=== PATIENT | female | born 1980 | race Caucasian/White ===

== ENCOUNTER 2017-12-15 18:59 | Emergency (ER) | payer MEDICAID, SELFPAY ==
[2017-12-15 19:02] VITALS: BP 122/81; PULSE 120; RESP 18; TEMP 36.9; O2SAT 95; BMI 18.6
[2017-12-15 20:56] LABS: Amphetamine Urine VISTA NEGATIVE (<1000 ng/mL); Barbiturate Urine VISTA NEGATIVE (< 200 ng/mL); Benzodiazepine Urine VISTA NEGATIVE (< 200 ng/mL); Cocaine Urine VISTA NEGATIVE (< 300 ng/mL); Ecstacy Urine VISTA NEGATIVE (< 500 ng/mL); Methadone Urine VISTA NEGATIVE (< 300 ng/mL); PCP Urine VISTA NEGATIVE (< 25 ng/mL); THC Urine VISTA NEGATIVE (< 50 ng/mL); Vista UDS pH Range 6
[2017-12-15 21:00] VITALS: RESP 20
[2017-12-15 22:00] VITALS: RESP 18
--- NOTE | 2017-12-15 22:21 | EKG12_ITS ---
Test Reason : Blood Pressure : / mmHG Vent. Rate : 110 BPM Atrial Rate : 110 BPM P-R Int : 132 ms QRS Dur : 088 ms QT Int : 350 ms P-R-T Axes : 075 089 044 degrees QTc Int : 473 ms Sinus tachycardia Otherwise normal ECG Confirmed by BECKY HAWKINS, CHET ([id number]), publication editor AMIRA GARCIA ([id number] on 12/19/2017 1:00:13 PM Referred By: VLADIMIR Confirmed By:CHET PENA MD
--- NOTE | 2017-12-15 22:34 | ED.VISSUMM ---
- ER Visit Summary Date of Service: 12/15/17 Chief Complaint: [Anxiety, homicidal ideations] History of Present Illness: The patient is a 37 F [presents the emergency department with 1 week of worsening mental status. Over the past 3 days she is not sleeping she is having increasing Hommel thought suicidal thoughts which include torturing people. She says these are certain. People but she does not want to name names. She has decreased eating decreased concentration she is depressed she feels hopeless she has guilt. She denies any suicidal thoughts. She recently was started on venlafaxine 5 days ago. She has a primary care doctor but has not seen him yet. She has a history of PTSD and interstitial cystitis. She is complaining of dental pain that started while she was in the waiting room air. No fevers chills no chest pain or shortness of breath no abdominal pain or skin problems. She does not work she does smoke she denies drugs and alcohol] Physical Examination: [] Heart rate 120 blood pressure 122/81 respiratory rate 2095% on room air WN WD NAD PERRL EOMI MMM Widespread dental decay and gingival hyperemia no focal abscess NECK supple and nontender, no masses Regular tachycardic rhythm no murmur rub or gallop, no peripheral edema, symmetric radial pulses CTAB no respiratory distress ABDOMEN is soft and nontender, normal bowel sounds, no distension, no rebound or guarding SKIN is warm and dry no rashes Alert and Oriented x3, CN II-XII in tact, no motor or sensory deficits, gait normal She has, poor eye contact, endorsing homicidal ideations fidgety and restless No lymphadenopathy Test Results: [] Emergency Department Course and Treatment: [Patient was given oxycodone for dental pain. Clearance labs were obtained and mental health evaluation was ordered. Patient continued to complain of dental pain she was given Tylenol. Mental health went in to evaluate her as screening blood work and tox were normal and she stated she was having blood in her urine and severe right flank pain. She did not ever mention these complaints to me. At that time urinalysis was sent and was consistent with hemorrhagic cystitis. I did do a CT to rule out kidney stone and CT was normal. Patient has a history of interstitial cystitis. Urine culture was sent and she was given IM ceftriaxone. She is medically clear for psychiatric treatment. She will however require antibiotics.] Treatment Plan: [] Disposition: [] Impression: [1. Homicidal ideations 2. Hemorrhagic cystitis] This note was generated with [employer] dictation software. It may contain incorrect words, spelling, and punctuation that were not noted in review of the chart prior to signing ED Disposition - Plan for ED Patient: Chief Complaint: Mental Health Referrals: Phillip Andino MD [Primary Care Provider] -
[2017-12-15 22:48] LABS: Absolute Neutrophil Count 6.4 X10^3/uL (2.0-7.7); Basophil# 0.05 X10^3/uL; Basophil% 0.5 % (0-1); Eosinophil# 0.31 X10^3/uL; Hemoglobin 13.5 g/dl (12.0-15.0); Lymphocyte % 27.9 % (19-41); Mean Corp Hgb Conc 33.8 g/gl (32-36); Mean Corpuscular Volume 91.7 fL (81-99); Mean Platelet Vol. 9.4 fl (6.2-12.0); Monocyte# 0.71 X10^3/uL; Monocyte% 6.8 % (0-10); Neutrophil # 6.41 X10^3/uL (2.7-7.7); Neutrophil % 61.6 % (47-70); Platelet Count 256 K/mm3 (150-450); RBC Distribution Width CV 13.8 % (11.6-14.6); RBC Distribution Width SD 46.6 fl (35.1-43.9); Red Blood Count 4.36 M/mm3 (4.2-5.4); White Blood Count 10.4 K/mm3 (4.4-11.0)
[2017-12-15 22:49] LABS: POSITIVE COUNT NO; POSITIVE DIFFERENTIAL NO; POSITIVE MORPHOLOGY NO
[2017-12-15] MEDS: oxyCODONE 5 MG Tablet PO (22:51)
[2017-12-15 23:00] VITALS: RESP 18
[2017-12-15 23:15] LABS: Alcohol, Blood (Medical)-Serum < 3.0 mg/dL
--- NOTE | 2017-12-15 23:22 | ED.RN ---
Whitney from crisis called and updated on patients condition. She remains at [facility] and will be over as soon possible to see patients
[2017-12-15 23:24] LABS: Anion Gap 10 (5-15); BUN 9 mg/dL (7-18); BUN/Creat Ratio 14.8 RATIO (10-20); Calcium,Total 8.6 mg/dL (8.5-10.1); Chloride 105 mmol/L (98-107); Creatinine, Serum 0.61 mg/dL (0.55-1.02); EST Glomerular Filtration Rate 118 mL/min (>60); Est Glom Filt Rate - Afr Amer 142 mL/min (>60); Estimated Creatinine Clearance 92.79 ml/min; Glucose 90 mg/dL (74-106); Potassium 3.5 mmol/L (3.5-5.1); Pregnancy, Serum, hCG Quali. NEGATIVE Negative (0-9 Nonpreg); Sodium Level 140 mmol/L (136-145); Thyroid Stim Hormone (TSH) 1.86 uIU/mL (0.358-3.74)
[2017-12-16] VITALS (14 sets, daily range): BP systolic 115–126; BP diastolic 70–90; PULSE 61–107; RESP 14–18; O2SAT 95–99
--- NOTE | 2017-12-16 01:23 | ED.RN ---
DR GILBERT MADE AWARE PT ASKING FOR PAIN MED FOR TEETH PAIN.
[2017-12-16] MEDS: Acetaminophen 500 MG Tablet 1000 MG PO (01:33)
--- NOTE | 2017-12-16 04:14 | CT_ITS ---
STUDY: CT ABDOMEN AND PELVIS WITHOUT CONTRAST REASON FOR EXAM: Female, 37 years old. Decreased appetite. Hematuria RADIATION DOSAGE (If Supplied By Facility): CTDIvol = ( 6.04 ) mGy, DLP = ( 270.28 ) mGycm TECHNIQUE: Transaxial images were obtained from the dome of the diaphragm to the symphysis pubis without oral contrast, and without intravenous contrast. Sagittal and coronal images were reconstructed. Individualized dose optimization techniques were used for this CT. COMPARISON: None. FINDINGS: The visualized lung bases are unremarkable. The visualized portions of the heart are within normal limits. Normal liver. Normal gallbladder and extrahepatic biliary system. Normal spleen. Normal pancreas. Normal bilateral adrenal glands. Normal right kidney. Normal left kidney. Normal visualized stomach. Normal small intestine. Normal colon. The appendix is visualized and appears normal. Normal abdominal aorta. Normal inferior vena cava. Normal retroperitoneum. Normal urinary bladder. Normal abdominal wall. Normal osseous structures. CT/Abdomen/Pelvis without Cont IMPRESSION: Normal unenhanced CT of the abdomen and pelvis. No acute findings Electronically Signed: Tj Mendoza, at 4:54 EST Tel , Service support ,
[2017-12-16 04:23] LABS: Bacteria 0 SEEN /hpf (None Seen)
[2017-12-16 04:25] LABS: Color, Urine Brown (Yellow); Glucose, Dipstick Normal (Normal); Ketone-Dipstick 15 mg/dl (Negative); Leukocyte Esterase-Dipstick 500 /ul (Negative); Nitrite-Dipstick Negative (Negative); Occult Blood-Urine 250 /ul (Negative); Protein-Dipstick 100 mg/dl (Negative); Specific Gravity, Urine 1.025 (1.002-1.030); Urine Clarity Turbid (Clear); Urine Urobilinogen 1 mg/dl (Normal); Urine pH 6.5 (5.0 - 8.0)
[2017-12-16 04:38] LABS: Urine Bilirubin Dipstick 1 mg/dL (Negative)
[2017-12-16 04:39] LABS: Mucous, Urine 1+ /hpf (<or=2+); Red Blood Cells-Urine > 100 SEEN /hpf (0-5); Squamous Epithelial Cells - UA 5-10 SEEN /hpf (5-10); White Blood Cells 50-100 SEEN /hpf (0-5)
[2017-12-16] MEDS: Ceftriaxone 1 GM Vial IM (05:21)
[2017-12-16] MEDS: oxyCODONE 5 MG Tablet PO (07:00)
[2017-12-16] MEDS: Acetaminophen 325 MG Tablet 650 MG PO (10:57)
== END 2017-12-16 13:45 ==
LOC: ED 23:15
PROVIDERS: Emergency Provider Emergency Medicine; Family Provider Family Medicine; PCP Family Medicine
DX: N30.91 Cystitis, unspecified with hematuria (principal); R45.850 Homicidal ideations; K02.9 Dental caries, unspecified; K08.89 Other specified disorders of teeth and supporting structures; F43.10 Post-traumatic stress disorder, unspecified; X58.XXXA Exposure to other specified factors, initial encounter; Y93.9 Activity, unspecified; Y92.9 Unspecified place or not applicable; Y99.9 Unspecified external cause status; F17.200 Nicotine dependence, unspecified, uncomplicated; Z79.899 Other long term (current) drug therapy
CPT/HCPCS: 36415; 74176; 80048; 80307; 80320; 81001; 84443; 84703; 85025; 87086; 87088; 87186; 93005; 96372; 99284; G0480

== ENCOUNTER 2017-12-31 12:14 | Emergency (ER) | payer MEDICAID, SELFPAY ==
[2017-12-31 12:15] VITALS: BP 138/86; PULSE 101; RESP 16; TEMP 36.4; O2SAT 97; BMI 19.0
--- NOTE | 2017-12-31 12:49 | ED.DCSUM_ITS ---
- ER Visit Summary Date of Service: 12/31/17 Chief Complaint: [Request for medication refill] History of Present Illness: The patient is a 37 F [presents to the emergency department stating that she took her last Ativan tablet this morning and was told by the counseling center to come to the ER potentially be written for more as her appointment with her psychiatrist is not till the 16th of the month. Patient apparently was admitted to [facility] several weeks ago for homicidal thoughts in which time when she was discharged was written a prescription for 60 Ativan tablets on the which was supposed to be a 30 day supply. Patient states that her anxiety has been very high and she is been taking 3-4 tablets a day instead of the 2 tablets a day. Patient also states she was started on Cymbalta prior to discharge. Patient denies being suicidal or homicidal at this time. Patient also has a history of depression and PTSD.] Physical Examination: [HEENT-PERRLA, EOMI. Cranial nerves II through XII grossly intact. TMs clear. Mucous membranes moist. No adenopathy. Cardiovascular-regular rate and rhythm without murmur or ectopy Lungs-clear to auscultation, chest wall stable without crepitus or subcu emphysema Abdomen-normoactive bowel sounds, soft, nontender, no rebound or rigidity, no peritoneal signs. Extremities-intact ?4, normal range of motion, normal pulses, atraumatic] Test Results: [None indicated] Emergency Department Course and Treatment: [I did perform an OARS report showed that patient had a prescription for lorazepam 1 mg tablets written for on December 21. In October she was written a prescription for Valium 10 mg tablets total of 14. Patient otherwise has not been on chronic benzodiazepine medication. I had a long discussion with the patient regarding appropriate use of the medication and she understands that we do not want to abruptly discontinue benzodiazepines due to the risk of seizure. Patient also understands that there is a possibility for addiction with these type of medications. At this point I will write her for a small supply and recommended that she only use them sparingly at no more than 1-2 a day and I asked that she follow-up with her psychiatrist sooner than the 16th if at all possible.] Treatment Plan: [She will be given prescription for Ativan 20 tablets.] Disposition: [Discharged to home in stable condition] Impression: [Anxiety Medication refill for Ativan] This note was generated with [employer]aculous dictation software. It may contain incorrect words, spelling, and punctuation that were not noted in review of the chart prior to signing ED Disposition - Plan for ED Patient: Chief Complaint: Med Refill Referrals: Phillip Andino MD [Primary Care Provider] -
--- NOTE | 2017-12-31 12:50 | ED.DEP ---
ED Disposition - Plan for ED Patient: Chief Complaint: Med Refill Instructions: Med Refill, ED Stress React Prescriptions: Lorazepam [Ativan] 1 mg PO BID PRN #20 tab PRN Reason: Anxiety Referrals: Phillip Andino MD [Primary Care Provider] - 3-5 Days Additional Instructions: see your psychiatrist
== END 2017-12-31 12:57 | disposition home or self-care (01) ==
LOC: ED 12:51
PROVIDERS: Emergency Provider Emergency Medicine; Family Provider Family Medicine; PCP Family Medicine
DX: F41.9 Anxiety disorder, unspecified (principal); Z76.0 Encounter for issue of repeat prescription; F32.9 Major depressive disorder, single episode, unspecified; F43.10 Post-traumatic stress disorder, unspecified; X58.XXXA Exposure to other specified factors, initial encounter; Y93.9 Activity, unspecified; Y92.9 Unspecified place or not applicable; Y99.9 Unspecified external cause status; J45.909 Unspecified asthma, uncomplicated; Z72.0 Tobacco use; Z79.899 Other long term (current) drug therapy
CPT/HCPCS: 99282

== ENCOUNTER 2018-01-08 05:49 | Emergency (ER) | payer MEDICAID, SELFPAY ==
[2018-01-08 05:50] VITALS: BP 121/98; PULSE 110; RESP 18; TEMP 36.6; O2SAT 99; BMI 17.6
--- NOTE | 2018-01-08 05:57 | CT_ITS ---
STUDY: CT ABDOMEN AND PELVIS WITHOUT CONTRAST REASON FOR EXAM: Female, 37 years old. Right flank pain for 2 days. RADIATION DOSAGE (If Supplied By Facility): CTDIvol = ( 6.04 ) mGy, DLP = ( 271.80 ) mGycm TECHNIQUE: Transaxial images were obtained from the dome of the diaphragm to the symphysis pubis without oral contrast, and without intravenous contrast. Sagittal and coronal images were reconstructed. Individualized dose optimization techniques were used for this CT. COMPARISON: December 16, 2017. FINDINGS: The visualized lung bases are unremarkable. The visualized portions of the heart are within normal limits. Normal liver. Normal gallbladder and extrahepatic biliary system. Normal spleen. Normal pancreas. Normal bilateral adrenal glands. Normal right kidney. Normal left kidney. Normal visualized stomach. Normal small intestine. Normal colon. The appendix is well visualized coronal images 45 through 47 and appears normal. Normal abdominal aorta. Normal inferior vena cava. Normal retroperitoneum. No intra-abdominal free air. Normal urinary bladder. Uterus absent compatible with hysterectomy. No adnexal masses seen. Normal abdominal wall. Normal osseous structures. CT/Abdomen/Pelvis without Cont IMPRESSION: No acute findings in the abdomen or pelvis. No hydronephrosis or urinary tract stones. Appendix is normal. Electronically Signed: Marco Kimbrough MD at 7:23 EDT , Service support ,
--- NOTE | 2018-01-08 05:58 | ED.VISSUMM ---
- ER Visit Summary Date of Service: 01/08/18 Chief Complaint: Right lower quadrant and right flank abdominal pain History of Present Illness: The patient is a 37 F with a 2 day history of right lower quadrant and right flank abdominal pain. Denies any trauma. Denies any fever. Denies any dysuria. Reportedly has a history of interstitial cystitis. And anxiety. She has had a prior hysterectomy with her right ovary removed. She denies any vaginal bleeding or discharge. Patient states she has been moving her bowels and peeing okay. No prior history of kidney stones. Physical Examination: Young female no distress. Vital signs are stable and afebrile. HEENT exam unremarkable. Neck nontender no lymphadenopathy. Lungs clear to auscultation bilaterally. Heart regular rhythm no murmur. Abdomen is soft. Nondistended. Normal bowel sounds. No hernias or masses appreciated. No distention no signs of obstruction. She is only tender in the right lower quadrant. There is no ecchymosis or bruising no signs of trauma. Both the right upper, left upper and left lower quadrants are all nontender. She is moving all 4 extremities. They are neurovascularly intact. Her neurologic exam is normal. Her back exam is nontender. Test Results: CBC shows a white count of 10. H&H of 13 and 40. BMP is unremarkable. UA is normal. She has no signs of infection nor any blood. CT flank is read by the radiologist shows no acute abnormality. The appendix is normal. There are no kidney stones or other acute abnormalities that would explain her pain. Emergency Department Course and Treatment: Treated with IV fluids, Zofran and morphine. Treatment Plan: Multiple repeat exams. The patient's abdomen was benign. Clinically I do not think this is very unlikely to be appendicitis. Depending on the pending labs disposition will be made. Disposition: Discharge Impression: Acute right flank and right lower quadrant abdominal pain of uncertain etiology This note was generated with [employer] dictation software. It may contain incorrect words, spelling, and punctuation that were not noted in review of the chart prior to signing ED Disposition - Plan for ED Patient: Chief Complaint: Flank Pain Referrals: Phillip Andino MD [Primary Care Provider] -
[2018-01-08 06:14] LABS: Absolute Neutrophil Count 6.8 X10^3/uL (2.0-7.7); Basophil# 0.06 X10^3/uL; Basophil% 0.6 % (0-1); Eosinophil# 0.55 X10^3/uL; Eosinophils% 5.1 % (0-5); Hematocrit 40.6 % (37-47); Hemoglobin 13.8 g/dl (12.0-15.0); Lymphocyte % 22.3 % (19-41); Mean Corpuscular Hgb 31.4 pg (27.0-32.0); Mean Corpuscular Volume 92.3 fL (81-99); Mean Platelet Vol. 9.8 fl (6.2-12.0); Monocyte# 0.89 X10^3/uL; Monocyte% 8.3 % (0-10); Neutrophil # 6.84 X10^3/uL (2.7-7.7); Neutrophil % 63.5 % (47-70); POSITIVE COUNT NO; POSITIVE DIFFERENTIAL NO; POSITIVE MORPHOLOGY NO; Platelet Count 296 K/mm3 (150-450); RBC Distribution Width CV 13.1 % (11.6-14.6); RBC Distribution Width SD 43.6 fl (35.1-43.9); White Blood Count 10.8 K/mm3 (4.4-11.0)
[2018-01-08 06:26] LABS: Anion Gap 8 (5-15); BUN 9 mg/dL (7-18); BUN/Creat Ratio 12.4 RATIO (10-20); Calcium,Total 8.9 mg/dL (8.5-10.1); Chloride 105 mmol/L (98-107); Creatinine, Serum 0.72 mg/dL (0.55-1.02); EST Glomerular Filtration Rate 96 mL/min (>60); Est Glom Filt Rate - Afr Amer 117 mL/min (>60); Estimated Creatinine Clearance 74.35 ml/min; Glucose 106 mg/dL (74-106); Potassium 3.6 mmol/L (3.5-5.1); Sodium Level 141 mmol/L (136-145)
[2018-01-08] MEDS: 0.9% Normal Saline 1,000 ML 1000 ML IV (06:26)
[2018-01-08] MEDS: Ondansetron 4 MG/2 ML Vial IV (06:27)
[2018-01-08 07:07] LABS: Bacteria 0 SEEN /hpf (None Seen); Mucous, Urine 0 SEEN /hpf (<or=2+); Red Blood Cells-Urine 0 SEEN /hpf (0-5); White Blood Cells 0 SEEN /hpf (0-5)
[2018-01-08 07:12] LABS: Color, Urine Yellow (Yellow); Glucose, Dipstick Normal (Normal); Ketone-Dipstick Negative (Negative); Leukocyte Esterase-Dipstick Negative /ul (Negative); Nitrite-Dipstick Negative (Negative); Occult Blood-Urine Negative /ul (Negative); Protein-Dipstick Negative (Negative); Urine Bilirubin Dipstick Negative (Negative); Urine Clarity Clear (Clear); Urine Urobilinogen Normal (Normal)
[2018-01-08 07:21] LABS: Squamous Epithelial Cells - UA 0-5 SEEN /hpf (5-10)
--- NOTE | 2018-01-08 07:31 | ED.DEP ---
ED Disposition - Plan for ED Patient: Disposition: Home or Assisted Living Chief Complaint: Flank Pain Instructions: ED Flank Pain Uncertain Cause Referrals: Phillip Andino MD [Primary Care Provider] - As soon as possible Additional Instructions: Your labs, urinalysis and CAT scan were all unremarkable. Need follow-up your primary care physician.
== END 2018-01-08 07:49 | disposition home or self-care (01) ==
PROVIDERS: Emergency Provider Emergency Medicine; Family Provider Family Medicine; PCP Family Medicine
DX: R10.31 Right lower quadrant pain (principal); R19.7 Diarrhea, unspecified; R11.0 Nausea; F32.9 Major depressive disorder, single episode, unspecified; F41.9 Anxiety disorder, unspecified; Z72.0 Tobacco use; Z79.899 Other long term (current) drug therapy; Z87.440 Personal history of urinary (tract) infections; Z90.710 Acquired absence of both cervix and uterus
CPT/HCPCS: 74176; 80048; 81001; 85025; 96361; 96374; 96375; 99285; J7030; A4216; J2405

== ENCOUNTER → 2018-01-12 14:14 | Outpatient (CLI) | payer MEDICAID, SELFPAY ==
[2018-01-12 16:32] LABS: Amphetamine Urine VISTA NEGATIVE (<1000 ng/mL); Barbiturate Urine VISTA NEGATIVE (< 200 ng/mL); Benzodiazepine Urine VISTA NEGATIVE (< 200 ng/mL); Cocaine Urine VISTA NEGATIVE (< 300 ng/mL); Ecstacy Urine VISTA NEGATIVE (< 500 ng/mL); Methadone Urine VISTA NEGATIVE (< 300 ng/mL); PCP Urine VISTA NEGATIVE (< 25 ng/mL); THC Urine VISTA NEGATIVE (< 50 ng/mL); Vista UDS pH Range 5
== END ==
PROVIDERS: Family Provider Family Medicine; PCP Family Medicine; Visit Provider Obstetrics & Gynecology
DX: F19.10 Other psychoactive substance abuse, uncomplicated (principal)
CPT/HCPCS: 80307

== ENCOUNTER 2018-01-30 13:03 | Emergency (ER) | payer MEDICAID, SELFPAY ==
[2018-01-30] VITALS (7 sets, daily range): BP systolic 108–117; BP diastolic 74–93; PULSE 14–116; RESP 14–18; TEMP 36.7; O2SAT 97–98; BMI 17.6
[2018-01-30 13:56] LABS: Mucous, Urine 0 SEEN /hpf (<or=2+); Red Blood Cells-Urine 0 SEEN /hpf (0-5)
[2018-01-30 14:02] LABS: Absolute Neutrophil Count 4.9 X10^3/uL (2.0-7.7); Basophil# 0.03 X10^3/uL; Basophil% 0.4 % (0-1); Eosinophil# 0.36 X10^3/uL; Eosinophils% 5.3 % (0-5); Hematocrit 43.4 % (37-47); Hemoglobin 14.6 g/dl (12.0-15.0); Lymphocyte % 17.5 % (19-41); Mean Corp Hgb Conc 33.6 g/gl (32-36); Mean Corpuscular Hgb 31.1 pg (27.0-32.0); Mean Corpuscular Volume 92.5 fL (81-99); Mean Platelet Vol. 10.7 fl (6.2-12.0); Monocyte# 0.39 X10^3/uL; Monocyte% 5.7 % (0-10); Neutrophil # 4.86 X10^3/uL (2.7-7.7); POSITIVE COUNT NO; POSITIVE DIFFERENTIAL NO; POSITIVE MORPHOLOGY NO; Platelet Count 177 K/mm3 (150-450); RBC Distribution Width CV 12.9 % (11.6-14.6); Red Blood Count 4.69 M/mm3 (4.2-5.4); White Blood Count 6.9 K/mm3 (4.4-11.0)
[2018-01-30 14:04] LABS: Color, Urine Yellow (Yellow); Glucose, Dipstick Normal (Normal); Ketone-Dipstick Negative (Negative); Leukocyte Esterase-Dipstick 25 /ul (Negative); Nitrite-Dipstick Negative (Negative); Occult Blood-Urine 10 /ul (Negative); Protein-Dipstick 30 mg/dl (Negative); Urine Bilirubin Dipstick Negative (Negative); Urine Clarity Sl. Cloudy (Clear); Urine Urobilinogen Normal (Normal)
[2018-01-30 14:08] LABS: Amphetamine Urine VISTA NEGATIVE (<1000 ng/mL); Barbiturate Urine VISTA NEGATIVE (< 200 ng/mL); Benzodiazepine Urine VISTA NEGATIVE (< 200 ng/mL); Cocaine Urine VISTA NEGATIVE (< 300 ng/mL); Ecstacy Urine VISTA NEGATIVE (< 500 ng/mL); Methadone Urine VISTA NEGATIVE (< 300 ng/mL); PCP Urine VISTA NEGATIVE (< 25 ng/mL); THC Urine VISTA NEGATIVE (< 50 ng/mL); Vista UDS pH Range 5
[2018-01-30 14:10] LABS: Alcohol, Blood (Medical)-Serum < 3.0 mg/dL
[2018-01-30 14:14] LABS: Bacteria RARE /hpf (None Seen); Squamous Epithelial Cells - UA 5-10 SEEN /hpf (5-10); White Blood Cells 5-10 SEEN /hpf (0-5)
[2018-01-30 14:16] LABS: BUN 11 mg/dL (7-18); Creatinine, Serum 0.67 mg/dL (0.55-1.02); Glucose 89 mg/dL (74-106)
[2018-01-30 14:17] LABS: Anion Gap 5 (5-15); BUN/Creat Ratio 16.5 RATIO (10-20); Calcium,Total 8.6 mg/dL (8.5-10.1); Chloride 110 mmol/L (98-107); EST Glomerular Filtration Rate 106 mL/min (>60); Est Glom Filt Rate - Afr Amer 128 mL/min (>60); Estimated Creatinine Clearance 80.45 ml/min; Potassium 4.1 mmol/L (3.5-5.1); Sodium Level 137 mmol/L (136-145)
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
[2018-01-30] MEDS: LORazepam 1 MG Tablet PO (17:00)
--- NOTE | 2018-01-30 17:09 | ED.RN ---
PER DONNY WITH CRISIS; ALL INFORMATION WAS FAXED TO [facility], WE ARE WAITING ON ACCEPTANCE FROM THEM
--- NOTE | 2018-01-30 18:06 | ED.RN ---
SPOKE WITH LORRI AT THE [facility] CALLED US AND SAID THAT ALL THE INFORMATION THAT WAS FAXED IT ALL LOOKED GOOD AND THAT THE FABRIC AND ACCESSORIES ESTIMATOR NEEDED TO CALL AND SPEAK WITH THE PSYCHIATRIST @ [phone]. AFTER THAT CRISIS IS TO CALL [phone] AND SPEAK WITH FLETCHER TO RELAY THE INFORMATION TO HER
--- NOTE | 2018-01-30 21:49 | ED.RN ---
[facility] HERE FOR TRANSPORT TO [facility]. REPORT GIVEN AND PATIENT UNDER OWN POWER TO TRANSPORT STRETCHER WITHOUT INCIDENT.
== END 2018-01-30 21:49 ==
PROVIDERS: Emergency Provider Emergency Medicine; Family Provider Family Medicine; PCP Family Medicine
DX: F32.9 Major depressive disorder, single episode, unspecified (principal); R45.851 Suicidal ideations; T22.231A Burn of second degree of right upper arm, initial encounter; X76.XXXA Intentional self-harm by smoke, fire and flames, initial encounter; Y93.9 Activity, unspecified; Y92.9 Unspecified place or not applicable; Y99.9 Unspecified external cause status; S51.812A Laceration without foreign body of left forearm, initial encounter; X78.1XXA Intentional self-harm by knife, initial encounter; J45.909 Unspecified asthma, uncomplicated; F41.9 Anxiety disorder, unspecified; Z72.0 Tobacco use; Z90.710 Acquired absence of both cervix and uterus; Z79.899 Other long term (current) drug therapy
CPT/HCPCS: 36415; 80048; 80307; 80320; 81001; 85025; 99284; G0480

== ENCOUNTER 2018-03-23 11:13 | Day surgery (SDC) | payer MEDICAID, SELFPAY ==
[2018-03-22 16:14] LABS: Absolute Lymphocyte Count 2.49 X10^3/ul (0.83-4.51); Absolute Neutrophil Count 5.5 X10^3/uL (2.0-7.7); Basophil# 0.05 X10^3/uL; Basophil% 0.6 % (0-1); Eosinophil# 0.28 X10^3/uL; Eosinophils% 3.1 % (0-5); Hematocrit 40.1 % (37-47); Hemoglobin 13.7 g/dl (12.0-15.0); Lymphocyte # 2.49 X10^3/ul (4.0); Lymphocyte % 27.9 % (19-41); Mean Corp Hgb Conc 34.2 g/gl (32-36); Mean Corpuscular Hgb 31.2 pg (27.0-32.0); Mean Corpuscular Volume 91.3 fL (81-99); Mean Platelet Vol. 9.6 fl (6.2-12.0); Monocyte# 0.55 X10^3/uL; Monocyte% 6.2 % (0-10); Neutrophil # 5.54 X10^3/uL (2.7-7.7); Neutrophil % 61.9 % (47-70); Platelet Count 362 K/mm3 (150-450); RBC Distribution Width CV 13.4 % (11.6-14.6); RBC Distribution Width SD 44.7 fl (35.1-43.9); Red Blood Count 4.39 M/mm3 (4.2-5.4); White Blood Count 8.9 K/mm3 (4.4-11.0)
[2018-03-22 16:17] LABS: POSITIVE COUNT NO; POSITIVE DIFFERENTIAL NO; POSITIVE MORPHOLOGY NO
[2018-03-22 17:09] LABS: Amphetamine Urine VISTA NEGATIVE (<1000 ng/mL); Barbiturate Urine VISTA NEGATIVE (< 200 ng/mL); Benzodiazepine Urine VISTA NEGATIVE (< 200 ng/mL); Cocaine Urine VISTA NEGATIVE (< 300 ng/mL); Ecstacy Urine VISTA NEGATIVE (< 500 ng/mL); Methadone Urine VISTA NEGATIVE (< 300 ng/mL); PCP Urine VISTA NEGATIVE (< 25 ng/mL); THC Urine VISTA NEGATIVE (< 50 ng/mL); Vista UDS pH Range 5
[2018-03-23] VITALS (10 sets, daily range): BP systolic 93–129; BP diastolic 52–87; PULSE 64–108; RESP 14–20; TEMP 36.8–37.2; O2SAT 95–100; BMI 18.8
--- NOTE | 2018-03-23 | OV_PTH ---
PATIENT: MIA VILLAFUERTE LOC: [facility] [place] U#:[id number] AGE/SX: 37/F ROOM: RE03/23/[address]: Dr. Almaz Jimenez MD : 1980 BED: DIS: 03/23/2018 SPEC #: [id number] RECD: 03/24/18 13:18 STATUS: GANESH CARO #: [id number] FAMILIA: 03/23/18 00:[address]: Almaz Jimenez DEPT: SURGICAL PATHOLOGY RECD BY: Ankit Tovar ENTERED: 03/24/18 13:18 SP TYPE: OVARY OTHR DR: Dr. Phillip Andino MD Tissues: Right ovary Procedures: Surgery Specimen Level IV HEADER OPERATION: Laparoscopic oophorectomy PRE-OP DIAGNOSIS: Chronic pelvic pain TISSUE SUBMITTED: Right ovary MICROSCOPIC DIAGNOSIS Right ovary, oophorectomy: Physiologic follicular and corpus luteum cysts. SJ:jorge 03/28/18 MICROSCOPIC DESCRIPTION Slides are reviewed. GROSS DESCRIPTION Received in fixative is one container labeled with the patient's name and designated right ovary. The specimen consists of a soft to cystic ovary measuring 3.8 x 3 x 2 cm and weighing 9.5 gm. The outer surface is smooth. Sections reveal multiple cysts filled with clear to hemorrhagic fluid. A corpus luteum is also noted measuring 1.5 cm in greatest dimension. A hemorrhagic cyst is also noted measuring 1 cm in greatest dimension. Contracts Law Professor sections are submitted in three cassettes. / SJ:jorge 03/24/18 TC:4 CPT: 74305
--- NOTE | 2018-03-23 09:55 | PCM.HPOB.BLA ---
- Problem List (1) Chronic female pelvic pain Status: Chronic (2) Ovarian cyst Status: Acute Qualifiers: Comment: right side- ER Santhosh Nichole 01/09/18 (3) Abdominal pain Status: Acute History and Physical Date of Admission: 03/23/18 Vital Signs 01/10/18 Height 5 ft 2 in 01/10/18 Weight: 102 lb 01/10/18 Body Mass Index (BMI) 18.6 01/10/18 Blood Pressure 110/73 Intake Visit Reasons: ER F/U CYST ON OVARY Program Coordinator Required: No Accompanied by: Is patient in pain?: Yes (abdominal area) Pain scale (1-10): 5 Allergies adhesive Allergy (Verified 01/08/18 05:52) Itching latex Allergy (Verified 01/08/18 05:52) Itching vancomycin Allergy (Verified 01/08/18 05:52) Itching aspirin Adverse Reaction (Verified 01/08/18 05:52) Other codeine Adverse Reaction (Verified 01/08/18 05:52) Other naproxen Adverse Reaction (Verified 01/08/18 05:52) Unknown NSAIDS (Non-Steroidal Anti-Inflamma Adverse Reaction (Verified 01/08/18 05:52) Unknown tramadol HCl [From Ultra] Adverse Reaction (Verified 01/08/18 05:52) Other Medications Venlafaxine XR [Effexor Xr] 37.5 mg PO DAILY 12/15/17 [History Confirmed 01/08/18] Lorazepam [Ativan] 1 mg PO BID PRN #20 tab 12/31/17 [Rx Confirmed 01/08/18] oxycodone-acetaminophen 5 mg-325 mg tablet 1 tab PO Q4H PRN 7 Days #14 tab 01/12/18 [Rx] Is last menstrual period known: Yes Last Menstral Period: 03/28/12 PFSH Medical History Asthma (Acute) Interstitial cystitis (Acute) Tubal (Acute) Surgical History H/O exploratory laparotomy (Acute) History of hysterectomy (Acute) History of left oophorectomy (Acute) history of ankle surgery (Acute) lump removal right breast (Acute) Family History Mother Cancer Grandmother Cancer Social History Smoking Status: Current every day smoker second hand exposure: Yes alcohol intake: never what type of physical activity do you participate in: none HPI ER F/U CYST ON OVARY : Details: MIA JARAMILLO is a 37 year old who presents for follow up of ovarian cyst. she has had chronic ovulatory pain and recurrent hemorrhagic cysts that interfere with quality of life. She is having intermittent lower pelvic pain with the current cyst and wants to discuss oophorectomy. she has requested this in the past but I recommended she wait due to her young age. She has a history of chronic pelvic pain and has had a hysterectomy and oophorectomy in the past. she denies any vaginal bleeding. Female Reproductive History Last Menstral Period: 03/28/12 Questions: Sexually active: Yes, Dyspareunia: Yes, PCB: No Pregancy History 1 Elective abortions Hx Para 0 Spontaneous abortions Hx # Term Pregnancies Ectopic pregnancies Hx # Pregnancies Multiple births # of living children ROS Const Constitutional: Denies poor appetite, headache(s), fever(s), increased appetite, weight gain, weight loss or fatigue Cardio Card: Denies chest pain Resp Resp: Denies dyspnea or cough GI GI: Reports as per HPI; denies vomiting, nausea, abdominal pain or constipation : Reports as per HPI; denies urinary urgency, vaginal discharge, urinary frequency, vaginal itching, vaginal odor, vaginal dryness, urinary incontinence, urinary hesitancy, difficulty urinating, painful urination or nipple discharge Skin Skin/Breast: Denies breast lump, breast pain, breast skin changes, nipple discharge or change in hair Exam Const General: cooperative, healthy appearing, comfortable, no acute distress, well developed Nutritional Appearance: average body habitus Orientation: alert HENME Head: normal to inspection, normocephalic Neck Neck: normal visual inspection, trachea midline Thyroid: thyroid normal Resp Effort & Inspection: normal respiratory effort GI Inspection: normal to inspection, non-distended Palpation: soft, no hepatosplenomegaly Skin General: no rashes or lesions noted Assessment & Plan Problems 1. Cyst of right ovary N83.201 right side- ER Santhosh Nichole 01/09/18 2. Chronic female pelvic pain R10.2; G89.29 Plan discussed at length with patient options of ovarian suppression and intermittent pain medication versus oophorectomy. patient wishes to proceed with oophorectomy. It was discussed the risks of early menopause including shortened life span, increased risk for heart disease and bone loss. I will recommend immediate placement on HRT postoperatively to reduce the risks of these complications and the patient agrees. I discussed the risks of laparoscopy including bleeding infection anesthesia damage to surrounding structures and risk of needing to open. proceed with laparoscopic oophorectomy. small amount of narcotic prescribed after a tox screen was positive for just narcotics which she received from the ER Coding Level of Care Code Off vis,est,level 4 Diagnoses Cyst of right ovary N83.201 Laterality: right Chronic female pelvic pain R10.2; G89.29 i have seen the patient and made any clinically relevant updates to the h and p
--- NOTE | 2018-03-23 13:01 | PCM.OPRPT ---
Problem List (1) Chronic female pelvic pain Status: Chronic (2) Ovarian cyst Status: Acute Qualifiers: Comment: right side- ER Santhosh Nichole 01/09/18 (3) Abdominal pain Status: Acute Report of Operation Date of Procedure: 03/23/18 Pre-Operative Diagnosis: pelvic pain ovarian cysts Post-Operative Diagnosis: same Surgery/Procedure Performed:: laparoscopic right oophorectomy adhesiolysis Description of Surgical Findings:: left sigmoid to pelvic side wall adhesions and ovarian to side wall adhesions captain assistant: Flora Burr Type of Anesthesia:: General Specimen's removed: right ovary Drains: pate Estimated Blood Loss (mL): minimal Fluids Replaced: crystalloid Description of Procedure: Patient was taken in the operating room and was placed under general anesthesia was prepped and draped in normal sterile fashion in the dorsal lithotomy position. Bladder was drained of clear urine and SCDs were on preoperatively. Uterus was sounded and a uterine manipulator was placed after dilating. Attention was then paid to the abdominal portion of the procedure and the umbilicus was elevated with towel clamps and injected with Marcaine and after a 5 mm incision was made and the Veress needle was entered into the abdomen confirmed to be intra-abdominal with a low opening pressure of less than 5 mmHg. Abdomen was insufflated with CO2 gas and a 5 mm optical trocar was placed under direct visualization. A right and left lower quadrant 5 mm port were placed under direct visualization. right ovary was adherent to the pelvic side wall and the adhesions were taken down sharply and the ovary dissected away and then the IP ligament was transected with the ligasure device. extensive sigmoid to left pelvic side wall adhesions were noted and taken down progressively with sharp, blunt, and hydrodissection. Excellent hemostasis was noted. ovary was removed through the umbilical incision and the fascia closed at this site with 0 vicryl. Liver and upper abdomen were visualized notably within normal limits and no other gross abnormalities were seen in the abdomen. All instruments removed from the abdomen after gas was desufflated. Port sites were closed with 3-0 Monocryl Steri's and op sites were applied. All instruments removed from the vagina and patient was awoken and taken recovery in stable condition. Grafts/Implants Used: interceed - Complications none - Admit VTE Documentation VTE Present on Admission: No VTE Mechan Device Prophylaxis: SCD's
--- NOTE | 2018-03-23 13:08 | PCM.DC.TUB ---
Discharge Diet: No Restrictions - Increase fluid intake for the next 48 hours. Discharge Activity: Return to Normal Activity, May Drive - when you are no longer taking narcotic pain medications., May Shower, May Take a Tub Bath - in 7 days Additional Activity Instructions:: Ambulate often the next week after surgery. Nothing in the vagina for 5 days. Call your doctor if your incision/area has: Continuous Slow Oozing, Sudden Increased Bleeding, Increased Pain/ Swelling, Increased Redness, Foul Smelling Discharge Call your doctor if you observe: Fever of 101 or Higher Allergies/Adverse Reactions: Allergies adhesive Allergy (Verified 03/22/18 11:14) Itching latex Allergy (Verified 03/22/18 11:14) Itching vancomycin Allergy (Verified 03/22/18 11:14) Itching aspirin Adverse Reaction (Verified 03/22/18 11:14) Other codeine Adverse Reaction (Verified 03/22/18 11:14) Other naproxen Adverse Reaction (Verified 03/22/18 11:14) Unknown NSAIDS (Non-Steroidal Anti-Inflamma Adverse Reaction (Verified 03/22/18 11:14) Unknown Medications to take at Discharge Mirtazapine [Remeron] 7.5 mg PO QHS 01/30/18 Quetiapine Fumarate [Seroquel] 100 mg PO DAILY 03/22/18 Venlafaxine XR [Effexor Xr] 150 mg PO DAILY 03/22/18 Oxycodone HCl/Acetaminophen [Percocet 5-325] 2 tablet PO Q4H PRN PRN 7 Days #28 tablet 03/23/18 The following prescriptions were given: Oxycodone HCl/Acetaminophen [Percocet 5-325] 2 tablet PO Q4H PRN PRN 7 Days #28 tablet PRN Reason: Moderate-Severe pain Primary Care Physician: Phillip Andino MD [Primary Care Provider] - Please Follow Up With: Almaz Jimenez MD - [phone] When: 2-3 weeks
[2018-03-23] MEDS: Bupivacaine 0.25% 30 ML Vial (13:28)
[2018-03-23] MEDS: HYDROcodone Bitartrate/Apap 5/325 Tablet PO (17:22)
== END 2018-03-23 17:42 | disposition home or self-care (01) ==
LOC: SDC 11:15 → AC 11:16
PROVIDERS: Family Provider Family Medicine; PCP Family Medicine; Visit Provider Obstetrics & Gynecology
PROC: (CPT 58720; principal; 2018-03-23 12:45)
DX: N83.201 Unspecified ovarian cyst, right side (principal); N73.6 Female pelvic peritoneal adhesions (postinfective); R10.2 Pelvic and perineal pain; G89.29 Other chronic pain; J45.909 Unspecified asthma, uncomplicated; F32.9 Major depressive disorder, single episode, unspecified; F41.9 Anxiety disorder, unspecified; F17.200 Nicotine dependence, unspecified, uncomplicated; Z79.899 Other long term (current) drug therapy; Z90.710 Acquired absence of both cervix and uterus
CPT/HCPCS: 00840; 58661; 36415; 80307; 85025; 86850; 86900; 88305; J7120; J2405

== ENCOUNTER 2018-09-28 14:30 | Emergency (ER) | payer MEDICAID, SELFPAY ==
[2018-09-28 14:32] VITALS: BP 127/77; PULSE 118; RESP 18; TEMP 37.2; O2SAT 96; BMI 21.9
--- NOTE | 2018-09-28 14:55 | RAD_ITS ---
STUDY: X-RAY - LEFT HIP REASON FOR EXAM: Female, 38 years old. Pain following a fall. TECHNIQUE: 2 views of the hip. COMPARISON: Comparison is made with prior study dated October 26, 2013. FINDINGS: Normal femoral head, neck, intertrochanteric region and visualized proximal femur. Normal acetabulum. Normal hip joint. Normal visualized superior and inferior pubic rami and ischial tuberosities. Calcified phleboliths. RAD/HIP, UNI W/ Pelvis 2-3 Views IMPRESSION: Normal x-ray examination of the hip. Electronically Signed: Lj Wolfe MD at 15:11 EST Tel [phone], Service support ,
--- NOTE | 2018-09-28 14:59 | ED.VISSUMM ---
- ER Visit Summary Date of Service: 09/28/18 Chief Complaint: Left hip pain History of Present Illness: The patient is a 38 F who states that earlier today she slipped on some ice and landed on her left hip. She denies any other injuries. She has been able to ambulate though painfully. She has pain with range of motion. No breaks in the skin. She denies any arm symptoms. She denies striking her head or have any neck or back pain. Physical Examination: Afebrile vital signs stable Gen: Well-nourished well-developed Head: Normocephalic atraumatic Eyes: Perrl EOMI ENT: TMs clear no rhinorrhea moist mucous membranes Neck: Supple no lymphadenopathy no JVD nontender CVS: Regular rate rhythm no murmurs normal S1-S2 Respiratory: No distress clear to auscultation bilaterally chest nontender Abdomen: Soft nontender nondistended normal bowel sounds no masses Back: Nontender Extremity: Palpation over the left hip and iliac crest. No pain with logroll. I do not see ecchymosis/contusion. No breaks in the skin. Skin: Normal color no rash Neuro: alert orientated ?3 CN II-XII intact normal strength sensation reflexes gait cerebellar Psych: Normal affect normal mood Test Results: Hip and pelvis films were obtained. These were negative for fracture Emergency Department Course and Treatment: Patient had ice applied. She was offered Tylenol. Patient will be discharged home with supportive care instructions for ice and rest. She is to expect to be sore Impression: 1. Left hip contusion This note was generated with [employer] dictation software. It may contain incorrect words, spelling, and punctuation that were not noted in review of the chart prior to signing ED Disposition - Plan for ED Patient: Disposition: Home or Assisted Living Chief Complaint: Fall Instructions: ED Contusion Hip Referrals: Phillip Andino MD [Primary Care Provider] - 10-14 Days if not better
[2018-09-28 15:33] VITALS: PULSE 100; RESP 17; O2SAT 97
--- OUTSIDE RECORDS SUMMARY | 2018-11-23 21:57 | XMS RPT_ITS ---
:1980 Author Organization OHIP Support Name Relationship Address Phone FER DEL RIOE Unavailable [address] + [address] [place] [address] UE Unavailable Unavailable Unavailable QUANG YOLETTE Unavailable [address] + [address] [place] [address] UE Unavailable Unavailable Unavailable DEL RIO YOLETTE Unavailable [address] + [address] [place] [address] UE Unavailable Unavailable Unavailable DEL RIO YOLETTE Unavailable [address] + [address] [place] [address] UE Unavailable Unavailable Unavailable QUANG YOLETTE Unavailable Unavailable + QUANG YOLETTE Unavailable Unavailable + JANE JARAMILLO Unavailable Unavailable + JANE JARAMILLO Unavailable [address] + [place] [address] UE Unavailable Unavailable Unavailable DEL RIO YOLETTE Unavailable Unavailable + QUANG YOLETTE Unavailable Unavailable + JANE JARAMILLO Unavailable [address] + [place] [address] UE Unavailable Unavailable Unavailable JANE JARAMILLO Unavailable [address] + [place] [address] UE Unavailable Unavailable Unavailable QUANG YOLETTE Unavailable Unavailable + YOLETTE DEL RIO Unavailable Unavailable + JANE JARAMILLO Unavailable Unavailable + UE Unavailable Unavailable Unavailable [place] Unavailable Unavailable + UE Unavailable Unavailable Unavailable JANE JARAMILLO Unavailable Unavailable + JANE JARAMILLO Unavailable Unavailable + UE Unavailable Unavailable Unavailable YOLETTE DEL RIO Unavailable Unavailable + YOLETTE DEL RIO Unavailable Unavailable + Care Team Providers Name Role Phone NATACHA SALAZAR Attending Unavailable BREANNE DE LA VEGA, EDELMIRA GRAHAM Primary Care Unavailable NATIVIDAD ADAMS MD Attending Unavailable BREANNE DE LA VEGA, EDELMIRA GRAHAM Primary Care Unavailable ROSA ISELA DE LA VEGA, DR. DAVIS Attending Unavailable BREANNE DE LA VEGA, EDELMIRA GRAHAM Primary Care Unavailable NATACHA SALAZAR Attending Unavailable BREANNE DE LA VEGA, EDELMIRA GRAHAM Primary Care Unavailable CISCO FELIPE (PA) Referring Unavailable PODLOGAROMAYRA ([facility]) Attending Unavailable PODLOGAROMAYRA ([facility]) Referring Unavailable PODLOGAROMAYRA ([facility]) Attending Unavailable CORINNA ANDINO Attending Unavailable PORSHASURESH ([facility]) Attending Unavailable AL GONGORANETH E Attending Unavailable PORSHA, SURESH ([facility]) Referring Unavailable FRANSISCA, PERRY E Referring Unavailable FRANSISCA, PERRY E Referring Unavailable FRANSISCA PERRY E Attending Unavailable FARNSISCA, PERRY E Referring Unavailable SHIRA COTTER ([facility]) Attending Unavailable PORSHA, SURESH ([facility]) Referring Unavailable Dr. Mounika Greenfield Admitting Unavailable Dr. Mounika Greenfield Attending Unavailable Dr. Mounika Greenfield Admitting Unavailable Jean Pierre, Dr. Mounika Parker Attending Unavailable Allyn Squires Attending Unavailable Elderbrock, Corinna Primary Care Unavailable Elderbrock, Corinna Primary Care Unavailable Ungur, Dagmarus Attending Unavailable Elderbrock, Corinna Primary Care Unavailable Solomon Rashid Attending Unavailable HayleeonyAlmaz Attending Unavailable Elderbrock, Corinna Referring Unavailable Elderbrock, Corinna Primary Care Unavailable MarcanthAlmaz potts Attending Unavailable Marcanthony, Almaz Referring Unavailable Elderbrock, Corinna Primary Care Unavailable Elderbrock, Corinna Primary Care Unavailable Ungur, Remus Attending Unavailable Almaz Watkins Attending Unavailable Marcanthony, Almaz Referring Unavailable Elderbrock, Corinna Primary Care Unavailable Almaz Watkins Attending Unavailable Almaz Watkins Referring Unavailable Corinna Andino Primary Care Unavailable Almaz Watkins Consulting Unavailable Almaz Watkins Attending Unavailable Corinna Andino Referring Unavailable Thu, Corinna Primary Care Unavailable Thu, Corinna Primary Care Unavailable Hong Mendoza Attending Unavailable PROBLEMS PROBLEMS DATE TYPE CONDITION / CODE ATTENDING STATUS SOURCE 05/18/2018 Active Tachycardia, NA Active [facility] unspecified / Clinic Main R00.0(ICD-10) [place] Repository 03/28/2018 Unknown G89.18 - Other acute Marcanthony, Active [place] postprocedural pain [facility] / G89.18(ICD-10) Hospital Repository 01/20/2018 Unknown F19.10 - Other Marcanthony, Active [place] psychoactive [facility] substance abuse, Hospital uncomplicated / Repository F19.10(ICD-10) 12/09/2017 Active Generalized anxiety NA Active [facility] disorder / Clinic Main F41.1(ICD-10) [place] Repository 11/28/2017 Active Low back pain / NA Active [facility] M54.5(ICD-10) [facility] Main [place] Repository 11/28/2017 Active Other chronic pain / NA Active [place] G89.29(ICD-10) [facility] Main [place] Repository PROCEDURES PROCEDURES No Procedure Records FoundRESULTS RESULTS Observed: 10/10/2018 Status: F Source: [place] URINE CULTURE 4:00 PM [facility] [place] REPOSITORY Sp. Request/Comment: - Specimen received in preservative Culture Result - >=100,000 CFU/ml Escherichia coli --> ABNORMAL ALERT ORGANISM: Escherichia coli METHOD: Minimum inhibitory concentration(Vitek) Antibiotic Interp HELGA Status Ampicillin RESISTANT >=32 F Gentamicin SUSCEPTIBLE <=1 F Trimeth sulfameth RESISTANT >=320 F Cefazolin SUSCEPTIBLE <=4 F CLSI breakpoints for therapy of uncomplicated UTI's due to E.coli, K.pneumoniae, and P.mirabilis were applied and may be used to predict the activity of oral agents(cefaclor, cefdinir, cefpodoxime, cefp rozil, cefuroxime, cephalexin, loracarbef). Ciprofloxacin RESISTANT >=4 F Nitrofurantoin SUSCEPTIBLE <=16 F Cefepime SUSCEPTIBLE <=1 F Piperacillin/Tazobac SUSCEPTIBLE <=4 F Ampicillin Sulbact RESISTANT >=32 F Ceftriaxone SUSCEPTIBLE <=1 F Meropenem SUSCEPTIBLE <=0.25 F Ertapenem SUSCEPTIBLE <=0.5 F Performed By: #### URCUL #### [facility] [address] [place], [place] [address] PROGRESS Observed: 10/10/2018 Status: COMPLETED Source: [place] 3:51 PM [facility] REPOSITORY HNO ID: [id number] Author: Shira Miguel (Datapower Consultant) Robert Service: (none) Author Type: Nurse Practitioner Type: Progress Notes Filed: 10/10/2018 4:09 PM Note Text: This note was created using PeopleAdmin. Subjective Sola Petit is a 38 year old female. The history is provided by the patient. UTI This is a new problem. Episode onset: 2 weeks. There has been no fever. Associated symptoms include hesitancy and urgency. Pertinent negatives include no chills, no sweats, no nausea, no vomiting, no hematuria and no possible . Associated symptoms comments: Right sided lower back pain . 2 glasses of water a day Review of Systems Constitutional: Negative for chills. Gastrointestinal: Negative for nausea and vomiting. Genitourinary: Positive for dysuria, hesitancy and urgency. Negative for hematuria. Objective BP 118/68 Pulse 120 Resp 16 Wt 55.8 kg (123 lb) LMP 03/03/2012 BMI 22.50 kg/m? Physical Exam Constitutional: She is oriented to person, place, and time. She appears well-developed and well-nourished. No distress. Cardiovascular: Normal rate, regular rhythm and normal heart sounds. No murmur heard. Pulmonary/Chest: Effort normal and breath sounds normal. No respiratory distress. She has no wheezes. She has no rales. Abdominal: Soft. Bowel sounds are normal. She exhibits no distension. There is no tenderness. Neurological: She is alert and oriented to person, place, and time. Component Latest Ref Rng AND Units 10/10/2018 GLUCOSE UA (POCT) Negative mg/dL Negative BILIRUBIN UA (POCT) Negative Negative KETONE UA (POCT) Negative mg/dL Negative SPECIFIC GRAVITY UA (POCT) 1.005 - 1.030 1.020 HEMOGLOBIN/BLOOD UA (POCT) Negative Negative PH UA (POCT) 4.5 - 8.0 7.5 PROTEIN UA (POCT) Negative mg/dL Negative UROBILINOGEN UA (POCT) Normal E.U./dL 0.2 NITRITE UA (POCT) Negative Negative LEUKOCYTES UA (POCT) Negative Small (A) COLOR UA (POCT) Yellow CLARITY UA (POCT) Slightly Cloudy ASSESSMENT/PLAN: 1. UTI symptoms - ICD9: 788.99, ICD10: R39.9 - UA DIP, URINE (POC) - URINE CULTURE- sent. No treatment- awaiting culture. - F/U with PCP for anxiety questions Shira Cotter APRN.CNP CNOV Observed: 10/10/2018 Status: COMPLETED Source: [place] 3:40 PM [facility] REPOSITORY Office Visit (FAMPWS) SOLA PETIT ([id number]) 1980 F Date Time Provider Department 10/10/18 3:40 PM SHIRA COTTER ([facility]) [facility] During your visit today, we recorded the following information about you: Pulse Respiration Blood pressure Weight 120/minute 16/minute 118/68 55.8 kg Shira Cotter APRN.CNP 10/10/2018 4:09 PM Signed This note was created using Innovative Siliconriter. Subjective Sola Petit is a 38 year old female. The history is provided by the patient. UTI This is a new problem. Episode onset: 2 weeks. There has been no fever. Associated symptoms include hesitancy and urgency. Pertinent negatives include no chills, no sweats, no nausea, no vomiting, no hematuria and no possible . Associated symptoms comments: Right sided lower back pain . 2 glasses of water a day Review of Systems Constitutional: Negative for chills. Gastrointestinal: Negative for nausea and vomiting. Genitourinary: Positive for dysuria, hesitancy and urgency. Negative for hematuria. Objective BP 118/68 Pulse 120 Resp 16 Wt 55.8 kg (123 lb) LMP 03/03/2012 BMI 22.50 kg/m? Physical Exam Constitutional: She is oriented to person, place, and time. She appears well-developed and well-nourished. No distress. Cardiovascular: Normal rate, regular rhythm and normal heart sounds. No murmur heard. Pulmonary/Chest: Effort normal and breath sounds normal. No respiratory distress. She has no wheezes. She has no rales. Abdominal: Soft. Bowel sounds are normal. She exhibits no distension. There is no tenderness. Neurological: She is alert and oriented to person, place, and time. Component Latest Ref Rng AND Units 10/10/2018 GLUCOSE UA (POCT) Negative mg/dL Negative BILIRUBIN UA (POCT) Negative Negative KETONE UA (POCT) Negative mg/dL Negative SPECIFIC GRAVITY UA (POCT) 1.005 - 1.030 1.020 HEMOGLOBIN/BLOOD UA (POCT) Negative Negative PH UA (POCT) 4.5 - 8.0 7.5 PROTEIN UA (POCT) Negative mg/dL Negative UROBILINOGEN UA (POCT) Normal E.U./dL 0.2 NITRITE UA (POCT) Negative Negative LEUKOCYTES UA (POCT) Negative Small (A) COLOR UA (POCT) Yellow CLARITY UA (POCT) Slightly Cloudy ASSESSMENT/PLAN: 1. UTI symptoms - ICD9: 788.99, ICD10: R39.9 - UA DIP, URINE (POC) - URINE CULTURE- sent. No treatment- awaiting culture. - F/U with PCP for anxiety questions Shira Cotter APRN.CUSTOM SKI MAKER Referring Provider: SELF [200] Allergies As of Date: 10/10/2018 Noted Allergy Reaction ADHESIVE TAPE (ROSINS) 04/28/2012 14 - Other: See Comments Comments: skin breakdown AMITRIPTYLINE 11/20/2012 14 - Other: See Comments Comments: Has vivid dreams and sleepwalking where she was outside in the truck leaving in the middle of the night CODEINE 03/02/2011 14 - Other: See Comments Comments: Nausea and doesn't feel right LATEX 09/14/2010 9 - Itching NAPROXEN 02/02/2011 5 - Intolerance PROMETHAZINE-DM 10/15/2014 14 - Other: See Comments Comments: dizziness TUBERCULIN PPD 02/08/2014 14 - Other: See Comments Comments: false positive skin test readings VANCOMYCIN 09/14/2010 9 - Itching Comments: Takes with benadryl VISTARIL (HYDROXYZINE HCL) 01/20/2018 14 - Other: See Comments Comments: Rapid heart rate Date Reviewed: 10/10/2018 Reviewed by: Shaquille Saunders LPN - Fully Assessed Reason for Visit: Acute Visit [896] Cmt: possible urinary tract infection Primary Visit Diagnosis:UTI symptoms [R39.9] Order(s):UA DIP, URINE (POC) [[id number]] Order #: [id number] #:[id number] URINE CULTURE [SQURCUL] Order #: [id number] Prescriptions as of 10/10/2018 Sig: ALBUTEROL SULFATE HFA 90 MCG/* Inhale 2 Puffs as instructed * REMERON ORAL Take by mouth. NEBULIZER ACCESSORIES KIT Use albuterol 1 vial in nebul* QUETIAPINE 100 MG TABLET Take 100 mg by mouth once janee* VENLAFAXINE ER 37.5 MG CAPSUL* Take 1 capsule by mouth once * Medication notes this encounter ATIVAN ORAL >> Shirasummer Cotter APRN.CNP 10/10/2018 4:06 PM not listed in [facility] Problem List As Of Date 10/10/2018 Noted Resolved Pelvic abscess INVALID FOR*12/28/2011 Pelvic pain in female [R10.2] INVALID FOR*07/18/2012 Piriformis syndrome [G57.00] INVALID FOR*01/20/2018 Bladder pain [R39.89] INVALID FOR*05/09/2012 Interstitial cystitis [N30.10] INVALID FOR* Cellulitis [L03.90] INVALID FOR*05/09/2012 Irregular menses [N92.6] 05/09/2012 CRPS (complex regional pain syndrome) type I of*INVALID FOR* Reflex sympathetic dystrophy, unspecified [G90.*INVALID FOR* Pain in joint, ankle and foot [M25.579] INVALID FOR*02/18/2017 Menorrhagia [N92.0] INVALID FOR*05/09/2012 Complex ovarian cyst [N83.299] INVALID FOR*11/20/2012 Chronic pelvic pain in female [R10.2, G89.29] INVALID FOR* Depression [F32.9] INVALID FOR* 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 Anxiety [F41.9] INVALID FOR* Medications Discontinued During This Encounter albuterol (PROVENTIL) 2.5 mg /3 mL (* 1 Pa* 1 12/14/2017 10/10/2018 Route: NEBULIZATION -UNSPEC Sig: Use 3 mL via nebulizer every 4 hours as needed for Wheezing/Shortness of Breath. Use over 5-15minutes. Disc: Reason for discontinue is not on file. estradiol (ESTRACE) 1 mg tablet 10/10/2018 Class: Historical Med Route: ORAL Sig: Take 1 mg by mouth once daily. Disc: Reason for discontinue is not on file. LORAZEPAM (ATIVAN ORAL) 10/10/2018 Class: Historical Med Route: ORAL Sig: Take by mouth. Disc: Other Encounter Status:Closed by SHIRA COTTER CNP on 10/10/18 EMERGENCY DEPARTMENT Observed: 09/28/2018 Status: F Source: [place] SUMMARY 5:45 PM [facility] [place] REPOSITORY [facility] Medical Records Department [address] [place] [address] Emergency Department Summary 09/28/18 1459 MR#: [id number] Acct: [id number] Name: SOLA PETIT Lamont Rep #: [id number] : 1980 38 From: Hong Mendoza DO PCP: Corinna Andino MD Status: DEP ER - ER Visit Summary Date of Service: 09/28/18 Chief Complaint: Left hip pain History of Present Illness: The patient is a 38 F who states that earlier today she slipped on some ice and landed on her left hip. She denies any other injuries. She has been able to ambulate though painfully. She has pain with range of motion. No breaks in the skin. She denies any arm symptoms. She denies striking her head or have any neck or back pain. Physical Examination: Afebrile vital signs stable Gen: Well-nourished well-developed Head: Normocephalic atraumatic Eyes: Perrl EOMI ENT: TMs clear no rhinorrhea moist mucous membranes Neck: Supple no lymphadenopathy no JVD nontender CVS: Regular rate rhythm no murmurs normal S1-S2 Respiratory: No distress clear to auscultation bilaterally chest nontender Abdomen: Soft nontender nondistended normal bowel sounds no masses Back: Nontender Extremity: Palpation over the left hip and iliac crest. No pain with logroll. I do not see ecchymosis/contusion. No breaks in the skin. Skin: Normal color no rash Neuro: alert orientated 3 CN II-XII intact normal strength sensation reflexes gait cerebellar Psych: Normal affect normal mood Test Results: Hip and pelvis films were obtained. These were negative for fracture Emergency Department Course and Treatment: Patient had ice applied. She was offered Tylenol. Patient will be discharged home with supportive care instructions for ice and rest. She is to expect to be sore Impression: 1. Left hip contusion This note was generated with Pipedrive dictation software. It may contain incorrect words, spelling, and punctuation that were not noted in review of the chart prior to signing ED Disposition - Plan for ED Patient: Disposition: Home or Assisted Living Chief Complaint: Fall Instructions: ED Contusion Hip Referrals: Corinna Andino MD [Primary Care Provider] - 10-14 Days if not better What to do if you have Problems For any increased pain, shortness of breath, bleeding, nausea or vomiting, chest pain, or any unexpected problems, contact your Primary Care Provider. Call [facility] ([phone]) or report to the closest Emergency Room. Call 911 if necessary. 09/28/18 6518 <Electronically signed by Hong Mendoza DO> Date Hong Mendoza DO Cosigner Signature (If Indicated): Date CC: Corinna Andino MD HIP, UNI W/ PELVIS Observed: 09/28/2018 Status: F Source: [place] 2-3 VIEWS 2:46 PM [facility] REPOSITORY [facility] Imaging Services [address] [place] [address] HIP, UNI W/ Pelvis 2-3 Views MR#: [id number] Acct: [id number] Name: SOLA PETIT Rep #: [id number] : 1980 F 38 From: Lj Wolfe MD PCP: Corinna Andino MD Status: PRE ER Study: HIP, UNI W/ Pelvis 2-3 Views Date of Exam: 09/28/18 Exam# [id number] Ordering Dr: Hong Mendoza DO STUDY: X-RAY - LEFT HIP REASON FOR EXAM: Female, 38 years old. Pain following a fall. TECHNIQUE: 2 views of the hip. COMPARISON: Comparison is made with prior study dated October 26, 2013. FINDINGS: Normal femoral head, neck, intertrochanteric region and visualized proximal femur. Normal acetabulum. Normal hip joint. Normal visualized superior and inferior pubic rami and ischial tuberosities. Calcified phleboliths. RAD/HIP, UNI W/ Pelvis 2-3 Views IMPRESSION: Normal x-ray examination of the hip. Electronically Signed: Lj Wolfe MD at 15:11 EST Tel [phone], Service support , CC: Hong Mendoza DO; Corinna Andino MD Record Producer: Signed PROGRESS Observed: 08/21/2018 Status: COMPLETED Source: [place] 5:09 PM [facility] REPOSITORY HNO ID: [id number] Author: Perry Gongora Service: (none) Author Type: Physician Type: Progress Notes Filed: 08/21/2018 5:26 PM Note Text: PERTINENT CARDIAC HISTORY Tachycardia Chest pain ADHERENCE TO GUIDELINES LB-I or ARB for HF with prior LVEF<40 (NQF 0081) - N/A ASA or Plavix for ASHD (NQF 0067) - N/A Beta kae for ASHD with prior CA or prior LVEF<40 (NQF 0070) - N/A Beta kae for HF with prior LVEF<40 (NQF 0083) - N/A LB-I or ARB for ASHD with DM or prior LVEF<40 (NQF 0066) - N/A Statin therapy for ASHD or FHL or DM - N/A BMI documented and plan if >25 (NQF 0421) - lifestyle recommendation form Tobacco use screening and referral (NQF 0028) - lifestyle recommendation form Recommendation for whole food, plant based diet - lifestyle recommendation form CLINICAL IMPRESSION/PLAN: Sola Petit has no evidence of structural heart disease. Her sinus tachycardia is inappropriate, but likely related in large part to her antidepressant medication. I advised her to continue working with her counselors to try to achieve a dose which controls her depression without aggravating her tachycardia. I agreed that it would be worthwhile to decrease her Effexor back to the prior dose and I've asked her to contact her counselor if she has any feelings of suicidal ideation. She's been reminded to avoid stimulants. She has decreased her intake of caffeine. I will see her in 6 months or as needed. Written and verbal health teaching given to patient, patient verbalizes understanding and agrees with treatment plan. DIAGNOSIS FOR VISIT: Tachycardia HISTORY OF PRESENT ILLNESS Sola Petit returns for follow-up of her sinus tachycardia. She reports that recent changes in her antidepressant medication have caused her to be more tremulous and agitated. She plans to return to her previous dose. She has been sleepwalking and more nervous. Overall, her heart rate has improved slightly. She still has episodes where the heart rate goes up inappropriately. She is adverse to starting any new medications. She denies chest discomfort with exertion. She has some atypical sharp pain which is nonradiating. Her exercise tolerance has been stable. She walks to and from work on a regular basis. She denies TIAs, amaurosis and claudication. ALLERGIES: ALLERGIES Allergen Reactions - Adhesive Tape (Oly* Other: See Comments skin breakdown - Amitriptyline Other: See Comments Has vivid dreams and sleepwalking where she was outside in the truck leaving in the middle of the night - Codeine Other: See Comments Nausea and doesn't feel right - Latex Itching - Naproxen Intolerance - Promethazine-Dm Other: See Comments dizziness - Tuberculin Ppd Other: See Comments false positive skin test readings - Vancomycin Itching Takes with benadryl - Vistaril [Hydroxyzi* Other: See Comments Rapid heart rate CURRENT OUTPATIENT MEDICATIONS: cephALEXin (KEFLEX) 500 mg capsule Take 1 capsule by mouth four times daily for 10 days. FOR 10 DAYS estradiol (ESTRACE) 1 mg tablet Take 1 mg by mouth once daily. QUEtiapine (SEROQUEL) 100 mg tablet Take 100 mg by mouth once daily. MIRTAZAPINE (REMERON ORAL) Take by mouth. LORAZEPAM (ATIVAN ORAL) Take by mouth. Nebulizer Accessories (REUSABLE NEBULIZER KIT) kit Use albuterol 1 vial in nebulizer ever 4 hours as needed for shortness of breath and wheezingICD J45.20 albuterol (PROVENTIL) 2.5 mg /3 mL (0.083 %) nebulizer solution Use 3 mL via nebulizer every 4 hours as needed for Wheezing/Shortness of Breath. Use over 5-15minutes. venlafaxine ER (EFFEXOR XR) 37.5 mg 24 hr capsule Take 1 capsule by mouth once daily. May increase to 75 mg in 7 day if tolerating albuterol HFA (PROAIR HFA) 90 mcg/actuation inhaler Inhale 2 Puffs as instructed every 4 hours as needed. PHYSICAL EXAMINATION: VITAL SIGNS: BP 136/88 Pulse 92 Wt 117 lb 9.6 oz (53.3kg) LMP 03/03/2012 Chest: Clear to auscultation. Trachea is midline. Air entry is equal. Cardiac: Regular rhythm. S1 and S2 are normal. PMI is nondisplaced. There are no murmurs, rubs or gallops. Carotids are brisk without bruits. JVP is less than 10 cm. Abdomen: Soft and nontender. There are no pulsatile masses or bruits. No liver enlargement. Bowel sounds are active. Extremities: No edema. Pulses are intact and symmetrical. EKG shows sinus rhythm. There is no significant change. Echocardiogram showed normal LV function. There was no valvular disease. TSH and magnesium were normal. Electronically Signed: Perry Gongora MD August 21, 2018 5:09 PM CC: Corinna Andino MD EKG1 Observed: 08/21/2018 Status: F Source: [place] 3:27 PM [facility] REPOSITORY NAME : SOLA PETIT PID : [id number] : 1980 Gender : Female Race : ORD : Procedure Date : Aug 21 2018 15:27:15 Edit Date : Aug 22 2018 08:54:34 Diagnosis:NORMAL SINUS RHYTHM NON-SPECIFIC ST AND T WAVE CHANGES BORDERLINE ECG NO PREVIOUS ECGS AVAILABLE Confirmed by PERRY GONGORA MD ([id number]) on 08/22/2018 8:54:32 AM Ventricular Rate : 91 BPM Atrial Rate : 91 BPM P-R Interval : 144 ms QRS Duration : 92 ms Q-T Interval : 374 ms QTC Calculation(Bezet) : 460 ms P Quin[place] : 60 degrees R Quincy : 87 degrees T Quincy : 37 degrees Test Reason : Location : 136 : [facility] Overread By : PERRY GONGORA MD Edited By : PERRY GONGORA MD Referred By : PERRY GONGORA Acquired by : YOLANDA ALVARADO Observed: 08/21/2018 Status: COMPLETED Source: [place] 3:15 PM [facility] REPOSITORY Office Visit (CAWSTR) NOYSOLA Lamont ([id number]) 1980 F Date Time Provider Department 08/21/18 3:15 PM PERRY GONGORA CAWSTR During your visit today, we recorded the following information about you: Pulse Blood pressure Weight 92/minute 136/88 53.3 kg Perry Gongora MD 08/21/2018 3:55 PM Signed LIFESTYLE CHANGE A healthy lifestyle is the most important component of your overall treatment plan. Please give serious thought to the following areas and commit to making superintendent terminal changes. EAT A WHOLE FOOD, PLANT BASED DIET The nutrition your body gets is more important than the medicine you take. What matters most is the overall way you eat. We encourage you to minimize the use of animal products (which include dairy and all meats except fatty fish) and use whole, unprocessed plant foods to provide your protein, vitamins and other nutrients. We have a lot of information to share with you on this topic. This is not a diet. It is a way of life that you will keep with you. EXERCISE REGULARLY It is not important to spend hours in the gym, lifting weights and perspiring heavily. A total of 2-3 hours per week of aerobic (causing you to be moderately short of breath) exercise is sufficient to improve your health. Talk to us before you begin a new exercise program, if you have heart disease or experience shortness of breath or chest pain. REDUCE STRESS Chronic emotional and physical stress leads to disease. Ways of reducing stress include meditation, visualization, prayer, yoga and other forms of relaxation therapy. Consistency is the daniel. Find a technique that works for you and do it every day. CULTIVATE RELATIONSHIPS Loneliness and isolation have a major negative impact on health. Seek out others who can love, care for and nurture you. Avoid hurtful relationships. MAINTAIN IDEAL BODY WEIGHT The best way to do this is to do all the things above. Our bodies naturally find the right weight if we keep moving and feed ourselves the right food. If your BMI is greater than 25, we strongly recommend a referral to a weight management program. Please speak to us or your family physician about available programs. AVOID NICOTINE IN ALL FORMS This includes all tobacco products, whether chewed, smoked, vaped, or rubbed on the skin. Smoking cessation programs, which can make use of tobacco substitutes, medications to suppress cravings and behavior management, are available. Please contact your family physician about programs in your area. Perry Gongora MD 08/21/2018 5:26 PM Signed PERTINENT CARDIAC HISTORY Tachycardia Chest pain ADHERENCE TO GUIDELINES LB-I or ARB for HF with prior LVEF<40 (NQF 0081) - N/A ASA or Plavix for ASHD (NQF 0067) - N/A Beta kae for ASHD with prior CA or prior LVEF<40 (NQF 0070) - N/A Beta kae for HF with prior LVEF<40 (NQ 0083) - N/A LB-I or ARB for ASHD with DM or prior LVEF<40 (NQ 0066) - N/A Statin therapy for ASHD or FHL or DM - N/A BMI documented and plan if >25 (NQ 0421) - lifestyle recommendation form Tobacco use screening and referral (NQ 0028) - lifestyle recommendation form Recommendation for whole food, plant based diet - lifestyle recommendation form CLINICAL IMPRESSION/PLAN: Sola Petit has no evidence of structural heart disease. Her sinus tachycardia is inappropriate, but likely related in large part to her antidepressant medication. I advised her to continue working with her counselors to try to achieve a dose which controls her depression without aggravating her tachycardia. I agreed that it would be worthwhile to decrease her Effexor back to the prior dose and I've asked her to contact her counselor if she has any feelings of suicidal ideation. She's been reminded to avoid stimulants. She has decreased her intake of caffeine. I will see her in 6 months or as needed. Written and verbal health teaching given to patient, patient verbalizes understanding and agrees with treatment plan. DIAGNOSIS FOR VISIT: Tachycardia HISTORY OF PRESENT ILLNESS Sola Petit returns for follow-up of her sinus tachycardia. She reports that recent changes in her antidepressant medication have caused her to be more tremulous and agitated. She plans to return to her previous dose. She has been sleepwalking and more nervous. Overall, her heart rate has improved slightly. She still has episodes where the heart rate goes up inappropriately. She is adverse to starting any new medications. She denies chest discomfort with exertion. She has some atypical sharp pain which is nonradiating. Her exercise tolerance has been stable. She walks to and from work on a regular basis. She denies TIAs, amaurosis and claudication. ALLERGIES: ALLERGIES Allergen Reactions - Adhesive Tape (Oly* Other: See Comments skin breakdown - Amitriptyline Other: See Comments Has vivid dreams and sleepwalking where she was outside in the truck leaving in the middle of the night - Codeine Other: See Comments Nausea and doesn't feel right - Latex Itching - Naproxen Intolerance - Promethazine-Dm Other: See Comments dizziness - Tuberculin Ppd Other: See Comments false positive skin test readings - Vancomycin Itching Takes with benadryl - Vistaril [Hydroxyzi* Other: See Comments Rapid heart rate CURRENT OUTPATIENT MEDICATIONS: cephALEXin (KEFLEX) 500 mg capsule Take 1 capsule by mouth four times daily for 10 days. FOR 10 DAYS estradiol (ESTRACE) 1 mg tablet Take 1 mg by mouth once daily. QUEtiapine (SEROQUEL) 100 mg tablet Take 100 mg by mouth once daily. MIRTAZAPINE (REMERON ORAL) Take by mouth. LORAZEPAM (ATIVAN ORAL) Take by mouth. Nebulizer Accessories (REUSABLE NEBULIZER KIT) kit Use albuterol 1 vial in nebulizer ever 4 hours as needed for shortness of breath and wheezingICD J45.20 albuterol (PROVENTIL) 2.5 mg /3 mL (0.083 %) nebulizer solution Use 3 mL via nebulizer every 4 hours as needed for Wheezing/Shortness of Breath. Use over 5-15minutes. venlafaxine ER (EFFEXOR XR) 37.5 mg 24 hr capsule Take 1 capsule by mouth once daily. May increase to 75 mg in 7 day if tolerating albuterol HFA (PROAIR HFA) 90 mcg/actuation inhaler Inhale 2 Puffs as instructed every 4 hours as needed. PHYSICAL EXAMINATION: VITAL SIGNS: BP 136/88 Pulse 92 Wt 117 lb 9.6 oz (53.3kg) LMP 03/03/2012 Chest: Clear to auscultation. Trachea is midline. Air entry is equal. Cardiac: Regular rhythm. S1 and S2 are normal. PMI is nondisplaced. There are no murmurs, rubs or gallops. Carotids are brisk without bruits. JVP is less than 10 cm. Abdomen: Soft and nontender. There are no pulsatile masses or bruits. No liver enlargement. Bowel sounds are active. Extremities: No edema. Pulses are intact and symmetrical. EKG shows sinus rhythm. There is no significant change. Echocardiogram showed normal LV function. There was no valvular disease. TSH and magnesium were normal. Electronically Signed: Perry Gongora MD August 21, 2018 5:09 PM CC: Corinna Andino MD Referring Provider: PERRY GONGORA [[id number]] Allergies As of Date: 08/21/2018 Noted Allergy Reaction ADHESIVE TAPE (ROSINS) 04/28/2012 14 - Other: See Comments Comments: skin breakdown AMITRIPTYLINE 11/20/2012 14 - Other: See Comments Comments: Has vivid dreams and sleepwalking where she was outside in the truck leaving in the middle of the night CODEINE 03/02/2011 14 - Other: See Comments Comments: Nausea and doesn't feel right LATEX 09/14/2010 9 - Itching NAPROXEN 02/02/2011 5 - Intolerance PROMETHAZINE-DM 10/15/2014 14 - Other: See Comments Comments: dizziness TUBERCULIN PPD 02/08/2014 14 - Other: See Comments Comments: false positive skin test readings VANCOMYCIN 09/14/2010 9 - Itching Comments: Takes with benadryl VISTARIL (HYDROXYZINE HCL) 01/20/2018 14 - Other: See Comments Comments: Rapid heart rate Date Reviewed: 08/21/2018 Reviewed by: Megan Yu) Shala - Fully Assessed Reason for Visit: Recheck [92] Primary Visit Diagnosis:Inappropriate sinus tachycardia [R00.0] Order(s):ECG COMPLETE W INTERPRETATION [ECG01] Order #: [id number] FUTURE Prescriptions as of 08/21/2018 Sig: CEPHALEXIN 500 MG CAPSULE Take 1 capsule by mouth four * ESTRADIOL 1 MG TABLET Take 1 mg by mouth once daily. QUETIAPINE 100 MG TABLET Take 100 mg by mouth once janee* REMERON ORAL Take by mouth. ATIVAN ORAL Take by mouth. NEBULIZER ACCESSORIES KIT Use albuterol 1 vial in nebul* ALBUTEROL SULFATE 2.5 MG/3 ML* Use 3 mL via nebulizer every * VENLAFAXINE ER 37.5 MG CAPSUL* Take 1 capsule by mouth once * ALBUTEROL SULFATE HFA 90 MCG/* Inhale 2 Puffs as instructed * Problem List As Of Date 08/21/2018 Noted Resolved Pelvic abscess INVALID FOR*12/28/2011 Pelvic pain in female [R10.2] INVALID FOR*07/18/2012 Piriformis syndrome [G57.00] INVALID FOR*01/20/2018 Bladder pain [R39.89] INVALID FOR*05/09/2012 Interstitial cystitis [N30.10] INVALID FOR* Cellulitis [L03.90] INVALID FOR*05/09/2012 Irregular menses [N92.6] 05/09/2012 CRPS (complex regional pain syndrome) type I of*INVALID FOR* Reflex sympathetic dystrophy, unspecified [G90.*INVALID FOR* Pain in joint, ankle and foot [M25.579] INVALID FOR*02/18/2017 Menorrhagia [N92.0] INVALID FOR*05/09/2012 Complex ovarian cyst [N83.299] INVALID FOR*11/20/2012 Chronic pelvic pain in female [R10.2, G89.29] INVALID FOR* Depression [F32.9] INVALID FOR* 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 Anxiety [F41.9] INVALID FOR* Other instructions from your clinician: LIFESTYLE CHANGE A healthy lifestyle is the most important component of your overall treatment plan. Please give serious thought to the following areas and commit to making [facility] changes. EAT A WHOLE FOOD, PLANT BASED DIET The nutrition your body gets is more important than the medicine you take. What matters most is the overall way you eat. We encourage you to minimize the use of animal products (which include dairy and all meats except fatty fish) and use whole, unprocessed plant foods to provide your protein, vitamins and other nutrients. We have a lot of information to share with you on this topic. This is not a diet. It is a way of life that you will keep with you. EXERCISE REGULARLY It is not important to spend hours in the gym, lifting weights and perspiring heavily. A total of 2-3 hours per week of aerobic (causing you to be moderately short of breath) exercise is sufficient to improve your health. Talk to us before you begin a new exercise program, if you have heart disease or experience shortness of breath or chest pain. REDUCE STRESS Chronic emotional and physical stress leads to disease. Ways of reducing stress include meditation, visualization, prayer, yoga and other forms of relaxation therapy. Consistency is the daniel. Find a technique that works for you and do it every day. CULTIVATE RELATIONSHIPS Loneliness and isolation have a major negative impact on health. Seek out others who can love, care for and nurture you. Avoid hurtful relationships. MAINTAIN IDEAL BODY WEIGHT The best way to do this is to do all the things above. Our bodies naturally find the right weight if we keep moving and feed ourselves the right food. If your BMI is greater than 25, we strongly recommend a referral to a weight management program. Please speak to us or your family physician about available programs. AVOID NICOTINE IN ALL FORMS This includes all tobacco products, whether chewed, smoked, vaped, or rubbed on the skin. Smoking cessation programs, which can make use of tobacco substitutes, medications to suppress cravings and behavior management, are available. Please contact your family physician about programs in your area. Encounter Status:Closed by PERRY GONGORA MD on 08/21/18 CNNURSE Observed: 08/21/2018 Status: COMPLETED Source: [place] 2:15 PM [facility] [place] RE[facility] Nurse Visit ([facility]) SOLA PETIT ([id number]) 1980 F Date Time Provider Department 08/21/18 2:15 PM NURSE CARD ADMIN [facility] During your visit today, we recorded the following information about you: Referring Provider: PERRY GONGORA [[id number]] Allergies As of Date: 08/21/2018 Noted Allergy Reaction ADHESIVE TAPE (ROSINS) 04/28/2012 14 - Other: See Comments Comments: skin breakdown AMITRIPTYLINE 11/20/2012 14 - Other: See Comments Comments: Has vivid dreams and sleepwalking where she was outside in the truck leaving in the middle of the night CODEINE 03/02/2011 14 - Other: See Comments Comments: Nausea and doesn't feel right LATEX 09/14/2010 9 - Itching NAPROXEN 02/02/2011 5 - Intolerance PROMETHAZINE-DM 10/15/2014 14 - Other: See Comments Comments: dizziness TUBERCULIN PPD 02/08/2014 14 - Other: See Comments Comments: false positive skin test readings VANCOMYCIN 09/14/2010 9 - Itching Comments: Takes with benadryl VISTARIL (HYDROXYZINE HCL) 01/20/2018 14 - Other: See Comments Comments: Rapid heart rate Date Reviewed: 08/21/2018 Reviewed by: Megan Yu) Shala - Fully Assessed Reason for Visit: EKG [793] Visit Diagnosis:Inappropriate sinus tachycardia [R00.0] Prescriptions as of 08/21/2018 Sig: CEPHALEXIN 500 MG CAPSULE Take 1 capsule by mouth four * ESTRADIOL 1 MG TABLET Take 1 mg by mouth once daily. QUETIAPINE 100 MG TABLET Take 100 mg by mouth once janee* REMERON ORAL Take by mouth. ATIVAN ORAL Take by mouth. NEBULIZER ACCESSORIES KIT Use albuterol 1 vial in nebul* ALBUTEROL SULFATE 2.5 MG/3 ML* Use 3 mL via nebulizer every * VENLAFAXINE ER 37.5 MG CAPSUL* Take 1 capsule by mouth once * ALBUTEROL SULFATE HFA 90 MCG/* Inhale 2 Puffs as instructed * Problem List As Of Date 08/21/2018 Noted Resolved Pelvic abscess INVALID FOR*12/28/2011 Pelvic pain in female [R10.2] INVALID FOR*07/18/2012 Piriformis syndrome [G57.00] INVALID FOR*01/20/2018 Bladder pain [R39.89] INVALID FOR*05/09/2012 Interstitial cystitis [N30.10] INVALID FOR* Cellulitis [L03.90] INVALID FOR*05/09/2012 Irregular menses [N92.6] 05/09/2012 CRPS (complex regional pain syndrome) type I of*INVALID FOR* Reflex sympathetic dystrophy, unspecified [G90.*INVALID FOR* Pain in joint, ankle and foot [M25.579] INVALID FOR*02/18/2017 Menorrhagia [N92.0] INVALID FOR*05/09/2012 Complex ovarian cyst [N83.299] INVALID FOR*11/20/2012 Chronic pelvic pain in female [R10.2, G89.29] INVALID FOR* Depression [F32.9] INVALID FOR* 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 Anxiety [F41.9] INVALID FOR* Encounter Status:Closed by MEGAN AYALA LPN on 08/22/18 PROGRESS Observed: 08/15/2018 Status: COMPLETED Source: [place] 8:23 PM [facility] [place] REPOSITORY O ID: [id number] Author: Aylin Travis (Charles) Fran Service: (none) Author Type: Nurse Practitioner Type: Progress Notes Filed: 08/15/2018 8:26 PM Note Text: Subjective HPI Patient presents with: Nail Check: green under nails after applying acrylic nails x 1 week Pt states removed acrylic nails. Denies drainage, fever, chills, myalgia ROS All other reviewed and negative other than HPI. 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 Survey of the pelvis showed filmy omental adhesions to the anterior abdominal wall, also extensive bowel adhesions mainly from the sigmoid colon to the pelvic sidewall as well as to the left side of the uterus. Also, uterus appeared to be adhered to the anterior abdominal wall and the bladder. - REMOVAL OF OVARY/TUBE(S) 11/15/1999 laparoscopy Salpingectomy right side - REMOVAL OF OVARY/TUBE(S) 09/04/2010 laparotomy Salpingo-oophorectomy left tube, Dr. Kingston [place] - related to complications to surgical procedure in summer, post operative hematoma, wound infection, drainage of intraabdominal abscess CT [place] - SALPINGECTOMY 04/2010 Dr. Kingston - [place] - open tubal procedure, retturn to OR next day for bleeding,. - TREAT ECTOPIC PREG,NON REMVAL 1999 Ectopic at 19yrs old ALLERGIES Adhesive Tape (Rosins); Amitriptyline; Codeine; Latex; Naproxen; Promethazine-Dm; Tuberculin Ppd; Vancomycin; Vistaril [Hydroxyzine Hcl] MEDICATIONS estradiol (ESTRACE) 1 mg tablet Take 1 mg by mouth once daily. QUEtiapine (SEROQUEL) 100 mg tablet Take 100 mg by mouth once daily. MIRTAZAPINE (REMERON ORAL) Take by mouth. Nebulizer Accessories (REUSABLE NEBULIZER KIT) kit Use albuterol 1 vial in nebulizer ever 4 hours as needed for shortness of breath and wheezingICD J45.20 albuterol (PROVENTIL) 2.5 mg /3 mL (0.083 %) nebulizer solution Use 3 mL via nebulizer every 4 hours as needed for Wheezing/Shortness of Breath. Use over 5-15minutes. venlafaxine ER (EFFEXOR XR) 37.5 mg 24 hr capsule Take 1 capsule by mouth once daily. May increase to 75 mg in 7 day if tolerating albuterol HFA (PROAIR HFA) 90 mcg/actuation inhaler Inhale 2 Puffs as instructed every 4 hours as needed. cephALEXin (KEFLEX) 500 mg capsule Take 1 capsule by mouth four times daily for 10 days. FOR 10 DAYS LORAZEPAM (ATIVAN ORAL) Take by mouth. FAMILY HISTORY Problem Relation Age of Onset - other (Lung Cancer) Mother 46 - Lipids Father - Breast Cancer Maternal Grandmother Alive - other (Throat Cancer) Maternal Grandmother - Skin Cancer Other Alive; 1st maternal cousin Social History Substance Use Topics - Smoking status: Current Some Day Smoker Packs/day: 1.00 Years: 20.00 Types: Cigarettes Last attempt to quit: 04/13/2010 - Smokeless tobacco: Never Used Comment: started smoking again. about 1/2 ppd - Alcohol use No Comment: Rarely. Objective Physical Exam Skin: Nursing note and vitals reviewed. ASSESSMENT/PLAN: 1. Infection of nail bed of finger, unspecified laterality - ICD9: 681.02, ICD10: L03.019 - Begin treatment with Cephalaxin (Keflex) - No lymphangetic streaking, this was defined for patient to watch for and to seek medical care immediately if appears - Follow up for recheck in three days if symptoms are not improving or worsening Prescription instructions reviewed with patient as applicable. Patient advised if symptoms do not improve or if symptoms worsen sooner, to contact their primary care physician. Potential red flag symptoms discussed with the patient. Reviewed appropriate action plan to take if red flag symptoms occur. Patient agreeable to treatment plan. Aylin Peters APRN.CNP CNOV Observed: 08/15/2018 Status: COMPLETED Source: [place] 8:00 PM [facility] REPOSITORY Office Visit ([facility]) SOLA PETIT ([id number]) 1980 F Date Time Provider Department [facility]18 [facility] During your visit today, we recorded the following information about you: Temperature Pulse Respiration Blood pressure 97.7 degrees 80/minute 16/minute 116/68 Weight 52.2 kg Aylin Peters APRN.ORQUIDEA 08/15/2018 8:26 PM Signed Subjective HPI Patient presents with: Nail Check: green under nails after applying acrylic nails x 1 week Pt states removed acrylic nails. Denies drainage, fever, chills, myalgia ROS All other reviewed and negative other than HPI. 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 Survey of the pelvis showed filmy omental adhesions to the anterior abdominal wall, also extensive bowel adhesions mainly from the sigmoid colon to the pelvic sidewall as well as to the left side of the uterus. Also, uterus appeared to be adhered to the anterior abdominal wall and the bladder. - REMOVAL OF OVARY/TUBE(S) 11/15/1999 laparoscopy Salpingectomy right side - REMOVAL OF OVARY/TUBE(S) 09/04/2010 laparotomy Salpingo-oophorectomy left tube, Dr. Kingston [place] - related to complications to surgical procedure in summer, post operative hematoma, wound infection, drainage of intraabdominal abscess CT [place] - SALPINGECTOMY 04/2010 Dr. Kingston - [place] - open tubal procedure, retturn to OR next day for bleeding,. - TREAT ECTOPIC PREG,NON REMVAL 1999 Ectopic at 19yrs old ALLERGIES Adhesive Tape (Rosins); Amitriptyline; Codeine; Latex; Naproxen; Promethazine-Dm; Tuberculin Ppd; Vancomycin; Vistaril [Hydroxyzine Hcl] MEDICATIONS estradiol (ESTRACE) 1 mg tablet Take 1 mg by mouth once daily. QUEtiapine (SEROQUEL) 100 mg tablet Take 100 mg by mouth once daily. MIRTAZAPINE (REMERON ORAL) Take by mouth. Nebulizer Accessories (REUSABLE NEBULIZER KIT) kit Use albuterol 1 vial in nebulizer ever 4 hours as needed for shortness of breath and wheezingICD J45.20 albuterol (PROVENTIL) 2.5 mg /3 mL (0.083 %) nebulizer solution Use 3 mL via nebulizer every 4 hours as needed for Wheezing/Shortness of Breath. Use over 5-15minutes. venlafaxine ER (EFFEXOR XR) 37.5 mg 24 hr capsule Take 1 capsule by mouth once daily. May increase to 75 mg in 7 day if tolerating albuterol HFA (PROAIR HFA) 90 mcg/actuation inhaler Inhale 2 Puffs as instructed every 4 hours as needed. cephALEXin (KEFLEX) 500 mg capsule Take 1 capsule by mouth four times daily for 10 days. FOR 10 DAYS LORAZEPAM (ATIVAN ORAL) Take by mouth. FAMILY HISTORY Problem Relation Age of Onset - other (Lung Cancer) Mother 46 - Lipids Father - Breast Cancer Maternal Grandmother Alive - other (Throat Cancer) Maternal Grandmother - Skin Cancer Other Alive; 1st maternal cousin Social History Substance Use Topics - Smoking status: Current Some Day Smoker Packs/day: 1.00 Years: 20.00 Types: Cigarettes Last attempt to quit: 04/13/2010 - Smokeless tobacco: Never Used Comment: started smoking again. about 1/2 ppd - Alcohol use No Comment: Rarely. Objective Physical Exam Skin: Nursing note and vitals reviewed. ASSESSMENT/PLAN: 1. Infection of nail bed of finger, unspecified laterality - ICD9: 681.02, ICD10: L03.019 - Begin treatment with Cephalaxin (Keflex) - No lymphangetic streaking, this was defined for patient to watch for and to seek medical care immediately if appears - Follow up for recheck in three days if symptoms are not improving or worsening Prescription instructions reviewed with patient as applicable. Patient advised if symptoms do not improve or if symptoms worsen sooner, to contact their primary care physician. Potential red flag symptoms discussed with the patient. Reviewed appropriate action plan to take if red flag symptoms occur. Patient agreeable to treatment plan. Aylin Peters APRN.[employer] Referring Provider: SELF [[id number]] Allergies As of Date: 08/15/2018 Noted Allergy Reaction ADHESIVE TAPE (ROSINS) 04/28/2012 14 - Other: See Comments Comments: skin breakdown AMITRIPTYLINE 11/20/2012 14 - Other: See Comments Comments: Has vivid dreams and sleepwalking where she was outside in the truck leaving in the middle of the night CODEINE 03/02/2011 14 - Other: See Comments Comments: Nausea and doesn't feel right LATEX 09/14/2010 9 - Itching NAPROXEN 02/02/2011 5 - Intolerance PROMETHAZINE-DM 10/15/2014 14 - Other: See Comments Comments: dizziness TUBERCULIN PPD 02/08/2014 14 - Other: See Comments Comments: false positive skin test readings VANCOMYCIN 09/14/2010 9 - Itching Comments: Takes with benadryl VISTARIL (HYDROXYZINE HCL) 01/20/2018 14 - Other: See Comments Comments: Rapid heart rate Date Reviewed: 08/15/2018 Reviewed by: Aylin Travis (Charles) Fran - Fully Assessed Reason for Visit: Nail Check [763] Cmt: green under nails after applying acrylic nails x 1 week Primary Visit Diagnosis:Infection of nail bed of finger, unspecified laterality [L03.019] Order(s):cephALEXin (KEFLEX) 500 mg capsuleTake 1 capsule by mouth four times daily for 10 days. FOR 10 DAYSDisp: 40 capsuleRfl: 0 Prescriptions as of 08/15/2018 Sig: ESTRADIOL 1 MG TABLET Take 1 mg by mouth once daily. QUETIAPINE 100 MG TABLET Take 100 mg by mouth once janee* REMERON ORAL Take by mouth. NEBULIZER ACCESSORIES KIT Use albuterol 1 vial in nebul* ALBUTEROL SULFATE 2.5 MG/3 ML* Use 3 mL via nebulizer every * VENLAFAXINE ER 37.5 MG CAPSUL* Take 1 capsule by mouth once * ALBUTEROL SULFATE HFA 90 MCG/* Inhale 2 Puffs as instructed * CEPHALEXIN 500 MG CAPSULE Take 1 capsule by mouth four * ATIVAN ORAL Take by mouth. Medication notes this encounter VENLAFAXINE ER 37.5 MG CAPSULE,EXTENDED RELEASE 24 HR >> Lisette Palma Ma 08/15/2018 8:00 PM >> LISETTE PALMA MA Aug 15, 2018 8:00 PM Problem List As Of Date 08/15/2018 Noted Resolved Pelvic abscess INVALID FOR*12/28/2011 Pelvic pain in female [R10.2] INVALID FOR*07/18/2012 Piriformis syndrome [G57.00] INVALID FOR*01/20/2018 Bladder pain [R39.89] INVALID FOR*05/09/2012 Interstitial cystitis [N30.10] INVALID FOR* Cellulitis [L03.90] INVALID FOR*05/09/2012 Irregular menses [N92.6] 05/09/2012 CRPS (complex regional pain syndrome) type I of*INVALID FOR* Reflex sympathetic dystrophy, unspecified [G90.*INVALID FOR* Pain in joint, ankle and foot [M25.579] INVALID FOR*02/18/2017 Menorrhagia [N92.0] INVALID FOR*05/09/2012 Complex ovarian cyst [N83.299] INVALID FOR*11/20/2012 Chronic pelvic pain in female [R10.2, G89.29] INVALID FOR* Depression [F32.9] INVALID FOR* 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 Anxiety [F41.9] INVALID FOR* Prescriptions ordered this encounter Disp Refills Start End CEPHALEXIN 500 MG CAPSULE 40 c* 0 08/15/2018 08/25/2018 Route: ORAL Sig: Take 1 capsule by mouth four times daily for 10 days. FOR 10 DAYS Disposition: Return if symptoms worsen or fail to improve. Follow-up and Disposition History Recorded Encounter Status:Closed by AYLIN PETERS on 08/15/18 PROGRESS Observed: 08/07/2018 Status: COMPLETED Source: [place] 4:05 PM [facility] REPOSITORY HNO ID: [id number] Author: Zbigniew Paul Service: (none) Author Type: Physician Type: Progress Notes Filed: 08/07/2018 4:21 PM Note Text: Patient presents with: Nausea: x yesterday HPI: Feeling sick since yesterday. Positive symptoms: nausea, vomiting, eat at family reunion 2 days ago. Negative symptoms: Fever, Diarrhea, abdominal, blood in stool or emesis, recent travel or antibiotic use. 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 Survey of the pelvis showed filmy omental adhesions to the anterior abdominal wall, also extensive bowel adhesions mainly from the sigmoid colon to the pelvic sidewall as well as to the left side of the uterus. Also, uterus appeared to be adhered to the anterior abdominal wall and the bladder. - REMOVAL OF OVARY/TUBE(S) 11/15/1999 laparoscopy Salpingectomy right side - REMOVAL OF OVARY/TUBE(S) 09/04/2010 laparotomy Salpingo-oophorectomy left tube, Dr. Kingston [place] - related to complications to surgical procedure in summer, post operative hematoma, wound infection, drainage of intraabdominal abscess CT [place] - SALPINGECTOMY 04/2010 Dr. Kingston - [place] - open tubal procedure, retturn to OR next day for bleeding,. - TREAT ECTOPIC PREG,NON REMVAL 1999 Ectopic at 19yrs old MEDICATIONS: Current Outpatient Prescriptions: estradiol (ESTRACE) 1 mg tablet Take 1 mg by mouth once daily. QUEtiapine (SEROQUEL) 100 mg tablet Take 100 mg by mouth once daily. MIRTAZAPINE (REMERON ORAL) Take by mouth. Nebulizer Accessories (REUSABLE NEBULIZER KIT) kit Use albuterol 1 vial in nebulizer ever 4 hours as needed for shortness of breath and wheezingICD J45.20 albuterol (PROVENTIL) 2.5 mg /3 mL (0.083 %) nebulizer solution Use 3 mL via nebulizer every 4 hours as needed for Wheezing/Shortness of Breath. Use over 5-15minutes. venlafaxine ER (EFFEXOR XR) 37.5 mg 24 hr capsule Take 1 capsule by mouth once daily. May increase to 75 mg in 7 day if tolerating albuterol HFA (PROAIR HFA) 90 mcg/actuation inhaler Inhale 2 Puffs as instructed every 4 hours as needed. LORAZEPAM (ATIVAN ORAL) Take by mouth. No current facility-administered medications for this visit. ALLERGIES: ALLERGIES Allergen Reactions - Adhesive Tape (Oly* Other: See Comments skin breakdown - Amitriptyline Other: See Comments Has vivid dreams and sleepwalking where she was outside in the truck leaving in the middle of the night - Codeine Other: See Comments Nausea and doesn't feel right - Latex Itching - Naproxen Intolerance - Promethazine-Dm Other: See Comments dizziness - Tuberculin Ppd Other: See Comments false positive skin test readings - Vancomycin Itching Takes with benadryl - Vistaril [Hydroxyzi* Other: See Comments Rapid heart rate VITALS: BP 120/70 Pulse 88 Temp 37.2 ?C (99 ?F) (Tympanic) Resp 16 Wt 51.3 kg (113 lb) LMP 03/03/2012 BMI 20.67 kg/m? PHYSICAL EXAM: GEN: mildly ill appearing HEENT: PERRL, EOMI, conjunctiva clear Throat: moist mucous membranes, no erythema, no exudate Neck: supple, no thyromegaly, no lymphadenopathy HEART: regular rate and rhythm, no murmurs LUNGS: clear to auscultation, no wheezes or crackles, no increased WOB ABD: Soft, non-distended, non-tender, no masses ASSESSMENT/PLAN: 1. Gastroenteritis - ICD9: 558.9, ICD10: K52.9 Supportive care. - ONDANSETRON 4 MG DISINTEGRATING TABLET Zbigniew Paul MD CNOV Observed: 08/07/2018 Status: COMPLETED Source: [place] 3:45 PM [facility] REPOSITORY Office Visit (WSTR) SOLA PETIT ([id number]) 1980 F Date Time Provider Department 08/07/18 3:45 PM ZBIGNIEW PAUL [facility] During your visit today, we recorded the following information about you: Temperature Pulse Respiration Blood pressure 99 degrees 88/minute 16/minute 120/70 Weight 51.3 kg Zbigniew Paul MD 08/07/2018 4:21 PM Signed Patient presents with: Nausea: x yesterday HPI: Feeling sick since yesterday. Positive symptoms: nausea, vomiting, eat at family reunion 2 days ago. Negative symptoms: Fever, Diarrhea, abdominal, blood in stool or emesis, recent travel or antibiotic use. 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 Survey of the pelvis showed filmy omental adhesions to the anterior abdominal wall, also extensive bowel adhesions mainly from the sigmoid colon to the pelvic sidewall as well as to the left side of the uterus. Also, uterus appeared to be adhered to the anterior abdominal wall and the bladder. - REMOVAL OF OVARY/TUBE(S) 11/15/1999 laparoscopy Salpingectomy right side - REMOVAL OF OVARY/TUBE(S) 09/04/2010 laparotomy Salpingo-oophorectomy left tube, Dr. Kingston [place] - related to complications to surgical procedure in summer, post operative hematoma, wound infection, drainage of intraabdominal abscess CT [place] - SALPINGECTOMY 04/2010 Dr. Kingston - [place] - open tubal procedure, retturn to OR next day for bleeding,. - TREAT ECTOPIC PREG,NON REMVAL 1999 Ectopic at 19yrs old MEDICATIONS: Current Outpatient Prescriptions: estradiol (ESTRACE) 1 mg tablet Take 1 mg by mouth once daily. QUEtiapine (SEROQUEL) 100 mg tablet Take 100 mg by mouth once daily. MIRTAZAPINE (REMERON ORAL) Take by mouth. Nebulizer Accessories (REUSABLE NEBULIZER KIT) kit Use albuterol 1 vial in nebulizer ever 4 hours as needed for shortness of breath and wheezingICD J45.20 albuterol (PROVENTIL) 2.5 mg /3 mL (0.083 %) nebulizer solution Use 3 mL via nebulizer every 4 hours as needed for Wheezing/Shortness of Breath. Use over 5-15minutes. venlafaxine ER (EFFEXOR XR) 37.5 mg 24 hr capsule Take 1 capsule by mouth once daily. May increase to 75 mg in 7 day if tolerating albuterol HFA (PROAIR HFA) 90 mcg/actuation inhaler Inhale 2 Puffs as instructed every 4 hours as needed. LORAZEPAM (ATIVAN ORAL) Take by mouth. No current facility-administered medications for this visit. ALLERGIES: ALLERGIES Allergen Reactions - Adhesive Tape (Oly* Other: See Comments skin breakdown - Amitriptyline Other: See Comments Has vivid dreams and sleepwalking where she was outside in the truck leaving in the middle of the night - Codeine Other: See Comments Nausea and doesn't feel right - Latex Itching - Naproxen Intolerance - Promethazine-Dm Other: See Comments dizziness - Tuberculin Ppd Other: See Comments false positive skin test readings - Vancomycin Itching Takes with benadryl - Vistaril [Hydroxyzi* Other: See Comments Rapid heart rate VITALS: BP 120/70 Pulse 88 Temp 37.2 ?C (99 ?F) (Tympanic) Resp 16 Wt 51.3 kg (113 lb) LMP 03/03/2012 BMI 20.67 kg/m? PHYSICAL EXAM: GEN: mildly ill appearing HEENT: PERRL, EOMI, conjunctiva clear Throat: moist mucous membranes, no erythema, no exudate Neck: supple, no thyromegaly, no lymphadenopathy HEART: regular rate and rhythm, no murmurs LUNGS: clear to auscultation, no wheezes or crackles, no increased WOB ABD: Soft, non-distended, non-tender, no masses ASSESSMENT/PLAN: 1. Gastroenteritis - ICD9: 558.9, ICD10: K52.9 Supportive care. - ONDANSETRON 4 MG DISINTEGRATING TABLET Zbigniew Paul MD Referring Provider: SELF [200] Allergies As of Date: 08/07/2018 Noted Allergy Reaction ADHESIVE TAPE (ROSINS) 04/28/2012 14 - Other: See Comments Comments: skin breakdown AMITRIPTYLINE 11/20/2012 14 - Other: See Comments Comments: Has vivid dreams and sleepwalking where she was outside in the truck leaving in the middle of the night CODEINE 03/02/2011 14 - Other: See Comments Comments: Nausea and doesn't feel right LATEX 09/14/2010 9 - Itching NAPROXEN 02/02/2011 5 - Intolerance PROMETHAZINE-DM 10/15/2014 14 - Other: See Comments Comments: dizziness TUBERCULIN PPD 02/08/2014 14 - Other: See Comments Comments: false positive skin test readings VANCOMYCIN 09/14/2010 9 - Itching Comments: Takes with benadryl VISTARIL (HYDROXYZINE HCL) 01/20/2018 14 - Other: See Comments Comments: Rapid heart rate Date Reviewed: 08/07/2018 Reviewed by: Lisette Palma Ma - Fully Assessed Reason for Visit: Nausea [70] Cmt: x yesterday Primary Visit Diagnosis:Gastroenteritis [K52.9] Order(s):ondansetron orally disintegrating (ZOFRAN ODT) 4 mg disintegrating tabletTake 1 tablet by mouth every 6 hours as needed for Nausea/Vomiting for up to 3 days.Disp: 6 tabletRfl: 0 Prescriptions as of 08/07/2018 Sig: ESTRADIOL 1 MG TABLET Take 1 mg by mouth once daily. QUETIAPINE 100 MG TABLET Take 100 mg by mouth once janee* REMERON ORAL Take by mouth. NEBULIZER ACCESSORIES KIT Use albuterol 1 vial in nebul* ALBUTEROL SULFATE 2.5 MG/3 ML* Use 3 mL via nebulizer every * VENLAFAXINE ER 37.5 MG CAPSUL* Take 1 capsule by mouth once * ALBUTEROL SULFATE HFA 90 MCG/* Inhale 2 Puffs as instructed * ONDANSETRON 4 MG DISINTEGRATI* Take 1 tablet by mouth every * ATIVAN ORAL Take by mouth. Problem List As Of Date 08/07/2018 Noted Resolved Pelvic abscess INVALID FOR*12/28/2011 Pelvic pain in female [R10.2] INVALID FOR*07/18/2012 Piriformis syndrome [G57.00] INVALID FOR*01/20/2018 Bladder pain [R39.89] INVALID FOR*05/09/2012 Interstitial cystitis [N30.10] INVALID FOR* Cellulitis [L03.90] INVALID FOR*05/09/2012 Irregular menses [N92.6] 05/09/2012 CRPS (complex regional pain syndrome) type I of*INVALID FOR* Reflex sympathetic dystrophy, unspecified [G90.*INVALID FOR* Pain in joint, ankle and foot [M25.579] INVALID FOR*02/18/2017 Menorrhagia [N92.0] INVALID FOR*05/09/2012 Complex ovarian cyst [N83.299] INVALID FOR*11/20/2012 Chronic pelvic pain in female [R10.2, G89.29] INVALID FOR* Depression [F32.9] INVALID FOR* 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 Anxiety [F41.9] INVALID FOR* Prescriptions ordered this encounter Disp Refills Start End ONDANSETRON 4 MG DISINTEGRATING TABL* 6 ta* 0 08/07/2018 08/10/2018 Route: ORAL Sig: Take 1 tablet by mouth every 6 hours as needed for Nausea/Vomiting for up to 3 days. Letter Text [facility] [address], [place] [address] 08/07/2018 Sola Petit [facility]# [id number] [address] [place] [address] TO WHOM IT MAY CONCERN: This is to confirm that Sola Petit had an appointment and was seen at the [facility] in the Department of Urgent Care by Zbigniew Paul MD on 08/07/2018 for illness. Sincerely , Zbigniew Paul MD Encounter Status:Closed by ZBIGNIEW PAUL MD on 08/07/18 CNPN Observed: 05/19/2018 Status: COMPLETED Source: [place] 12:00 AM [facility] REPOSITORY Telephone (CAWSTR) SOLA JARAMILLO ([id number]) 1980 F Date Time Provider Department 05/19/18 PERRY GONGORA During your visit today, we recorded the following information about you: Chandler Austin RN 05/19/2018 10:48 AM Signed ----- Message from Perry Gongora sent at 05/19/2018 10:38 AM EDT ----- Thyroid and magnesium are acceptable. MD Chandler Gomez RN 05/19/2018 10:49 AM Signed Left message to call office. 05/19/2018 10:49 AM Chandler Austin RN 05/19/2018 2:23 PM Signed Left message to call office. 05/19/2018 2:23 PM Chandler Guillermo MA 05/23/2018 9:51 AM Signed Left message to call office. 05/23/2018 9:50 AM Lisette Austin RN 05/29/2018 11:40 AM Signed Called pt, unable to leave message. maibox full. Letter sent to pt Chandler Austin RN 06/05/2018 10:13 AM Signed Psychiatric called, pt is incarcerated asking if pt needs any follow from her testing. Informed them tests were acceptable and no follow at this time for labs. Cahndler Austin RN Allergies As of Date: 05/19/2018 Noted Allergy Reaction ADHESIVE TAPE (ROSINS) 04/28/2012 14 - Other: See Comments Comments: skin breakdown AMITRIPTYLINE 11/20/2012 14 - Other: See Comments Comments: Has vivid dreams and sleepwalking where she was outside in the truck leaving in the middle of the night CODEINE 03/02/2011 14 - Other: See Comments Comments: Nausea and doesn't feel right LATEX 09/14/2010 9 - Itching NAPROXEN 02/02/2011 5 - Intolerance PROMETHAZINE-DM 10/15/2014 14 - Other: See Comments Comments: dizziness TUBERCULIN PPD 02/08/2014 14 - Other: See Comments Comments: false positive skin test readings VANCOMYCIN 09/14/2010 9 - Itching Comments: Takes with benadryl VISTARIL (HYDROXYZINE HCL) 01/20/2018 14 - Other: See Comments Comments: Rapid heart rate Date Reviewed: 05/18/2018 Reviewed by: Lisette Guillermo MA - Fully Assessed Reason for Visit: Results [95] Prescriptions as of 05/19/2018 Sig: ESTRADIOL 1 MG TABLET Take 1 mg by mouth once daily. QUETIAPINE 100 MG TABLET Take 100 mg by mouth once janee* REMERON ORAL Take by mouth. ATIVAN ORAL Take by mouth. NEBULIZER ACCESSORIES KIT Use albuterol 1 vial in nebul* ALBUTEROL SULFATE 2.5 MG/3 ML* Use 3 mL via nebulizer every * VENLAFAXINE ER 37.5 MG CAPSUL* Take 1 capsule by mouth once * ALBUTEROL SULFATE HFA 90 MCG/* Inhale 2 Puffs as instructed * Problem List As Of Date 05/19/2018 Noted Resolved Pelvic abscess INVALID FOR*12/28/2011 Pelvic pain in female [R10.2] INVALID FOR*07/18/2012 Piriformis syndrome [G57.00] INVALID FOR*01/20/2018 Bladder pain [R39.89] INVALID FOR*05/09/2012 Interstitial cystitis [N30.10] INVALID FOR* Cellulitis [L03.90] INVALID FOR*05/09/2012 Irregular menses [N92.6] 05/09/2012 CRPS (complex regional pain syndrome) type I of*INVALID FOR* Reflex sympathetic dystrophy, unspecified [G90.*INVALID FOR* Pain in joint, ankle and foot [M25.579] INVALID FOR*02/18/2017 Menorrhagia [N92.0] INVALID FOR*05/09/2012 Complex ovarian cyst [N83.299] INVALID FOR*11/20/2012 Chronic pelvic pain in female [R10.2, G89.29] INVALID FOR* Depression [F32.9] INVALID FOR* 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 Anxiety [F41.9] INVALID FOR* Letter Text Sola Jaramillo May 29, [address] [place], [place] [address] 05/29/2018 [facility]# [id number] Sola Jaramillo [address] [facility] [address] Dear Ms. Jaramillo: We have been unsuccessful in reaching you by phone. Please call our office at for further instructions. Thank you. Sincerely, Dr. Gongora Encounter Status:Closed by CHANDLER AUSTIN RN on 05/29/18 PROGRESS Observed: 05/18/2018 Status: COMPLETED Source: [place] 5:07 PM [facility] REPOSITORY O ID: [id number] Author: Perry Gongora Service: (none) Author Type: Physician Type: Progress Notes Filed: 05/18/2018 5:16 PM Note Text: PERTINENT CARDIAC HISTORY Tachycardia Chest pain ADHERENCE TO GUIDELINES LB-I or ARB for HF with prior LVEF<40 (NQF 0081) - N/A ASA or Plavix for ASHD (NQF 0067) - N/A Beta kae for ASHD with prior CA or prior LVEF<40 (NQF 0070) - N/A Beta kae for HF with prior LVEF<40 (NQF 0083) - N/A LB-I or ARB for ASHD with DM or prior LVEF<40 (NQF 0066) - N/A Statin therapy for ASHD or FHL or DM - N/A BMI documented and plan if >25 (NQF 0421) - lifestyle recommendation form Tobacco use screening and referral (NQF 0028) - lifestyle recommendation form Recommendation for whole food, plant based diet - lifestyle recommendation form CLINICAL IMPRESSION/PLAN: Sola Jaramillo has persistent sinus tachycardia. Etiology is unclear, but may be related partly to the combination of her medication. I encouraged her to remain well hydrated and avoid sudden postural change. She has previous history of IV drug use. Cardiomyopathy is a possibility and will be evaluated with echocardiogram. We will check TSH and magnesium level Stress test will be considered, given her family history. Her chest pain is atypical for ischemia. We will consider treating her tachycardia with rate slowing calcium blockers. I would like to avoid beta blockers given her history of depression. We will work with her psychiatrist to attempt to modify her medication to avoid those most prone to reflex tachycardia. She has been advised to decrease caffeine as much as possible. I will see her in 4 months or as needed. We will be in touch with her as we receive results of her testing. Thank you for asking me to see and make recommendations on Sola Jaramillo. This report is available to you in the shared medical record. Written and verbal health teaching given to patient, patient verbalizes understanding and agrees with treatment plan. DIAGNOSIS FOR VISIT: Tachycardia Lightheadedness HISTORY OF PRESENT ILLNESS Sola Jaramillo is a 38-year-old woman without previous cardiac history who is seen in consultation at the request of Suresh Story CNP, for recommendations regarding recent onset of sustained tachycardia. She reports about a three-month history of intermittent rapid heart rate which is unrelated to activity. Her pulse rate seems to be too high for any type of activity. There is no irregularity. She describes some mild postural lightheadedness but no syncope. She's had intermittent sharp chest pain which is nonradiating. This is not related to activity. Her exercise tolerance has been slightly decreased. 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 She is on multiple agents for depression. She's had no clear-cut TIAs, amaurosis or claudication. There is a family history of premature vascular disease. Father had an infarct in his forties. She was recently seen in the emergency department with tachycardia and was felt to have anxiety. Her evaluation including troponin and EKG was unremarkable. She has a history of sleep apnea but has not required any device therapy. She smokes less than one pack a day. She drinks several cups of coffee per day. ALLERGIES: ALLERGIES Allergen Reactions - Adhesive Tape (Oly* Other: See Comments skin breakdown - Amitriptyline Other: See Comments Has vivid dreams and sleepwalking where she was outside in the truck leaving in the middle of the night - Codeine Other: See Comments Nausea and doesn't feel right - Latex Itching - Naproxen Intolerance - Promethazine-Dm Other: See Comments dizziness - Tuberculin Ppd Other: See Comments false positive skin test readings - Vancomycin Itching Takes with benadryl - Vistaril [Hydroxyzi* Other: See Comments Rapid heart rate CURRENT OUTPATIENT MEDICATIONS: estradiol (ESTRACE) 1 mg tablet Take 1 mg by mouth once daily. QUEtiapine (SEROQUEL) 100 mg tablet Take 100 mg by mouth once daily. MIRTAZAPINE (REMERON ORAL) Take by mouth. Nebulizer Accessories (REUSABLE NEBULIZER KIT) kit Use albuterol 1 vial in nebulizer ever 4 hours as needed for shortness of breath and wheezingICD J45.20 albuterol (PROVENTIL) 2.5 mg /3 mL (0.083 %) nebulizer solution Use 3 mL via nebulizer every 4 hours as needed for Wheezing/Shortness of Breath. Use over 5-15minutes. venlafaxine ER (EFFEXOR XR) 37.5 mg 24 hr capsule Take 1 capsule by mouth once daily. May increase to 75 mg in 7 day if tolerating albuterol HFA (PROAIR HFA) 90 mcg/actuation inhaler Inhale 2 Puffs as instructed every 4 hours as needed. LORAZEPAM (ATIVAN ORAL) Take by mouth. 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 Survey of the pelvis showed filmy omental adhesions to the anterior abdominal wall, also extensive bowel adhesions mainly from the sigmoid colon to the pelvic sidewall as well as to the left side of the uterus. Also, uterus appeared to be adhered to the anterior abdominal wall and the bladder. - REMOVAL OF OVARY/TUBE(S) 11/15/1999 laparoscopy Salpingectomy right side - REMOVAL OF OVARY/TUBE(S) 09/04/2010 laparotomy Salpingo-oophorectomy left tube, Dr. Kingston [place] - related to complications to surgical procedure in summer, post operative hematoma, wound infection, drainage of intraabdominal abscess CT [place] - SALPINGECTOMY 04/2010 Dr. Kingston - [place] - open tubal procedure, retturn to OR next day for bleeding,. - TREAT ECTOPIC PREG,NON REMVAL 1999 Ectopic at 19yrs old FAMILY HISTORY Problem Relation Age of Onset - Lung Cancer [OTHER] Mother 46 - Lipids Father - Breast Cancer Maternal Grandmother Alive - Throat Cancer [OTHER] Maternal Grandmother - Skin Cancer Other Alive; 1st maternal cousin Social History Marital status: Spouse name: Jane Years of education: 12 Number of children: 0 Occupational History Occupation Employer Comment unemployed Social History Main Topics Smoking status: Current Some Day Smoker Packs/day: 1.00 Years: 20.00 Types: Cigarettes Last attempt to quit: 04/13/2010 Smokeless tobacco: Never Used Comment: started smoking again. about 1/2 ppd Alcohol use: No Comment: Rarely. Sexual activity: Yes Partners with: Male control/protection: Tubal Ligation Comment: both tubes removed; 1 d/t ectopic; other d/t recurring infection Social History Narrative Blood type: A Positive REVIEW OF SYSTEMS: General: No chills, fever, weight loss, night sweats. SHEENT: No change in vision or auditory acuity. Respiratory: No productive cough. Cardiac: As noted above. GI: No melena. : No dysuria. Musculoskeletal: No myalgias. Neurologic: No strokes. Psychiatric: History of depression. Endocrine: No diabetes. Hematologic: No anemia. PHYSICAL EXAMINATION: S/he is alert and in no distress VITAL SIGNS: BP 118/84 Pulse 103 Ht 5' 2 (1.58m) Wt 106 lb 8 oz (48.3kg) LMP 03/03/2012 BMI 19.47 kg/(m2). SHEENT: Skin is warm and dry. Pupils are round and reactive. Retinal vessels are grossly unremarkable. No xanthelasmas appreciated. Pharynx is benign. There is no oral cyanosis. Neck: supple. No adenopathy or thyroid enlargement. Chest: Clear to percussion and auscultation. Trachea is midline. Air entry is equal. There is no chest wall tenderness. Cardiac: Regular rhythm. S1 and S2 are normal. PMI is nondisplaced. There are no murmurs, rubs or gallops. No click is heard. Carotids are brisk without bruits. JVP is less than 10 cm. Abdomen: Soft and nontender. There are no pulsatile masses or bruits. No liver enlargement. Bowel sounds are active. : Deferred. Extremities: No edema. Pulses are intact and symmetrical. No clubbing or cyanosis. No femoral bruits. Neurologic: Grossly normal motor and sensory. S/he is alert and oriented x4. Musculoskeletal: No joint deformities. Records from all were reviewed. EKG shows sinus tachycardia. There is no acute ST change and no other abnormality is seen. Laboratory studies including renal function and potassium were normal. TSH and magnesium were not done. Holter monitor was performed. This showed generally increased heart rate with resting tachycardia. Average heart rate was over 100. There is no significant arrhythmia. Electronically Signed: Perry Gongora MD May 18, 2018 5:07 PM CC: Edelmira Stephenson MD MAGNESIUM Collected: 05/18/2018 Status: F Source: [place] 4:06 PM [facility] REPOSITORY TYPE CODE TESTS RESULT OUT OF REFERENCE UNITS RANGE LAB MG 1.7-2.3 mg/dL High Magnesium 2.4 Performed By: #### MG1, TSH #### [facility] [address], [place] [address] TSH Collected: 05/18/2018 Status: F Source: [place] 4:06 PM [facility] REPOSITORY TYPE CODE TESTS RESULT OUT OF RANGE REFERENCE UNITS LAB TSH 0.400-5.500 uU/mL TSH 2.500 Result Comment: If the patient is , TSH reference range varies by gestational period: First Trimester 0.100-2.500 uU/mL Second Trimester 0.200-3.000 uU/mL Third Trimester 0.300-3.000 uU/mL References: 1. Vargas, Flores M, Goyo REGALADO, et al. Management of Thyroid Dysfunction during and : An Endocrine Society Clinical Practice Guideline. J Clin Endocrinol Metab, 2012:97:8688-3625. 2. Natividad VALADEZ. Overview of thyroid disease in . UpToDate. 2016. Accessed on April 16, 2016. Performed By: #### MG1, TSH #### [facility] [address] [place], [place] [address] CNOV Observed: 05/18/2018 Status: COMPLETED Source: [place] 3:15 PM [facility] REPOSITORY Office Visit ([facility]) SOLA JARAMILLO ([id number]) 1980 F Date Time Provider Department 05/18/18 3:15 PM PERRY GONGORA [facility] During your visit today, we recorded the following information about you: Pulse Blood pressure Weight Height 103/minute 118/84 48.3 kg 1.575 m Perry Gongora MD 05/18/2018 3:47 PM Signed LIFESTYLE CHANGE A healthy lifestyle is the most important component of your overall treatment plan. Please give serious thought to the following areas and commit to making mcfp changes. EAT A WHOLE FOOD, PLANT BASED DIET The nutrition your body gets is more important than the medicine you take. What matters most is the overall way you eat. We encourage you to minimize the use of animal products (which include dairy and all meats except fatty fish) and use whole, unprocessed plant foods to provide your protein, vitamins and other nutrients. We have a lot of information to share with you on this topic. This is not a diet. It is a way of life that you will keep with you. EXERCISE REGULARLY It is not important to spend hours in the gym, lifting weights and perspiring heavily. A total of 2-3 hours per week of aerobic (causing you to be moderately short of breath) exercise is sufficient to improve your health. Talk to us before you begin a new exercise program, if you have heart disease or experience shortness of breath or chest pain. REDUCE STRESS Chronic emotional and physical stress leads to disease. Ways of reducing stress include meditation, visualization, prayer, yoga and other forms of relaxation therapy. Consistency is the daniel. Find a technique that works for you and do it every day. CULTIVATE RELATIONSHIPS Loneliness and isolation have a major negative impact on health. Seek out others who can love, care for and nurture you. Avoid hurtful relationships. MAINTAIN IDEAL BODY WEIGHT The best way to do this is to do all the things above. Our bodies naturally find the right weight if we keep moving and feed ourselves the right food. If your BMI is greater than 25, we strongly recommend a referral to a weight management program. Please speak to us or your family physician about available programs. AVOID NICOTINE IN ALL FORMS This includes all tobacco products, whether chewed, smoked, vaped, or rubbed on the skin. Smoking cessation programs, which can make use of tobacco substitutes, medications to suppress cravings and behavior management, are available. Please contact your family physician about programs in your area. Perry Gongora MD 05/18/2018 5:16 PM Signed PERTINENT CARDIAC HISTORY Tachycardia Chest pain ADHERENCE TO GUIDELINES LB-I or ARB for HF with prior LVEF<40 (NQF 0081) - N/A ASA or Plavix for ASHD (NQF 0067) - N/A Beta kae for ASHD with prior CA or prior LVEF<40 (NQF 0070) - N/A Beta kae for HF with prior LVEF<40 (NQF 0083) - N/A LB-I or ARB for ASHD with DM or prior LVEF<40 (NQF 0066) - N/A Statin therapy for ASHD or FHL or DM - N/A BMI documented and plan if >25 (NQF 0421) - lifestyle recommendation form Tobacco use screening and referral (NQF 0028) - lifestyle recommendation form Recommendation for whole food, plant based diet - lifestyle recommendation form CLINICAL IMPRESSION/PLAN: Sola Jaramillo has persistent sinus tachycardia. Etiology is unclear, but may be related partly to the combination of her medication. I encouraged her to remain well hydrated and avoid sudden postural change. She has previous history of IV drug use. Cardiomyopathy is a possibility and will be evaluated with echocardiogram. We will check TSH and magnesium level Stress test will be considered, given her family history. Her chest pain is atypical for ischemia. We will consider treating her tachycardia with rate slowing calcium blockers. I would like to avoid beta blockers given her history of depression. We will work with her psychiatrist to attempt to modify her medication to avoid those most prone to reflex tachycardia. She has been advised to decrease caffeine as much as possible. I will see her in 4 months or as needed. We will be in touch with her as we receive results of her testing. Thank you for asking me to see and make recommendations on Sola Jaramillo. This report is available to you in the shared medical record. Written and verbal health teaching given to patient, patient verbalizes understanding and agrees with treatment plan. DIAGNOSIS FOR VISIT: Tachycardia Lightheadedness HISTORY OF PRESENT ILLNESS Sola Jaramillo is a 38-year-old woman without previous cardiac history who is seen in consultation at the request of Suresh Story CNP, for recommendations regarding recent onset of sustained tachycardia. She reports about a three-month history of intermittent rapid heart rate which is unrelated to activity. Her pulse rate seems to be too high for any type of activity. There is no irregularity. She describes some mild postural lightheadedness but no syncope. She's had intermittent sharp chest pain which is nonradiating. This is not related to activity. Her exercise tolerance has been slightly decreased. 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 She is on multiple agents for depression. She's had no clear-cut TIAs, amaurosis or claudication. There is a family history of premature vascular disease. Father had an infarct in his forties. She was recently seen in the emergency department with tachycardia and was felt to have anxiety. Her evaluation including troponin and EKG was unremarkable. She has a history of sleep apnea but has not required any device therapy. She smokes less than one pack a day. She drinks several cups of coffee per day. ALLERGIES: ALLERGIES Allergen Reactions - Adhesive Tape (Oly* Other: See Comments skin breakdown - Amitriptyline Other: See Comments Has vivid dreams and sleepwalking where she was outside in the truck leaving in the middle of the night - Codeine Other: See Comments Nausea and doesn't feel right - Latex Itching - Naproxen Intolerance - Promethazine-Dm Other: See Comments dizziness - Tuberculin Ppd Other: See Comments false positive skin test readings - Vancomycin Itching Takes with benadryl - Vistaril [Hydroxyzi* Other: See Comments Rapid heart rate CURRENT OUTPATIENT MEDICATIONS: estradiol (ESTRACE) 1 mg tablet Take 1 mg by mouth once daily. QUEtiapine (SEROQUEL) 100 mg tablet Take 100 mg by mouth once daily. MIRTAZAPINE (REMERON ORAL) Take by mouth. Nebulizer Accessories (REUSABLE NEBULIZER KIT) kit Use albuterol 1 vial in nebulizer ever 4 hours as needed for shortness of breath and wheezingICD J45.20 albuterol (PROVENTIL) 2.5 mg /3 mL (0.083 %) nebulizer solution Use 3 mL via nebulizer every 4 hours as needed for Wheezing/Shortness of Breath. Use over 5-15minutes. venlafaxine ER (EFFEXOR XR) 37.5 mg 24 hr capsule Take 1 capsule by mouth once daily. May increase to 75 mg in 7 day if tolerating albuterol HFA (PROAIR HFA) 90 mcg/actuation inhaler Inhale 2 Puffs as instructed every 4 hours as needed. LORAZEPAM (ATIVAN ORAL) Take by mouth. 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 Survey of the pelvis showed filmy omental adhesions to the anterior abdominal wall, also extensive bowel adhesions mainly from the sigmoid colon to the pelvic sidewall as well as to the left side of the uterus. Also, uterus appeared to be adhered to the anterior abdominal wall and the bladder. - REMOVAL OF OVARY/TUBE(S) 11/15/1999 laparoscopy Salpingectomy right side - REMOVAL OF OVARY/TUBE(S) 09/04/2010 laparotomy Salpingo-oophorectomy left tube, Dr. Kingston [place] - related to complications to surgical procedure in summer, post operative hematoma, wound infection, drainage of intraabdominal abscess CT [place] - SALPINGECTOMY 04/2010 Dr. Thee Cadet [place] - open tubal procedure, retturn to OR next day for bleeding,. - TREAT ECTOPIC PREG,NON REMVAL 1999 Ectopic at 19yrs old FAMILY HISTORY Problem Relation Age of Onset - Lung Cancer [OTHER] Mother 46 - Lipids Father - Breast Cancer Maternal Grandmother Alive - Throat Cancer [OTHER] Maternal Grandmother - Skin Cancer Other Alive; 1st maternal cousin Social History Marital status: Spouse name: Jane Years of education: 12 Number of children: 0 Occupational History Occupation Employer Comment unemployed Social History Main Topics Smoking status: Current Some Day Smoker Packs/day: 1.00 Years: 20.00 Types: Cigarettes Last attempt to quit: 04/13/2010 Smokeless tobacco: Never Used Comment: started smoking again. about 1/2 ppd Alcohol use: No Comment: Rarely. Sexual activity: Yes Partners with: Male control/protection: Tubal Ligation Comment: both tubes removed; 1 d/t ectopic; other d/t recurring infection Social History Narrative Blood type: A Positive REVIEW OF SYSTEMS: General: No chills, fever, weight loss, night sweats. SHEENT: No change in vision or auditory acuity. Respiratory: No productive cough. Cardiac: As noted above. GI: No melena. : No dysuria. Musculoskeletal: No myalgias. Neurologic: No strokes. Psychiatric: History of depression. Endocrine: No diabetes. Hematologic: No anemia. PHYSICAL EXAMINATION: S/he is alert and in no distress VITAL SIGNS: BP 118/84 Pulse 103 Ht 5' 2 (1.58m) Wt 106 lb 8 oz (48.3kg) LMP 03/03/2012 BMI 19.47 kg/(m2). SHEENT: Skin is warm and dry. Pupils are round and reactive. Retinal vessels are grossly unremarkable. No xanthelasmas appreciated. Pharynx is benign. There is no oral cyanosis. Neck: supple. No adenopathy or thyroid enlargement. Chest: Clear to percussion and auscultation. Trachea is midline. Air entry is equal. There is no chest wall tenderness. Cardiac: Regular rhythm. S1 and S2 are normal. PMI is nondisplaced. There are no murmurs, rubs or gallops. No click is heard. Carotids are brisk without bruits. JVP is less than 10 cm. Abdomen: Soft and nontender. There are no pulsatile masses or bruits. No liver enlargement. Bowel sounds are active. : Deferred. Extremities: No edema. Pulses are intact and symmetrical. No clubbing or cyanosis. No femoral bruits. Neurologic: Grossly normal motor and sensory. S/he is alert and oriented x4. Musculoskeletal: No joint deformities. Records from all were reviewed. EKG shows sinus tachycardia. There is no acute ST change and no other abnormality is seen. Laboratory studies including renal function and potassium were normal. TSH and magnesium were not done. Holter monitor was performed. This showed generally increased heart rate with resting tachycardia. Average heart rate was over 100. There is no significant arrhythmia. Electronically Signed: Perry Gongora MD May 18, 2018 5:07 PM CC: Edelmira Stephenson MD Referring Provider: SURESH STORY ([facility]) [[id number]] Allergies As of Date: 05/18/2018 Noted Allergy Reaction ADHESIVE TAPE (ROSINS) 04/28/2012 14 - Other: See Comments Comments: skin breakdown AMITRIPTYLINE 11/20/2012 14 - Other: See Comments Comments: Has vivid dreams and sleepwalking where she was outside in the truck leaving in the middle of the night CODEINE 03/02/2011 14 - Other: See Comments Comments: Nausea and doesn't feel right LATEX 09/14/2010 9 - Itching NAPROXEN 02/02/2011 5 - Intolerance PROMETHAZINE-DM 10/15/2014 14 - Other: See Comments Comments: dizziness TUBERCULIN PPD 02/08/2014 14 - Other: See Comments Comments: false positive skin test readings VANCOMYCIN 09/14/2010 9 - Itching Comments: Takes with benadryl VISTARIL (HYDROXYZINE HCL) 01/20/2018 14 - Other: See Comments Comments: Rapid heart rate Date Reviewed: 05/18/2018 Reviewed by: Lisette Guillermo MA - Fully Assessed Primary Visit Diagnosis:Tachycardia [R00.0] Order(s):TSH BLD [SQTSH] Order #: [id number] FUTURE MAGNESIUM BLD [SQMG1] Order #: [id number] FUTURE ECHO [347448] Order #: [id number]: 1 FUTURE Prescriptions as of 05/18/2018 Sig: ESTRADIOL 1 MG TABLET Take 1 mg by mouth once daily. QUETIAPINE 100 MG TABLET Take 100 mg by mouth once janee* REMERON ORAL Take by mouth. NEBULIZER ACCESSORIES KIT Use albuterol 1 vial in nebul* ALBUTEROL SULFATE 2.5 MG/3 ML* Use 3 mL via nebulizer every * VENLAFAXINE ER 37.5 MG CAPSUL* Take 1 capsule by mouth once * ALBUTEROL SULFATE HFA 90 MCG/* Inhale 2 Puffs as instructed * ATIVAN ORAL Take by mouth. Problem List As Of Date 05/18/2018 Noted Resolved Pelvic abscess INVALID FOR*12/28/2011 Pelvic pain in female [R10.2] INVALID FOR*07/18/2012 Piriformis syndrome [G57.00] INVALID FOR*01/20/2018 Bladder pain [R39.89] INVALID FOR*05/09/2012 Interstitial cystitis [N30.10] INVALID FOR* Cellulitis [L03.90] INVALID FOR*05/09/2012 Irregular menses [N92.6] 05/09/2012 CRPS (complex regional pain syndrome) type I of*INVALID FOR* Reflex sympathetic dystrophy, unspecified [G90.*INVALID FOR* Pain in joint, ankle and foot [M25.579] INVALID FOR*02/18/2017 Menorrhagia [N92.0] INVALID FOR*05/09/2012 Complex ovarian cyst [N83.299] INVALID FOR*11/20/2012 Chronic pelvic pain in female [R10.2, G89.29] INVALID FOR* Depression [F32.9] INVALID FOR* 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 Anxiety [F41.9] INVALID FOR* Other instructions from your clinician: LIFESTYLE CHANGE A healthy lifestyle is the most important component of your overall treatment plan. Please give serious thought to the following areas and commit to making superintendent terminal changes. EAT A WHOLE FOOD, PLANT BASED DIET The nutrition your body gets is more important than the medicine you take. What matters most is the overall way you eat. We encourage you to minimize the use of animal products (which include dairy and all meats except fatty fish) and use whole, unprocessed plant foods to provide your protein, vitamins and other nutrients. We have a lot of information to share with you on this topic. This is not a diet. It is a way of life that you will keep with you. EXERCISE REGULARLY It is not important to spend hours in the gym, lifting weights and perspiring heavily. A total of 2-3 hours per week of aerobic (causing you to be moderately short of breath) exercise is sufficient to improve your health. Talk to us before you begin a new exercise program, if you have heart disease or experience shortness of breath or chest pain. REDUCE STRESS Chronic emotional and physical stress leads to disease. Ways of reducing stress include meditation, visualization, prayer, yoga and other forms of relaxation therapy. Consistency is the daniel. Find a technique that works for you and do it every day. CULTIVATE RELATIONSHIPS Loneliness and isolation have a major negative impact on health. Seek out others who can love, care for and nurture you. Avoid hurtful relationships. MAINTAIN IDEAL BODY WEIGHT The best way to do this is to do all the things above. Our bodies naturally find the right weight if we keep moving and feed ourselves the right food. If your BMI is greater than 25, we strongly recommend a referral to a weight management program. Please speak to us or your family physician about available programs. AVOID NICOTINE IN ALL FORMS This includes all tobacco products, whether chewed, smoked, vaped, or rubbed on the skin. Smoking cessation programs, which can make use of tobacco substitutes, medications to suppress cravings and behavior management, are available. Please contact your family physician about programs in your area. Follow-up and Disposition History Recorded Encounter Status:Closed by PERRY GONGORA MD on 05/18/18 48 HR HOLTER MONITOR Observed: 04/05/2018 Status: F Source: [place] 10:51 AM [facility]IN[facility] OTHER CAMPUS REPOSITORY IMPRESSIONS AND FINDINGS: Scanned 11-Apr-2018 The basic underlying rhythm is sinus with an average rate of 100 BPM, a minimum rate of 65 BPM and a maximum rate of 173 BPM. Tachycardia was seen in 46% of the scan. There were five isolated premature atrial complexes. There were 11 isolated premature ventricular complexes and four bigeminal cycles. Diary entries of 'rapid heart', 'chest pain', and 'lightheaded and dizzy' all correlated with with sinus rhythm with rate ranging from 110 BPM to 142 BPM. Hookup Date: [id number] Hookup Time: [id number] Recording Duration: [id number] S Minimum Heart Rate: 65 BPM Minimum Heart Rate Date/Time: [id number] Maximum Heart Rate: 173 BPM Maximum Heart Rate Date/Time: [id number] Average Heart Rate: 100 BPM Longest RR: 0.992 S Longest RR DATE/TIME: [id number] QRS complexes: [id number] Ventricular Ectopics: 11 Ventricular Isolated Beats: 11 Ventricular Bigeminal Cycles: 4 Ventricular Couplets: 0 Ventricular Runs: 0 Ventricular Beats in Runs: 0 Supraventricular Ectopics: 5 Supraventricular Isolated Beats: 5 Supraventricular Couplets: 0 Supraventricular Runs: 0 Supraventricular Beats in Runs: 0 Maximum S-T Levels Channel 1: -12.800 mm Maximum S-T Levels Channel 1 Date/Time: 20180405 938388 Minimum S-T Levels Channel 1: -12.800 mm Minimum S-T Levels Channel 1 Date/Time: 20180405 351688 Maximum S-T Levels Channel 2: -12.800 mm Minimum S-T Levels Channel 2: -12.800 mm Minimum S-T Levels Channel 2 Date/Time: 20180405 922506 Overreading Physician: Geraldine Pitts MD See Holter MUSE for ECG strips. OPERATIVE REPORT Observed: 03/28/2018 Status: F Source: [place] 5:09 AM [facility] REPOSITORY [facility] Medical Records Department [address] [place] [id number] Operative Report 03/23/18 1301 MR#: [id number] Acct: [id number] Name: SOLA JARAMILLO Rep #: [id number] : 1980 37 From: Almaz Watkins MD PCP: Thu HAWKINS,Corinna Status: [facility] [place] [facility] [place] List (1) Chronic female pelvic pain Status: Chronic (2) Ovarian cyst Status: Acute Qualifiers: Comment: right side- ER Phu Nichole 01/09/18 (3) Abdominal pain Status: Acute Report of Operation Date of Procedure: 03/23/18 Pre-Operative Diagnosis: pelvic pain ovarian cysts Post-Operative Diagnosis: same Surgery/Procedure Performed:: laparoscopic right oophorectomy adhesiolysis Description of Surgical Findings:: left sigmoid to pelvic side wall adhesions and ovarian to side wall adhesions telephone station installer: Flora Burr Type of Anesthesia:: General Specimen's removed: right ovary Drains: pate Estimated Blood Loss (mL): minimal Fluids Replaced: crystalloid Description of Procedure: Patient was taken in the operating room and was placed under general anesthesia was prepped and draped in normal sterile fashion in the dorsal lithotomy position. Bladder was drained of clear urine and SCDs were on preoperatively. Uterus was sounded and a uterine manipulator was placed after dilating. Attention was then paid to the abdominal portion of the procedure and the umbilicus was elevated with towel clamps and injected with Marcaine and after a 5 mm incision was made and the Veress needle was entered into the abdomen confirmed to be intra-abdominal with a low opening pressure of less than 5 mmHg. Abdomen was insufflated with CO2 gas and a 5 mm optical trocar was placed under direct visualization. A right and left lower quadrant 5 mm port were placed under direct visualization. right ovary was adherent to the pelvic side wall and the adhesions were taken down sharply and the ovary dissected away and then the IP ligament was transected with the ligasure device. extensive sigmoid to left pelvic side wall adhesions were noted and taken down progressively with sharp, blunt, and hydrodissection. Excellent hemostasis was noted. ovary was removed through the umbilical incision and the fascia closed at this site with 0 vicryl. Liver and upper abdomen were visualized notably within normal limits and no other gross abnormalities were seen in the abdomen. All instruments removed from the abdomen after gas was desufflated. Port sites were closed with 3-0 Monocryl Steri's and op sites were applied. All instruments removed from the vagina and patient was awoken and taken recovery in stable condition. Grafts/Implants Used: interceed - Complications none - Admit VTE Documentation VTE Present on Admission: No VTE Mechan Device Prophylaxis: SCD's 03/28/18 5141 <Electronically signed by Almaz Watkins MD> Date Almaz Watkins MD CC: Corinna Andino MD; Almaz Watkins MD Signed DISCHARGE INSTRUCTION Observed: 03/23/2018 Status: F Source: DANAE 1:08 PM [facility] REPOSITORY [facility] Medical Records Department [address] [place] [address] Instructions for Home/Discharge Instructions 03/23/18 1308 MR#: [id number] Acct: [id number] Name: SOLA JARAMILLO Rep #: [id number] : 1980 37 From: Almaz Watkins MD PCP: Thu HAWKINS,Corinna Status: REG SDC Discharge Diet: No Restrictions - Increase fluid intake for the next 48 hours. Discharge Activity: Return to Normal Activity, May Drive - when you are no longer taking narcotic pain medications., May Shower, May Take a Tub Bath - in 7 days Additional Activity Instructions:: Ambulate often the next week after surgery. Nothing in the vagina for 5 days. Call your doctor if your incision/area has: Continuous Slow Oozing, Sudden Increased Bleeding, Increased Pain/ Swelling, Increased Redness, Foul Smelling Discharge Call your doctor if you observe: Fever of 101 or Higher Allergies/Adverse Reactions: Allergies adhesive Allergy (Verified 03/22/18 11:14) Itching latex Allergy (Verified 03/22/18 11:14) Itching vancomycin Allergy (Verified 03/22/18 11:14) Itching aspirin Adverse Reaction (Verified 03/22/18 11:14) Other codeine Adverse Reaction (Verified 03/22/18 11:14) Other naproxen Adverse Reaction (Verified 03/22/18 11:14) Unknown NSAIDS (Non-Steroidal Anti-Inflamma Adverse Reaction (Verified 03/22/18 11:14) Unknown Medications to take at Discharge Mirtazapine [Remeron] 7.5 mg PO QHS 01/30/18 Quetiapine Fumarate [Seroquel] 100 mg PO DAILY 03/22/18 Venlafaxine XR [Effexor Xr] 150 mg PO DAILY 03/22/18 Oxycodone HCl/Acetaminophen [Percocet 5-325] 2 tablet PO Q4H PRN PRN 7 Days #28 tablet 03/23/18 The following prescriptions were given: Oxycodone HCl/Acetaminophen [Percocet 5-325] 2 tablet PO Q4H PRN PRN 7 Days #28 tablet PRN Reason: Moderate-Severe pain Primary Care Physician: Corinna Andino MD [Primary Care Provider] - Please Follow Up With: Almaz Watkins MD - [phone] When: 2-3 weeks 03/23/18 1308 <Electronically signed by Almaz Watkins MD> Date Almaz Watkins MD CC: Corinna Andino MD HISTORY AND PHYSICAL Observed: 03/23/2018 Status: F Source: [place] EXAM 1:02 PM [facility] REPOSITORY [facility] Medical Records Department [address] [place] [address] History and Physical 03/23/18 0955 MR#: [id number] Acct: [id number] Name: SOLA JARAMILLO Rep #: [id number] : 1980 37 From: Almaz Watkins MD PCP: Corinna Andino MD Status[place] [facility] [place] [address] - Problem List (1) Chronic female pelvic pain Status: Chronic (2) Ovarian cyst Status: Acute Qualifiers: Comment[facility] (3) Abdominal pain Status: Acute History and Physical Date of Admission: 03/23/18 Vital Signs 01/10/18 Height 5 ft 2 in 01/10/18 Weight: 102 lb 01/10/18 Body Mass Index (BMI) 18.6 01/10/18 Blood Pressure 110/73 Intake Visit Reasons: ER F/U CYST ON OVARY Warehouse Hand Required: No Accompanied by: Is patient in pain?: Yes (abdominal area) Pain scale (1-10): 5 Allergies adhesive Allergy (Verified 01/08/18 05:52) Itching latex Allergy (Verified 01/08/18 05:52) Itching vancomycin Allergy (Verified 01/08/18 05:52) Itching aspirin Adverse Reaction (Verified 01/08/18 05:52) Other codeine Adverse Reaction (Verified 01/08/18 05:52) Other naproxen Adverse Reaction (Verified 01/08/18 05:52) Unknown NSAIDS (Non-Steroidal Anti-Inflamma Adverse Reaction (Verified 01/08/18 05:52) Unknown tramadol HCl [From Ultra] Adverse Reaction (Verified 01/08/18 05:52) Other Medications Venlafaxine XR [Effexor Xr] 37.5 mg PO DAILY 12/15/17 [History Confirmed 01/08/18] Lorazepam [Ativan] 1 mg PO BID PRN #20 tab 12/31/17 [Rx Confirmed 01/08/18] oxycodone-acetaminophen 5 mg-325 mg tablet 1 tab PO Q4H PRN 7 Days #14 tab 01/12/18 [Rx] Is last menstrual period known: Yes Last Menstral Period: 03/28/12 PFSH Medical History Asthma (Acute) Interstitial cystitis (Acute) Tubal (Acute) Surgical History H/O exploratory laparotomy (Acute) History of hysterectomy (Acute) History of left oophorectomy (Acute) history of ankle surgery (Acute) lump removal right breast (Acute) Family History Mother Cancer Grandmother Cancer Social History Smoking Status: Current every day smoker second hand exposure: Yes alcohol intake: never what type of physical activity do you participate in: none HPI ER F/U CYST ON OVARY : Details: SOLA JARAMILLO is a 37 year old who presents for follow up of ovarian cyst. she has had chronic ovulatory pain and recurrent hemorrhagic cysts that interfere with quality of life. She is having intermittent lower pelvic pain with the current cyst and wants to discuss oophorectomy. she has requested this in the past but I recommended she wait due to her young age. She has a history of chronic pelvic pain and has had a hysterectomy and oophorectomy in the past. she denies any vaginal bleeding. Female Reproductive History Last Menstral Period: 03/28/12 Questions: Sexually active: Yes, Dyspareunia: Yes, PCB: No Pregancy History 1 Elective abortions Hx Para 0 Spontaneous abortions Hx # Term Pregnancies Ectopic pregnancies Hx # Pregnancies Multiple births # of living children ROS Const Constitutional: Denies poor appetite, headache(s), fever(s), increased appetite, weight gain, weight loss or fatigue Cardio Card: Denies chest pain Resp Resp: Denies dyspnea or cough GI GI: Reports as per HPI; denies vomiting, nausea, abdominal pain or constipation : Reports as per HPI; denies urinary urgency, vaginal discharge, urinary frequency, vaginal itching, vaginal odor, vaginal dryness, urinary incontinence, urinary hesitancy, difficulty urinating, painful urination or nipple discharge Skin Skin/Breast: Denies breast lump, breast pain, breast skin changes, nipple discharge or change in hair Exam Const General: cooperative, healthy appearing, comfortable, no acute distress, well developed Nutritional Appearance: average body habitus Orientation: alert HENMT Head: normal to inspection, normocephalic Neck Neck: normal visual inspection, trachea midline Thyroid: thyroid normal Resp Effort AND Inspection: normal respiratory effort GI Inspection: normal to inspection, non-distended Palpation: soft, no hepatosplenomegaly Skin General: no rashes or lesions noted Assessment AND Plan Problems 1. Cyst of right ovary N83.201 right side- ER [facility] [place] 01/09/18 2. Chronic female pelvic pain R10.2; G89.29 Plan discussed at length with patient options of ovarian suppression and intermittent pain medication versus oophorectomy. patient wishes to proceed with oophorectomy. It was discussed the risks of early menopause including shortened life span, increased risk for heart disease and bone loss. I will recommend immediate placement on HRT postoperatively to reduce the risks of these complications and the patient agrees. I discussed the risks of laparoscopy including bleeding infection anesthesia damage to surrounding structures and risk of needing to open. proceed with laparoscopic oophorectomy. small amount of narcotic prescribed after a tox screen was positive for just narcotics which she received from the ER Coding Level of Care Code Off vis,est,level 4 Diagnoses Cyst of right ovary N83.201 Laterality: right Chronic female pelvic pain R10.2; G89.29 i have seen the patient and made any clinically relevant updates to the h and p 03/23/18 1302 <Electronically signed by Almaz Watkins MD> Date Almaz Watkins MD Cosigner Signature: Date (if applicable) CC: Corinna Andino MD; Almaz Watkins MD Signed OVARY (CHOOSE SIDE) Observed: 03/23/2018 Status: F Source: DANAE 12:00 AM [facility] REPOSITORY Patient: SOLA JARAMILLO : 1980 (37/F) Acct Num: [id number] Phys: Tony HAWKINS,Almaz Unit Num: [id number] [place] [facility] [place] Specimen: [id number] Received: 03/24/18 - 1318 Spec Type: OVARY TISSUES TISSUES: Right ovary GROSS DESCRIPTION Received in fixative is one container labeled with the patient's name and designated right ovary. The specimen consists of a soft to cystic ovary measuring 3.8 x 3 x 2 cm and weighing 9.5 gm. The outer surface is smooth. Sections reveal multiple cysts filled with clear to hemorrhagic fluid. A corpus luteum is also noted measuring 1.5 cm in greatest dimension. A hemorrhagic cyst is also noted measuring 1 cm in greatest dimension. Clinical Research Manager sections are submitted in three cassettes. / SJ:jorge 03/24/18 TC:4 CPT: 23138 HEADER OPERATION: Laparoscopic oophorectomy PRE-OP DIAGNOSIS: Chronic pelvic pain TISSUE SUBMITTED: Right ovary MICROSCOPIC DESCRIPTION Slides are reviewed. MICROSCOPIC DIAGNOSIS Right ovary, oophorectomy: Physiologic follicular and corpus luteum cysts. SJ:jorge 03/28/18 Signed Michael Epps 03/28/18 <signature on file> Performed By: #### POV #### [facility] [address] [place], [place], [address] URINE DRUG SCREEN Collected: 03/22/2018 Status: F Source: DANAE (VISTA) 3:20 PM [facility] REPOSITORY Order Comment: List of Drugs Taken or Suspected? UNK TYPE CODE TESTS RESULT OUT OF RANGE REFERENCE UNITS LAB L505.0075 TO BE Normal CONFIRMED Result Comment: CONFIRMATORY TESTING FOR ALL POSITIVE URINE DRUG SCREEN RESULTS WILL ONLY BE SENT OUT UPON PHYSICIAN ORDER. VISTA Urine Drug Screen methods provide only preliminary analytical test results. A more specific alternate chemical method must be used in order to obtain a confirmed analytical result. Gas chromatography/mass spectrometery (GC/MS) is the preferred confirmatory method. Clinical consideration and professional judgement should be applied to any drug of abuse test result, particularly when preliminary positive results are used. URINE TCA TESTING MUST BE ORDERED SEPARATELY. USE TEST MNEMONIC: [facility] LAB L505.5005 VISTA UDS PH 5 Normal LAB L505.5015 <1000 ng/mL AMPHETAMINES Normal NEGATIVE LAB L505.5025 < 200 ng/mL BARBITIURATES Normal NEGATIVE LAB L505.5035 < 200 ng/mL BENZODIAZIPINE Normal NEGATIVE LAB L505.5045 < 300 ng/mL COCAINE Normal NEGATIVE LAB L505.5055 < 500 ng/mL ECSTACY Normal NEGATIVE LAB L505.5065 < 300 ng/mL METHADONE Normal NEGATIVE LAB L505.5075 < 300 ng/mL OPIATES Normal NEGATIVE LAB L505.5085 < 25 ng/mL PCP Normal NEGATIVE LAB L505.5095 < 50 ng/mL THC Normal NEGATIVE Performed By: #### L505.5000 #### [facility] [address] [place], [address] CBC W/DIFF, AUTOMATED Collected: 03/22/2018 Status: F Source: [place] 3:20 PM [facility] REPOSITORY TYPE CODE TESTS RESULT OUT OF RANGE REFERENCE UNITS LAB L100.1000 4.4-11.0 K/mm3 Normal WBC 8.9 LAB L100.1200 4.2-5.4 M/mm3 Normal RBC 4.39 LAB L100.1300 12.0-15.0 g/dl Normal HGB 13.7 LAB L100.1400 37-47 % Normal HCT 40.1 LAB L100.1500 81-99 fL Normal MCV 91.3 LAB L100.1600 27.0-32.0 pg Normal MCH 31.2 LAB L100.1700 32-36 g/gl Normal MCHC 34.2 LAB L100.1810 11.6-14.6 % Normal RDW CV 13.4 LAB L100.1820 35.1-43.9 fl High RDW SD 44.7 LAB L100.1900 150-450 K/mm3 Normal PLT 362 LAB L100.2000 6.2-12.0 fl Normal MPV 9.6 LAB L100.2100 47-70 % Normal NEUT% 61.9 LAB L100.2200 19-41 % Normal LY% 27.9 LAB L100.2300 0-10 % Normal MONO% 6.2 LAB L100.2400 0-5 % Normal EO% 3.1 LAB L100.2500 0-1 % Normal BASO% 0.6 LAB L100.2550 0.0-0.9 % Normal IM GRAN % 0.300 Result Comment: IG% - Immature Granulocytes (promyelocytes, myelocytes and metamyelocytes) > 1% indicates that a LEFT SHIFT is Present. LAB L100.2620 2.0-7.7 X10 3/uL Normal Absolute Neut 5.5 LAB L100.2720 0.83-4.51 X10 3/ul Normal Absolute Lymph 2.49 Performed By: #### L100.0100 #### [facility] [address] [place], [place], [address] TYPE AND SCREEN Collected: 03/22/2018 Status: F Source: [place] 3:20 PM [facility] REPOSITORY Order Comment: Surgery Date: 03/23/18 Hx of Preganancy in last 3 Months No Ever experience any problems with transfusion(s)? N Hx of Transfusion in last 3 Months N Reason for Type AND Screen/Red Cells: SURGERY SURGICAL PROCEDURE: 72249 31366 TYPE CODE TESTS RESULT OUT OF RANGE REFERENCE UNITS LAB B10.0800 A Normal BLOOD TYPE GEL POSITIVE LAB B100.4000 Normal Antibody NEGATIVE Screen Performed By: #### B101.7475 #### [facility] [address] [place], [place], [address] CNOV Observed: 03/22/2018 Status: COMPLETED Source: [place] 2:20 PM [facility] REPOSITORY [facility] SOLA JARAMILLO ([id number]) 1980 F Date Time Provider Department 03/22/18 2:20 PM SURESH STORY ([place]IDE[place]) GINA During your visit today, we recorded the following information about you: Temperature Pulse Blood pressure Weight 98.6 degrees 104/minute 90/60 48.1 kg Suresh Story APRN.CNP 03/22/2018 2:52 PM Signed Chief Complaint Patient presents with: blood sugar levels HPI Sola Jaramillo is a 37 year old female who presents here today for Above Complaints. Patient presents to the office for evaluation of blood glucose levels. States that she has had two separate incidents of increased hunger. Within the past few weeks. States than she got lightheaded, shaky and felt like passing. Approximates that the episode lasted 10 minutes. Resolved when she ate some food. Denies any skipping of meals. No chest pain, shortness of breath or leg swelling. States that these two episodes occurred when she was suppose to eat dinner, but had not gotten to it. Patient is at a healthy weight, no family history of diabetes. 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 States that she went to [facility] ER last night for elevated heart rate. States that she had an EKG performed, which was normal. States she was ruled for anemia. Had normal glucose there. States that she was has been without he Ativan for 3 days and is waiting for Dr. Padilla to refill her Ativan. Did contact her office today. At the time of this encounter, we do not have access to her ER report. Past medical history, appointments, medications, allergies reviewed. 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 Survey of the pelvis showed filmy omental adhesions to the anterior abdominal wall, also extensive bowel adhesions mainly from the sigmoid colon to the pelvic sidewall as well as to the left side of the uterus. Also, uterus appeared to be adhered to the anterior abdominal wall and the bladder. - REMOVAL OF OVARY/TUBE(S) 11/15/1999 laparoscopy Salpingectomy right side - REMOVAL OF OVARY/TUBE(S) 09/04/2010 laparotomy Salpingo-oophorectomy left tube, Dr. Kingston [place] - related to complications to surgical procedure in summer, post operative hematoma, wound infection, drainage of intraabdominal abscess CT guided at [place] - SALPINGECTOMY 04/2010 Dr. Kingston - [place] - open tubal procedure, retturn to OR next day for bleeding,. - TREAT ECTOPIC PREG,NON REMVAL 1999 Ectopic at 19yrs old Family History FAMILY HISTORY Problem Relation Age of Onset - Lung Cancer [OTHER] Mother 46 - Lipids Father - Breast Cancer Maternal Grandmother Alive - Throat Cancer [OTHER] Maternal Grandmother - Skin Cancer Other Alive; 1st maternal cousin Patient Allergies ALLERGIES Allergen Reactions - Adhesive Tape (Oly* Other: See Comments skin breakdown - Amitriptyline Other: See Comments Has vivid dreams and sleepwalking where she was outside in the truck leaving in the middle of the night - Codeine Other: See Comments Nausea and doesn't feel right - Latex Itching - Naproxen Intolerance - Promethazine-Dm Other: See Comments dizziness - Tuberculin Ppd Other: See Comments false positive skin test readings - Vancomycin Itching Takes with benadryl - Vistaril [Hydroxyzi* Other: See Comments Rapid heart rate Current Medications Current Outpatient Prescriptions on File Prior to Visit: MIRTAZAPINE (REMERON ORAL) Take by mouth. LORAZEPAM (ATIVAN ORAL) Take by mouth. Nebulizer Accessories (REUSABLE NEBULIZER KIT) kit Use albuterol 1 vial in nebulizer ever 4 hours as needed for shortness of breath and wheezingICD J45.20 albuterol (PROVENTIL) 2.5 mg /3 mL (0.083 %) nebulizer solution Use 3 mL via nebulizer every 4 hours as needed for Wheezing/Shortness of Breath. Use over 5-15minutes. venlafaxine ER (EFFEXOR XR) 37.5 mg 24 hr capsule Take 1 capsule by mouth once daily. May increase to 75 mg in 7 day if tolerating albuterol HFA (PROAIR HFA) 90 mcg/actuation inhaler Inhale 2 Puffs as instructed every 4 hours as needed. No current facility-administered medications on file prior to visit. Social History Social History Marital status: Spouse name: Jane Years of education: 12 Number of children: 0 Occupational History Occupation Employer Comment unemployed Social History Main Topics Smoking status: Current Some Day Smoker Packs/day: 1.00 Years: 20.00 Types: Cigarettes Last attempt to quit: 04/13/2010 Smokeless tobacco: Never Used Comment: started smoking again. about 1/2 ppd Alcohol use: No Comment: Rarely. Sexual activity: Yes Partners with: Male control/protection: Tubal Ligation Comment: both tubes removed; 1 d/t ectopic; other d/t recurring infection REVIEW OF SYSTEMS: as above ? Reviewed relevant PMHx, PSHx, Social Hx, current medications and allergies. EXAM: BP 90/60 Pulse 104 Temp 37 ?C (98.6 ?F) (Tympanic) Wt 48.1 kg (106 lb) LMP 03/03/2012 BMI 19.39 kg/m? General Appearance: Well appearing, alert, in no acute distress, well-hydrated, well nourished.. Head: Normocephalic, no masses, lesions, tenderness or abnormalities. Eyes: Anicteric sclera. Pupils are equally round and reactive to light. Extraocular movements are intact. . Ears: External ears normal, canals clear. Nose/Sinuses: Nares normal, septum midline, mucosa normal, no drainage or sinus tenderness. Oropharynx: Lips, mucosa, and tongue normal, teeth and gums normal, oropharynx normal. Neck: Supple, no adenopathy; thyroid symmetric, normal size, no bruits. Lungs: Lungs clear to auscultation. No wheezing, rhonchi, rales. Heart: RRR without murmur, gallop, or rubs. No ectopy. Extremities: No deformities, edema. Health Maintenance List DTAP,TDAP,TD(1 - Tdap) due on 04/01/2009 PAP EVERY 5 YEARS due on 12/28/2016 HPV EVERY 5 YEARS due on 12/28/2016 ONE PNEUMOVAX PRIOR TO AGE 65 Completed INFLUENZA Completed Data reviewed Component Latest Ref Rng AND Units 02/18/2017 12/09/2017 WBC 3.70 - 11.00 k/uL 8.76 RBC 3.90 - 5.20 m/uL 4.66 Hemoglobin 11.5 - 15.5 g/dL 14.5 Hematocrit 36.0 - 46.0 % 44.3 MCV 80.0 - 100.0 fL 95.1 MCH 26.0 - 34.0 pG 31.1 MCHC 30.5 - 36.0 g/dL 32.7 RDW-CV 11.5 - 15.0 % 13.8 Platelet Count 150 - 400 k/uL 346 MPV 9.0 - 12.7 fL 10.2 TSH 0.400 - 5.500 uU/mL 2.050 1.560 FSH mU/mL 5.2 Prolactin 4.5 - 26.8 ng/mL 15.6 Vitamin D 25 Hydroxy 31.0 - 80.0 ng/mL 27.1 (L) Free T4 0.9 - 1.7 ng/dL 1.2 ASSESSMENT/PLAN: 1. Lightheaded - ICD9: 780.4, ICD10: R42 (primary diagnosis) - Pseudo hypoglycemic like symptoms given that she ate food and had resolution. Discussed that it is difficult to capture these low glucose readings. Suggested getting a over the counter meter at [facility], but patient did not want to pursue this due to cost. We will get a fasting glucose on a morning where she has been fasting for 12-15 hours. Advised for patient to eat if she starts getting symptoms. I have encouraged her to eat 3 meals per day with frequent healthy snacks to avoid low glucose readings. - GLUCOSE RANDOM BLD 2. Tachycardia - ICD9: 785.0, ICD10: R00.0 - Unclear etiology, work up in ER was normal last night. Etiologies include dehydration, lack of Ativan, low glucose or other etiology. Will get 48 hour monitor to see if tachyarrhythmia is occurring. - HOLTER MONITOR 48 HOUR Get labs and holter monitor, if still having persistent symptoms with hypoglycemia, would offer an endo referral. Suresh Story APRN.ORQUIDEA Story APRN.CNP 03/22/2018 2:42 PM Signed Would recommend having a fasting 12-15 hour glucose reading done. We will get a 48 hour holter to rule out any underlying causes of elevated heart rate. Also would recommend at least 3 meals a day with some healthy snacks (think cashews, nuts, almonds for protein). Obviously eat food if you have these same symptoms when fasting for your blood work. Suresh Story APRN.CUSTOM SKI MAKER Referring Provider: SELF [200] Allergies As of Date: 03/22/2018 Noted Allergy Reaction ADHESIVE TAPE (ROSINS) 04/28/2012 14 - Other: See Comments Comments: skin breakdown AMITRIPTYLINE 11/20/2012 14 - Other: See Comments Comments: Has vivid dreams and sleepwalking where she was outside in the truck leaving in the middle of the night CODEINE 03/02/2011 14 - Other: See Comments Comments: Nausea and doesn't feel right LATEX 09/14/2010 9 - Itching NAPROXEN 02/02/2011 5 - Intolerance PROMETHAZINE-DM 10/15/2014 14 - Other: See Comments Comments: dizziness TUBERCULIN PPD 02/08/2014 14 - Other: See Comments Comments: false positive skin test readings VANCOMYCIN 09/14/2010 9 - Itching Comments: Takes with benadryl VISTARIL (HYDROXYZINE HCL) 01/20/2018 14 - Other: See Comments Comments: Rapid heart rate Date Reviewed: 03/22/2018 Reviewed by: Suresh ([facility]) Porsha - Fully Assessed Reason for Visit: blood sugar levels [Other] Primary Visit Diagnosis:Lightheaded [R42] Other Visit Diagnosis:Tachycardia [R00.0] Order(s):GLUCOSE RANDOM BLD [SQGLU] Order #: [id number] FUTURE HOLTER MONITOR 48 HOUR [[id number]] Order #: [id number] FUTURE Prescriptions as of 03/22/2018 Sig: QUETIAPINE 100 MG TABLET Take 100 mg by mouth once janee* REMERON ORAL Take by mouth. ATIVAN ORAL Take by mouth. NEBULIZER ACCESSORIES KIT Use albuterol 1 vial in nebul* ALBUTEROL SULFATE 2.5 MG/3 ML* Use 3 mL via nebulizer every * VENLAFAXINE ER 37.5 MG CAPSUL* Take 1 capsule by mouth once * ALBUTEROL SULFATE HFA 90 MCG/* Inhale 2 Puffs as instructed * Problem List As Of Date 03/22/2018 Noted Resolved Pelvic abscess INVALID FOR*12/28/2011 Pelvic pain in female [R10.2] INVALID FOR*07/18/2012 Piriformis syndrome [G57.00] INVALID FOR*01/20/2018 Bladder pain [R39.89] INVALID FOR*05/09/2012 Interstitial cystitis [N30.10] INVALID FOR* Cellulitis [L03.90] INVALID FOR*05/09/2012 Irregular menses [N92.6] 05/09/2012 CRPS (complex regional pain syndrome) type I of*INVALID FOR* Reflex sympathetic dystrophy, unspecified [G90.*INVALID FOR* Pain in joint, ankle and foot [M25.579] INVALID FOR*02/18/2017 Menorrhagia [N92.0] INVALID FOR*05/09/2012 Complex ovarian cyst [N83.299] INVALID FOR*11/20/2012 Chronic pelvic pain in female [R10.2, G89.29] INVALID FOR* Depression [F32.9] INVALID FOR* 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 Anxiety [F41.9] INVALID FOR* Other instructions from your clinician: Would recommend having a fasting 12-15 hour glucose reading done. We will get a 48 hour holter to rule out any underlying causes of elevated heart rate. Also would recommend at least 3 meals a day with some healthy snacks (think cashews, nuts, almonds for protein). Obviously eat food if you have these same symptoms when fasting for your blood work. Suresh Story APRN.CUSTOM SKI MAKER Medications Discontinued During This Encounter DULOXETINE HCL (CYMBALTA ORAL) 03/22/2018 Class: Historical Med Route: ORAL Sig: Take by mouth. Disc: Discontinued by Patient traMADol (ULTRAM) 50 mg tablet 03/22/2018 Class: Historical Med Route: ORAL Sig: Take 50 mg by mouth every 6 hours as needed. Disc: Course of therapy completed predniSONE (DELTASONE) 20 mg tablet 5 ta* 0 12/09/2017 03/22/2018 Route: ORAL Sig: Take 1 tablet by mouth once daily. Disc: Course of therapy completed nicotine (NICODERM) 21 mg/24 hr 42 P* 0 12/09/2017 03/22/2018 Route: TRANSDERMAL Sig: Apply 1 Patch as directed every 24 hours. Disc: Course of therapy completed nicotine (NICODERM) 14 mg/24 hr 14 P* 0 12/09/2017 03/22/2018 Route: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 mmol/L Normal 1 K 4.1 LAB L501.5900 98-107 mmol/L High CL 110 LAB L501.6100 21.0-3 mmol/L Normal 2.0 CO2 22.0 LAB L501.6200 5-15 Normal GAP 5 Performed By: #### L500.2500 #### [facility] [address] [place], [address] US TRANSVAGINAL NON OB Observed: 01/26/2018 Status: F Source: [place] 1:10 PM [facility] REPOSITORY ORIGINAL Transvaginal pelvic ultrasound, 01/26/2018. Clinical Information: Pain, suspect ovarian torsion or tubo- ovarian abscess. COMPARISON: 01/09/2018 Uterus is surgically absent. Left ovary is surgically absent. Right ovary 3.5 x 2 x 3.1 cm. There is evidence of blood flow. There are several subcentimeter follicles, largest is about 8.3 mm long axis. Previous complex appearing cystic abnormality has resolved. T here is no pelvic peritoneal fluid. IMPRESSION: Normal postoperative pelvic ultrasound. Interpreted By: Ney De La Cruz MD Preliminary Report By: Ney De La Cruz MD Electronically Signed By: Ney De La Cruz MD Dictated Date: 01/26/2018 1:49:14 PM Prelim Date: 01/26/2018 1:49:14 PM Sign Date: 01/26/2018 1:51:32 PM CBC Collected: 01/26/2018 Status: F Source: [facility] 12:59 PM [facility] REPOSITORY TYPE CODE TESTS RESULT OUT OF REFERENCE UNITS RANGE LAB WBC(LOINC) 4.60-10.80 10 3/mcL WBC 5.40 LAB RBCCT(LOINC 4.20-5.40 10 6/mcL ) RBC 4.45 LAB HGB(LOINC) 12.0-16.0 G/dL Hgb 14.0 LAB HCT(LOINC) 37.0-47.0 % Hct 40.5 LAB MCV(LOINC) 80.0-94.0 fL MCV 91.1 LAB MCH(LOINC) 27.0-31.2 pg High MCH 31.4 LAB MCHC(LOINC) 33.0-37.0 G/dL MCHC 34.5 LAB RDW(LOINC) 11.5-14.5 % RDW 13.4 LAB PLT(LOINC) 130-400 10 3/mcL Platelet 273 LAB MPV(LOINC) 7.4-10.4 fL MPV 8.0 Performed By: #### GFR, LIP, ANEU, CMP, ADIFF, CBC #### [address] [address] .AUTO DIFF Collected: 01/26/2018 Status: F Source: [facility] 12:59 PM [facility] REPOSITORY TYPE CODE TESTS RESULT OUT OF REFERENCE UNITS RANGE LAB RADHA(LOINC) 37.0-80.0 % Neutrophil % 68.5 LAB LYM(LOINC) 10.0-50.0 % Lymphocyte % 21.2 LAB MON(LOINC) 1.7-13.0 % Monocyte % 5.3 LAB EO(LOINC) 0.0-7.0 % Eosinophil % 4.0 LAB BAS(LOINC) 0.0-2.5 % Basophil % 1.0 LAB ABLYM(LOIN 0.77-3.85 10 3/mcL C) Lymphocyte, 1.10 Absolute LAB ROBIN(LOINC 0.15-1.00 10 3/mcL ) Monocyte, 0.30 Absolute LAB AEOS(LOINC 0.00-0.40 10 3/mcL ) Eosinophil, 0.20 Absolute LAB ABAS(LOINC 0.00-0.19 10 3/mcL ) Basophil, 0.10 Absolute Performed By: #### GFR, LIP, ANEU, CMP, ADIFF, CBC #### [address] [address] .NEUABS Collected: 01/26/2018 Status: F Source: [facility] 12:59 [facility] REPOSITORY TYPE CODE TESTS RESULT OUT OF REFERENCE UNITS RANGE LAB ANEU(LOINC) 2.85-6.16 10 3/mcL Neutrophil, 3.70 Absolute Performed By: #### GFR, LIP, ANEU, CMP, ADIFF, CBC #### [place] [id number] LIP Collected: 01/26/2018 Status: F Source: [facility] 12:59 PM [facility] REPOSITORY TYPE CODE TESTS RESULT OUT OF REFERENCE UNITS RANGE LAB LIP(LOINC) 8-78 IU/L Lipase Level 14 Performed By: #### GFR, LIP, ANEU, CMP, ADIFF, CBC #### [place] [id number] CMP Collected: 01/26/2018 Status: F Source: [facility] 12:59 [facility] REPOSITORY TYPE CODE TESTS RESULT OUT OF REFERENCE UNITS RANGE LAB 1547-9 70-105 mg/dL GLUCOSE 91 LAB NA(LOINC) 136-146 mEq/L Sodium Level 140 LAB K(LOINC) 3.5-5.1 mEq/L Potassium Level 4.1 LAB CL(LOINC) 98-107 mEq/L Chloride 105 LAB CO2(LOINC) 22-29 mEq/L CO2 27 LAB EBAL(LOINC mEq/L ) Electrolyte Balance 8.0 LAB BUN(LOINC) 7.0-18.0 mg/dL BUN 7.3 LAB CRE(LOINC) 0.6-1.2 mg/dL Creatinine Lvl (s) 0.7 LAB BC(LOINC) 7-27 ratio BUN/Creatinine 10 Ratio LAB CA(LOINC) 8.4-10.2 mg/dL Calcium Lvl 9.3 LAB PROT(LOINC 6.0-8.3 G/dL ) Total Protein 6.8 LAB ALB(LOINC) 3.5-5.0 G/dL Albumin Level 4.5 LAB GLB(LOINC) G/dL Globulin 2.3 LAB AG(LOINC) 1.1-2.5 ratio A/G Ratio 2.0 LAB BILT(LOINC 0.2-1.0 mg/dL ) Bili Total 0.4 LAB AP(LOINC) 40-135 IU/L Alk Phos 84 LAB AST(LOINC) 10-40 IU/L AST/SGOT 12 LAB ALT(LOINC) 10-35 IU/L Low ALT/SGPT 7 Performed By: #### GFR, LIP, ANEU, CMP, ADIFF, CBC #### [place] [id number] .GFR Collected: 01/26/2018 Status: F Source: [facility] 12:59 PM [facility] REPOSITORY TYPE CODE TESTS RESULT OUT OF REFERENCE UNITS RANGE LAB GFRAA(LOINC ml/min/1.73 ) sqm GFR 106 Swedish Result Comment: GFR Population mean for , Non- Americans Ages 20-29 = 116 mL/min/1.73 sq.m. Ages 30-39 = 107 mL/min/1.73 sq.m. Ages 40-49 = 99 mL/min/1.73 sq.m. Ages 50-59 = 93 mL/min/1.73 sq.m. Ages 60-69 = 85 mL/min/1.73 sq.m. Ages 70+ = 75 mL/min/1.73 sq.m. Chronic Kidney Disease: Less than 60 mL/min/1.73 square meters End Stage Renal Disease: Less than 15 mL/min/1.73 square meters LAB GFRNO(LOINC) ml/min/1.73sqm GFR Non- >60 Result Comment: GFR Population mean for , Non- Americans Ages 20-29 = 116 mL/min/1.73 sq.m. Ages 30-39 = 107 mL/min/1.73 sq.m. Ages 40-49 = 99 mL/min/1.73 sq.m. Ages 50-59 = 93 mL/min/1.73 sq.m. Ages 60-69 = 85 mL/min/1.73 sq.m. Ages 70+ = 75 mL/min/1.73 sq.m. Chronic Kidney Disease: Less than 60 mL/min/1.73 square meters End Stage Renal Disease: Less than 15 mL/min/1.73 square meters Performed By: #### GFR, LIP, ANEU, CMP, ADIFF, CBC #### [place] [place] [address] [place] [id number] UA Collected: 01/26/2018 Status: F Source: [facility] 12:59 PM [facility] REPOSITORY TYPE CODE TESTS RESULT OUT OF RANGE REFERENCE UNITS LAB SPCUA(JASPER NC) UA Specimen Type Clean Catch LAB CLRUA(JASPER NC) UA Color YELLOW LAB APPUA(JASPER NC) UA Appear CLEAR LAB SGUA(LOIN C) UA Spec Abnormal Grav 1.010 LAB GLUA(LOIN mg/dL C) UA Glucose NEGATIVE LAB BILUA(JASPER NC) UA Bili NEGATIVE LAB KETUA(JASPER mg/dL NC) UA Ketones NEGATIVE LAB BLDUA(JASPER NC) UA Blood NEGATIVE LAB PHUA(LOIN C) UA pH 6.0 LAB PROUA(JASPER mg/dL NC) UA Protein NEGATIVE LAB UROUA(JASPER E.U./dL NC) UA Urobilinogen 0.2 LAB NITUA(JASPER NC) UA Nitrite NEGATIVE LAB LEUUA(JASPER NC) UA Leuk Est NEGATIVE Performed By: #### UAMICAO, UA #### [place] [address] [place], [place] [address] .URINALYSIS MICROSCOPIC Collected: 01/26/2018 Status: F Source: PHU (AO) 12:[address] [facility] REPOSITORY TYPE CODE TESTS RESULT OUT OF REFERENCE UNITS RANGE LAB WBCUA(LOIN None Seen /hpf C) UA WBC None Seen LAB RBCUA(LOIN None Seen /hpf C) UA RBC None Seen LAB EPIUA(LOIN None Seen /hpf C) UA Squam Epithelial None Seen Performed By: #### UAMICABELINO, UA #### [place] [address] [place], [place] [address] PROGRESS Observed: 01/20/2018 Status: COMPLETED Source: [place] 3:43 PM [facility] REPOSITORY HNO ID: [id number] Author: Corinna Andino Service: (none) Author Type: Physician Type: Progress Notes Filed: 01/20/2018 4:13 PM Note Text: Chief Complaint Patient presents with: Establish Care HPI Sola Jaramillo is a 37 year old female who presents here today for est care. Former pt of Dr. Stephenson. Smokes about half ppd. Has tried using patches to quit but allergic to those. Would like to quit, not interested in Chantix. Has never used Wellbutrin. Has tried the gum but did not like it. Is going to continue to work on quitting. Back pain: was taking tramadol 50 mg. Pt does go to [facility] for counseling. Pt unable to use any anti inflammatories. 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 She has had a hysterectomy and left ovary removed. Stated she was also taking tramadol for the ovarian pain. Follow[facility] with [facility]. Feels this is helping. Is taking Cymbalta 60 mg BID, Ativan 1 mg as needed, and Remeron 0.75 mg at night prn sleep. Asthma: has been controlled. Is taking Proair as needed and has a nebulizer to use if needed. Does not use this much lately. History of left breast mass; last checked 01/13; recommended 6 month follow up with US. Past medical history, appointments, medications, allergies reviewed. 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 Survey of the pelvis showed filmy omental adhesions to the anterior abdominal wall, also extensive bowel adhesions mainly from the sigmoid colon to the pelvic sidewall as well as to the left side of the uterus. Also, uterus appeared to be adhered to the anterior abdominal wall and the bladder. - REMOVAL OF OVARY/TUBE(S) 11/15/1999 laparoscopy Salpingectomy right side - REMOVAL OF OVARY/TUBE(S) 09/04/2010 laparotomy Salpingo-oophorectomy left tube, Dr. Kingston, [place] - related to complications to surgical procedure in summer, post operative hematoma, wound infection, drainage of intraabdominal abscess CT [place] - SALPINGECTOMY 04/2010 Dr. Kingston - [place] - open tubal procedure, retturn to OR next day for bleeding,. - TREAT ECTOPIC PREG,NON REMVAL 1999 Ectopic at 19yrs old Family History FAMILY HISTORY Problem Relation Age of Onset - Lung Cancer [OTHER] Mother 46 - Lipids Father - Breast Cancer Maternal Grandmother Alive - Throat Cancer [OTHER] Maternal Grandmother - Skin Cancer Other Alive; 1st maternal cousin Patient Allergies ALLERGIES Allergen Reactions - Adhesive Tape (Oly* Other: See Comments skin breakdown - Amitriptyline Other: See Comments Has vivid dreams and sleepwalking where she was outside in the truck leaving in the middle of the night - Codeine Other: See Comments Nausea and doesn't feel right - Latex Itching - Lorazepam Unknown - Naproxen Intolerance - Promethazine-Dm Other: See Comments dizziness - Tramadol Vomiting - Tuberculin Ppd Other: See Comments false positive skin test readings - Vancomycin Itching Takes with benadryl Current Medications Current Outpatient Prescriptions on File Prior to Visit: DULOXETINE HCL (CYMBALTA ORAL) Take by mouth. MIRTAZAPINE (REMERON ORAL) Take by mouth. LORAZEPAM (ATIVAN ORAL) Take by mouth. Nebulizer Accessories (REUSABLE NEBULIZER KIT) kit Use albuterol 1 vial in nebulizer ever 4 hours as needed for shortness of breath and wheezingICD J45.20 albuterol (PROVENTIL) 2.5 mg /3 mL (0.083 %) nebulizer solution Use 3 mL via nebulizer every 4 hours as needed for Wheezing/Shortness of Breath. Use over 5-15minutes. albuterol HFA (PROAIR HFA) 90 mcg/actuation inhaler Inhale 2 Puffs as instructed every 4 hours as needed. cyclobenzaprine (FLEXERIL) 10 mg tablet Take 1 tablet by mouth three times daily as needed for Muscle Spasm. traMADol (ULTRAM) 50 mg tablet Take 50 mg by mouth every 6 hours as needed. predniSONE (DELTASONE) 20 mg tablet Take 1 tablet by mouth once daily. venlafaxine ER (EFFEXOR XR) 37.5 mg 24 hr capsule Take 1 capsule by mouth once daily. May increase to 75 mg in 7 day if tolerating nicotine (NICODERM) 21 mg/24 hr Apply 1 Patch as directed every 24 hours. nicotine (NICODERM) 14 mg/24 hr Apply 1 Patch as directed every 24 hours. No smoking with patch. Start after your 6 weeks if the 21 mg patch nicotine (NICODERM) 7 mg/24 hr Apply 1 Patch as directed every 24 hours. Start once you complete 2 weeks of the 14 mg patch. No smoking while patch is on No current facility-administered medications on file prior to visit. Social History Social History Marital status: Spouse name: Jane Years of education: 12 Number of children: 0 Occupational History Occupation Employer Comment unemployed Social History Main Topics Smoking status: Current Some Day Smoker Packs/day: 1.00 Years: 20.00 Types: Cigarettes Last attempt to quit: 04/13/2010 Smokeless status: Never Used Comment: started smoking again. about 1/2 ppd Alcohol use: No Comment: Rarely. Sexual activity: Yes Partners with: Male control/protection: Tubal Ligation Comment: both tubes removed; 1 d/t ectopic; other d/t recurring infection EXAM: BP 112/70 Pulse 74 Resp 16 Ht 157.5 cm (5' 2) Wt 44.2 kg (97 lb 6.4 oz) LMP 03/03/2012 BMI 17.81 kg/m2 General Appearance: Well appearing, alert, in no acute distress, well-hydrated, well nourished., Thin. Neck: Supple, no adenopathy; thyroid symmetric, normal size, no bruits. Lungs: Lungs clear to auscultation. No wheezing, rhonchi, rales. Heart: RRR without murmur, gallop, or rubs. No ectopy. Abdomen: Normal abdominal exam, Abdomen soft, non-tender. Bowel sounds normal. No masses, organomegaly. Extremities: normal. Health Maintenance List PAP EVERY 5 YEARS due on 12/28/2016 HPV EVERY 5 YEARS due on 12/28/2016 TETANUS due on 03/31/2019 ONE PNEUMOVAX PRIOR TO AGE 65 Completed INFLUENZA Completed Data reviewed Appointment on 12/09/2017 TSH Value: 1.560(uU/mL) Date: 12/09/2017 Free T4 Value: 1.2(ng/dL) Date: 12/09/2017 ASSESSMENT/PLAN: 1. Wellness examination - ICD9: V70.0, ICD10: Z00.00 (primary diagnosis) 2. Breast lump - ICD9: 611.72, ICD10: N63.0 - US BREAST LTD LT 3. Asthma 4. Interstitial cystitis Symptomatic treatment 5. Pain No narcotic meds; may use tylenol/heat 6. Depression/amxiety Follow with Dr Padilla Follow up prn Corinna Andino MD The documentation for this note was completed by Lizzie Perez Ma acting as scribe for Corinna Andino MD. January 20, 2018 3:43 PM. CNOV Observed: 01/20/2018 Status: COMPLETED Source: [place] 3:20 PM [facility] REPOSITORY Office Visit (FAMPWS) SOLA JARAMILLO ([id number]) 1980 F Date Time Provider Department 01/20/18 3:20 PM CORINNA ANDINO During your visit today, we recorded the following information about you: Pulse Respiration Blood pressure Weight 74/minute 16/minute 112/70 44.2 kg Height 1.575 m Corinna Andino MD 01/20/2018 4:13 PM Signed Chief Complaint Patient presents with: Establish Care HPI Sola Jaramillo is a 37 year old female who presents here today for est care. Former pt of Dr. Stephenson. Smokes about half ppd. Has tried using patches to quit but allergic to those. Would like to quit, not interested in Chantix. Has never used Wellbutrin. Has tried the gum but did not like it. Is going to continue to work on quitting. Back pain: was taking tramadol 50 mg. Pt does go to [facility] for counseling. Pt unable to use any anti inflammatories. 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 She has had a hysterectomy and left ovary removed. Stated she was also taking tramadol for the ovarian pain. Follows with [facility]. Feels this is helping. Is taking Cymbalta 60 mg BID, Ativan 1 mg as needed, and Remeron 0.75 mg at night prn sleep. Asthma: has been controlled. Is taking Proair as needed and has a nebulizer to use if needed. Does not use this much lately. History of left breast mass; last checked 01/13; recommended 6 month follow up with US. Past medical history, appointments, medications, allergies reviewed. 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 Survey of the pelvis showed filmy omental adhesions to the anterior abdominal wall, also extensive bowel adhesions mainly from the sigmoid colon to the pelvic sidewall as well as to the left side of the uterus. Also, uterus appeared to be adhered to the anterior abdominal wall and the bladder. - REMOVAL OF OVARY/TUBE(S) 11/15/1999 laparoscopy Salpingectomy right side - REMOVAL OF OVARY/TUBE(S) 09/04/2010 laparotomy Salpingo-oophorectomy left tube, Dr. Kingston [place] - related to complications to surgical procedure in summer, post operative hematoma, wound infection, drainage of intraabdominal abscess CT [place] - SALPINGECTOMY 04/2010 Dr. Kingston - [place] - open tubal procedure, retturn to OR next day for bleeding,. - TREAT ECTOPIC PREG,NON REMVAL 1999 Ectopic at 19yrs old Family History FAMILY HISTORY Problem Relation Age of Onset - Lung Cancer [OTHER] Mother 46 - Lipids Father - Breast Cancer Maternal Grandmother Alive - Throat Cancer [OTHER] Maternal Grandmother - Skin Cancer Other Alive; 1st maternal cousin Patient Allergies ALLERGIES Allergen Reactions - Adhesive Tape (Oly* Other: See Comments skin breakdown - Amitriptyline Other: See Comments ANDquot;Has vivid dreams and sleepwalking where she was outside in the truck leaving in the middle of the nightANDquot; - Codeine Other: See Comments Nausea and ANDquot;doesn't feel rightANDquot; - Latex Itching - Lorazepam Unknown - Naproxen Intolerance - Promethazine-Dm Other: See Comments dizziness - Tramadol Vomiting - Tuberculin Ppd Other: See Comments false positive skin test readings - Vancomycin Itching Takes with benadryl Current Medications Current Outpatient Prescriptions on File Prior to Visit: DULOXETINE HCL (CYMBALTA ORAL) Take by mouth. MIRTAZAPINE (REMERON ORAL) Take by mouth. LORAZEPAM (ATIVAN ORAL) Take by mouth. Nebulizer Accessories (REUSABLE NEBULIZER KIT) kit Use albuterol 1 vial in nebulizer ever 4 hours as needed for shortness of breath and wheezingICD J45.20 albuterol (PROVENTIL) 2.5 mg /3 mL (0.083 %) nebulizer solution Use 3 mL via nebulizer every 4 hours as needed for Wheezing/Shortness of Breath. Use over 5-15minutes. albuterol HFA (PROAIR HFA) 90 mcg/actuation inhaler Inhale 2 Puffs as instructed every 4 hours as needed. cyclobenzaprine (FLEXERIL) 10 mg tablet Take 1 tablet by mouth three times daily as needed for Muscle Spasm. traMADol (ULTRAM) 50 mg tablet Take 50 mg by mouth every 6 hours as needed. predniSONE (DELTASONE) 20 mg tablet Take 1 tablet by mouth once daily. venlafaxine ER (EFFEXOR XR) 37.5 mg 24 hr capsule Take 1 capsule by mouth once daily. May increase to 75 mg in 7 day if tolerating nicotine (NICODERM) 21 mg/24 hr Apply 1 Patch as directed every 24 hours. nicotine (NICODERM) 14 mg/24 hr Apply 1 Patch as directed every 24 hours. No smoking with patch. Start after your 6 weeks if the 21 mg patch nicotine (NICODERM) 7 mg/24 hr Apply 1 Patch as directed every 24 hours. Start once you complete 2 weeks of the 14 mg patch. No smoking while patch is on No current facility-administered medications on file prior to visit. Social History Social History Marital status: Spouse name: Jane Years of education: 12 Number of children: 0 Occupational History Occupation Employer Comment unemployed Social History Main Topics Smoking status: Current Some Day Smoker Packs/day: 1.00 Years: 20.00 Types: Cigarettes Last attempt to quit: 04/13/2010 Smokeless status: Never Used Comment: started smoking again. about 1/2 ppd Alcohol use: No Comment: Rarely. Sexual activity: Yes Partners with: Male control/protection: Tubal Ligation Comment: both tubes removed; 1 d/t ectopic; other d/t recurring infection EXAM: BP 112/70 Pulse 74 Resp 16 Ht 157.5 cm (5' 2ANDquot;) Wt 44.2 kg (97 lb 6.4 oz) LMP 03/03/2012 BMI 17.81 kg/m2 General Appearance: Well appearing, alert, in no acute distress, well-hydrated, well nourished., Thin. Neck: Supple, no adenopathy; thyroid symmetric, normal size, no bruits. Lungs: Lungs clear to auscultation. No wheezing, rhonchi, rales. Heart: RRR without murmur, gallop, or rubs. No ectopy. Abdomen: Normal abdominal exam, Abdomen soft, non-tender. Bowel sounds normal. No masses, organomegaly. Extremities: normal. Health Maintenance List PAP EVERY 5 YEARS due on 12/28/2016 HPV EVERY 5 YEARS due on 12/28/2016 TETANUS due on 03/31/2019 ONE PNEUMOVAX PRIOR TO AGE 65 Completed INFLUENZA Completed Data reviewed Appointment on 12/09/2017 TSH Value: 1.560(uU/mL) Date: 12/09/2017 Free T4 Value: 1.2(ng/dL) Date: 12/09/2017 ASSESSMENT/PLAN: 1. Wellness examination - ICD9: V70.0, ICD10: Z00.00 (primary diagnosis) 2. Breast lump - ICD9: 611.72, ICD10: N63.0 - US BREAST LTD LT 3. Asthma 4. Interstitial cystitis Symptomatic treatment 5. Pain No narcotic meds; may use tylenol/heat 6. Depression/amxiety Follow with Dr Padilla Follow up prn Corinna Andino MD The documentation for this note was completed by Lizzie Perez Ma acting as scribe for Corinna Andino MD. January 20, 2018 3:43 PM. Referring Provider: SELF [[id number]] Allergies As of Date: 01/20/2018 Noted Allergy Reaction ADHESIVE TAPE (ROSINS) 04/28/2012 14 - Other: See Comments Comments: skin breakdown AMITRIPTYLINE 11/20/2012 14 - Other: See Comments Comments: Has vivid dreams and sleepwalking where she was outside in the truck leaving in the middle of the night CODEINE 03/02/2011 14 - Other: See Comments Comments: Nausea and doesn't feel right LATEX 09/14/2010 9 - Itching NAPROXEN 02/02/2011 5 - Intolerance PROMETHAZINE-DM 10/15/2014 14 - Other: See Comments Comments: dizziness TUBERCULIN PPD 02/08/2014 14 - Other: See Comments Comments: false positive skin test readings VANCOMYCIN 09/14/2010 9 - Itching Comments: Takes with benadryl VISTARIL (HYDROXYZINE HCL) 01/20/2018 14 - Other: See Comments Comments: Rapid heart rate Date Reviewed: 01/20/2018 Reviewed by: Lizzie Perez Ma - Fully Assessed Reason for Visit: Establish Care [42] Primary Visit Diagnosis:Wellness examination [Z00.00] Other Visit Diagnoses:Breast lump [N63.0] Interstitial cystitis [N30.10] Depression, unspecified depression type [F32.9] Anxiety [F41.9] Order(s):US BREAST LTD LT [[id number]] Order #: [id number] FUTURE Prescriptions as of 01/20/2018 Sig: CYMBALTA ORAL Take by mouth. REMERON ORAL Take by mouth. ATIVAN ORAL Take by mouth. NEBULIZER ACCESSORIES KIT Use albuterol 1 vial in nebul* ALBUTEROL SULFATE 2.5 MG/3 ML* Use 3 mL via nebulizer every * ALBUTEROL SULFATE HFA 90 MCG/* Inhale 2 Puffs as instructed * CYCLOBENZAPRINE 10 MG TABLET Take 1 tablet by mouth three * TRAMADOL 50 MG TABLET Take 50 mg by mouth every 6 h* PREDNISONE 20 MG TABLET Take 1 tablet by mouth once d* VENLAFAXINE ER 37.5 MG CAPSUL* Take 1 capsule by mouth once * NICOTINE 21 MG/24 HR DAILY TR* Apply 1 Patch as directed felisha* NICOTINE 14 MG/24 HR DAILY TR* Apply 1 Patch as directed felisha* NICOTINE 7 MG/24 HR DAILY TRA* Apply 1 Patch as directed felisha* Problem List As Of Date 01/20/2018 Noted Resolved Pelvic abscess INVALID FOR*12/28/2011 Pelvic pain in female [R10.2] INVALID FOR*07/18/2012 Piriformis syndrome [G57.00] INVALID FOR*01/20/2018 Bladder pain [R39.89] INVALID FOR*05/09/2012 Interstitial cystitis [N30.10] INVALID FOR* Cellulitis [L03.90] INVALID FOR*05/09/2012 Irregular menses [N92.6] 05/09/2012 CRPS (complex regional pain syndrome) type I of*INVALID FOR* Reflex sympathetic dystrophy, unspecified [G90.*INVALID FOR* Pain in joint, ankle and foot [M25.579] INVALID FOR*02/18/2017 Menorrhagia [N92.0] INVALID FOR*05/09/2012 Complex ovarian cyst [N83.299] INVALID FOR*11/20/2012 Chronic pelvic pain in female [R10.2, G89.29] INVALID FOR* Depression [F32.9] INVALID FOR* 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 Anxiety [F41.9] INVALID FOR* Disposition: Return if symptoms worsen or fail to improve. 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 Accompanied by: Is patient in pain?: Yes (abdominal area) Pain scale (1-10): 5 Allergies adhesive Allergy (Verified 01/08/18 05:52) Itching latex Allergy (Verified 01/08/18 05:52) Itching vancomycin Allergy (Verified 01/08/18 05:52) Itching aspirin Adverse Reaction (Verified 01/08/18 05:52) Other codeine Adverse Reaction (Verified 01/08/18 05:52) Other naproxen Adverse Reaction (Verified 01/08/18 05:52) Unknown NSAIDS (Non-Steroidal Anti-Inflamma Adverse Reaction (Verified 01/08/18 05:52) Unknown tramadol HCl [From [facility]] Adverse Reaction (Verified 01/08/18 05:52) Other Medications Venlafaxine XR [Effexor Xr] 37.5 mg PO DAILY 12/15/17 [History Confirmed 01/08/18] Lorazepam [Ativan] 1 mg PO BID PRN #20 tab 12/31/17 [Rx Confirmed 01/08/18] oxycodone-acetaminophen 5 mg-325 mg tablet 1 tab PO Q4H PRN 7 Days #14 tab 01/12/18 [Rx] Is last menstrual period known: Yes Last Menstral Period: 03/28/12 PFSH Medical History Asthma (Acute) Interstitial cystitis (Acute) Tubal (Acute) Surgical History H/O exploratory laparotomy (Acute) History of hysterectomy (Acute) History of left oophorectomy (Acute) history of ankle surgery (Acute) lump removal right breast (Acute) Family History Mother Cancer Grandmother Cancer Social History Smoking Status: Current every day smoker second hand exposure: Yes alcohol intake: never what type of physical activity do you participate in: none HPI ER F/U CYST ON OVARY : Details: SOLA JARAMILLO is a 37 year old who presents for follow up of ovarian cyst. she has had chronic ovulatory pain and recurrent hemorrhagic cysts that interfere with quality of life. She is having intermittent lower pelvic pain with the current cyst and wants to discuss oophorectomy. she has requested this in the past but I recommended she wait due to her young age. She has a history of chronic pelvic pain and has had a hysterectomy and oophorectomy in the past. she denies any vaginal bleeding. Female Reproductive History Last Menstral Period: 03/28/12 Questions: Sexually active: Yes, Dyspareunia: Yes, PCB: No Pregancy History 1 Elective abortions Hx Para 0 Spontaneous abortions ROS Const Constitutional: Denies poor appetite, headache(s), fever(s), increased appetite, weight gain, weight loss or fatigue Cardio Card: Denies chest pain Resp Resp: Denies dyspnea or cough GI GI: Reports as per HPI; denies vomiting, nausea, abdominal pain or constipation : Reports as per HPI; denies urinary urgency, vaginal discharge, urinary frequency, vaginal itching, vaginal odor, vaginal dryness, urinary incontinence, urinary hesitancy, difficulty urinating, painful urination or nipple discharge Skin Skin/Breast: Denies breast lump, breast pain, breast skin changes, nipple discharge or change in hair Exam Const General: cooperative, healthy appearing, comfortable, no acute distress, well developed Nutritional Appearance: average body habitus Orientation: alert HENMT Head: normal to inspection, normocephalic Neck Neck: normal visual inspection, trachea midline Thyroid: thyroid normal Resp Effort AND Inspection: normal respiratory effort GI Inspection: normal to inspection, non-distended Palpation: soft, no hepatosplenomegaly Skin General: no rashes or lesions noted Assessment AND Plan Problems 1. Cyst of right ovary N83.201 right side- ER Phu Nichole 01/09/18 2. Chronic female pelvic pain R10.2; G89.29 Plan discussed at length with patient options of ovarian suppression and intermittent pain medication versus oophorectomy. patient wishes to proceed with oophorectomy. It was discussed the risks of early menopause including shortened life span, increased risk for heart disease and bone loss. I will recommend immediate placement on HRT postoperatively to reduce the risks of these complications and the patient agrees. I discussed the risks of laparoscopy including bleeding infection anesthesia damage to surrounding structures and risk of needing to open. proceed with laparoscopic oophorectomy. small amount of narcotic prescribed after a tox screen was positive for just narcotics which she received from the ER Coding Level of Care Code Off vis,est,level 4 Diagnoses Cyst of right ovary N83.201 Laterality: right Chronic female pelvic pain R10.2; G89.29 01/15/18 0726 <Electronically signed by Almaz Watkins MD> Date Almaz Watkins MD Cosigner Signature: Date (if applicable) CC: URINE DRUG SCREEN Collected: 01/12/2018 Status: F Source: [facility] (VISTA) 2:20 PM [facility] REPOSITORY Order Comment: List of Drugs Taken or Suspected? UNK TYPE CODE TESTS RESULT OUT OF RANGE REFERENCE UNITS LAB L505.0075 TO BE Normal CONFIRMED Result Comment: CONFIRMATORY TESTING FOR ALL POSITIVE URINE DRUG SCREEN RESULTS WILL ONLY BE SENT OUT UPON PHYSICIAN ORDER. VISTA Urine Drug Screen methods provide only preliminary analytical test results. A more specific alternate chemical method must be used in order to obtain a confirmed analytical result. Gas chromatography/mass spectrometery (GC/MS) is the preferred confirmatory method. Clinical consideration and professional judgement should be applied to any drug of abuse test result, particularly when preliminary positive results are used. URINE TCA TESTING MUST BE ORDERED SEPARATELY. USE TEST MNEMONIC: [facility] LAB L505.5005 VISTA UDS PH 5 Normal LAB L505.5015 <1000 ng/mL AMPHETAMINES Normal NEGATIVE LAB L505.5025 < 200 ng/mL BARBITIURATES Normal NEGATIVE LAB L505.5035 < 200 ng/mL BENZODIAZIPINE Normal NEGATIVE LAB L505.5045 < 300 ng/mL COCAINE Normal NEGATIVE LAB L505.5055 < 500 ng/mL ECSTACY Normal NEGATIVE LAB L505.5065 < 300 ng/mL METHADONE Normal NEGATIVE LAB L505.5075 < 300 High ng/mL OPIATES POSITIVE LAB L505.5085 < 25 ng/mL PCP Normal NEGATIVE LAB L505.5095 < 50 ng/mL THC Normal NEGATIVE Performed By: #### L505.5000 #### [facility] [address] [place] [address]. [place], [place], [address] TRANSVAGINAL NON OB Observed: 01/09/2018 Status: F Source: [facility] 7:10 AM [facility] REPOSITORY ORIGINAL US TRANSVAGINAL NON OB CLINICAL INDICATION: right lower quadrant pain COMPARISON: CT same day FINDINGS: UTERUS: Hysterectomy Cervix: Unremarkable Free fluid: None OVARIES: Right: 5.1 x 4.1 x 3.4 cm. Doppler blood flow demonstrated. Small follicles present. In addition, there is a 3.1 x 2.8 x 2.1 cm complex cystic structure with a few thin septations. No internal blood raven w. A septated dominant follicle measures 2.8 cm. Left: Surgically absent by given history. No adnexal mass. IMPRESSION: 1. 3.1 cm right ovarian complex septated cystic structure. Based on best practice guidelines, ultrasound follow-up is recommended in 6-12 weeks. If unchanged further evaluation with MRI or continued ult rasound follow-up recommended. Interpreted By: Jazmin Weeks MD Preliminary Report By: Jazmin Weeks MD Electronically Signed By: Jazmin Weeks MD Dictated Date: 01/09/2018 7:50:35 AM Prelim Date: 01/09/2018 7:50:35 AM Sign Date: 01/09/2018 8:01:[address] ABDOMEN/PELVIS W/O Observed: 01/09/2018 Status: F Source: PHU [facility] 5:35 AM [facility] REPOSITORY ORIGINAL CT abdomen and pelvis without contrast, stone protocol CLINICAL STATEMENT: RIGHT flank pain COMPARISON: None This exam was performed according to our departmental dose- optimization program which includes automated exposure control, adjustment of the mA and/or kVp according to patient size and/or use of iterati ve reconstruction technique where applicable. Findings: The kidneys show no calculus, contour abnormality, or hydronephrosis. No ureteral dilatation or calculus is noted. The partially distended urinary bladder is grossly unremarkable. Within the limits of a noncontrast CT, other viscera show no gross acute abnormalities. No free fluid collection is seen. There is a normal retrocecal appendix. But there is a 4.5 cm right adnexal cyst with septation. IMPRESSION: No urinary tract calculus or hydronephrosis. Normal appendix. 4.5 cm right adnexal cyst with septation, possibly representing a complex ovarian cyst. Pelvic ultrasound suggested for further evaluation. Interpreted By: Taran Nagel DO Preliminary Report By: Taran Nagel DO Electronically Signed By: Taran Nagel DO Dictated Date: 01/09/2018 5:39:10 AM Prelim Date: 01/09/2018 5:39:10 AM Sign Date: 01/09/2018 5:45:16 AM CBC Collected: 01/09/2018 Status: F Source: [facility] 4:56 AM [facility] REPOSITORY TYPE CODE TESTS RESULT OUT OF REFERENCE UNITS RANGE LAB WBC(LOINC) 4.60-10.80 10 3/mcL WBC 9.80 LAB RBCCT(LOINC 4.20-5.40 10 6/mcL ) RBC 4.42 LAB HGB(LOINC) 12.0-16.0 G/dL Hgb 13.3 LAB HCT(LOINC) 37.0-47.0 % Hct 39.7 LAB MCV(LOINC) 80.0-94.0 fL MCV 89.9 LAB MCH(LOINC) 27.0-31.2 pg MCH 30.2 LAB MCHC(LOINC) 33.0-37.0 G/dL MCHC 33.6 LAB RDW(LOINC) 11.5-14.5 % RDW 13.3 LAB PLT(LOINC) 130-400 10 3/mcL Platelet 266 LAB MPV(LOINC) 7.4-10.4 fL MPV 7.9 Performed By: #### FLIP GRAHAM, CBC #### [address] [address] .AUTO DIFF Collected: 01/09/2018 Status: F Source: [facility] 4:56 AM [facility] REPOSITORY TYPE CODE TESTS RESULT OUT OF REFERENCE UNITS RANGE LAB RADHA(LOINC) 37.0-80.0 % Neutrophil % 68.9 LAB LYM(LOINC) 10.0-50.0 % Lymphocyte % 19.0 LAB MON(LOINC) 1.7-13.0 % Monocyte % 7.0 LAB EO(LOINC) 0.0-7.0 % Eosinophil % 4.3 LAB BAS(LOINC) 0.0-2.5 % Basophil % 0.8 LAB ABLYM(LOIN 0.77-3.85 10 3/mcL C) Lymphocyte, 1.90 Absolute LAB ROBIN(LOINC 0.15-1.00 10 3/mcL ) Monocyte, 0.70 Absolute LAB AEOS(LOINC 0.00-0.40 10 3/mcL ) Eosinophil, 0.40 Absolute LAB ABAS(LOINC 0.00-0.19 10 3/mcL ) Basophil, 0.10 Absolute Performed By: #### FLIP GRAHAM, CBC #### [facility] [address] [address] .NEUABS Collected: 01/09/2018 Status: F Source: [facility] 4:56 AM [facility] REPOSITORY TYPE CODE TESTS RESULT OUT OF REFERENCE UNITS RANGE LAB ANEU(LOINC) 2.85-6.16 10 3/mcL High Neutrophil, 6.70 Absolute Performed By: #### FLIP GRAHAM, CBC #### [address] [place], [place] [address] .GFR Collected: 01/09/2018 Status: F Source: [facility] 4:56 AM [facility] REPOSITORY TYPE CODE TESTS RESULT OUT OF REFERENCE UNITS RANGE LAB GFRAA(LOINC ml/min/1.73 ) sqm GFR 109 Swedish Result Comment: GFR Population mean for , Non- Americans Ages 20-29 = 116 mL/min/1.73 sq.m. Ages 30-39 = 107 mL/min/1.73 sq.m. Ages 40-49 = 99 mL/min/1.73 sq.m. Ages 50-59 = 93 mL/min/1.73 sq.m. Ages 60-69 = 85 mL/min/1.73 sq.m. Ages 70+ = 75 mL/min/1.73 sq.m. Chronic Kidney Disease: Less than 60 mL/min/1.73 square meters End Stage Renal Disease: Less than 15 mL/min/1.73 square meters LAB GFRNO(LOINC) ml/min/1.73sqm GFR Non- >60 Result Comment: GFR Population mean for , Non- Americans Ages 20-29 = 116 mL/min/1.73 sq.m. Ages 30-39 = 107 mL/min/1.73 sq.m. Ages 40-49 = 99 mL/min/1.73 sq.m. Ages 50-59 = 93 mL/min/1.73 sq.m. Ages 60-69 = 85 mL/min/1.73 sq.m. Ages 70+ = 75 mL/min/1.73 sq.m. Chronic Kidney Disease: Less than 60 mL/min/1.73 square meters End Stage Renal Disease: Less than 15 mL/min/1.73 square meters Performed By: #### CMP, LIP, GFR #### [facility] [address] [address] LIP Collected: 01/09/2018 Status: F Source: [facility] 4:56 AM [facility] REPOSITORY TYPE CODE TESTS RESULT OUT OF REFERENCE UNITS RANGE LAB LIP(LOINC) 8-78 IU/L Lipase Level 14 Performed By: #### CMP, LIP, GFR #### [address] [address] CMP Collected: 01/09/2018 Status: F Source: [facility] 4:56 AM [facility] REPOSITORY TYPE CODE TESTS RESULT OUT OF REFERENCE UNITS RANGE LAB 1547-9 70-105 mg/dL GLUCOSE High 121 LAB NA(LOINC) 136-146 mEq/L Sodium Level 141 LAB K(LOINC) 3.5-5.1 mEq/L Potassium Level 3.5 LAB CL(LOINC) 98-107 mEq/L Chloride 104 LAB CO2(LOINC) 22-29 mEq/L CO2 26 LAB EBAL(LOINC mEq/L ) Electrolyte Balance 11.0 LAB BUN(LOINC) 7.0-18.0 mg/dL BUN 8.4 LAB CRE(LOINC) 0.6-1.2 mg/dL Creatinine Lvl (s) 0.7 LAB BC(LOINC) 7-27 ratio BUN/Creatinine 12 Ratio LAB CA(LOINC) 8.4-10.2 mg/dL Calcium Lvl 9.1 LAB PROT(LOINC 6.0-8.3 G/dL ) Total Protein 6.4 LAB ALB(LOINC) 3.5-5.0 G/dL Albumin Level 4.2 LAB GLB(LOINC) G/dL Globulin 2.2 LAB AG(LOINC) 1.1-2.5 ratio A/G Ratio 1.9 LAB BILT(LOINC 0.2-1.0 mg/dL ) Bili Total 0.4 LAB AP(LOINC) 40-135 IU/L Alk Phos 85 LAB AST(LOINC) 10-40 IU/L AST/SGOT 10 LAB ALT(LOINC) 10-35 IU/L Low ALT/SGPT 6 Performed By: #### CMP, LIP, GFR #### [address] [address] UA Collected: 01/09/2018 Status: F Source: [facility] 4:56 AM [facility] REPOSITORY TYPE CODE TESTS RESULT OUT OF RANGE REFERENCE UNITS LAB SPCUA(JASPER NC) UA Specimen Type Clean Catch LAB CLRUA(JASPER NC) UA Color YELLOW LAB APPUA(JASPER NC) UA Appear CLEAR LAB SGUA(LOIN C) UA Spec Abnormal Grav >=1.030 LAB GLUA(LOIN mg/dL C) UA Glucose NEGATIVE LAB BILUA(JASPER NC) UA Bili SMALL LAB KETUA(JASPER mg/dL NC) UA Ketones NEGATIVE LAB BLDUA(JASPER NC) UA Blood NEGATIVE LAB PHUA(LOIN C) UA pH 6.0 LAB PROUA(JASPER mg/dL NC) UA Protein NEGATIVE LAB UROUA(JASPER E.U./dL NC) UA Urobilinogen 0.2 LAB NITUA(JASPER NC) UA Nitrite NEGATIVE LAB LEUUA(JASPER NC) UA Leuk Est NEGATIVE Performed By: #### UAMICAO, UA #### [address] [place], [place] [address] .URINALYSIS MICROSCOPIC Collected: 01/09/2018 Status: F Source: [facility] ([facility]) 4:56 AM [facility] REPOSITORY TYPE CODE TESTS RESULT OUT OF RANGE REFERENCE UNITS LAB WBCUA(LOIN None Seen /hpf C) UA WBC Abnormal 0-5 LAB RBCUA(LOIN None Seen /hpf C) UA RBC None Seen LAB EPIUA(LOIN None Seen /hpf C) UA Squam Abnormal Epithelial 0-5 LAB MUCUA(LOIN /hpf C) UA Mucous 4+ Performed By: #### UAMICABELINO, UA #### [address] [place], [place] [address] DISCHARGE INSTRUCTION Observed: 01/09/2018 Status: F Source: [facility] 3:54 AM [facility] REPOSITORY [facility] Medical Records Department [address] [place] [address] Discharge Instruction 01/08/18 0731 MR#: [id number] Acct: [id number] Name: SOLA JARAMILLO Rep #: [id number] : 1980 37 From: Solomon Rashid MD PCP: Corinna Andino MD Status: DEP ER ED Disposition - Plan for ED Patient: Disposition: Home or Assisted Living Chief Complaint: Flank Pain Instructions: ED Flank Pain Uncertain Cause Referrals: Corinna Andino MD [Primary Care Provider] - As soon as possible Additional Instructions: Your labs, urinalysis and CAT scan were all unremarkable. Need follow-up your primary care physician. What to do if you have Problems For any increased pain, shortness of breath, bleeding, nausea or vomiting, chest pain, or any unexpected problems, contact your Primary Care Provider. Call [facility] ([phone]) or report to the closest Emergency Room. Call 911 if necessary. 01/09/18 0354 <Electronically signed by Solomon Rashid MD> Date Solomon Rashid MD Cosigner Signature (If Indicated): Date CC: Corinna Andino MD EMERGENCY DEPARTMENT Observed: 01/09/2018 Status: F Source: [facility] SUMMARY 3:54 AM [facility] REPOSITORY [facility] Medical Records Department [address] [place] [address] Emergency Department Summary 01/08/18 0558 MR#: [id number] Acct: [id number] Name: SOLA JARAMILLO Rep #: [id number] : 1980 37 From: Solomon Rashid MD PCP: Corinna Andino MD Status: DEP ER - ER Visit Summary Date of Service: 01/08/18 Chief Complaint: Right lower quadrant and right flank abdominal pain History of Present Illness: The patient is a 37 F with a 2 day history of right lower quadrant and right flank abdominal pain. Denies any trauma. Denies any fever. Denies any dysuria. Reportedly has a history of interstitial cystitis. And anxiety. She has had a prior hysterectomy with her right ovary removed. She denies any vaginal bleeding or discharge. Patient states she has been moving her bowels and peeing okay. No prior history of kidney stones. Physical Examination: Young female no distress. Vital signs are stable and afebrile. HEENT exam unremarkable. Neck nontender no lymphadenopathy. Lungs clear to auscultation bilaterally. Heart regular rhythm no murmur. Abdomen is soft. Nondistended. Normal bowel sounds. No hernias or masses appreciated. No distention no signs of obstruction. She is only tender in the right lower quadrant. There is no ecchymosis or bruising no signs of trauma. Both the right upper, left upper and left lower quadrants are all nontender. She is moving all 4 extremities. They are neurovascularly intact. Her neurologic exam is normal. Her back exam is nontender. Test Results: CBC shows a white count of 10. H AND H of 13 and 40. BMP is unremarkable. UA is normal. She has no signs of infection nor any blood. CT flank is read by the radiologist shows no acute abnormality. The appendix is normal. There are no kidney stones or other acute abnormalities that would explain her pain. Emergency Department Course and Treatment: Treated with IV fluids, Zofran and morphine. Treatment Plan: Multiple repeat exams. The patient's abdomen was benign. Clinically I do not think this is very unlikely to be appendicitis. Depending on the pending labs disposition will be made. Disposition: Discharge Impression: Acute right flank and right lower quadrant abdominal pain of uncertain etiology This note was generated with [employer] software. It may contain incorrect words, spelling, and punctuation that were not noted in review of the chart prior to signing ED Disposition - Plan for ED Patient: Chief Complaint: Flank Pain Referrals: Corinna Andino MD [Primary Care Provider] - What to do if you have Problems For any increased pain, shortness of breath, bleeding, nausea or vomiting, chest pain, or any unexpected problems, contact your Primary Care Provider. Call [facility] ([phone]) or report to the closest Emergency Room. Call 911 if necessary. 01/09/18 0354 <Electronically signed by Solomon Rashid MD> Date Solomon Rashid MD Cosigner Signature (If Indicated): Date CC: Corinna Andino MD URINALYSIS, COMPLETE Collected: 01/08/2018 Status: F Source: [facility] 7:00 AM [facility] REPOSITORY Order Comment: How was Urine Obtained? CLEAN CATCH TYPE CODE TESTS RESULT OUT OF RANGE REFERENCE UNITS LAB L400.3000 Yellow COLOR Normal Yellow LAB L400.3050 Clear Normal CLARITY Clear LAB L400.3200 Normal mg/dl Normal GLUCOSE, UR Normal LAB L400.3300 Negative mg/dL Normal BILIRUBIN URINE Negative LAB L400.3400 Negative mg/dl Normal KETONE UR Negative LAB L400.3465 1.002-1.030 Normal SP.GR. DIPSTX 1.010 LAB L400.3550 5.0 - 8.0 pH UR Normal 7.0 LAB L400.3600 Negative mg/dl PROT Normal DIPSTX Negative LAB L400.3700 Normal mg/dl Normal UROBILI Normal LAB L400.3750 Negative Normal NITRITE UR Negative LAB L400.3780 Negative /ul Normal OCCULT BLOOD-UR Negative LAB L400.3800 Negative /ul LEUK Normal ESTERASE Negative LAB L400.4050 0-5 /hpf WBC 0 Normal SEEN LAB L400.4100 0-5 /hpf 0 Normal RBC-UA SEEN LAB L400.4150 5-10 /hpf SQUAM Normal EPI 0-5 SEEN LAB L400.4300 None Seen /hpf 0 Normal BACTERIA SEEN LAB L400.4350 <or=2+ /hpf 0 Normal MUCUS, URINE SEEN Performed By: #### L400.0001 #### [facility] [place], [place], [address] CBC W/DIFF, AUTOMATED Collected: 01/08/2018 Status: F Source: [place] 6:00 AM [facility] REPOSITORY TYPE CODE TESTS RESULT OUT OF RANGE REFERENCE UNITS LAB L100.1000 4.4-11.0 K/mm3 Normal WBC 10.8 LAB L100.1200 4.2-5.4 M/mm3 Normal RBC 4.40 LAB L100.1300 12.0-15.0 g/dl Normal HGB 13.8 LAB L100.1400 37-47 % Normal HCT 40.6 LAB L100.1500 81-99 fL Normal MCV 92.3 LAB L100.1600 27.0-32.0 pg Normal MCH 31.4 LAB L100.1700 32-36 g/gl Normal MCHC 34.0 LAB L100.1810 11.6-14.6 % Normal RDW CV 13.1 LAB L100.1820 35.1-43.9 fl Normal RDW SD 43.6 LAB L100.1900 150-450 K/mm3 Normal PLT 296 LAB L100.2000 6.2-12.0 fl Normal MPV 9.8 LAB L100.2100 47-70 % Normal NEUT% 63.5 LAB L100.2200 19-41 % Normal LY% 22.3 LAB L100.2300 0-10 % Normal MONO% 8.3 LAB L100.2400 0-5 % High EO% 5.1 LAB L100.2500 0-1 % Normal BASO% 0.6 LAB L100.2550 0.0-0.9 % Normal IM GRAN % 0.200 Result Comment: IG% - Immature Granulocytes (promyelocytes, myelocytes and metamyelocytes) > 1% indicates that a LEFT SHIFT is Present. LAB L100.2620 2.0-7.7 X10 3/uL Normal Absolute Neut 6.8 LAB L100.2720 0.83-4.51 X10 3/ul Normal Absolute Lymph 2.40 Performed By: #### L100.0100 #### [facility] [address] [place], [address] BASIC METABOLIC Collected: 01/08/2018 Status: F Source: [facility] PROFILE (BMP) 6:00 AM [facility] REPOSITORY TYPE CODE TESTS RESULT OUT OF RANGE REFERENCE UNITS LAB L501.0100 74-106 mg/dL Normal GLU 106 Result Comment: Fasting Glucose result from 100 to 125 mg/dL suggests IMPAIRED HOMEOSTASIS per A.D.A. criteria. Please note revised GLUCOSE reference range effective 2017. LAB L501.1000 7-18 mg/dL Normal BUN 9 LAB L501.1100 0.55-1.02 mg/dL Normal CREAT,SERUM 0.72 Result Comment: The validity of the calculated GFR AND GFRAA in patients over 70 years has not been determined. Clinical correlation is essential. LAB L501.1110 >60 mL/min Normal EST GFR 96 Result Comment: Non- GFR Calc LAB L501.1115 >60 mL/min Normal EST GFR - AA 117 Result Comment: GFR Calc LAB L501.1255 ml/min Normal Estimated CRCL 74.35 LAB L501.1300 10-20 RATIO Normal BUN/CRE 12.4 LAB L501.2200 8.5-10 mg/dL Normal .1 CA 8.9 LAB L501.5300 136-14 mmol/L Normal 5 NA 141 LAB L501.5600 3.5-5. mmol/L Normal 1 K 3.6 Result Comment: Slight Hemolysis, Result may be falsely increased. LAB L501.5900 98-107 mmol/L Normal CL 105 LAB L501.6100 21.0-32.0 mmol/L Normal CO2 28.0 LAB L501.6200 5-15 Normal 8 GAP Performed By: #### L500.2500 #### [facility] [address] [place], [address] ABDOMEN/PELVIS WITHOUT Observed: 01/08/2018 Status: F Source: [place] CONT 5:58 AM [facility] REPOSITORY [facility] Imaging Services [address] [place] [address] Abdomen/Pelvis without Cont MR#: [id number] Acct: [id number] Name: SOLA JARAMILLO Rep #: [id number] : 1980 F 37 From: Marco Kimbrough PCP: Thu HAWKINS,Corinna Status: REG ER Study: Abdomen/Pelvis without Cont Date of Exam: 01/08/18 Exam# [id number] Ordering Dr: Solomon Rashid MD STUDY: CT ABDOMEN AND PELVIS WITHOUT CONTRAST REASON FOR EXAM: Female, 37 years old. Right flank pain for 2 days. RADIATION DOSAGE (If Supplied By Facility): CTDIvol = ( 6.04 ) mGy, DLP = ( 271.80 ) mGycm TECHNIQUE: Transaxial images were obtained from the dome of the diaphragm to the symphysis pubis without oral contrast, and without intravenous contrast. Sagittal and coronal images were reconstructed. Individualized dose optimization techniques were used for this CT. COMPARISON: December 16, 2017. FINDINGS: The visualized lung bases are unremarkable. The visualized portions of the heart are within normal limits. Normal liver. Normal gallbladder and extrahepatic biliary system. Normal spleen. Normal pancreas. Normal bilateral adrenal glands. Normal right kidney. Normal left kidney. Normal visualized stomach. Normal small intestine. Normal colon. The appendix is well visualized coronal images 45 through 47 and appears normal. Normal abdominal aorta. Normal inferior vena cava. Normal retroperitoneum. No intra-abdominal free air. Normal urinary bladder. Uterus absent compatible with hysterectomy. No adnexal masses seen. Normal abdominal wall. Normal osseous structures. CT/Abdomen/Pelvis without Cont IMPRESSION: No acute findings in the abdomen or pelvis. No hydronephrosis or urinary tract stones. Appendix is normal. Electronically Signed: Marco Kimbrough MD at 7:23 EDT , Service support , CC: Solomon Rashid MD; Corinna Andino MD Record Producer: Signed PROGRESS Observed: 01/06/2018 Status: COMPLETED Source: [place] 1:11 PM [facility] REPOSITORY HNO ID: [id number] Author: Audrey Finch (Sw) Service: (none) Author Type: Casino Porter Type: Progress Notes Filed: 01/06/2018 1:15 PM Note Text: Vivian spoke with patient about signing consent for release for [facility] to be able to coordinate patient care with [facility]. Patient reports that she thinks she has completed consent for release at [facility]. Vivian stated that she could call [facility] and speak with her counselor then to help with continuity of care. Patient states that she has appt with [facility] today and will talk with them about release to send to . Vivian provided patient with business card so that she could have [facility] send release to [facility]. PROGRESS Observed: 01/05/2018 Status: COMPLETED Source: [place] 1:12 PM [facility] REPOSITORY HNO ID: [id number] Author: Omayra Garcia) Podlogar Service: (none) Author Type: Nurse Practitioner Type: Progress Notes Filed: 01/06/2018 8:29 AM Note Text: 01/05/2018 Patient presents with: Anxiety SUBJECTIVE: This is a 37 year old that is here today for Above Complaints. Last visit was 12/09/2017. At that visit Effexor 37.5 mg was started and patient was able to increase to 75 mg in one week. Since this visit she was admitted to [facility] ( unknown date) for which she was treated for homicidal thoughts. She was discharged on Cymbalata ( unknown dose) Ativan 1mg which per [facility] was filled on 12/21/2017 which was to last her 60 days. She presented to [facility] on 12/31/2017 because she took her last ativan and per her counseling center told her to go to ER to potentially be prescribed more. [facility] prescribed her ativan 20 tablets 1 mg that she was to take 1-2 times a day as needed to last 10 days.Today she presents because she has run out of Ativan. Per patient she said [facility] told her she should see her primary care doctor because the amount they gave her would not be enough to last her. Per [facility] she filled this prescription from [facility] on 12/31/3017. Patient is accompanied by ex- today. She says she is so anxious and that she can not make it until January 13 to see her Psychiatrist, who she says is the person who will refill her Ativan.She says the ativan is the only thing that is helping her cope. She denies any SI or HI. She is seeing a counselor at [facility]. Denies headache, chest pain, palpitations, SOB, dyspnea, wheezing, abdominal pain, diarrhea, nausea, vomiting, tremors, current or hx of seizures. PAST MEDICAL HISTORY Diagnosis Date - asthma - Breast lump 2012 Left - Interstitial cystitis - Nipple discharge 01/2015 Left; milky/green - Pelvic pain in female 09/16/2010 - Piriformis syndrome 10/28/2010 ALLERGIES Adhesive Tape (Rosins); Amitriptyline; Codeine; Latex; Lorazepam; Naproxen; Promethazine-Dm; Tramadol; Tuberculin Ppd; Vancomycin MEDICATIONS Current Outpatient Prescriptions: DULOXETINE HCL (CYMBALTA ORAL) Take by mouth. MIRTAZAPINE (REMERON ORAL) Take by mouth. LORAZEPAM (ATIVAN ORAL) Take by mouth. traMADol (ULTRAM) 50 mg tablet Take 50 mg by mouth every 6 hours as needed. Nebulizer Accessories (REUSABLE NEBULIZER KIT) kit Use albuterol 1 vial in nebulizer ever 4 hours as needed for shortness of breath and wheezingICD J45.20 albuterol (PROVENTIL) 2.5 mg /3 mL (0.083 %) nebulizer solution Use 3 mL via nebulizer every 4 hours as needed for Wheezing/Shortness of Breath. Use over 5-15minutes. predniSONE (DELTASONE) 20 mg tablet Take 1 tablet by mouth once daily. venlafaxine ER (EFFEXOR XR) 37.5 mg 24 hr capsule Take 1 capsule by mouth once daily. May increase to 75 mg in 7 day if tolerating albuterol HFA (PROAIR HFA) 90 mcg/actuation inhaler Inhale 2 Puffs as instructed every 4 hours as needed. nicotine (NICODERM) 21 mg/24 hr Apply 1 Patch as directed every 24 hours. nicotine (NICODERM) 14 mg/24 hr Apply 1 Patch as directed every 24 hours. No smoking with patch. Start after your 6 weeks if the 21 mg patch nicotine (NICODERM) 7 mg/24 hr Apply 1 Patch as directed every 24 hours. Start once you complete 2 weeks of the 14 mg patch. No smoking while patch is on cyclobenzaprine (FLEXERIL) 10 mg tablet Take 1 tablet by mouth three times daily as needed for Muscle Spasm. No current facility-administered medications for this visit. Medications and allergies reviewed by this provider. SOCIAL HISTORY Social History Marital status: Spouse name: Jane Years of education: 12 Number of children: 0 Occupational History Occupation Employer Comment unemployed Social History Main Topics Smoking status: Current Some Day Smoker Packs/day: 1.00 Years: 20.00 Types: Cigarettes Last attempt to quit: 04/13/2010 Smokeless status: Never Used Comment: started smoking again. about 1/2 ppd Alcohol use: No Comment: Rarely. Sexual activity: Yes Partners with: Male control/protection: Tubal Ligation Comment: both tubes removed; 1 d/t ectopic; other d/t recurring infection REVIEW OF SYSTEMS All other reviewed and negative other than HPI. OBJECTIVE: BP 100/60 (BP Site: Left Arm, BP Position: Sitting, BP Cuff Size: Regular Adult) Pulse 98 Resp 18 Wt 45.5 kg (100 lb 6.4 oz) LMP 03/03/2012 BMI 18.36 kg/m2. Vital signs reviewed by this provider. APPEARANCE Well appearing, alert, in no acute distress, well-hydrated, well nourished., Thin HEART RRR with normal S1 and S2, no murmurs, no gallops, no JVD appreciated LUNG clear to auscultation Appearance: well dressed well groomed and tense posture Behavior: good eye contact Speech: fluent and coherent and fast Mood: anxious Affect: appropriate Perceptions: none Thought process: perseverative Thought Content: normal Intelligence level: normal Insight: poor Judgment: fair PHQ9 and OLESYA-7: Feeling nervous, anxious, or on edge 3 Nearly every day Not being able to stop or control worrying 3 Nearly every day Worrying too much about different things 3 Nearly every day Trouble relaxing 3 Nearly every day Being so restless that it's hard to sit still 3 Nearly every day Being easily annoyed or irritable 3 Nearly every day Feeling afraid as if something awful might happen 1 Several days OLESYA-7 Anxiety Score 19 If you checked off any problems, how difficult have these problems made it for you to do your work, take care of things at home, or get along with other people? Somewhat difficult Little interest or pleasure in doing things 2 - More than half the days Feeling down, depressed, or hopeless 1 - Several days Trouble falling or staying asleep, or sleeping too much 3 - nearly every day Feeling tired or having little energy 2 - More than half the days Poor appetite or overeating 3 - Nearly every day Feeling bad about yourself - or that you are a failure or have let yourself or your family down 2 - More than half the days Trouble concentrating on things, such as reading the newspaper or watching television 2 - More than half the days Moving or speaking so slowly that other people could have noticed. Or the opposite - being so fidgety or restless that you have been moving around a lot more than usual 2 - More than half the days Thoughts that you would be better off , or of hurting yourself in some way 0 - Not at all If you checked off ANY problems, how DIFFICULT have these problems made it for you to do your work, take care of things at home, or get along with other people? Somewhat difficult ASSESSMENT/PLAN: 1. OLESYA (generalized anxiety disorder) - ICD9: 300.02, ICD10: F41.1 - no red flag exam findings - red flag symptoms discussed with patient and ex- - continue Cymbalta as written by [facility] - LORAZEPAM 0.5 MG TABLET O[facility] website checked and validated. All prescriptions have been APPROPRIATELY filled. No suspicious activity was identified.- 01/05/2018 by Omayra Echeverria CNP - Long discussion with patient and ex- that Ativan is addictive and she is taking this inappropriately. Unfortanetly with the amount and time she has been taking it I can not abruptly stop this medication d/t risk of seizure. Ex- is agreeable to holding the medication and dispensing it as written. She will only be given enough to make it to her appointment with physiatric. I encouraged she call her psychiatrist in get in sooner for appointment. Ex- was agreeable to signing contract that he would handle dispensing the medication and do it as prescribed. Patient is agreeable to allow him to do this. I firmly instructed patient if she takes this medication at the amount she was taking it before it could kill her and she risks be denied ativan because of inappropriate use. I spoke with Dr. Bishop regarding this situation and he is agreeable with this plan. I did have Audrey BURR from [employer] come and talk to patient. Patient is leaving and going to counseling appointment at [facility] Omayra Echeverria CNP Prescription instructions reviewed with patient as applicable. Patient advised if symptoms do not improve or if symptoms worsen sooner, to contact their primary care physician. Potential red flag symptoms discussed with the patient. Reviewed appropriate action plan to take if red flag symptoms occur. Patient agreeable to treatment plan. During this patient visit I have spent approximately 25 minutes in counseling regarding treatment options and medications. YOLANDA Observed: 01/05/2018 Status: COMPLETED Source: [place] 1:00 PM [facility] REPOSITORY Office Visit (FAMPWS) SOLA JARAMILLO ([id number]) 1980 F Date Time Provider Department 01/05/18 1:00 PM OMAYRA ECHEVERRIA) GINA During your visit today, we recorded the following information about you: Pulse Respiration Blood pressure Weight 98/minute 18/minute 100/60 45.5 kg Omayra Echeverria CNP 01/06/2018 8:29 AM Signed 01/05/2018 Patient presents with: Anxiety SUBJECTIVE: This is a 37 year old that is here today for Above Complaints. Last visit was 12/09/2017. At that visit Effexor 37.5 mg was started and patient was able to increase to 75 mg in one week. Since this visit she was admitted to [facility] ( unknown date) for which she was treated for homicidal thoughts. She was discharged on Cymbalata ( unknown dose) Ativan 1mg which per [facility] was filled on 12/21/2017 which was to last her 60 days. She presented to [facility] on 12/31/2017 because she took her last ativan and per her counseling center told her to go to ER to potentially be prescribed more. [facility] prescribed her ativan 20 tablets 1 mg that she was to take 1-2 times a day as needed to last 10 days.Today she presents because she has run out of Ativan. Per patient she said [facility] told her she should see her primary care doctor because the amount they gave her would not be enough to last her. Per [facility] she filled this prescription from [facility] on 12/31/3017. Patient is accompanied by ex- today. She says she is so anxious and that she can not make it until January 13 to see her Psychiatrist, who she says is the person who will refill her Ativan.She says the ativan is the only thing that is helping her cope. She denies any SI or HI. She is seeing a counselor at [facility]. Denies headache, chest pain, palpitations, SOB, dyspnea, wheezing, abdominal pain, diarrhea, nausea, vomiting, tremors, current or hx of seizures. PAST MEDICAL HISTORY Diagnosis Date - asthma - Breast lump 2012 Left - Interstitial cystitis - Nipple discharge 01/2015 Left; milky/green - Pelvic pain in female 09/16/2010 - Piriformis syndrome 10/28/2010 ALLERGIES Adhesive Tape (Rosins); Amitriptyline; Codeine; Latex; Lorazepam; Naproxen; Promethazine-Dm; Tramadol; Tuberculin Ppd; Vancomycin MEDICATIONS Current Outpatient Prescriptions: DULOXETINE HCL (CYMBALTA ORAL) Take by mouth. MIRTAZAPINE (REMERON ORAL) Take by mouth. LORAZEPAM (ATIVAN ORAL) Take by mouth. traMADol (ULTRAM) 50 mg tablet Take 50 mg by mouth every 6 hours as needed. Nebulizer Accessories (REUSABLE NEBULIZER KIT) kit Use albuterol 1 vial in nebulizer ever 4 hours as needed for shortness of breath and wheezingICD J45.20 albuterol (PROVENTIL) 2.5 mg /3 mL (0.083 %) nebulizer solution Use 3 mL via nebulizer every 4 hours as needed for Wheezing/Shortness of Breath. Use over 5-15minutes. predniSONE (DELTASONE) 20 mg tablet Take 1 tablet by mouth once daily. venlafaxine ER (EFFEXOR XR) 37.5 mg 24 hr capsule Take 1 capsule by mouth once daily. May increase to 75 mg in 7 day if tolerating albuterol HFA (PROAIR HFA) 90 mcg/actuation inhaler Inhale 2 Puffs as instructed every 4 hours as needed. nicotine (NICODERM) 21 mg/24 hr Apply 1 Patch as directed every 24 hours. nicotine (NICODERM) 14 mg/24 hr Apply 1 Patch as directed every 24 hours. No smoking with patch. Start after your 6 weeks if the 21 mg patch nicotine (NICODERM) 7 mg/24 hr Apply 1 Patch as directed every 24 hours. Start once you complete 2 weeks of the 14 mg patch. No smoking while patch is on cyclobenzaprine (FLEXERIL) 10 mg tablet Take 1 tablet by mouth three times daily as needed for Muscle Spasm. No current facility-administered medications for this visit. Medications and allergies reviewed by this provider. SOCIAL HISTORY Social History Marital status: Spouse name: Jane Years of education: 12 Number of children: 0 Occupational History Occupation Employer Comment unemployed Social History Main Topics Smoking status: Current Some Day Smoker Packs/day: 1.00 Years: 20.00 Types: Cigarettes Last attempt to quit: 04/13/2010 Smokeless status: Never Used Comment: started smoking again. about 1/2 ppd Alcohol use: No Comment: Rarely. Sexual activity: Yes Partners with: Male control/protection: Tubal Ligation Comment: both tubes removed; 1 d/t ectopic; other d/t recurring infection REVIEW OF SYSTEMS All other reviewed and negative other than HPI. OBJECTIVE: BP 100/60 (BP Site: Left Arm, BP Position: Sitting, BP Cuff Size: Regular Adult) Pulse 98 Resp 18 Wt 45.5 kg (100 lb 6.4 oz) LMP 03/03/2012 BMI 18.36 kg/m2. Vital signs reviewed by this provider. APPEARANCE Well appearing, alert, in no acute distress, well- hydrated, well nourished., Thin HEART RRR with normal S1 and S2, no murmurs, no gallops, no JVD appreciated LUNG clear to auscultation Appearance: well dressed well groomed and tense posture Behavior: good eye contact Speech: fluent and coherent and fast Mood: anxious Affect: appropriate Perceptions: none Thought process: perseverative Thought Content: normal Intelligence level: normal Insight: poor Judgment: fair PHQ9 and OLESYA-7: Feeling nervous, anxious, or on edge 3 Nearly every day Not being able to stop or control worrying 3 Nearly every day Worrying too much about different things 3 Nearly every day Trouble relaxing 3 Nearly every day Being so restless that it's hard to sit still 3 Nearly every day Being easily annoyed or irritable 3 Nearly every day Feeling afraid as if something awful might happen 1 Several days OLESYA-7 Anxiety Score 19 If you checked off any problems, how difficult have these problems made it for you to do your work, take care of things at home, or get along with other people? Somewhat difficult Little interest or pleasure in doing things 2 - More than half the days Feeling down, depressed, or hopeless 1 - Several days Trouble falling or staying asleep, or sleeping too much 3 - nearly every day Feeling tired or having little energy 2 - More than half the days Poor appetite or overeating 3 - Nearly every day Feeling bad about yourself - or that you are a failure or have let yourself or your family down 2 - More than half the days Trouble concentrating on things, such as reading the newspaper or watching television 2 - More than half the days Moving or speaking so slowly that other people could have noticed. Or the opposite - being so fidgety or restless that you have been moving around a lot more than usual 2 - More than half the days Thoughts that you would be better off , or of hurting yourself in some way 0 - Not at all If you checked off ANY problems, how DIFFICULT have these problems made it for you to do your work, take care of things at home, or get along with other people? Somewhat difficult ASSESSMENT/PLAN: 1. OLESYA (generalized anxiety disorder) - ICD9: 300.02, ICD10: F41.1 - no red flag exam findings - red flag symptoms discussed with patient and ex- - continue Cymbalta as written by [facility] - LORAZEPAM 0.5 MG TABLET [facility] website checked and validated. All prescriptions have been APPROPRIATELY filled. No suspicious activity was identified.- 01/05/2018 by Omayra Echeverria CNP - Long discussion with patient and ex- that Ativan is addictive and she is taking this inappropriately. Unfortanetly with the amount and time she has been taking it I can not abruptly stop this medication d/t risk of seizure. Ex- is agreeable to holding the medication and dispensing it as written. She will only be given enough to make it to her appointment with physiatric. I encouraged she call her psychiatrist in get in sooner for appointment. Ex- was agreeable to signing contract that he would handle dispensing the medication and do it as prescribed. Patient is agreeable to allow him to do this. I firmly instructed patient if she takes this medication at the amount she was taking it before it could kill her and she risks be denied ativan because of inappropriate use. I spoke with Dr. Bishop regarding this situation and he is agreeable with this plan. I did have Audrey BURR from [facility] [facility] [employer] come and talk to patient. Patient is leaving and going to counseling appointment at [facility] Omayra Echeverria CNP Prescription instructions reviewed with patient as applicable. Patient advised if symptoms do not improve or if symptoms worsen sooner, to contact their primary care physician. Potential red flag symptoms discussed with the patient. Reviewed appropriate action plan to take if red flag symptoms occur. Patient agreeable to treatment plan. During this patient visit I have spent approximately 25 minutes in counseling regarding treatment options and medications. Referring Provider: SELF [[id number]] Allergies As of Date: 01/05/2018 Noted Allergy Reaction ADHESIVE TAPE (ROSINS) 04/28/2012 14 - Other: See Comments Comments: skin breakdown AMITRIPTYLINE 11/20/2012 14 - Other: See Comments Comments: Has vivid dreams and sleepwalking where she was outside in the truck leaving in the middle of the night CODEINE 03/02/2011 14 - Other: See Comments Comments: Nausea and doesn't feel right LATEX 09/14/2010 9 - Itching LORAZEPAM 04/28/2012 16 - Unknown NAPROXEN 02/02/2011 5 - Intolerance PROMETHAZINE-DM 10/15/2014 14 - Other: See Comments Comments: dizziness TRAMADOL 02/02/2011 11 - Vomiting TUBERCULIN PPD 02/08/2014 14 - Other: See Comments Comments: false positive skin test readings VANCOMYCIN 09/14/2010 9 - Itching Comments: Takes with benadryl Date Reviewed: 01/05/2018 Reviewed by: Marge Ritchie LPN - Fully Assessed Reason for Visit: Anxiety [9] Primary Visit Diagnosis:OLESYA (generalized anxiety disorder) [F41.1] Order(s):LORazepam (ATIVAN) 0.5 mg tabTake 1 tablet by mouth twice daily for 8 days.Disp: 16 tabletRfl: 0 Prescriptions as of 01/05/2018 Sig: CYMBALTA ORAL Take by mouth. REMERON ORAL Take by mouth. ATIVAN ORAL Take by mouth. TRAMADOL 50 MG TABLET Take 50 mg by mouth every 6 h* NEBULIZER ACCESSORIES KIT Use albuterol 1 vial in nebul* ALBUTEROL SULFATE 2.5 MG/3 ML* Use 3 mL via nebulizer every * PREDNISONE 20 MG TABLET Take 1 tablet by mouth once d* VENLAFAXINE ER 37.5 MG CAPSUL* Take 1 capsule by mouth once * ALBUTEROL SULFATE HFA 90 MCG/* Inhale 2 Puffs as instructed * NICOTINE 21 MG/24 HR DAILY TR* Apply 1 Patch as directed felisha* NICOTINE 14 MG/24 HR DAILY TR* Apply 1 Patch as directed felisha* NICOTINE 7 MG/24 HR DAILY TRA* Apply 1 Patch as directed felisha* CYCLOBENZAPRINE 10 MG TABLET Take 1 tablet by mouth three * LORAZEPAM 0.5 MG TABLET Take 1 tablet by mouth twice * Problem List As Of Date 01/05/2018 Noted Resolved Pelvic abscess INVALID FOR*12/28/2011 Pelvic pain in female [R10.2] INVALID FOR*07/18/2012 Piriformis syndrome [G57.00] INVALID FOR* Bladder pain [R39.89] INVALID FOR*05/09/2012 Interstitial cystitis [N30.10] INVALID FOR* Cellulitis [L03.90] INVALID FOR*05/09/2012 Irregular menses [N92.6] 05/09/2012 CRPS (complex regional pain syndrome) type I of*INVALID FOR* Reflex sympathetic dystrophy, unspecified [G90.*INVALID FOR* Pain in joint, ankle and foot [M25.579] INVALID FOR*02/18/2017 Menorrhagia [N92.0] INVALID FOR*05/09/2012 Complex ovarian cyst [N83.299] INVALID FOR*11/20/2012 Chronic pelvic pain in female [R10.2, G89.29] INVALID FOR* Depression [F32.9] INVALID FOR* 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 Prescriptions ordered this encounter Disp Refills Start End LORAZEPAM 0.5 MG TABLET 16 t* 0 01/05/2018 01/13/2018 Class: Print RX Route: ORAL Sig: Take 1 tablet by mouth twice daily for 8 days. Questionnaire: OLESYA-7 ANXIETY SCALE Feeling nervous, anxious, or on edge -> 3 Nearly every day Not being able to stop or control worrying -> 3 Nearly every day Worrying too much about different things -> 3 Nearly every day Trouble relaxing -> 3 Nearly every day Being so restless that it's hard to sit still -> 3 Nearly every day Being easily annoyed or irritable -> 3 Nearly every day Feeling afraid as if something awful might happen -> 1 Several days OLESYA-7 Anxiety Score -> 19 If you checked off any problems, how difficult have these problems made it for you to do your work, take care of things at home, or get along with other people? -> Somewhat difficult Letter Text [facility] [address], [place] [address] Sola Jaramillo [address] [facility] [address] Clinic #: [id number] 01/05/2018 I, Jane Jaramillo, will keep and administer Sola's ativan as prescribed. It will be ativan 0.5 mg twice daily. Sola will be given 5 days worth enough to get her until her next appointment with phychiatric. Omayra Jesuslogparvin HEARD Jane Cardozabakari Encounter Status:Closed by OMAYRA ECHEVERRIA CNP on 01/06/18 CNSW Observed: 01/05/2018 Status: COMPLETED Source: [place] 12:00 AM [facility] REPOSITORY [employer] ([employer]) SOLA JARAMILLO ([id number]) 1980 F Date Time Provider Department 01/05/18 AUDREY FINCH (SW) During your visit today, we recorded the following information about you: RAJESH Vuong 01/06/2018 1:15 PM Signed Vivian spoke with patient about signing consent for release for [facility] to be able to coordinate patient care with [facility]. Patient reports that she thinks she has completed consent for release at [facility]. Vivian stated that she could call [facility] and speak with her counselor then to help with continuity of care. Patient states that she has appt with [facility] today and will talk with them about release to send to . Vivian provided patient with Vivian business card so that she could have [facility] send release to [facility]. Allergies As of Date: 01/05/2018 Noted Allergy Reaction ADHESIVE TAPE (ROSINS) 04/28/2012 14 - Other: See Comments Comments: skin breakdown AMITRIPTYLINE 11/20/2012 14 - Other: See Comments Comments: Has vivid dreams and sleepwalking where she was outside in the truck leaving in the middle of the night CODEINE 03/02/2011 14 - Other: See Comments Comments: Nausea and doesn't feel right LATEX 09/14/2010 9 - Itching LORAZEPAM 04/28/2012 16 - Unknown NAPROXEN 02/02/2011 5 - Intolerance PROMETHAZINE-DM 10/15/2014 14 - Other: See Comments Comments: dizziness TRAMADOL 02/02/2011 11 - Vomiting TUBERCULIN PPD 02/08/2014 14 - Other: See Comments Comments: false positive skin test readings VANCOMYCIN 09/14/2010 9 - Itching Comments: Takes with benadryl Date Reviewed: 01/05/2018 Reviewed by: Marge Ritchie LPN - Fully Assessed Prescriptions as of 01/05/2018 Sig: LORAZEPAM 0.5 MG TABLET Take 1 tablet by mouth twice * CYMBALTA ORAL Take by mouth. REMERON ORAL Take by mouth. ATIVAN ORAL Take by mouth. TRAMADOL 50 MG TABLET Take 50 mg by mouth every 6 h* NEBULIZER ACCESSORIES KIT Use albuterol 1 vial in nebul* ALBUTEROL SULFATE 2.5 MG/3 ML* Use 3 mL via nebulizer every * PREDNISONE 20 MG TABLET Take 1 tablet by mouth once d* VENLAFAXINE ER 37.5 MG CAPSUL* Take 1 capsule by mouth once * ALBUTEROL SULFATE HFA 90 MCG/* Inhale 2 Puffs as instructed * NICOTINE 21 MG/24 HR DAILY TR* Apply 1 Patch as directed felisha* NICOTINE 14 MG/24 HR DAILY TR* Apply 1 Patch as directed felisha* NICOTINE 7 MG/24 HR DAILY TRA* Apply 1 Patch as directed felisha* CYCLOBENZAPRINE 10 MG TABLET Take 1 tablet by mouth three * Problem List As Of Date 01/05/2018 Noted Resolved Pelvic abscess INVALID FOR*12/28/2011 Pelvic pain in female [R10.2] INVALID FOR*07/18/2012 Piriformis syndrome [G57.00] INVALID FOR* Bladder pain [R39.89] INVALID FOR*05/09/2012 Interstitial cystitis [N30.10] INVALID FOR* Cellulitis [L03.90] INVALID FOR*05/09/2012 Irregular menses [N92.6] 05/09/2012 CRPS (complex regional pain syndrome) type I of*INVALID FOR* Reflex sympathetic dystrophy, unspecified [G90.*INVALID FOR* Pain in joint, ankle and foot [M25.579] INVALID FOR*02/18/2017 Menorrhagia [N92.0] INVALID FOR*05/09/2012 Complex ovarian cyst [N83.299] INVALID FOR*11/20/2012 Chronic pelvic pain in female [R10.2, G89.29] INVALID FOR* Depression [F32.9] INVALID FOR* 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 Encounter Status:Closed by AUDREY SEWELL on 01/06/18 DISCHARGE INSTRUCTION Observed: 12/31/2017 Status: F Source: [place] 12:52 PM [facility] REPOSITORY [facility] Medical Records Department [address] [place] [address] Discharge Instruction 12/31/17 1250 MR#: [id number] Acct: [id number] Name: SOLA JARAMILLO Rep #: [id number] : 1980 37 From: Mahamed Millan DO PCP: Corinna Andino MD Status: REG ER ED Disposition - Plan for ED Patient: Chief Complaint: Med Refill Instructions: Med Refill, ED Stress React Prescriptions: Lorazepam [Ativan] 1 mg PO BID PRN #20 tab PRN Reason: Anxiety Referrals: Corinna Andino MD [Primary Care Provider] - 3-5 Days Additional Instructions: see your psychiatrist What to do if you have Problems For any increased pain, shortness of breath, bleeding, nausea or vomiting, chest pain, or any unexpected problems, contact your Primary Care Provider. Call [facility] ([phone]) or report to the closest Emergency Room. Call 911 if necessary. 12/31/17 1252 <Electronically signed by Mahamed Millan DO> Date Mahamed Millan DO Cosigner Signature (If Indicated): Date CC: Corinna Andino MD EMERGENCY DEPARTMENT Observed: 12/31/2017 Status: F Source: [place] SUMMARY 12:49 PM [facility] REPOSITORY [facility] Medical Records Department [address] [place] [address] Emergency Department Summary 12/31/17 1245 MR#: [id number] Acct: [id number] Name: SOLA JARAMILLO Rep #: [id number] : 1980 37 From: Mahamed Millan DO PCP: Corinna Andino MD Status: PRE ER - ER Visit Summary Date of Service: 12/31/17 Chief Complaint: [Request for medication refill] History of Present Illness: The patient is a 37 F [presents to the emergency department stating that she took her last Ativan tablet this morning and was told by the counseling center to come to the ER potentially be written for more as her appointment with her psychiatrist is not till the of the month. Patient apparently was admitted to [facility] several weeks ago for homicidal thoughts in which time when she was discharged was written a prescription for 60 Ativan tablets on the which was supposed to be a 30 day supply. Patient states that her anxiety has been very high and she is been taking 3-4 tablets a day instead of the 2 tablets a day. Patient also states she was started on Cymbalta prior to discharge. Patient denies being suicidal or homicidal at this time. Patient also has a history of depression and PTSD.] Physical Examination: [HEENT-PERRLA, EOMI. Cranial nerves II through XII grossly intact. TMs clear. Mucous membranes moist. No adenopathy. Cardiovascular-regular rate and rhythm without murmur or ectopy Lungs-clear to auscultation, chest wall stable without crepitus or subcu emphysema Abdomen-normoactive bowel sounds, soft, nontender, no rebound or rigidity, no peritoneal signs. Extremities-intact 4, normal range of motion, normal pulses, atraumatic] Test Results: [None indicated] Emergency Department Course and Treatment: [I did perform an OARS report showed that patient had a prescription for lorazepam 1 mg tablets written for on December 21. In October she was written a prescription for Valium 10 mg tablets total of 14. Patient otherwise has not been on chronic benzodiazepine medication. I had a long discussion with the patient regarding appropriate use of the medication and she understands that we do not want to abruptly discontinue benzodiazepines due to the risk of seizure. Patient also understands that there is a possibility for addiction with these type of medications. At this point I will write her for a small supply and recommended that she only use them sparingly at no more than 1-2 a day and I asked that she follow-up with her psychiatrist sooner than the 16th if at all possible.] Treatment Plan: [She will be given prescription for Ativan 20 tablets.] Disposition: [Discharged to home in stable condition] Impression: [Anxiety Medication refill for Ativan] This note was generated with Pipedrive dictation software. It may contain incorrect words, spelling, and punctuation that were not noted in review of the chart prior to signing ED Disposition - Plan for ED Patient: Chief Complaint: Med Refill Referrals: Corinna Andino MD [Primary Care Provider] - What to do if you have Problems For any increased pain, shortness of breath, bleeding, nausea or vomiting, chest pain, or any unexpected problems, contact your Primary Care Provider. Call [facility] ([phone]) or report to the closest Emergency Room. Call 911 if necessary. 12/31/17 1249 <Electronically signed by Mahamed Millan DO> Date Mahamed Millan DO Cosigner Signature (If Indicated): Date CC: Corinna Andino MD PROGRESS Observed: 12/29/2017 Status: COMPLETED Source: [place] 6:58 PM [facility] REPOSITORY HNO ID: [id number] Author: Zbigniew Paul Service: (none) Author Type: Physician Type: Progress Notes Filed: 12/29/2017 7:28 PM Note Text: Patient presents with: Cough: fever, bodyaches and nausea x 24 hours HPI: Feeling sick since yesterday. Positive symptoms: Cough, Fever (101), Body Aches, nausea, Headache, fatigue, diarrhea Negative symptoms: Sorethroat, Vomiting, shortness of breath, chest pain, abdominal pain OTC: Nyquil, Ibuprofen, Tylenol PAST MEDICAL HISTORY Diagnosis Date - asthma - Breast lump 2012 Left - Interstitial cystitis - Nipple discharge 01/2015 Left; milky/green - Pelvic pain in female 09/16/2010 - Piriformis syndrome 10/28/2010 MEDICATIONS: Current Outpatient Prescriptions: DULOXETINE HCL (CYMBALTA ORAL) Take by mouth. MIRTAZAPINE (REMERON ORAL) Take by mouth. LORAZEPAM (ATIVAN ORAL) Take by mouth. traMADol (ULTRAM) 50 mg tablet Take 50 mg by mouth every 6 hours as needed. albuterol (PROVENTIL) 2.5 mg /3 mL (0.083 %) nebulizer solution Use 3 mL via nebulizer every 4 hours as needed for Wheezing/Shortness of Breath. Use over 5-15minutes. albuterol HFA (PROAIR HFA) 90 mcg/actuation inhaler Inhale 2 Puffs as instructed every 4 hours as needed. Nebulizer Accessories (REUSABLE NEBULIZER KIT) kit Use albuterol 1 vial in nebulizer ever 4 hours as needed for shortness of breath and wheezingICD J45.20 predniSONE (DELTASONE) 20 mg tablet Take 1 tablet by mouth once daily. venlafaxine ER (EFFEXOR XR) 37.5 mg 24 hr capsule Take 1 capsule by mouth once daily. May increase to 75 mg in 7 day if tolerating nicotine (NICODERM) 21 mg/24 hr Apply 1 Patch as directed every 24 hours. nicotine (NICODERM) 14 mg/24 hr Apply 1 Patch as directed every 24 hours. No smoking with patch. Start after your 6 weeks if the 21 mg patch nicotine (NICODERM) 7 mg/24 hr Apply 1 Patch as directed every 24 hours. Start once you complete 2 weeks of the 14 mg patch. No smoking while patch is on cyclobenzaprine (FLEXERIL) 10 mg tablet Take 1 tablet by mouth three times daily as needed for Muscle Spasm. No current facility-administered medications for this visit. ALLERGIES: ALLERGIES Allergen Reactions - Adhesive Tape (Oly* Other: See Comments skin breakdown - Amitriptyline Other: See Comments Has vivid dreams and sleepwalking where she was outside in the truck leaving in the middle of the night - Codeine Other: See Comments Nausea and doesn't feel right - Latex Itching - Lorazepam Unknown - Naproxen Intolerance - Promethazine-Dm Other: See Comments dizziness - Tramadol Vomiting - Tuberculin Ppd Other: See Comments false positive skin test readings - Vancomycin Itching Takes with benadryl VITALS: BP 90/60 Pulse 102 Temp 37.1 ?C (98.7 ?F) (Tympanic) Resp 18 Wt 45.8 kg (101 lb) LMP 03/03/2012 SpO2 97% BMI 18.47 kg/m2 PHYSICAL EXAM: GEN: mildly ill appearing HEENT: PERRL, EOMI, conjunctiva clear Ears: canals clear, TMs without erythema, bulge, or effusion Sinuses: non-tender frontal sinus, non-tender maxillary sinuses Throat: moist mucous membranes, mild erythema, no exudate Neck: supple, no thyromegaly, no lymphadenopathy HEART: regular rate and rhythm, no murmurs LUNGS: clear to auscultation, no wheezes or crackles, no increased WOB ASSESSMENT/PLAN: 1. Influenza-like symptoms - ICD9: 780.99, ICD10: R68.89 (primary diagnosis) 2. Uncomplicated asthma, unspecified asthma severity, unspecified whether persistent - ICD9: 493.90, ICD10: J45.909 - OSELTAMIVIR 75 MG CAPSULE Discussed supportive care with OTC analgesia and cold medicines. Zbigniew Paul MD CNOV Observed: 12/29/2017 Status: COMPLETED Source: [place] 6:30 PM [facility] REPOSITORY Office Visit (WSTR) SOLA JARAMILLO ([id number]) 1980 F Date Time Provider Department 12/29/17 6:30 PM ZBIGNIEW PAUL During your visit today, we recorded the following information about you: Temperature Pulse Respiration Blood pressure 98.7 degrees 102/minute 18/minute 90/60 Weight 45.8 kg Zbigniew Paul MD 12/29/2017 7:28 PM Signed Patient presents with: Cough: fever, bodyaches and nausea x 24 hours HPI: Feeling sick since yesterday. Positive symptoms: Cough, Fever (101), Body Aches, nausea, Headache, fatigue, diarrhea Negative symptoms: Sorethroat, Vomiting, shortness of breath, chest pain, abdominal pain OTC: Nyquil, Ibuprofen, Tylenol PAST MEDICAL HISTORY Diagnosis Date - asthma - Breast lump 2012 Left - Interstitial cystitis - Nipple discharge 01/2015 Left; milky/green - Pelvic pain in female 09/16/2010 - Piriformis syndrome 10/28/2010 MEDICATIONS: Current Outpatient Prescriptions: DULOXETINE HCL (CYMBALTA ORAL) Take by mouth. MIRTAZAPINE (REMERON ORAL) Take by mouth. LORAZEPAM (ATIVAN ORAL) Take by mouth. traMADol (ULTRAM) 50 mg tablet Take 50 mg by mouth every 6 hours as needed. albuterol (PROVENTIL) 2.5 mg /3 mL (0.083 %) nebulizer solution Use 3 mL via nebulizer every 4 hours as needed for Wheezing/Shortness of Breath. Use over 5-15minutes. albuterol HFA (PROAIR HFA) 90 mcg/actuation inhaler Inhale 2 Puffs as instructed every 4 hours as needed. Nebulizer Accessories (REUSABLE NEBULIZER KIT) kit Use albuterol 1 vial in nebulizer ever 4 hours as needed for shortness of breath and wheezingICD J45.20 predniSONE (DELTASONE) 20 mg tablet Take 1 tablet by mouth once daily. venlafaxine ER (EFFEXOR XR) 37.5 mg 24 hr capsule Take 1 capsule by mouth once daily. May increase to 75 mg in 7 day if tolerating nicotine (NICODERM) 21 mg/24 hr Apply 1 Patch as directed every 24 hours. nicotine (NICODERM) 14 mg/24 hr Apply 1 Patch as directed every 24 hours. No smoking with patch. Start after your 6 weeks if the 21 mg patch nicotine (NICODERM) 7 mg/24 hr Apply 1 Patch as directed every 24 hours. Start once you complete 2 weeks of the 14 mg patch. No smoking while patch is on cyclobenzaprine (FLEXERIL) 10 mg tablet Take 1 tablet by mouth three times daily as needed for Muscle Spasm. No current facility-administered medications for this visit. ALLERGIES: ALLERGIES Allergen Reactions - Adhesive Tape (Oly* Other: See Comments skin breakdown - Amitriptyline Other: See Comments ANDquot;Has vivid dreams and sleepwalking where she was outside in the truck leaving in the middle of the nightANDquot; - Codeine Other: See Comments Nausea and ANDquot;doesn't feel rightANDquot; - Latex Itching - Lorazepam Unknown - Naproxen Intolerance - Promethazine-Dm Other: See Comments dizziness - Tramadol Vomiting - Tuberculin Ppd Other: See Comments false positive skin test readings - Vancomycin Itching Takes with benadryl VITALS: BP 90/60 Pulse 102 Temp 37.1 ?C (98.7 ?F) (Tympanic) Resp 18 Wt 45.8 kg (101 lb) LMP 03/03/2012 SpO2 97% BMI 18.47 kg/m2 PHYSICAL EXAM: GEN: mildly ill appearing HEENT: PERRL, EOMI, conjunctiva clear Ears: canals clear, TMs without erythema, bulge, or effusion Sinuses: non-tender frontal sinus, non-tender maxillary sinuses Throat: moist mucous membranes, mild erythema, no exudate Neck: supple, no thyromegaly, no lymphadenopathy HEART: regular rate and rhythm, no murmurs LUNGS: clear to auscultation, no wheezes or crackles, no increased WOB ASSESSMENT/PLAN: 1. Influenza-like symptoms - ICD9: 780.99, ICD10: R68.89 (primary diagnosis) 2. Uncomplicated asthma, unspecified asthma severity, unspecified whether persistent - ICD9: 493.90, ICD10: J45.909 - OSELTAMIVIR 75 MG CAPSULE Discussed supportive care with OTC analgesia and cold medicines. Zbigniew Paul MD Referring Provider: SELF [200] Allergies As of Date: 12/29/2017 Noted Allergy Reaction ADHESIVE TAPE (ROSINS) 04/28/2012 14 - Other: See Comments Comments: skin breakdown AMITRIPTYLINE 11/20/2012 14 - Other: See Comments Comments: Has vivid dreams and sleepwalking where she was outside in the truck leaving in the middle of the night CODEINE 03/02/2011 14 - Other: See Comments Comments: Nausea and doesn't feel right LATEX 09/14/2010 9 - Itching LORAZEPAM 04/28/2012 16 - Unknown NAPROXEN 02/02/2011 5 - Intolerance PROMETHAZINE-DM 10/15/2014 14 - Other: See Comments Comments: dizziness TRAMADOL 02/02/2011 11 - Vomiting TUBERCULIN PPD 02/08/2014 14 - Other: See Comments Comments: false positive skin test readings VANCOMYCIN 09/14/2010 9 - Itching Comments: Takes with benadryl Date Reviewed: 12/29/2017 Reviewed by: Lisette Palma Ma - Fully Assessed Reason for Visit: Cough [28] Cmt: fever, bodyaches and nausea x 24 hours Primary Visit Diagnosis:Influenza-like symptoms [R68.89] Other Visit Diagnosis:Uncomplicated asthma, unspecified asthma severity, unspecified whether persistent [J45.909] Order(s):oseltamivir (TAMIFLU) 75 mg capsuleTake 1 capsule by mouth twice daily for 5 days.Disp: 10 capsuleRfl: 0 Prescriptions as of 12/29/2017 Sig: CYMBALTA ORAL Take by mouth. REMERON ORAL Take by mouth. ATIVAN ORAL Take by mouth. TRAMADOL 50 MG TABLET Take 50 mg by mouth every 6 h* ALBUTEROL SULFATE 2.5 MG/3 ML* Use 3 mL via nebulizer every * ALBUTEROL SULFATE HFA 90 MCG/* Inhale 2 Puffs as instructed * OSELTAMIVIR 75 MG CAPSULE Take 1 capsule by mouth twice* NEBULIZER ACCESSORIES KIT Use albuterol 1 vial in nebul* PREDNISONE 20 MG TABLET Take 1 tablet by mouth once d* VENLAFAXINE ER 37.5 MG CAPSUL* Take 1 capsule by mouth once * NICOTINE 21 MG/24 HR DAILY TR* Apply 1 Patch as directed felisha* NICOTINE 14 MG/24 HR DAILY TR* Apply 1 Patch as directed felisha* NICOTINE 7 MG/24 HR DAILY TRA* Apply 1 Patch as directed felisha* CYCLOBENZAPRINE 10 MG TABLET Take 1 tablet by mouth three * Medication notes this encounter PREDNISONE 20 MG TABLET >> Lisette Minerva To 12/29/2017 6:42 PM >> MINERVA TOLISETTE [facility] Dec 29, 2017 6:42 PM done VENLAFAXINE ER 37.5 MG CAPSULE,EXTENDED RELEASE 24 HR >> Lisettegenaro Palma Ma 12/29/2017 6:42 PM >> MINERVA LISETTE TO [facility] Dec 29, 2017 6:42 PM done NICOTINE 21 MG/24 HR DAILY TRANSDERMAL PATCH >> Lisettegenaro Palma Ma 12/29/2017 6:42 PM >> MINERVA TOLISETTE [facility] Dec 29, 2017 6:42 PM done NICOTINE 14 MG/24 HR DAILY TRANSDERMAL PATCH >> Lisettegenaro Palma Ma 12/29/2017 6:42 PM >> MINERVA TOLISETTE [facility] Dec 29, 2017 6:42 PM done NICOTINE 7 MG/24 HR DAILY TRANSDERMAL PATCH >> Lisette Minerva To 12/29/2017 6:42 PM >> MINERVA T[place]ISETTE [facility] Dec 29, 2017 6:42 PM done CYCLOBENZAPRINE 10 MG TABLET >> Lisette Minerva To 12/29/2017 6:42 PM >> MINERVA TOLISETTE [facility] Dec 29, 2017 6:42 PM done Problem List As Of Date 12/29/2017 Noted Resolved Pelvic abscess INVALID FOR*12/28/2011 Pelvic pain in female [R10.2] INVALID FOR*07/18/2012 Piriformis syndrome [G57.00] INVALID FOR* Bladder pain [R39.89] INVALID FOR*05/09/2012 Interstitial cystitis [N30.10] INVALID FOR* Cellulitis [L03.90] INVALID FOR*05/09/2012 Irregular menses [N92.6] 05/09/2012 CRPS (complex regional pain syndrome) type I of*INVALID FOR* Reflex sympathetic dystrophy, unspecified [G90.*INVALID FOR* Pain in joint, ankle and foot [M25.579] INVALID FOR*02/18/2017 Menorrhagia [N92.0] INVALID FOR*05/09/2012 Complex ovarian cyst [N83.299] INVALID FOR*11/20/2012 Chronic pelvic pain in female [R10.2, G89.29] INVALID FOR* Depression [F32.9] INVALID FOR* 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 Prescriptions ordered this encounter Disp Refills Start End OSELTAMIVIR 75 MG CAPSULE 10 c* 0 12/29/2017 01/03/2018 Route: ORAL Sig: Take 1 capsule by mouth twice daily for 5 days. Letter Text [facility] [address], [place] [address] 12/29/2017 Sola Jaramillo [facility]# [id number] [address] [place] [id number] TO WHOM IT MAY CONCERN: This is to confirm that Sola Jaraimllo had an appointment and was seen at the [facility] in the Department of Urgent Care by Zbigniew Paul MD on 12/29/2017 with influenza symptoms. Sincerely , Zbigniew Paul MD Encounter Status:Closed by ZBIGNIEW PAUL MD on 12/29/17 PROGRESS Observed: 12/23/2017 Status: COMPLETED Source: [place] 7:33 AM [facility] REPOSITORY HNO ID: [id number] Author: Sahil (Rroy Whitley Service: (none) Author Type: Physical Therapist Type: Progress Notes Filed: 12/23/2017 7:34 AM Note Text: [facility] PHYSICAL THERAPY DISCONTINUANCE OF CARE Plan of Care Period: No Data Recorded Last Visit Date: 09/01/16 Therapy Program: Patient did not return for follow up care as planned. Please refer to last visit note for interventions provided for this episode of care. Assessment: Unable to formally assess goal achievement due to non-compliance with therapy plan of care. Reason for Discontinuation of Care: Patient has not returned to therapy or scheduled additional follow-up appointments. Sahil Whitley PT 12 LEAD ELECTROCARDIOGRAM Observed: 12/19/2017 Status: F Source: [place] 1:00 PM [facility] REPOSITORY [facility] Cardiovascular Services [address] [place] [address] 12 Lead EKG 12/15/17 2241 MR#: [id number] Acct: [id number] Name: SOLA JARAMILLO Rep #: [id number] : 1980 37 From: Rowdy Dennis MD Attending Dr: Status: DEP ER Ordering Dr: Allyn Squires Date: 12/15/17 Location: ED Sex: F C Admitted: Test Reason : MH Blood Pressure : / mmHG Vent. Rate : 110 BPM Atrial Rate : 110 BPM P-R Int : 132 ms QRS Dur : 088 ms QT Int : 350 ms P-R-T Axes : 075 089 044 degrees QTc Int : 473 ms Sinus tachycardia Otherwise normal ECG Confirmed by BECKY HAWKINS, ROWDY ([id number]), electronic news gathering editor AMIRA GARCIA ([id number]) on 12/19/2017 1:00:13 PM Referred By: VLADIMIR Confirmed By:ROWDY DENNIS MD 12/19/17 1300 Date Rowdy Dennis MD CC: Allyn Squires; Corinna Andino MD Signed URINALYSIS, ROUTINE Collected: 12/18/2017 Status: F Source: [facility] 12:30 PM [place] REPOSITORY TYPE CODE TESTS RESULT OUT OF RANGE REFERENCE UNITS LAB COLOR Normal Color, Urine Straw LAB CHAUR Normal Character Hazy LAB SPGRUR 1.003-1.029 Normal Specific 1.006 [place],Urine LAB PHUR 4.5-8.0 Normal pH,Urine 5.0 LAB GLUCUR NEG;NEGATIVE mg/dL Normal Glucose,Urine Negative LAB KETUR NEG;NEGATIVE mg/dL Normal Ketone,Urine Negative LAB PROTUR NEG;NEGATIVE mg/dL Normal Protein,Urine Negative LAB BLDUR NEG;NEGATIVE Normal Blood,Urine Negative LAB NITUR NEG;NEGATIVE Normal Nitrite,Urine Negative LAB BILIUR NEG;NEGATIVE Normal Bilirubin,Urine Negative LAB UROUR <2 mg/dL Normal Urobilinogen,Ur < 2.0 ine LAB LEUESTUR Negative Abnormal Leuk.Esterase,U Moderate rine LAB WBCUR 0-5 /HPF Normal WBC,Urine 1 LAB SQEPI 0-40 /HPF Normal Squamous 4 Epithelial LAB TRANSEPI 0-3 /HPF Normal Trans. < 1 Epithelial LAB BACTUR NS;RARE /HPF Normal Bacteria,Urine Rare Performed By: #### UA #### Unless otherwise noted, all testing performed by [place] [address] CLIA: [id number] [employer] Workers: Cisco Link M.D. Observed: 12/18/2017 Status: F Source: [facility] CULTURE, URINE 12:30 PM [place] REPOSITORY Test Name: Culture, Urine Culture Status: Final Culture Report: No Growth - Day 2 Micro Source: Urine Performed By: #### URCUL #### Unless otherwise noted, all testing performed by [place] [address] CLIA: [id number] [employer] Workers: [employer] Link M.D. URINALYSIS, ROUTINE Collected: 12/16/2017 Status: F Source: [facility] 6:15 PM [place] REPOSITORY TYPE CODE TESTS RESULT OUT OF RANGE REFERENCE UNITS LAB COLOR Normal Color, Urine Straw LAB CHAUR Normal Character Clear LAB SPGRUR 1.003-1.029 Normal Specific 1.005 [place],Urine LAB PHUR 4.5-8.0 Normal pH,Urine 7.0 LAB GLUCUR < 70 mg/dL High Glucose,Urine 150 LAB KETUR NEG;NEGATIVE mg/dL Normal Ketone,Urine Negative LAB PROTUR NEG;NEGATIVE mg/dL Normal Protein,Urine Negative LAB BLDUR NEG;NEGATIVE Normal Blood,Urine Negative LAB NITUR NEG;NEGATIVE Normal Nitrite,Urine Negative LAB BILIUR NEG;NEGATIVE Normal Bilirubin,Urine Negative LAB UROUR <2 mg/dL < Normal Urobilinogen,Ur 2.0 ine LAB LEUESTUR Negative Normal Leuk.Esterase,U Negative rine LAB WBCUR 0-5 /HPF 4 Normal WBC,Urine LAB RBCUR 0-5 /HPF 1 Normal RBC,Urine LAB SQEPI 0-40 /HPF 1 Normal Squamous Epithelial LAB TRANSEPI 0-3 /HPF < Normal Trans. 1 Epithelial LAB BACTUR NS;RARE /HPF Abnormal Bacteria,Urine Occasional LAB AMORPCRY None Seen /HPF Abnormal Amorphous,Cryst Rare al Performed By: #### UA #### Unless otherwise noted, all testing performed by [facility] [address] [place], [place] [address] CLIA: [id number] [employer]: Cisco Link M.D. CBC WITH DIFF Collected: 12/16/2017 Status: F Source: [facility] 5:16 PM [place] REPOSITORY TYPE CODE TESTS RESULT OUT OF RANGE REFERENCE UNITS LAB WBC 3.4-10.6 K/mcL WBC Normal 9.4 LAB RBC 3.7-5.0 M/mcL RBC Normal 4.63 LAB HGB 11.6-15.4 g/dL Normal Hemoglobin 14.5 LAB HCT 34.4-44.8 % Normal Hematocrit 42.9 LAB MCV 82.6-98.9 FL MCV Normal 92.7 LAB MCH 27.9-33.9 pg MCH Normal 31.3 LAB MCHC 33.1-35.1 g/dL MCHC Normal 33.8 LAB RDW 10.0-14.4 % RDW Normal 14.4 LAB PLT 162-402 K/mcL Platelet Normal Count 236 LAB MPV 7.0-10.6 FL MPV Normal 7.8 LAB NEUT# 1.2-6.9 K/mcL High Neutrophil # 7.2 LAB LYMPH# 1.0-3.7 K/mcL Normal Lymphocyte # 1.4 LAB MONO# 0.1-0.6 K/mcL Monocyte Normal # 0.5 LAB EOS# 0-0.5 K/mcL Normal Eosinophil # 0.3 LAB BASO# 0-0.2 K/mcL Basophil Normal # 0.1 LAB SEGNEU% % Normal Segmented Neut % 76.6 LAB LYMP% % Normal Lymphocyte% 14.7 LAB MO% % Monocyte Normal % 5.2 LAB EO% % Normal Eosinophil % 2.9 LAB BA% % Basophil Normal % 0.6 Performed By: #### CBCDIF, CMET, LIPID, TSH #### Unless otherwise noted, all testing performed by [facility] [address] [place], [place] [address] CLIA: [id number] [employer] Workers: Cisco Link M.D. COMPREHENSIVE METABOLIC Collected: 12/16/2017 Status: F Source: [facility] PANEL 5:16 PM [place] REPOSITORY TYPE CODE TESTS RESULT OUT OF REFERENCE UNITS RANGE LAB GLU 70-99 mg/dL High Glucose 106 Result Comment: This test result might be falsely depressed or falsely elevated on samples drawn from patients taking Sulfasalazine and Sulfapyridine. Venipuncture should occur prior to taking either of these drugs. LAB BUN 8-25 mg/dL BUN 8 LAB CREA 0.40-1.10 mg/dL Creatinine 0.66 LAB eGFR ml/min/1.73sq .m eGFR,NonAfrican-Am erican >=60 Result Comment: Non- GFR Calc eGFR is an estimated Glomerular Filtration Rate based on the value of the patient's serum creatinine. In outpatients, eGFR should be used as a helpful tool in screening for CKD. In inpatients or patients with acute renal failure, eGFR represents the GFR at the moment of the draw and should be used with caution. LAB eGFRB ml/min/1.73sq.m eGFR, -Swedish >=60 Result Comment: GFR Calc LAB CALCM 8.4-10.2 mg/dL Calcium 9.1 LAB NA 135-145 mmol/L Sodium 140 LAB K 3.5-5.1 mmol/L Potassium 3.8 LAB CL 98-108 mmol/L Chloride 107 LAB CO2 21-32 mmol/L CO2 27 LAB AST 0-45 U/L AST (SGOT) 12 Result Comment: This test result might be falsely depressed or falsely elevated on samples drawn from patients taking Sulfasalazine and Sulfapyridine. Venipuncture should occur prior to taking either of these drugs. LAB ALT 14-65 U/L Low ALT (SGPT) 9 Result Comment: This test result might be falsely depressed or falsely elevated on samples drawn from patients taking Sulfasalazine and Sulfapyridine. Venipuncture should occur prior to taking either of these drugs. LAB ALKP 40-140 U/L Alkaline Phosphatase 86 LAB BILIT 0.3-1.2 mg/dL Bilirubin,Total 0.5 LAB PROT 6.0-8.0 g/dL Protein, Total 7.8 LAB ALB 3.2-5.2 g/dL Albumin 4.4 Performed By: #### CBCDIF, CMET, LIPID, TSH #### Unless otherwise noted, all testing performed by [place] [address] CLIA: [id number] [employer] Workers: Cisco Link M.D. TSH Collected: 12/16/2017 Status: F Source: [facility] 5:16 PM [place] REPOSITORY TYPE CODE TESTS RESULT OUT OF RANGE REFERENCE UNITS LAB TSH 0.320-5.000 uIU/mL Normal TSH 1.49 Result Comment: Samples from patients routinely receiving high dose biotin therapy (100-300 mg/day) may show falsely decreased results. Please correlate clinically. Performed By: #### CBCDIF, CMET, LIPID, TSH #### Unless otherwise noted, all testing performed by [place] [address] CLIA: [id number] [employer] Workers: Cisco Link M.D. LIPID PANEL Collected: 12/16/2017 Status: F Source: [facility] 5:16 PM [place] REPOSITORY TYPE CODE TESTS RESULT OUT OF REFERENCE UNITS RANGE LAB CHOL 100-199 mg/dL Cholesterol Normal 190 LAB TRIG 25-120 mg/dL Triglycerides Normal 80 LAB HDL 40-59 mg/dL HDL Normal 54 LAB LDL 10-150 mg/dL LDL Normal 121 LAB VLDL 5-40 mg/dL VLDL Normal 16 LAB CHOL/HDL 3.2-5.0 CHOL/HDL Ratio Normal 3.5 Result Comment: Female Coronary Heart Disease Risk Factor (CHDRF): Average risk= 4.4 1/2 Average risk= 3.3 2 times Average risk= 7.1 Performed By: #### CBCDIF, CMET, LIPID, TSH #### Unless otherwise noted, all testing performed by [facility] [address] [place], [place] [address] CLIA: [id number] [employer] Workers: Cisco Link M.D. URINALYSIS, COMPLETE Collected: 12/16/2017 Status: F Source: [facility] 4:17 AM [facility] REPOSITORY Order Comment: Order Date: 12/16/17 COLOR OF URINE MAY AFFECT DIPSTICK RESULTS. How was Urine Obtained? CLEAN CATCH TYPE CODE TESTS RESULT OUT OF RANGE REFERENCE UNITS LAB L400.3000 Yellow COLOR Normal Brown LAB L400.3050 Clear Normal CLARITY Turbid LAB L400.3200 Normal mg/dl Normal GLUCOSE, UR Normal LAB L400.3300 Negative mg/dL High BILIRUBIN URINE 1 Result Comment: COLOR OF URINE MAY AFFECT DIPSTICK RESULTS. LAB L400.3400 Negative mg/dl High KETONE UR 15 LAB L400.3465 1.002-1.030 Normal SP.GR. DIPSTX 1.025 LAB L400.3550 5.0 - 8.0 pH Normal UR 6.5 LAB L400.3600 Negative mg/dl High PROT DIPSTX 100 LAB L400.3700 Normal mg/dl High UROBILI 1 LAB L400.3750 Negative Normal NITRITE UR Negative LAB L400.3780 Negative /ul High OCCULT 250 BLOOD-UR LAB L400.3800 Negative /ul High LEUK ESTERASE 500 LAB L400.4050 0-5 /hpf Normal WBC 50-100 SEEN LAB L400.4100 0-5 /hpf Normal RBC-UA > 100 SEEN Result Comment: Microscopic field is filled. Other elements may be obscured. LAB L400.4150 5-10 /hpf Normal SQUAM EPI 5-10 SEEN LAB L400.4300 None Seen /hpf Normal BACTERIA 0 SEEN LAB L400.4350 <or=2+ /hpf Normal MUCUS, URINE 1+ Performed By: #### L400.0001 #### [facility] [address] [place], [place], [id number] ABDOMEN/PELVIS WITHOUT Observed: 12/16/2017 Status: F Source: [place] CONT 4:14 AM [facility] REPOSITORY [facility] Imaging Services [address] [place] [address] Abdomen/Pelvis without Cont MR#: [id number] Acct: [id number] Name: SOLA JARAMILLO Rep #: [id number] : 1980 F 37 From: Tj Mendoza MD PCP: Corinna Andino MD Status: REG ER Study: Abdomen/Pelvis without Cont Date of Exam: 12/16/17 Exam# [id number] Ordering Dr: Allyn Squires STUDY: CT ABDOMEN AND PELVIS WITHOUT CONTRAST REASON FOR EXAM: Female, 37 years old. Decreased appetite. Hematuria RADIATION DOSAGE (If Supplied By Facility): CTDIvol = ( 6.04 ) mGy, DLP = ( 270.28 ) mGycm TECHNIQUE: Transaxial images were obtained from the dome of the diaphragm to the symphysis pubis without oral contrast, and without intravenous contrast. Sagittal and coronal images were reconstructed. Individualized dose optimization techniques were used for this CT. COMPARISON: None. FINDINGS: The visualized lung bases are unremarkable. The visualized portions of the heart are within normal limits. Normal liver. Normal gallbladder and extrahepatic biliary system. Normal spleen. Normal pancreas. Normal bilateral adrenal glands. Normal right kidney. Normal left kidney. Normal visualized stomach. Normal small intestine. Normal colon. The appendix is visualized and appears normal. Normal abdominal aorta. Normal inferior vena cava. Normal retroperitoneum. Normal urinary bladder. Normal abdominal wall. Normal osseous structures. CT/Abdomen/Pelvis without Cont IMPRESSION: Normal unenhanced CT of the abdomen and pelvis. No acute findings Electronically Signed: Tj Mendoza, at 4:54 EST Tel , Service support , CC: Allyn Squires; Corinna Andino MD Record Producer: Signed CBC W/DIFF, AUTOMATED Collected: 12/15/2017 Status: F Source: [place] 10:25 PM [facility] REPOSITORY TYPE CODE TESTS RESULT OUT OF RANGE REFERENCE UNITS LAB L100.1000 4.4-11.0 K/mm3 Normal WBC 10.4 LAB L100.1200 4.2-5.4 M/mm3 Normal RBC 4.36 LAB L100.1300 12.0-15.0 g/dl Normal HGB 13.5 LAB L100.1400 37-47 % Normal HCT 40.0 LAB L100.1500 81-99 fL Normal MCV 91.7 LAB L100.1600 27.0-32.0 pg Normal MCH 31.0 LAB L100.1700 32-36 g/gl Normal MCHC 33.8 LAB L100.1810 11.6-14.6 % Normal RDW CV 13.8 LAB L100.1820 35.1-43.9 fl High RDW SD 46.6 LAB L100.1900 150-450 K/mm3 Normal PLT 256 LAB L100.2000 6.2-12.0 fl Normal MPV 9.4 LAB L100.2100 47-70 % Normal NEUT% 61.6 LAB L100.2200 19-41 % Normal LY% 27.9 LAB L100.2300 0-10 % Normal MONO% 6.8 LAB L100.2400 0-5 % Normal EO% 3.0 LAB L100.2500 0-1 % Normal BASO% 0.5 LAB L100.2550 0.0-0.9 % Normal IM GRAN % 0.200 Result Comment: IG% - Immature Granulocytes (promyelocytes, myelocytes and metamyelocytes) > 1% indicates that a LEFT SHIFT is Present. LAB L100.2620 2.0-7.7 X10 3/uL Normal Absolute Neut 6.4 LAB L100.2720 0.83-4.51 X10 3/ul Normal Absolute Lymph 2.90 Performed By: #### L100.0100 #### [facility] [address] [place], [address] ALCOHOL, BLOOD Collected: 12/15/2017 Status: F Source: [place] (MEDICAL)-SERUM 10:25 PM [facility] REPOSITORY TYPE CODE TESTS RESULT OUT OF RANGE REFERENCE UNITS LAB L501.9100 mg/dL Normal SERUM < 3.0 ETOH Result Comment: The serum:whole blood ethanol ratio is approximately 1.14 and varies slightly with hematocrit. Medical Alcohol reference interval and critical value in non-tolerant individuals; 50 - 100 Impairment 100 Intoxication 100 - 250 Severe Poisoning 250 - 400 Deep/possible fatal coma Performed By: #### L501.9100 #### [facility] [address] [place], [place], [id number] BASIC METABOLIC Collected: 12/15/2017 Status: F Source: [place] PROFILE (BMP) 10:25 PM [facility] REPOSITORY TYPE CODE TESTS RESULT OUT OF RANGE REFERENCE UNITS LAB L501.0100 74-106 mg/dL Normal GLU 90 Result Comment: Please note revised GLUCOSE reference range effective 2017. LAB L501.1000 7-18 mg/dL Normal BUN 9 LAB L501.1100 0.55-1.02 mg/dL Normal CREAT,SERUM 0.61 Result Comment: The validity of the calculated GFR AND GFRAA in patients over 70 years has not been determined. Clinical correlation is essential. LAB L501.1110 >60 mL/min Normal EST GFR 118 Result Comment: Non- GFR Calc LAB L501.1115 >60 mL/min Normal EST GFR - AA 142 Result Comment: GFR Calc LAB L501.1255 ml/min Normal Estimated CRCL 92.79 LAB L501.1300 10-20 RATIO Normal BUN/CRE 14.8 LAB L501.2200 8.5-10 mg/dL Normal .1 CA 8.6 LAB L501.5300 136-14 mmol/L Normal 5 NA 140 LAB L501.5600 3.5-5. mmol/L Normal 1 K 3.5 LAB L501.5900 98-107 mmol/L Normal CL 105 LAB L501.6100 21.0-3 mmol/L Normal 2.0 CO2 25.0 LAB L501.6200 5-15 Normal GAP 10 Performed By: #### L500.2500, L501.9520 #### [facility] [address] [place], [address] THYROID STIM HORMONE Collected: 12/15/2017 Status: F Source: [place] (TSH) 10:25 PM [facility] REPOSITORY TYPE CODE TESTS RESULT OUT OF RANGE REFERENCE UNITS LAB L501.9520 0.358-3.74 uIU/mL Normal TSH 1.86 Performed By: #### L500.2500, L501.9520 #### [facility] [address] [place], [address] ,SERUM,HCG QUALI. Collected: Status: F Source: [place] 12/15/2017 10:25 PM [facility] REPOSITORY TYPE CODE TESTS RESULT OUT OF REFERENCE UNITS RANGE LAB L700.6700 =>Qualitative mIU/mL Normal HCG Qual < 1 triggr LAB L700.7000 0-9 Nonpreg Negative Normal HCGSQUAL NEGATIVE Performed By: #### L700.6800 #### [facility] [address] [place], [address] URINE DRUG SCREEN Collected: 12/15/2017 Status: F Source: [place] (VISTA) 8:06 PM [facility] REPOSITORY Order Comment: Has pt arrived? Y TYPE CODE TESTS RESULT OUT OF RANGE REFERENCE UNITS LAB L505.0075 TO BE Normal CONFIRMED Result Comment: CONFIRMATORY TESTING FOR ALL POSITIVE URINE DRUG SCREEN RESULTS WILL ONLY BE SENT OUT UPON PHYSICIAN ORDER. VISTA Urine Drug Screen methods provide only preliminary analytical test results. A more specific alternate chemical method must be used in order to obtain a confirmed analytical result. Gas chromatography/mass spectrometery (GC/MS) is the preferred confirmatory method. Clinical consideration and professional judgement should be applied to any drug of abuse test result, particularly when preliminary positive results are used. URINE TCA TESTING MUST BE ORDERED SEPARATELY. USE TEST MNEMONIC: [facility] LAB L505.5005 VISTA UDS PH 6 Normal LAB L505.5015 <1000 ng/mL AMPHETAMINES Normal NEGATIVE LAB L505.5025 < 200 ng/mL BARBITIURATES Normal NEGATIVE LAB L505.5035 < 200 ng/mL BENZODIAZIPINE Normal NEGATIVE LAB L505.5045 < 300 ng/mL COCAINE Normal NEGATIVE LAB L505.5055 < 500 ng/mL ECSTACY Normal NEGATIVE LAB L505.5065 < 300 ng/mL METHADONE Normal NEGATIVE LAB L505.5075 < 300 ng/mL OPIATES Normal NEGATIVE LAB L505.5085 < 25 ng/mL PCP Normal NEGATIVE LAB L505.5095 < 50 ng/mL THC Normal NEGATIVE Performed By: #### L505.5000 #### [facility] [address] [place], [address] Observed: 12/15/2017 Status: F Source: [place] CULTURE, URINE 8:06 PM [facility] REPOSITORY Urine Culture ORGANISM 1: Presumptive E. coli [place] Count >100,000 Presumptive E. coli: REACTION Amoxacillin/Clavulanic Acid $ <=2 S Ampicillin $ <=2 S Ampicillin/Sulbactam $ <=2 S Cefazolin $ <=4 S Cefepime $ <=1 S Ceftriaxone $ <=1 S Ciprofloxacin $ <=0.25 S ESBL - Ertapenim $$$ <=0.5 S Gentamicin $ <=1 S Imipenem *NF <=0.25 S Levofloxacin $ <=0.12 S Nitrofurantoin $ <=16 S Piperacillin/Tazobactam $$ <=4 S Tobramycin $ <=1 S Trimethoprim/Sulfametho $ <=20 S (NF) indicates non-formulary drug at [facility]. Approval by Infectious Disease Specialist required before non-formulary drugs may be ordered and/or dispensed. Performed By: #### M100.0650 #### [facility] [address] [place] [place], [address] TSH Collected: 12/09/2017 Status: F Source: [place] 4:15 PM [facility] TYPE CODE TESTS RESULT OUT OF RANGE REFERENCE UNITS LAB TSH 0.400-5.500 uU/mL TSH 1.560 Result Comment: If the patient is , TSH reference range varies by gestational period: First Trimester 0.100-2.500 uU/mL Second Trimester 0.200-3.000 uU/mL Third Trimester 0.300-3.000 uU/mL References: 1. Vargas, Flores M, Goyo REGALADO, et al. Management of Thyroid Dysfunction during and : An Endocrine Society Clinical Practice Guideline. J Clin Endocrinol Metab, 2012:97:2029-1922. 2. Natividad VALADEZ. Overview of thyroid disease in . UpToDate. 2016. Accessed on April 16, 2016. Performed By: #### TSH, FT4 #### [facility] [address] [place], [place] [address] FREE T4 Collected: 12/09/2017 Status: F Source: [place] 4:15 PM [facility] [place] REPOSITORY TYPE CODE TESTS RESULT OUT OF RANGE REFERENCE UNITS LAB FT4 0.9-1.7 ng/dL Free T4 1.2 Performed By: #### TSH, FT4 #### [facility] [address] [place], [place] [address] PROGRESS Observed: 12/09/2017 Status: COMPLETED Source: [place] 3:26 PM [facility] [place] REPOSITORY HNO ID: [id number] Author: Omayra ([facility]) Podlogar Service: (none) Author Type: Nurse Practitioner Type: Progress Notes Filed: 12/12/2017 5:05 PM Note Text: 12/09/2017 Patient presents with: Pain: pain in mid back for a while now and down rt leg, trouble with anxiety SUBJECTIVE: This is a 37 year old that is here today for above. Has had mid- back pain for weeks. Denies any recent injury or trauma. Described as a sharp pain that radiates down the right leg sometimes occupied by numbness and tingling. A little achy at this time but no numbness and tingling. Say she feels a bump on her midback right side that she can feel when she lays on her left side. Pain is aggravated by heavy lifting. Had relief when she received Vicodin and vistaril 1 month ago in the ER. Denies fever, chills, joint swelling, bowel or bladder incontinence. Previous lower back pain. Patient also has concern that her anxiety has been increasing. She was taking librium PRN in the past for this. Denies chest pain, palpitations, shortness of breath or dyspnea. Positive for poor appetite, difficulty sleeping. Has a lot going on right now. Has a counselor and sponsor at [facility] for support. Past history of depression and anxiety. Family mental health hx: yes mother depression Previous treatment modalities: group therapy, individual therapy with Psychiatrist, Psychologist and Counselor and medication. 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 No recent hospitalizations for asthma. Uses albuterol inhaler intermittently for shortness of breath- maybe a couple times a month. Reviewed relevant PMHx, PSHx, Social Hx, current medications and allergies. ROS as above, otherwise non-contributory. Reviewed PMHx, PSHx, social Hx, medications and allergies. Feeling nervous, anxious, or on edge 3 Nearly every day Not being able to stop or control worrying 3 Nearly every day Worrying too much about different things 3 Nearly every day Trouble relaxing 3 Nearly every day Being so restless that it's hard to sit still 3 Nearly every day Being easily annoyed or irritable 3 Nearly every day Feeling afraid as if something awful might happen 3 Nearly every day OLESYA-7 Anxiety Score 21 If you checked off any problems, how difficult have these problems made it for you to do your work, take care of things at home, or get along with other people? Extremely difficult Little or no interest or pleasure in doing things 3 Nearly every day Feeling down, depressed, or hopeless 3 Nearly every day Trouble falling or staying asleep, or sleeping too much 3 Nearly every day Feeling tired or having little energy 3 Nearly every day Poor appetite or overeating 3 Nearly every day Feeling bad about yourself- or that you are a failure or having let yourself or your family down 3 Nearly every day Trouble concentrating on things, such as reading the newpaper or watching television 3 Nearly every day Moving or speaking so slowly that other people could have noticed? Or the opposite- being so fidgety or restless that you have been moving around a lot more than usual 3 Nearly every day Thoughts that you would be better off or of hurting yourself in some way 1 Several days PHQ9P Score 25 If you checked off any problems, how difficult have these problems made it for you to do your work, take care of things at home, or get along with other people? Extremely difficult PAST MEDICAL HISTORY Diagnosis Date - asthma - Breast lump 2012 Left - Interstitial cystitis - Nipple discharge 01/2015 Left; milky/green - Pelvic pain in female 09/16/2010 - Piriformis syndrome 10/28/2010 ALLERGIES Adhesive Tape (Rosins); Amitriptyline; Codeine; Latex; Lorazepam; Naproxen; Promethazine-Dm; Tramadol; Tuberculin Ppd; Vancomycin MEDICATIONS Current Outpatient Prescriptions: cyclobenzaprine (FLEXERIL) 10 mg tablet Take 1 tablet by mouth three times daily as needed for Muscle Spasm. albuterol HFA (PROAIR HFA) 90 mcg/actuation inhaler Inhale 2 Puffs as instructed every 4 hours as needed. No current facility-administered medications for this visit. Medications and allergies reviewed by this provider. SOCIAL HISTORY Social History Marital status: Spouse name: Jane Years of education: 12 Number of children: 0 Occupational History Occupation Employer Comment unemployed Social History Main Topics Smoking status: Current Some Day Smoker Packs/day: 0.50 Years: 20.00 Types: Cigarettes Last attempt to quit: 04/13/2010 Smokeless status: Never Used Comment: started smoking again. about 1/2 ppd Alcohol use: Yes Comment: Rarely. Drug use: No Sexual activity: Yes Partners with: Male control/protection: Tubal Ligation Comment: both tubes removed; 1 d/t ectopic; other d/t recurring infection PHYSICAL EXAMINATION: BP 120/62 (BP Site: Left Arm, BP Position: Sitting, BP Cuff Size: Regular Adult) Pulse 68 Resp 16 Wt 46.7 kg (103 lb 0.6 oz) LMP 03/03/2012 BMI 18.85 kg/m2 Appearance: well dressed well groomed, cooperative and pleasant Behavior: good eye contact Speech: fluent and coherent Mood: anxious Affect: appropriate Perceptions: none Thought process: goal directed Thought Content: normal Intelligence level: normal Insight: good Judgment: good Lungs: Lungs clear to auscultation. No wheezing, rhonchi, rales Heart: RRR without murmur, gallop, or rubs. No ectopy Back: straight and symmetric, tenderness along right lower thoracic spine intact upper lumbar spine, Full ROM, LE ext reflexes are 2+ and symmetric, LE ext motor strenght and sensory exam are normal, SLR- negative . No mass or bump palpated along spine, no step-offs ASSESSMENT/PLAN: 1. Acute right-sided thoracic back pain - ICD9: 724.1, ICD10: M54.6 (primary diagnosis) Mechanical low back pain - Ice for localized tenderness - Warm moist heat for 20 min three times a day - Prednisone burst- see orders - Patient given instructions back care exercise program, proper lifting techniques and avoiding sleeping on a heating pad - Follow up in 1 weeks or sooner if symptoms persist or worsen 2. OLESYA (generalized anxiety disorder) - ICD9: 300.02, ICD10: F41.1 - consider hyperthyroidism, labs as below - start Effexor 37.5 mg daily, may increase to 75 mg daily in 7 days if tolerating- handout from [employer] provided - TSH BLD - T4 FREE/FREE THYROX - Discussed concept of neurochemical imbalance [facility] depression/anxiety - Handout on depression/anxiety form [employer] given - Option of Medication use discussed - Risks/benefits of SSRIs - Common side effects - Sleep Hygeine - advised counseling to improve management of stressors - follow up in 4 weeks - Instructed patient to contact office or [id number] after-hours promptly should condition worsen or any new symptoms appear. - Counseling Center [facility] and after hours crisis line - [facility]'s silva phone number or 3. Depression, unspecified depression type - ICD9: 311, ICD10: F32.9 - as above 4. Mild intermittent asthma, uncomplicated - ICD9: 493.90, ICD10: J45.20 Mild intermittent Asthma stable - Continue albuterol 2 puffs as needed every four for shortness of breath - Avoidance of triggers recommended - letter provided 5. Encounter for tobacco use cessation counseling - ICD9: V65.42, ICD10: Z71.6 - Cessation encouraged. - Physiologic and physical aspects of tobacco addiction as well as strategies for quitting were discussed. - Counseling was given focusing on the harmful effects of this addiction especially given the patient's medical condition(s) which will be worsened because of the chemicals in tobacco. - Prescription for Nicotine pathces given; provided education for patch Omayra Echeverria CNP Prescription instructions reviewed with patient as applicable. Patient advised if symptoms do not improve or if symptoms worsen sooner, to contact their primary care physician. Potential red flag symptoms discussed with the patient. Reviewed appropriate action plan to take if red flag symptoms occur. Patient agreeable to treatment plan. During this patient visit I have spent approximately 20 minutes in counseling regarding treatment options and medications. XR LUMBAR 3V Observed: 11/28/2017 Status: F Source: [place] AP/LAT/L5-S1 4:04 PM [facility] RE[facility] * * *Final Report* * * DATE OF EXAM: Nov 28 2017 4:04PM WOX [id number] - XR LUMBAR 3V AP/LAT/L5-S1 / PROCEDURE REASON: multiple diagnoses * * * * Physician Interpretation * * * * HISTORY: Low back pain Other chronic pain TECHNIQUE: 3 views lumbar spine COMPARISON: None. RESULT: There is normal alignment of the lumbar spine. Lumbar vertebral body heights and disc space heights are preserved. Normal sacroiliac joints and hip joint spaces. IMPRESSION: UNREMARKABLE EXAM Record Producer: PSCB Transcribe Date/Time: Nov 28 2017 4:05P Dictated by : MOLLY KU MD This examination was interpreted and the report reviewed and electronically signed by: MOLLY KU MD on Nov 28 2017 4:06PM EST [id number] PROGRESS Observed: 11/28/2017 Status: COMPLETED Source: [place] 3:54 PM [facility] REPOSITORY HNO ID: [id number] Author: Maribel Medina (Rt) Service: (none) Author Type: Videotape Operator Type: Progress Notes Filed: 11/28/2017 4:00 PM Note Text: Radiology Service Progress Note PATIENT NAME: Sola Jaramillo DATE OF SERVICE: November 28, 2017 TIME: 3:54 PM PATIENT IDENTITY VERIFICATION COMPLETED USING TWO (2) METHODS: Patient confirmed name verbally and Date of . PATIENT GENDER DATA: Female. status: : No status: NO. PATIENT RELEVANT IMPLANT DATA REVIEWED: Not Applicable RADIOLOGY DEPARTMENT: General X-ray: Exam(s) Completed: Spine X-Ray(s): Lumbar AP / LAT / L5-S1 PERIPHERAL IV DATA: Not applicable SIGNED BY: RT Adam November 28, 2017 3:54 PM PROGRESS Observed: 11/28/2017 Status: COMPLETED Source: [place] 3:29 PM [facility] REPOSITORY HNO ID: [id number] Author: Cisco Felipe Service: (none) Author Type: Nurse Practitioner Type: Progress Notes Filed: 11/28/2017 4:35 PM Note Text: HPI HPI Sola Jaramillo is a 37 year old female who presents today for CC of chronic/intermittent back pain. This started years ago. Has tried flexeril with mild relief. Symptoms are made relieved by rest. Symptoms are worsened by activity. 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 Denies possibility of being . Denies changes in bowel/bladder habits. No injury to cause. Tingling of right leg intermittently. Review of Systems Constitutional: Negative for chills, fever and weight loss. Cardiovascular: Negative for leg swelling. Gastrointestinal: Negative for abdominal pain, constipation, diarrhea, nausea and vomiting. Genitourinary: Negative for dysuria, flank pain, frequency, hematuria and urgency. Musculoskeletal: Positive for back pain. Skin: Negative for rash. Neurological: Negative for sensory change and focal weakness. 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 Survey of the pelvis showed filmy omental adhesions to the anterior abdominal wall, also extensive bowel adhesions mainly from the sigmoid colon to the pelvic sidewall as well as to the left side of the uterus. Also, uterus appeared to be adhered to the anterior abdominal wall and the bladder. - REMOVAL OF OVARY/TUBE(S) 11/15/1999 laparoscopy Salpingectomy right side - REMOVAL OF OVARY/TUBE(S) 09/04/2010 laparotomy Salpingo-oophorectomy left tube, Dr. Kingston [place] - related to complications to surgical procedure in summer, post operative hematoma, wound infection, drainage of intraabdominal abscess CT [place] - SALPINGECTOMY 04/2010 Dr. Kingston - [place] - open tubal procedure, retturn to OR next day for bleeding,. - TREAT ECTOPIC PREG,NON REMVAL 1999 Ectopic at 19yrs old ALLERGIES Adhesive Tape (Rosins); Amitriptyline; Codeine; Latex; Lorazepam; Naproxen; Promethazine-Dm; Tramadol; Tuberculin Ppd; Vancomycin MEDICATIONS estradiol (ESTRACE) 0.01 % (0.1 mg/gram) vaginal cream Use 1 g vaginally twice a week. Use nightly x 2 weeks then 2x weekly hydrOXYzine pamoate (VISTARIL) 25 mg capsule Take 1 capsule by mouth three times daily as needed. albuterol HFA (PROAIR HFA) 90 mcg/actuation inhaler Inhale 2 Puffs as instructed every 4 hours as needed. benzonatate (TESSALON PERLES) 100 mg capsule Take 2 capsules by mouth three times daily as needed for Cough. metroNIDAZOLE (FLAGYL) 500 mg tablet Take 1 tablet by mouth twice daily. FOR 7 DAYS. medroxyPROGESTERone (DEPO-PROVERA) 150 mg/mL syrg Inject 1 mL intramuscularly every 12 weeks. FAMILY HISTORY Problem Relation Age of Onset - Breast Cancer Maternal Grandmother Alive - Lung Cancer [Other] [OTHER] Mother 46 - Skin Cancer Other Alive; 1st maternal cousin - Lipids Father - Throat Cancer [Other] [OTHER] Maternal Grandmother Social History Substance Use Topics - Smoking status: Current Some Day Smoker Packs/day: 0.50 Years: 20.00 Types: Cigarettes Last attempt to quit: 04/13/2010 - Smokeless tobacco: Never Used Comment: started smoking again. about 1/2 ppd - Alcohol use Yes Comment: Rarely. Blood pressure 110/72, pulse 82, temperature 37.2 ?C (98.9 ?F), temperature source Tympanic, resp. rate 18, weight 46.7 kg (103 lb), last menstrual period 03/03/2012. Physical Exam Constitutional: She is oriented to person, place, and time. No distress. Cardiovascular: Pulses: Dorsalis pedis pulses are 2+ on the right side, and 2+ on the left side. Posterior tibial pulses are 2+ on the right side, and 2+ on the left side. Abdominal: Soft. Normal appearance and bowel sounds are normal. There is no hepatosplenomegaly. There is no tenderness. There is no CVA tenderness. Musculoskeletal: Lumbar back: She exhibits decreased range of motion, pain and spasm. Back: Lumbar paraspinal muscles tender with palpation Neurological: She is alert and oriented to person, place, and time. She has a normal Straight Leg Raise Test. Gait normal. Gait normal. Reflex Scores: Patellar reflexes are 2+ on the right side and 2+ on the left side. Skin: She is not diaphoretic. ASSESSMENT/PLAN: 1. Chronic right-sided low back pain, with sciatica presence unspecified - ICD9: 724.2, 338.29, ICD10: M54.5, G89.29 -given stretches/exercises -no abnormality noted on xray -will try steroids/flexeril -will schedule f/u with pcp - XR LUMBAR GENERAL 3V AP/LAT/L5-S1 Prescription instructions reviewed with patient as applicable. Patient advised if symptoms do not improve or if symptoms worsen sooner, to contact the office for further evaluation by their primary care physician. Potential red flag symptoms discussed with the patient. Reviewed appropriate action plan to take if red flag symptoms occur. Patient agreeable to treatment plan. Cisco Felipe CNP CNOV Observed: 11/28/2017 Status: COMPLETED Source: [place] 3:00 PM [facility] REPOSITORY Office Visit ([facility]) JASIELCJKYARASOLA Miguel ([id number]) 1980 F Date Time Provider Department 11/28/17 3:00 PM CISCO FELIPE (ORQUIDEA) [facility] During your visit today, we recorded the following information about you: Temperature Pulse Respiration Blood pressure 98.9 degrees 82/minute 18/minute 110/72 Weight 46.7 kg Cisco Felipe CNP 11/28/2017 4:35 PM Signed HPI HPI Sola Miguel Clint is a 37 year old female who presents today for CC of chronic/intermittent back pain. This started years ago. Has tried flexeril with mild relief. Symptoms are made relieved by rest. Symptoms are worsened by activity. 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 Denies possibility of being . Denies changes in bowel/bladder habits. No injury to cause. Tingling of right leg intermittently. Review of Systems Constitutional: Negative for chills, fever and weight loss. Cardiovascular: Negative for leg swelling. Gastrointestinal: Negative for abdominal pain, constipation, diarrhea, nausea and vomiting. Genitourinary: Negative for dysuria, flank pain, frequency, hematuria and urgency. Musculoskeletal: Positive for back pain. Skin: Negative for rash. Neurological: Negative for sensory change and focal weakness. 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 Survey of the pelvis showed filmy omental adhesions to the anterior abdominal wall, also extensive bowel adhesions mainly from the sigmoid colon to the pelvic sidewall as well as to the left side of the uterus. Also, uterus appeared to be adhered to the anterior abdominal wall and the bladder. - REMOVAL OF OVARY/TUBE(S) 11/15/1999 laparoscopy Salpingectomy right side - REMOVAL OF OVARY/TUBE(S) 09/04/2010 laparotomy Salpingo-oophorectomy left tube, Dr. Kingston [place] - related to complications to surgical procedure in summer, post operative hematoma, wound infection, drainage of intraabdominal abscess CT [place] - SALPINGECTOMY 04/2010 Dr. Kingston - [place] - open tubal procedure, retturn to OR next day for bleeding,. - TREAT ECTOPIC PREG,NON REMVAL 1999 Ectopic at 19yrs old ALLERGIES Adhesive Tape (Rosins); Amitriptyline; Codeine; Latex; Lorazepam; Naproxen; Promethazine-Dm; Tramadol; Tuberculin Ppd; Vancomycin MEDICATIONS estradiol (ESTRACE) 0.01 % (0.1 mg/gram) vaginal cream Use 1 g vaginally twice a week. Use nightly x 2 weeks then 2x weekly hydrOXYzine pamoate (VISTARIL) 25 mg capsule Take 1 capsule by mouth three times daily as needed. albuterol HFA (PROAIR HFA) 90 mcg/actuation inhaler Inhale 2 Puffs as instructed every 4 hours as needed. benzonatate (TESSALON PERLES) 100 mg capsule Take 2 capsules by mouth three times daily as needed for Cough. metroNIDAZOLE (FLAGYL) 500 mg tablet Take 1 tablet by mouth twice daily. FOR 7 DAYS. medroxyPROGESTERone (DEPO-PROVERA) 150 mg/mL syrg Inject 1 mL intramuscularly every 12 weeks. FAMILY HISTORY Problem Relation Age of Onset - Breast Cancer Maternal Grandmother Alive - Lung Cancer [Other] [OTHER] Mother 46 - Skin Cancer Other Alive; 1st maternal cousin - Lipids Father - Throat Cancer [Other] [OTHER] Maternal Grandmother Social History Substance Use Topics - Smoking status: Current Some Day Smoker Packs/day: 0.50 Years: 20.00 Types: Cigarettes Last attempt to quit: 04/13/2010 - Smokeless tobacco: Never Used Comment: started smoking again. about 1/2 ppd - Alcohol use Yes Comment: Rarely. Blood pressure 110/72, pulse 82, temperature 37.2 ?C (98.9 ?F), temperature source Tympanic, resp. rate 18, weight 46.7 kg (103 lb), last menstrual period 03/03/2012. Physical Exam Constitutional: She is oriented to person, place, and time. No distress. Cardiovascular: Pulses: Dorsalis pedis pulses are 2+ on the right side, and 2+ on the left side. Posterior tibial pulses are 2+ on the right side, and 2+ on the left side. Abdominal: Soft. Normal appearance and bowel sounds are normal. There is no hepatosplenomegaly. There is no tenderness. There is no CVA tenderness. Musculoskeletal: Lumbar back: She exhibits decreased range of motion, pain and spasm. Back: Lumbar paraspinal muscles tender with palpation Neurological: She is alert and oriented to person, place, and time. She has a normal Straight Leg Raise Test. Gait normal. Gait normal. Reflex Scores: Patellar reflexes are 2+ on the right side and 2+ on the left side. Skin: She is not diaphoretic. ASSESSMENT/PLAN: 1. Chronic right-sided low back pain, with sciatica presence unspecified - ICD9: 724.2, 338.29, ICD10: M54.5, G89.29 -given stretches/exercises -no abnormality noted on xray -will try steroids/flexeril -will schedule f/u with pcp - XR LUMBAR GENERAL 3V AP/LAT/L5-S1 Prescription instructions reviewed with patient as applicable. Patient advised if symptoms do not improve or if symptoms worsen sooner, to contact the office for further evaluation by their primary care physician. Potential red flag symptoms discussed with the patient. Reviewed appropriate action plan to take if red flag symptoms occur. Patient agreeable to treatment plan. ORQUIDEA Rosado CNP 11/28/2017 4:22 PM Signed EMERGENCY DEPARTMENT LOW BACK PAIN GENERAL INFORMATION: Low back pain is located in the small of the back. The pain may be related to sprained muscles or ligaments, to muscle spasms, or to herniation of a spinal disc. There are many possible causes of back pain, but the most common causes are gradual wear and tear, physical and emotional stress, and weak or tense muscles from lack of proper exercise. The pain can develop quickly or overnight and may be caused by unusual exertion such as moving furniture or heavy lifting. Low back pain can be severe, and sometimes you may be unable to move without pain. INSTRUCTIONS: 1. During the first 24 hours, apply ice packs to your back for 10-20 minutes 3 to 4 times a day. Put the ice in a plastic bag and place a towel between the bag of ice and your skin. After 24 hours, apply heat to your back with a heating pad set on low or a warm water bottle for 30 minutes every 3 to 4 hours. A gentle massage and warm showers may also be helpful. 2. Stay in bed for 1 to 2 days. Then begin normal activities as you can tolerate without causing pain. 3. Bend at the hips and knees; never bend from the waist only. Lift with your legs, not your back. 4. Sleep on a firm mattress or put a ? to 1 inch piece of plywood between the mattress and box springs. Do not use a waterbed because it does not support your back correctly. Sleep with a pillow under your knees or sleep on your side with your knees bent. 5. Wear low-heeled shoes. 6. If you are overweight, losing weight will help prevent another attack. 7. Begin a program of back exercises to prevent future episodes of pain. Walking, swimming, and bicycling are good exercise. Avoid exercises that put stress on the back, such as rowing and jogging. CONTACT YOUR DOCTOR OR RETURN TO THE ED IF: 1. You have shooting pains into your buttocks, groin, or legs. 2. You have difficulty urinating or lose control of bowel or bladder function. 3. You have numbness or weakness in your legs or feet. Referring Provider: SELF [200] Allergies As of Date: 11/28/2017 Noted Allergy Reaction ADHESIVE TAPE (ROSINS) 04/28/2012 14 - Other: See Comments Comments: skin breakdown AMITRIPTYLINE 11/20/2012 14 - Other: See Comments Comments: Has vivid dreams and sleepwalking where she was outside in the truck leaving in the middle of the night CODEINE 03/02/2011 14 - Other: See Comments Comments: Nausea and doesn't feel right LATEX 09/14/2010 9 - Itching LORAZEPAM 04/28/2012 16 - Unknown NAPROXEN 02/02/2011 5 - Intolerance PROMETHAZINE-DM 10/15/2014 14 - Other: See Comments Comments: dizziness TRAMADOL 02/02/2011 11 - Vomiting TUBERCULIN PPD 02/08/2014 14 - Other: See Comments Comments: false positive skin test readings VANCOMYCIN 09/14/2010 9 - Itching Comments: Takes with benadryl Date Reviewed: 11/28/2017 [facility]: [facility] - Fully Assessed Reason for Visit: Back Pain [12] Cmt: recurring seen in [place] [facility] 8 day, knot in back, right middle of back with leg numbness Primary Visit Diagnosis:Chronic right-sided low back pain, with sciatica presence unspecified [M54.5, G89.29] Order(s):XR LUMBAR GENERAL 3V AP/LAT/L5-S1 [[id number]] Order #: [id number] FUTURE predniSONE (DELTASONE) 10 mg tabletTake 4 tabs daily x 3 days, then 3 tabs x 3 days, 2 tabs x 3 days, then 1 tab x3 days with food.Disp: 30 tabletRfl: 0 cyclobenzaprine (FLEXERIL) 10 mg tabletTake 1 tablet by mouth three times daily as needed for Muscle Spasm.Disp: 15 tabletRfl: 0 Prescriptions as of 11/28/2017 Sig: ESTRADIOL 0.01% (0.1 MG/GRAM)* Use 1 g vaginally twice a wee* HYDROXYZINE PAMOATE 25 MG CAP* Take 1 capsule by mouth three* ALBUTEROL SULFATE HFA 90 MCG/* Inhale 2 Puffs as instructed * PREDNISONE 10 MG TABLET Take 4 tabs daily x 3 days, t* CYCLOBENZAPRINE 10 MG TABLET Take 1 tablet by mouth three * BENZONATATE 100 MG CAPSULE Take 2 capsules by mouth thre* METRONIDAZOLE 500 MG TABLET Take 1 tablet by mouth twice * MEDROXYPROGESTERONE 150 MG/ML* Inject 1 mL intramuscularly e* Medication notes this encounter BENZONATATE 100 MG CAPSULE >> Lisette Palma Ma 11/28/2017 3:00 PM >> MINERVA TOLISETTE Callie Nov 28, 2017 2:59 PM done Problem List As Of Date 11/28/2017 Noted Resolved Pelvic abscess INVALID FOR*12/28/2011 Pelvic pain in female [R10.2] INVALID FOR*07/18/2012 Piriformis syndrome [G57.00] INVALID FOR* Bladder pain [R39.89] INVALID FOR*05/09/2012 Interstitial cystitis [N30.10] INVALID FOR* Cellulitis [L03.90] INVALID FOR*05/09/2012 Irregular menses [N92.6] 05/09/2012 CRPS (complex regional pain syndrome) type I of*INVALID FOR* Reflex sympathetic dystrophy, unspecified [G90.*INVALID FOR* Pain in joint, ankle and foot [M25.579] INVALID FOR*02/18/2017 Menorrhagia [N92.0] INVALID FOR*05/09/2012 Complex ovarian cyst [N83.299] INVALID FOR*11/20/2012 Chronic pelvic pain in female [R10.2, G89.29] INVALID FOR* Depression [F32.9] INVALID FOR* 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 Other instructions from your clinician: EMERGENCY DEPARTMENT LOW BACK PAIN GENERAL INFORMATION: Low back pain is located in the small of the back. The pain may be related to sprained muscles or ligaments, to muscle spasms, or to herniation of a spinal disc. There are many possible causes of back pain, but the most common causes are gradual wear and tear, physical and emotional stress, and weak or tense muscles from lack of proper exercise. The pain can develop quickly or overnight and may be caused by unusual exertion such as moving furniture or heavy lifting. Low back pain can be severe, and sometimes you may be unable to move without pain. INSTRUCTIONS: 1. During the first 24 hours, apply ice packs to your back for 10-20 minutes 3 to 4 times a day. Put the ice in a plastic bag and place a towel between the bag of ice and your skin. After 24 hours, apply heat to your back with a heating pad set on low or a warm water bottle for 30 minutes every 3 to 4 hours. A gentle massage and warm showers may also be helpful. 2. Stay in bed for 1 to 2 days. Then begin normal activities as you can tolerate without causing pain. 3. Bend at the hips and knees; never bend from the waist only. Lift with your legs, not your back. 4. Sleep on a firm mattress or put a ? to 1 inch piece of plywood between the mattress and box springs. Do not use a waterbed because it does not support your back correctly. Sleep with a pillow under your knees or sleep on your side with your knees bent. 5. Wear low-heeled shoes. 6. If you are overweight, losing weight will help prevent another attack. 7. Begin a program of back exercises to prevent future episodes of pain. Walking, swimming, and bicycling are good exercise. Avoid exercises that put stress on the back, such as rowing and jogging. CONTACT YOUR DOCTOR OR RETURN TO THE ED IF: 1. You have shooting pains into your buttocks, groin, or legs. 2. You have difficulty urinating or lose control of bowel or bladder function. 3. You have numbness or weakness in your legs or feet. Prescriptions ordered this encounter Disp Refills Start End PREDNISONE 10 MG TABLET 30 t* 0 11/28/2017 12/10/2017 Sig: Take 4 tabs daily x 3 days, then 3 tabs x 3 days, 2 tabs x 3 days, then 1 tab x3 days with food. CYCLOBENZAPRINE 10 MG TABLET 15 t* 0 11/28/2017 Route: ORAL Sig: Take 1 tablet by mouth three times daily as needed for Muscle Spasm. Letter Text [facility] Department of Urgent Care Cisco Felipe CNP [address], [place] [address] 11/28/2017 Sola Jaramillo [facility]# [id number] [address] [place] [id number] TO WHOM IT MAY CONCERN: This is to confirm that Sola Jaramillo had an appointment and was seen at the [facility] in the Department of Urgent Care by Cisco Felipe CNP on 11/28/2017. Sincerely yours, Cisco Felipe CNP Encounter Status:Closed by CISCO FELIPE CNP on 11/28/17 PROGRESS Observed: 11/02/2017 Status: COMPLETED Source: [place] 3:22 PM [facility] REPOSITORY HNO ID: [id number] Author: Claude Harrington (Pa) Service: (none) Author Type: Physician Nut Chopper Type: Progress Notes Filed: 11/02/2017 3:34 PM Note Text: This note was created using PeopleAdmin. Subjective HPI Pt presents with a dry cough, and a swollen gland on right side of throat. This has been going on for 2-3 days. Mild throat pain. She does have asthma, no wheezing recently. She does smoke a half pack per day. No fever. No vomiting or diarrhea. No abdominal pain. Review of Systems Constitutional: Negative. HENT: Positive for congestion, postnasal drip and sore throat. Eyes: Negative. Respiratory: Positive for cough. Negative for chest tightness and wheezing. Gastrointestinal: Negative. Endocrine: Negative. Genitourinary: Negative. Musculoskeletal: Negative. Skin: Negative. Allergic/Immunologic: Negative. Neurological: Negative. Hematological: Negative. Psychiatric/Behavioral: Negative. PAST MEDICAL HISTORY Diagnosis Date - asthma - Breast lump 2012 Left - Interstitial cystitis - Nipple discharge 01/2015 Left; milky/green - Pelvic pain in female 09/16/2010 - Piriformis syndrome 10/28/2010 Current Outpatient Prescriptions: estradiol (ESTRACE) 0.01 % (0.1 mg/gram) vaginal cream Use 1 g vaginally twice a week. Use nightly x 2 weeks then 2x weekly Disp: 1 Tube Rfl: 3 hydrOXYzine pamoate (VISTARIL) 25 mg capsule Take 1 capsule by mouth three times daily as needed. Disp: 45 capsule Rfl: 3 medroxyPROGESTERone (DEPO-PROVERA) 150 mg/mL syrg Inject 1 mL intramuscularly every 12 weeks. Disp: 1 Syringe Rfl: 3 albuterol HFA (PROAIR HFA) 90 mcg/actuation inhaler Inhale 2 Puffs as instructed every 4 hours as needed. Disp: 1 Inhaler Rfl: 0 benzonatate (TESSALON PERLES) 100 mg capsule Take 2 capsules by mouth three times daily as needed for Cough. Disp: 20 capsule Rfl: 0 metroNIDAZOLE (FLAGYL) 500 mg tablet Take 1 tablet by mouth twice daily. FOR 7 DAYS. Disp: 14 tablet Rfl: 0 No current facility-administered medications for this visit. 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 Survey of the pelvis showed filmy omental adhesions to the anterior abdominal wall, also extensive bowel adhesions mainly from the sigmoid colon to the pelvic sidewall as well as to the left side of the uterus. Also, uterus appeared to be adhered to the anterior abdominal wall and the bladder. - REMOVAL OF OVARY/TUBE(S) 11/15/1999 laparoscopy Salpingectomy right side - REMOVAL OF OVARY/TUBE(S) 09/04/2010 laparotomy Salpingo-oophorectomy left tube, [place] Mcin[place] - related to complications to surgical procedure in summer, post operative hematoma, wound infection, drainage of intraabdominal abscess CT [place] - SALPINGECTOMY 04/2010 Dr. Kingston - [place] - open tubal procedure, retturn to OR next day for bleeding,. - TREAT ECTOPIC PREG,NON REMVAL 1999 Ectopic at 19yrs old FAMILY HISTORY Problem Relation Age of Onset - Breast Cancer Maternal Grandmother Alive - Lung Cancer [Other] [OTHER] Mother 46 - Skin Cancer Other Alive; 1st maternal cousin - Lipids Father - Throat Cancer [Other] [OTHER] Maternal Grandmother Social History Substance Use Topics - Smoking status: Current Some Day Smoker Packs/day: 0.50 Years: 20.00 Types: Cigarettes Last attempt to quit: 04/13/2010 - Smokeless tobacco: Never Used Comment: started smoking again. about 1/2 ppd - Alcohol use Yes Comment: Rarely. Objective BP 110/66 Pulse 82 Temp 37.2 ?C (99 ?F) (Tympanic) Resp 18 Wt 47.2 kg (104 lb) LMP 03/03/2012 BMI 19.02 kg/m2 Physical Exam Constitutional: She is oriented to person, place, and time. She appears well-developed and well-nourished. HENT: Head: Normocephalic and atraumatic. Right Ear: Tympanic membrane and external ear normal. Left Ear: Tympanic membrane and external ear normal. Nose: Nose normal. Mouth/Throat: Oropharynx is clear and moist. No oropharyngeal exudate. Eyes: Conjunctivae and EOM are normal. Pupils are equal, round, and reactive to light. Neck: Normal range of motion. Neck supple. Right and left sided cervical lymphadenopathy, mildly tender. No redness or warmth Cardiovascular: Normal rate, regular rhythm and normal heart sounds. Pulmonary/Chest: Effort normal and breath sounds normal. No respiratory distress. She has no wheezes. She has no rales. Lymphadenopathy: She has cervical adenopathy. Neurological: She is alert and oriented to person, place, and time. Skin: Skin is warm and dry. No rash noted. No erythema. Psychiatric: She has a normal mood and affect. Her behavior is normal. Nursing note and vitals reviewed. Assessment and Plan ASSESSMENT/PLAN: 1. Viral URI - ICD9: 465.9, ICD10: J06.9, B97.89 (primary diagnosis) - Discussed viral etiology and rationale for treatment. - Symptomatic treatment with prn analgesia - Supportive care with fluids and rest - The patient may also use claritin. - Follow up in one week if symptoms persist or sooner if worsening of symptoms 2. Lymphadenitis - ICD9: 289.3, ICD10: I88.9 JIM Perkins Observed: 11/02/2017 Status: COMPLETED Source: [place] 3:15 PM [facility] REPOSITORY Office Visit (WSTR) SOLA JARAMILLO ([id number]) 1980 F Date Time Provider Department 11/02/17 3:15 PM CLAUDE HARRINGTON) [facility] During your visit today, we recorded the following information about you: Temperature Pulse Respiration Blood pressure 99 degrees 82/minute 18/minute 110/66 Weight 47.2 kg Claude Harrington PA-C 11/02/2017 3:34 PM Signed This note was created using [employer]. Subjective HPI Pt presents with a dry cough, and a swollen gland on right side of throat. This has been going on for 2-3 days. Mild throat pain. She does have asthma, no wheezing recently. She does smoke a half pack per day. No fever. No vomiting or diarrhea. No abdominal pain. Review of Systems Constitutional: Negative. HENT: Positive for congestion, postnasal drip and sore throat. Eyes: Negative. Respiratory: Positive for cough. Negative for chest tightness and wheezing. Gastrointestinal: Negative. Endocrine: Negative. Genitourinary: Negative. Musculoskeletal: Negative. Skin: Negative. Allergic/Immunologic: Negative. Neurological: Negative. Hematological: Negative. Psychiatric/Behavioral: Negative. PAST MEDICAL HISTORY Diagnosis Date - asthma - Breast lump 2012 Left - Interstitial cystitis - Nipple discharge 01/2015 Left; milky/green - Pelvic pain in female 09/16/2010 - Piriformis syndrome 10/28/2010 Current Outpatient Prescriptions: estradiol (ESTRACE) 0.01 % (0.1 mg/gram) vaginal cream Use 1 g vaginally twice a week. Use nightly x 2 weeks then 2x weekly Disp: 1 Tube Rfl: 3 hydrOXYzine pamoate (VISTARIL) 25 mg capsule Take 1 capsule by mouth three times daily as needed. Disp: 45 capsule Rfl: 3 medroxyPROGESTERone (DEPO-PROVERA) 150 mg/mL syrg Inject 1 mL intramuscularly every 12 weeks. Disp: 1 Syringe Rfl: 3 albuterol HFA (PROAIR HFA) 90 mcg/actuation inhaler Inhale 2 Puffs as instructed every 4 hours as needed. Disp: 1 Inhaler Rfl: 0 benzonatate (TESSALON PERLES) 100 mg capsule Take 2 capsules by mouth three times daily as needed for Cough. Disp: 20 capsule Rfl: 0 metroNIDAZOLE (FLAGYL) 500 mg tablet Take 1 tablet by mouth twice daily. FOR 7 DAYS. Disp: 14 tablet Rfl: 0 No current facility-administered medications for this visit. 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 Survey of the pelvis showed filmy omental adhesions to the anterior abdominal wall, also extensive bowel adhesions mainly from the sigmoid colon to the pelvic sidewall as well as to the left side of the uterus. Also, uterus appeared to be adhered to the anterior abdominal wall and the bladder. - REMOVAL OF OVARY/TUBE(S) 11/15/1999 laparoscopy Salpingectomy right side - REMOVAL OF OVARY/TUBE(S) 09/04/2010 laparotomy Salpingo-oophorectomy left tube, Dr. Kingston [place] - related to complications to surgical procedure in summer, post operative hematoma, wound infection, drainage of intraabdominal abscess CT [place] - SALPINGECTOMY 04/2010 Dr. Kingston - [place] - open tubal procedure, retturn to OR next day for bleeding,. - TREAT ECTOPIC PREG,NON REMVAL 1999 Ectopic at 19yrs old FAMILY HISTORY Problem Relation Age of Onset - Breast Cancer Maternal Grandmother Alive - Lung Cancer [Other] [OTHER] Mother 46 - Skin Cancer Other Alive; 1st maternal cousin - Lipids Father - Throat Cancer [Other] [OTHER] Maternal Grandmother Social History Substance Use Topics - Smoking status: Current Some Day Smoker Packs/day: 0.50 Years: 20.00 Types: Cigarettes Last attempt to quit: 04/13/2010 - Smokeless tobacco: Never Used Comment: started smoking again. about 1/2 ppd - Alcohol use Yes Comment: Rarely. Objective BP 110/66 Pulse 82 Temp 37.2 ?C (99 ?F) (Tympanic) Resp 18 Wt 47.2 kg (104 lb) LMP 03/03/2012 BMI 19.02 kg/m2 Physical Exam Constitutional: She is oriented to person, place, and time. She appears well-developed and well-nourished. HENT: Head: Normocephalic and atraumatic. Right Ear: Tympanic membrane and external ear normal. Left Ear: Tympanic membrane and external ear normal. Nose: Nose normal. Mouth/Throat: Oropharynx is clear and moist. No oropharyngeal exudate. Eyes: Conjunctivae and EOM are normal. Pupils are equal, round, and reactive to light. Neck: Normal range of motion. Neck supple. Right and left sided cervical lymphadenopathy, mildly tender. No redness or warmth Cardiovascular: Normal rate, regular rhythm and normal heart sounds. Pulmonary/Chest: Effort normal and breath sounds normal. No respiratory distress. She has no wheezes. She has no rales. Lymphadenopathy: She has cervical adenopathy. Neurological: She is alert and oriented to person, place, and time. Skin: Skin is warm and dry. No rash noted. No erythema. Psychiatric: She has a normal mood and affect. Her behavior is normal. Nursing note and vitals reviewed. Assessment and Plan ASSESSMENT/PLAN: 1. Viral URI - ICD9: 465.9, ICD10: J06.9, B97.89 (primary diagnosis) - Discussed viral etiology and rationale for treatment. - Symptomatic treatment with prn analgesia - Supportive care with fluids and rest - The patient may also use claritin. - Follow up in one week if symptoms persist or sooner if worsening of symptoms 2. Lymphadenitis - ICD9: 289.3, ICD10: I88.9 Claude Harrington PA-C Referring Provider: SELF [200] Allergies As of Date: 11/02/2017 Noted Allergy Reaction ADHESIVE TAPE (ROSINS) 04/28/2012 14 - Other: See Comments Comments: skin breakdown AMITRIPTYLINE 11/20/2012 14 - Other: See Comments Comments: Has vivid dreams and sleepwalking where she was outside in the truck leaving in the middle of the night CODEINE 03/02/2011 14 - Other: See Comments Comments: Nausea and doesn't feel right LATEX 09/14/2010 9 - Itching LORAZEPAM 04/28/2012 16 - Unknown NAPROXEN 02/02/2011 5 - Intolerance PROMETHAZINE-DM 10/15/2014 14 - Other: See Comments Comments: dizziness TRAMADOL 02/02/2011 11 - Vomiting TUBERCULIN PPD 02/08/2014 14 - Other: See Comments Comments: false positive skin test readings VANCOMYCIN 09/14/2010 9 - Itching Comments: Takes with benadryl Date Reviewed: 11/02/2017 Reviewed by: Lisette Palma Ma - Fully Assessed Reason for Visit: Head Congestion [234] Cmt: chest congestion, nasal drainage, cough x yesterday Swollen Glands [458] Cmt: right side and sore in nose Primary Visit Diagnosis:Viral URI [J06.9, B97.89] Other Visit Diagnosis:Lymphadenitis [I88.9] Order(s):benzonatate (TESSALON PERLES) 100 mg capsuleTake 2 capsules by mouth three times daily as needed for Cough.Disp: 20 capsuleRfl: 0 Prescriptions as of 11/02/2017 Sig: ESTRADIOL 0.01% (0.1 MG/GRAM)* Use 1 g vaginally twice a wee* HYDROXYZINE PAMOATE 25 MG CAP* Take 1 capsule by mouth three* MEDROXYPROGESTERONE 150 MG/ML* Inject 1 mL intramuscularly e* ALBUTEROL SULFATE HFA 90 MCG/* Inhale 2 Puffs as instructed * BENZONATATE 100 MG CAPSULE Take 2 capsules by mouth thre* METRONIDAZOLE 500 MG TABLET Take 1 tablet by mouth twice * Problem List As Of Date 11/02/2017 Noted Resolved Pelvic abscess INVALID FOR*12/28/2011 Pelvic pain in female [R10.2] INVALID FOR*07/18/2012 Piriformis syndrome [G57.00] INVALID FOR* Bladder pain [R39.89] INVALID FOR*05/09/2012 Interstitial cystitis [N30.10] INVALID FOR* Cellulitis [L03.90] INVALID FOR*05/09/2012 Irregular menses [N92.6] 05/09/2012 CRPS (complex regional pain syndrome) type I of*INVALID FOR* Reflex sympathetic dystrophy, unspecified [G90.*INVALID FOR* Pain in joint, ankle and foot [M25.579] INVALID FOR*02/18/2017 Menorrhagia [N92.0] INVALID FOR*05/09/2012 Complex ovarian cyst [N83.299] INVALID FOR*11/20/2012 Chronic pelvic pain in female [R10.2, G89.29] INVALID FOR* Depression [F32.9] INVALID FOR* 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 Prescriptions ordered this encounter Disp Refills Start End BENZONATATE 100 MG CAPSULE 20 c* 0 11/02/2017 Route: ORAL Sig: Take 2 capsules by mouth three times daily as needed for Cough. Letter Text [place] [facility] LUZ Pacheco [address], [place] [address] 11/02/2017 TO WHOM IT MAY CONCERN: This is to confirm that Sola Jaramillo had an appointment and was seen at the [facility] in the Department of Urgent Care by LUZ Pacheco on 11/02/2017 and may return to work on 11/03/2017. Sincerely yours, LUZ Pacheco Encounter Status:Closed by CLAUDE HARRINGTON PA-C on 11/02/17 ALLERGIES ALLERGIES DATE TYPE / NAME / CODE REACTION SEVERITY SOURCE CODE 09/28/2018 Drug NSAIDS Unknown Unknown [place] Allergy/41 (Non-Steroidal Community 4255173( Anti-Inflamma/F0010 [facility] [place]) [address](RXNORM) Repository 09/28/2018 Drug codeine/[id number]( Other Unknown [place] Allergy/41 RXNORM) Community 5269553([facility]) Repository 09/28/2018 Drug aspirin/[id number]( Other Unknown [place] Allergy/41 RXNORM) Community 3727239([facility]) Repository 09/28/2018 Drug naproxen/[id number] Unknown Unknown [place] Allergy/41 (RXNORM) Community 3086934([facility]) Repository 09/28/2018 Drug adhesive/[id number] Itching Unknown [place] Allergy/41 (RXNORM) Community 5108960([facility] [place]) Repository 09/28/2018 Drug vancomycin/[id number] Itching Unknown [place] Allergy/41 66(RXNORM) Community 0939347([facility] [place]) Repository 09/28/2018 Drug latex/[id number](RX Itching Unknown [place] Allergy/41 NORM[facility] 01/20/2018 DRUG HYDROXYZINE HCL OTHER: SEE C Dickinson INGREDI/41 Clinic Main 1286127([facility] OMED CT) Repository 01/08/2018 Drug tramadol Other Unknown [place] Allergy/41 HCl/[id number](RXNO Community 3809068([facility]) Repository 10/15/2014 DRUG/40050 PROMETHAZINE-DM OTHER: SEE Uriel Pereira 1003([facility] Main D CT) [place] Repository 02/08/2014 DRUG/40439 TUBERCULIN PPD OTHER: SEE Uriel Pereira 1003([facility] Main D CT) [place] Repository 11/20/2012 DRUG AMITRIPTYLINE OTHER: SEE Uriel Dickinson INGREDI/41 Clinic Main 8685769([facility] OMED CT) Repository 04/28/2012 Chemical/4 ADHESIVE TAPE OTHER: SEE Uriel Pereira [id number](S (ROSINS) Clinic Main NOMED CT) [place] Repository 04/28/2012 DRUG LORAZEPAM UNKNOWN Pereira INGREDI/41 Clinic Main 6569839([facility] OMED CT) Repository 03/31/2011 DRUG ASPIRIN Dickinson INGREDI/41 Clinic Main 3672842([facility] OMED CT) Repository 03/31/2011 Drug NSAIDS Pereira Class/4195 (NON-STEROIDAL Clinic Main 29155([facility] ANTI-INFLAMMATORY [place] ED CT) DRUG) Repository 03/02/2011 DRUG CODEINE OTHER: SEE C Dickinson INGREDI/41 Clinic Main 2547265([facility] OMED CT) Repository 02/02/2011 DRUG NAPROXEN INTOLERANCE Dickinson INGREDI/41 Clinic Main 8813647([facility] OMED CT) Repository 02/02/2011 DRUG TRAMADOL Vomiting [place] [address] Clinic Main 5357626( [place] OMED CT) Repository 09/14/2010 DRUG LATEX ITCHING [place] [address] Clinic Main 5814650( [place] OMED CT) Repository 09/14/2010 DRUG VANCOMYCIN ITCHING [address] Main 4456201([facility] OMED CT) Repository ENCOUNTERS ENCOUNTERS ADMIT/DISCHARGE ACCOUNT NUMBER ADMITTING ENCOUNTER LOCATION SOURCE CLASS 10/10/2018/10/11/20 [id number] Ambulatory [address] Main [place] Repository 09/28/2018/09/28/20 [id number] Emergency [place] [address] ding:ED Repository 08/21/2018/08/22/20 [id number] Ambulatory [address] Main [place] Repository 08/15/2018/08/16/20 [id number] Ambulatory [address] [place] Repository 08/07/2018/08/08/20 [id number] Ambulatory [address] [place] Repository 05/26/2018/05/26/20 [id number] Ambulatory [address] [place] Repository 05/18/2018/05/18/20 [id number] Ambulatory [address] [place] Repository 05/18/2018/05/18/20 [id number] Ambulatory [address] [place] Repository 04/07/2018/04/07/20 [id number] Ambulatory BMSBuilding: [place] 18 BMS.[facility] Repository 04/05/2018 [id number] Ambulatory [facility] Other [place] Repository 03/23/2018/03/23/20 [id number] Ambulatory [place] [address] ding:SDC Repository 03/23/2018 [id number] Ambulatory BMSBuilding: [place] BMS.CF.[facility] Repository 03/22/2018/03/23/20 [id number] Ambulatory [address] [place] Repository 03/21/2018/03/21/20 [id number] Emergency BBuilding:ER Phu [address] [place] [address] Repository 01/30/2018/02/04/[id number] Jean Pierre Inpatient [place] [address] Mounika Parker Encounter lding:B33B Car[place] and Psych/AdultR Erika oom: [place] [id number]: Repository [id number] 01/30/2018/01/31/20 [id number] Emergency [place] ding:ED Repository 01/26/2018/01/27/20 [id number] Emergency BBuilding:ER [address] Repository 01/20/2018/01/24/20 [id number] Ambulatory [address] Repository 01/12/2018 [id number] [facility] ding:LAB Repository 01/10/2018/01/11/20 [id number] Ambulatory BMSBuilding: [address] Repository 01/09/2018/01/10/20 [id number] Emergency BBuilding:ER [address] Repository 01/08/2018/01/09/20 [id number] Emergency [address] ding:ED Repository 01/05/2018/01/10/20 [id number] Ambulatory [address] Repository 12/31/2017/01/01/20 [id number] Emergency [address] ding:ED Repository 12/29/2017/12/31/19 [id number] Ambulatory [address] Repository 12/16/2017/12/21/[id number] Jean Pierre [place] [address] Mounika Parker Encounter lding:[facility] [place] and Psych/AdultR Erika oom: [place] [id number]: Repository B33B [id number] 12/15/2017/12/16/19 [id number] Emergency [address] ding:ED Repository 12/09/2017 [id number] Ambulatory [facility] Repository 12/09/2017/12/09/19 [id number] Ambulatory [address] Repository 11/28/2017/11/28/19 [id number] Ambulatory [address] Repository 11/28/2017/11/28/19 [id number] Ambulatory [address] Repository 11/20/2017/11/20/19 [id number] Emergency BBuilding:JOSHUA Trevizo [facility] Repository 11/02/2017/11/03/19 [id number] Ambulatory [address] Repository PAYERS PAYERS ENCOUNTER GUARANTOR PAYER SUBSCRIBER SOURCE 09/28/2018 SOLA L Primary SOLA L [place] [id number] N Insurance:CARESOURCEP LYCANSDOB: Community [address] olic Number: [id number] [id number] Repository [address]Fje: [phone]) Date:2018-09-28P O [phone] () [address]ATTN: [place] [address]OR: 09/28/2018 Secondary NOT GIVENUNK [place] Insurance:SELF PAY [facility] Number: Effective Repository Date:2018-09-28 04/07/2018 SOLA L Primary SOLA L [place] [id number] N Insurance:CARESOURCEP LYCANSDOB: Community [address] [facility] Number: [id number] [id number] Repository [address]Emm: [phone]) Date:2018-03-24P O [phone] () [address]ATTN: [place] [address]FI: 04/07/2018 Secondary NOT GIVENUNK [place] Insurance:SELF PAY [facility] Number: Effective Repository Date:2018-04-14 03/23/2018 SOLA L Primary SOLA L [place] [id number] N Insurance:CARESOURCEP RIDENBAUGHDOB: Community [address] [facility] Number: [id number] [id number] Repository [address]Bkv: [phone]) Date:2018-01-10P O [phone] () [address]ATTN: [place] [address]WU: 03/23/2018 Secondary NOT GIVENUNK [place] Insurance:SELF PAY [facility] Number: Effective Repository Date:2018-01-10 03/23/2018 SOLA L Primary SOLA L [place] [id number] N Insurance:CARESOURCEP RIDENBAUGHDOB: Community [address] olicy Number: [id number] [address] [id number] Repository [address]Mvg: [phone]) Date:2018-01-10P O [phone] (HP) [address]ATTN: [place] [address]LH: 03/23/2018 Secondary NOT GIVENUNK [place] Insurance:SELF PAY [facility]: Effective Repository Date:2018-03-23 03/21/2018 SOLA L Primary SOLA L [facility] RIDENBAUGHDOB: Insurance:CARESOURCE RIDENBAUGHDOB: [facility] [id number] Number: [address] [place] [address] [id number] [address] [place] [address]Mdm: ([phone]) Date:2018-03-21 [phone]: (HP) [phone] [phone] Name:X[address] Box (HP)Tel: [phone]) [phone], [place] () [address]CG: 01/30/2018 Primary SOLA L [facility] Insurance:CareSourceP RIDENBAUGHDOB: [facility] Number: [id number] [place] [address] [id number] [address] [place] [address] Repository Date:[place], [place] Name:Health [address] [phone]: [phone], [place] [phone] (HP) [phone]: 01/30/2018 SOLA L Primary SOLA L [place] [id number] Insurance:CARESOURCEP RIDENBAUGHDOB: [facility] Number: [id number], [place] [id number] Repository [address]Pao: [phone]) Date:2018-01-30P O [phone] (HP) [address]ATTN: [place] [address]IT: 01/30/2018 Secondary NOT GIVENUNK [place] Insurance:SELF PAY [facility] Number: Effective Repository Date:2018-01-30 01/26/2018 SOLA L Primary SOLA Critical access hospitalLAYNEBAUGHDOB: Insurance:CARESOURCE RIDBAUGHDOB: [facility] [id number] Repository [place] Number: [place], [place] [id number] [place], [place] [address]Wkd: [phone]) Date:2018-01-26 [phone]: () [phone] [phone] Name:[address] ()Tel: [phone], [place] [phone] () [address]SF: 01/12/2018 SOLA L Primary SOLA L [place] [id number] Insurance:CARESOURCEP RIDENBAUGHDOB: [facility] Number: [id number], [place] [id number] Repository [address]Ccb: [phone]) Date:2018-01-12 O [phone] () [address]ATTN: [place] [address]TS: 01/12/2018 Secondary NOT GIVENUNK [place] Insurance:SELF PAY [facility] Number: Effective Repository Date:2018-01-12 01/10/2018 SOLA L Primary SOLA [place] [id number] Insurance:CARESOURCEP RIDENBAUGHDOB: [facility] Number: [id number], [place] [id number] Repository [address]Pds: ([phone]) Date:2018-01-09 O [phone] () [address]ATTN: [place] [address]KA: 01/10/2018 Secondary NOT GIVENUNK [place] Insurance:SELF PAY [facility] Number: Effective Repository Date:2018-01-09 01/09/2018 SOLA L Primary SOLA L [facility] CLINTDOB: Insurance:CARESOURCE RIDKAMILLAB: [facility] MEDICAIDPolicy [id number] Repository [place] Number: [place], [place] [id number] [place], [place] [address]Xcs: ([phone]) Date:2018-01-09Tel: () [id number] Name:[address] ()Tel: 000) [place], [place] [phone] () [phone]: 01/08/2018 Sola L Primary Sola L [place] [id number] Insurance:CARESOURCEP RidlaynebakyaraDOB: [facility] Number: [id number] [id number] Repository [address]Gux: ([phone]) Date:2018-01-08 O [phone] () [address]ATTN: [place] [address]WD: 01/08/2018 Secondary NOT GIVENUNK [place] Insurance:SELF PAY [facility] Number: Effective Repository Date:2018-01-08 12/31/2017 Sola L Primary Sola L [place] [id number] Insurance:CARESOURCEP RidenbaughDOB: [facility] Number: [id number] [id number] Repository [address]Cpr: ([phone]) Date:2017-12-31P O [phone] () [address]ATTN: [place] [address]MM: 12/31/2017 Secondary NOT GIVENUNK [place] Insurance:SELF PAY [facility] Number: Effective Repository Date:2017-12-31 12/16/2017 Primary SOLA L [facility] Insurance:CareSourceP RIDENBAUGHDOB: [place] Number: [id number] [facility] [id number] [address] [place] [address] Repository Date:[place], [place] Name:Health [address] [phone]: [phone], [place] [phone] () [address]VW: 12/15/2017 Sola L Primary Sola L [place] [id number] Insurance:CARESOURCEP RidenbaughDOB: [facility] Number: [id number], [place] [id number] Repository [address]Thl: ([phone]) Date:2017-12-15 O [phone] () [address]ATTN: [place] [address]PM: 12/15/2017 Secondary NOT GIVENUNK [place] Insurance:SELF PAY [facility] Number: Effective Repository Date:2017-12-15 11/20/2017 SOLA L Primary SOLA L [facility]HRMCENBAUGHDOB: Insurance:CARESOURCE RIDENBAUGHDOB: [facility] [id number] Repository [place] Number: [place], [place] [id number] [place], [place] [address]Drs: ([phone]) Date:2017-11-20 [phone]: () [id number] [phone] Name:X[address] Box (HP)Tel: 000) [address], [place] [phone] () [phone]: "
== END 2018-09-28 15:40 | disposition home or self-care (01) ==
LOC: ED 15:34
PROVIDERS: Emergency Provider Emergency Medicine; Family Provider Family Medicine; PCP Family Medicine
DX: S70.02XA Contusion of left hip, initial encounter (principal); W00.0XXA Fall on same level due to ice and snow, initial encounter; Y93.9 Activity, unspecified; Y92.9 Unspecified place or not applicable; Z72.0 Tobacco use
CPT/HCPCS: 73502; 99282

== ENCOUNTER 2018-11-10 18:33 | Emergency (ER) | payer MEDICAID, SELFPAY ==
[2018-11-10 18:35] VITALS: BP 157/87; PULSE 106; RESP 18; TEMP 36.7; O2SAT 97; BMI 23.0
--- NOTE | 2018-11-10 18:54 | ED.DCSUM_ITS ---
- ER Visit Summary Date of Service: 11/10/18 Chief Complaint: [Dental pain] History of Present Illness: The patient is a 38 F [presents to the emergency department complaint of dental pain that started today. Patient states that she was eating when 1 of her lower teeth broke. Patient has an appointment with a dentist on the of the month. She denies any fever. Patient states that she has bad dentition and she is been having her teeth pulled. Patient denies any illicit drug use.] Physical Examination: [HEENT-PERRLA, EOMI. Cranial nerves II through XII grossly intact. TMs clear. Mucous membranes moist. No adenopathy. Dentition- patient has broken left lower premolar. Patient has multiple dental caries. No gingival erythema or abscess noted. Cardiovascular-regular rate and rhythm without murmur or ectopy Lungs-clear to auscultation, chest wall stable without crepitus or subcu emphysema Abdomen-normoactive bowel sounds, soft, nontender, no rebound or rigidity, no peritoneal signs. Extremities-intact ?4, normal range of motion, normal pulses, atraumatic] Test Results: [None indicated] Emergency Department Course and Treatment: [Patient was given 1 dose of Blanchard in the emergency department.] Treatment Plan: [Patient will be given a prescription for Blanchard and amoxicillin.] Disposition: [Discharged home in stable condition.] Impression: [Dental pain Dental caries] This note was generated with [employer] dictation software. It may contain incorrect words, spelling, and punctuation that were not noted in review of the chart prior to signing ED Disposition - Plan for ED Patient: Chief Complaint: Dental Referrals: Phillip Andino MD [Primary Care Provider] -
--- NOTE | 2018-11-10 18:56 | DCINST.ED_ITS ---
ED Disposition - Plan for ED Patient: Chief Complaint: Dental Instructions: ED Tooth Pain Prescriptions: Hydrocodone Bitart/Apap 5-325 [[place] 5MG-325MG] 1 tab PO Q4H PRN PRN 2 Days #10 tab PRN Reason: Pain Amoxicillin 500 mg PO TID #30 tab Referrals: Phillip Andino MD [Primary Care Provider] - Additional Instructions: see a dentist
[2018-11-10] MEDS: HYDROcodone Bitartrate/Apap 5/325 Tablet PO (19:06)
[2018-11-10 19:10] VITALS: BP 150/70; PULSE 80; RESP 16; O2SAT 99
== END 2018-11-10 19:10 | disposition home or self-care (01) ==
LOC: ED 19:02
PROVIDERS: Emergency Provider Emergency Medicine; Family Provider Family Medicine; PCP Family Medicine
DX: K02.9 Dental caries, unspecified (principal); F43.10 Post-traumatic stress disorder, unspecified; Z72.0 Tobacco use
CPT/HCPCS: 99283

== ENCOUNTER 2018-11-19 15:13 | Emergency (ER) | payer MEDICAID, SELFPAY ==
[2018-11-19 15:16] VITALS: BP 143/98; PULSE 108; RESP 17; TEMP 36.7; O2SAT 96; BMI 22.5
--- NOTE | 2018-11-19 15:27 | ED.DEP ---
ED Disposition - Plan for ED Patient: Chief Complaint: Anxiety Instructions: ED Panic Attack Prescriptions: Lorazepam [Ativan] 1 mg PO BID PRN PRN #6 tablet PRN Reason: Anxiety Referrals: Phillip Andino MD [Primary Care Provider] - [facility] [GROUP OF PHYSICIANS] -
--- NOTE | 2018-11-19 15:30 | ED.VISSUMM ---
- ER Visit Summary Date of Service: 11/19/18 Chief Complaint: Anxiety History of Present Illness: The patient is a 38 F presenting with anxiety. She states this has been ongoing for the past 3 days. She states she has anxiety, bipolar disorder, depression, and PTSD. She states occasionally her anxiety gets out of control. She has had no recent changes to her medications. She goes to the counseling center but is looking for a new psychiatrist. She states she has not been eating or sleeping well. She denies suicidal thoughts or plan. Denies homicidal ideation. Denies other complaints. Physical Examination: Vitals are stable. Patient is afebrile. Alert no acute distress. HEENT exam is unremarkable. Neck is supple. Lungs are clear and equal bilaterally. Heart is regular rate and rhythm. Extremities are unremarkable. Skin is warm and dry. No focal neurologic deficit. Denies suicidal ideation. Anxious Remainder of exam is unremarkable. Emergency Department Course and Treatment: Patient was given Ativan p.o. with improvement. She was seen by social work and set up for appointment tomorrow. She was given a prescription for short course of Ativan and advised to follow up with the counseling center. She is advised to return to the ED for any worsening complaints. Disposition: Discharge home Impression: Anxiety This note was generated with [employer] dictation software. It may contain incorrect words, spelling, and punctuation that were not noted in review of the chart prior to signing ED Disposition - Plan for ED Patient: Chief Complaint: Anxiety Instructions: ED Panic Attack Prescriptions: Lorazepam [Ativan] 1 mg PO BID PRN PRN #6 tablet PRN Reason: Anxiety Referrals: [facility] [GROUP OF PHYSICIANS] - Phillip Andino MD [Primary Care Provider] -
[2018-11-19] MEDS: LORazepam 1 MG Tablet PO (15:34)
--- NOTE | 2018-11-19 15:35 | ED.DCSUM_ITS ---
- ER Visit Summary Date of Service: 11/19/18 Chief Complaint: Anxiety History of Present Illness: The patient is a 38 F presenting with anxiety. She states this has been ongoing for the past 3 days. She states she has anxiety, bipolar disorder, depression, and PTSD. She states occasionally her anxiety ge ts out of control. She has had no recent changes to her medications. She goes to the counseling center but is looking for a new psychiatrist. She states she has not been eating or sleeping well. She denies suicidal thoughts or plan. Denies homicidal ideation. Denies other complaints. Physical Examination: Vitals are stable. Patient is afebrile. Alert no acute distress. HEENT exam is unremarkable. Neck is supple. Lungs are clear and equal bilaterally. Heart is regular rate and rhythm. Extremities are unremarkable. Skin is warm and dry. No focal neurologic deficit. Denies suicidal ideation. Anxious Remainder of exam is unremarkable. Emergency Department Course and Treatment: Patient was given Ativan p.o. with improvement. She was seen by social work and set up for appointment tomorrow. She was given a prescription for short course of Ativan and advised to follow up with the counseling center. She is advised to return to the ED for any worsening complaints. Disposition: Discharge home Impression: Anxiety This note was generated with [employer] dictation software. It may contain incorrect words, spelling, and punctuation that were not noted in review of the chart prior to signing ED Disposition - Plan for ED Patient: Chief Complaint: Anxiety Instructions: ED Panic Attack Prescriptions: Lorazepam [Ativan] 1 mg PO BID PRN PRN #6 tablet PRN Reason: Anxiety Referrals: [facility] [GROUP OF PHYSICIANS] - Phillip Andino MD [Primary Care Provider] -
--- NOTE | 2018-11-19 15:50 | CM.ED ---
Addendum entered by Shaista Townsend 11/19/18 16:06: Social Work Note Pt does report hx of substance abuse, but denies any current or recent use at this time. Physician updated on assessment and interventions and will discharge pt home at this time. Shaista Townsend MSW, CAMPAIGN MANAGEMENT SPECIALIST Original Note: Social Work Note Referral from RN and physician for anxiety. Face to face with the pt who is accompanied by her significant other, Cristhian. Pt is sitting upright in bed with anxious affect as evidenced by biting finger nails and wringing hands. Pt is pleasant and able to participate in assessment. Pt identifies significant other Cristhian as a primary support as well as her sisters that live locally. Reports a hx of anxiety, depression, bipolar and PTSD. She presently sees a psychiatrist at [facility], but states that she wants a different psychiatrist because the one she sees [facility] prescribes her the wrong medications/medications she cannot have. Pt expresses concerns as she reports that, I know what I cannot have is in my medical record because they sent it to them from psychiatrist hospitals I have been to. Pt used to see Dr. Padilla and was switched when they left to [facility] and has been seeing him for a few months. The pt states that she came seeking assistance today because she wants to get this under control or she is afraid she will become suicidal and unable to function. She wants a new psychiatrist and reports that she would go to a different one at the counseling center if needed, but was also interested in a new agency. Recommended that she stay with the counseling center until she finds a psychiatrist that is accepting and understanding expressed. This typewriter assembler will contact the counseling center tomorrow to request transfer of psychiatrists. Pt is presently not seeing a counselor, but had seen Gianna at [facility] for substance abuse following her probation orders. She is open to counseling services and has interest in [facility] IOP program. Setup an intake appointment on 11/20 at 2pm. Resources provided for alternative counseling and psychiatry, crisis line and this typewriter assembler's contact information if needed. Anticipate discharge home with support of significant other. Intervention(s): Follow-up with [facility] tomorrow at 2pm. This typewriter assembler will contact [facility] to request transfer of psychiatrist, and contact pt to update. PLAN: Discharge home with significant other, Cristhian. Shaista Townsend MSW, CAMPAIGN MANAGEMENT SPECIALIST
[2018-11-19 16:03] VITALS: PULSE 98; RESP 16
--- NOTE | 2018-11-20 11:14 | CM.ED ---
Social Work Note Placed call to [facility] and spoke with Sarah. Informed that the pt was seen yesterday and sees Theron, but is requesting a new prescribing psychiatrist or BUSINESS ADMINISTRATOR-C. Sarah states that pt can call in and request and if she does not want to tell [facility] directly and can request to speak with the sales research analyst that schedules his appointments and request a transfer of practitioners through her. Placed call to Cristhian's number per pt's request and updated. No further needs at this time. Shaista Townsend, AUTHORIZATION NURSE, [place]
--- OUTSIDE RECORDS SUMMARY | 2019-01-22 12:01 | XMS RPT_ITS ---
:1980 Author Organization OHIP Support Name Relationship Address Phone DEL RIO YOLETTE Unavailable [address] + [address] [place] [address] UE Unavailable Unavailable Unavailable YOLETTE DEL RIO Unavailable [address] + [address] [place] [address] UE Unavailable Unavailable Unavailable YOLETTE DEL RIO Unavailable [address] + [address] [place] [address] UE Unavailable Unavailable Unavailable YOLETTE DEL RIO Unavailable Unavailable + YOLETTE DEL RIO Unavailable Unavailable + YOLETTE DEL RIO Unavailable [address] + [address] [place] [address] UE Unavailable Unavailable Unavailable YOLETTE DEL RIO Unavailable [address] + [address] [place] [address] UE Unavailable Unavailable Unavailable FER DEL RIOE Unavailable [address] + [address] [place] [address] UE Unavailable Unavailable Unavailable FER DEL RIOE Unavailable [address] + [address] [place] [address] UE Unavailable Unavailable Unavailable YOLETTE DEL RIO Unavailable Unavailable + YOLETTE DEL RIO Unavailable Unavailable + JANE JARAMILLO Unavailable Unavailable + JANE JARAMILLO Unavailable [address] + [place] [address] UE Unavailable Unavailable Unavailable YOLETTE DEL RIO Unavailable Unavailable + YOLETTE DEL RIO Unavailable Unavailable + JANE JARAMILLO Unavailable [address] + [place] [address] UE Unavailable Unavailable Unavailable JANE JARAMILLO Unavailable [address] + [place] [address] UE Unavailable Unavailable Unavailable YOLETTE DEL RIO Unavailable Unavailable + YOLETTE DEL RIO Unavailable Unavailable + JANE JARAMILLO Unavailable Unavailable + UE Unavailable Unavailable Unavailable JANE JARAMILLO Unavailable Unavailable + UE Unavailable Unavailable Unavailable JANE JARAMILLO Unavailable Unavailable + JANE JARAMILLO Unavailable Unavailable + UE Unavailable Unavailable Unavailable Care Team Providers Name Role Phone NATIVIDAD ADAMS MD Attending Unavailable BREANNE DE LA VEGA, EDELMIRA GRAHAM Primary Care Unavailable ROSA ISELA DE LA VEGA, DR. DAVIS Attending Unavailable BREANNE DE LA VEGA, EDELMIRA SANTOS Primary [facility] Unavailable NATACHA SALAZAR Attending Unavailable BREANNE DE LA VEGA, EDELMIRA GRAHAM Primary [facility] Unavailable Thu Mayer MD Attending Unavailable BREANNE DE LA VEGA, EDELMIRA GRAHAM [facility] Unavailable SURESH STORY ([facility]) Referring Unavailable Dr. Mounika Greenfield Admitting Unavailable Dr. Mounika Greenfield Attending Unavailable Dr. Mounika Greenfield Admitting Unavailable Dr. Mounika Greenfield Attending Unavailable CISCO FELIPE ([place]) Referring Unavailable PODLOGAROMAYRA ([facility]) Attending Unavailable PODLOGOMAYRA HASKINS ([facility]) Referring Unavailable PODLOGOMAYRA HASKINS ([facility]) Attending Unavailable CORINNA ANDINO Attending Unavailable SURESH STORY ([facility]) Attending Unavailable PERRY GONGORA Attending Unavailable PORSHANAKUL MCKEONSSE ([facility]) Referring Unavailable FRANSISCA, PERRY E Referring Unavailable FRANSISCA, PERRY E Referring Unavailable FRANSISCA, PERRY E Attending Unavailable FRANSISCA, PERRY E Referring Unavailable SHIRA COTTER ([facility]) Attending Unavailable Corinna Andino Primary Care Unavailable Mahamed Millan Attending Unavailable Elderbrock, Corinna Primary Care Unavailable Nova Dorsey Attending Unavailable Allyn Squires Attending Unavailable Elderbrock, Corinna Primary Care Unavailable Elderbrock, Corinna Primary Care Unavailable Ungur, Remus Attending Unavailable Elderbrock, Corinna Primary Care Unavailable Solomon Rashid Attending Unavailable Elderbrock, Corinna Primary Care Unavailable Sarah Browning Attending Unavailable Marcanthony, Almaz Attending Unavailable Elderbrock, Corinna Referring Unavailable Elderbrock, Corinna Primary Care Unavailable Marcanthony, Almaz Attending Unavailable Marcanthony, Almaz Referring Unavailable Elderbrock, Corinna Primary Care Unavailable Elderbrock, Corinna Primary Care Unavailable Ungur, Remus Attending Unavailable Marcanthony, Almaz Attending Unavailable Marcanthony, Almaz Referring Unavailable Elderbrock, Corinna Primary Care Unavailable Marcanthony, Almaz Attending Unavailable Marcanthony, Almaz Referring Unavailable Elderbrock, Corinna Primary Care Unavailable Marcanthony, Almaz Consulting Unavailable Marcanthony, Almaz Attending Unavailable Elderbrock, Corinna Referring Unavailable Elderbrock, Corinna Primary Care Unavailable Elderbrock, Corinna Primary Care Unavailable Hong Mendoza Attending Unavailable PROBLEMS PROBLEMS DATE TYPE CONDITION / CODE ATTENDING STATUS SOURCE 11/10/2018 Unknown K08.89 - Other Ungur, Remus Active [place] specified disorders [facility] supporting Repository structures / K08.89(ICD-10) 04/05/2018 Active Tachycardia, NA Active [facility] unspecified / Clinic Other R00.0(ICD-10) [place] Repository 03/28/2018 Unknown G89.18 - Other acute Marcanthony, Active [place] postprocedural pain [facility] / G89.18(ICD-10) Hospital Repository 01/20/2018 Unknown F19.10 - Other Marcanthony, Active [place] psycho[facility] substance abuse, Hospital uncomplicated / Repository F19.10(ICD-10) 12/09/2017 Active Generalized anxiety NA Active [facility] disorder / Clinic Main F41.1(ICD-10) [place] Repository 11/28/2017 Active Low back pain / NA Active [facility] M54.5(ICD-10) Clinic Main [place] Repository 11/28/2017 Active Other chronic pain / NA Active [facility] G89.29(ICD-10) Clinic Main [place] Repository PROCEDURES PROCEDURES No Procedure Records FoundRESULTS RESULTS EMERGENCY DEPARTMENT Observed: 11/22/2018 Status: F Source: [place] SUMMARY 2:44 PM [facility] REPOSITORY [facility] Medical Records Department [address] [place] [address] Emergency Department Summary 11/21/181950 MR#: [id number] Acct: [id number] Name: SOLA PETIT Rep #: [id number] : 1980 38 From: Sarah Browning MD PCP: Corinna Andino MD Status: DEP ER - ER Visit Summary Date of Service: 11/21/18 Chief Complaint: Anxiety History of Present Illness: The patient is a 38 F with increased anxiety recently. She is currently switching psychiatrist. Patient was seen in the ER 2 days ago for the same and was given 6 tabs of p.o. Ativan. She states this helped but she is currently out of the medication. She is now having muscle spasms that started in her legs and moving now up into her back. Past history significant for asthma, bipolar disorder, ovarian cyst. Allergy list is reviewed and does include NSAIDs. Physical Examination: Vital signs significant for blood pressure 151/99 with a heart rate of 117. Patient is lying in the bed. She is having intermittent muscle spasms. She does have a nonrebreather mask in place secondary to her hyperventilation. Head neck examination is grossly unremarkable. Heart is tachycardic and regular. Lungs sounds clear. Abdomen is soft nontender. Neuro exam reveals good range of motion of all extremities. She has strong distal pulses throughout. Patient is tearful and anxious. Test Results: Chemistry studies are unremarkable. Emergency Department Course and Treatment: Patient was given 2 doses of Ativan, 0.5 mg IV. She was given a dose of Tylenol for a headache. On final repeat examination vital signs are significant improved. Blood pressure is 127/62 with a heart rate of 90. She is given a single tab of oral Ativan here prior to discharge with a prescription for 10 tabs. I did give her information to the counseling center as she is to call tomorrow for an appointment. Treatment Plan: [] Disposition: Discharge Impression: Anxiety This note was generated with Access Mobile dictation software. It may contain incorrect words, spelling, and punctuation that were not noted in review of the chart prior to signing ED Disposition - Plan for ED Patient: Disposition: Home or Assisted Living Chief Complaint: Back Instructions: ED Stress React Prescriptions: Lorazepam [Ativan] 1 mg PO TID #10 tablet Referrals: Counseling,Center [GROUP OF PHYSICIANS] - 2 Days What to do if you have Problems For any increased pain, shortness of breath, bleeding, nausea or vomiting, chest pain, or any unexpected problems, contact your Primary Care Provider. Call [facility] ([phone]) or report to the closest Emergency Room. Call 911 if necessary. 11/22/18 1444 <Electronically signed by Sarah Browning MD> Date Sarah Browning MD Cosigner Signature (If Indicated): Date CC: Corinna Andino MD DISCHARGE INSTRUCTION Observed: 11/21/2018 Status: F Source: [place] 7:53 PM [facility] REPOSITORY [facility] Medical Records Department [address] [place] [address] Discharge Instruction 11/21/181951 MR#: [id number] Acct: [id number] Name: SOLA PETIT Rep #: [id number] : 1980 38 From: Sarah Browning MD PCP: Corinna Andino MD Status: REG ER ED Disposition - Plan for ED Patient: Disposition: Home or Assisted Living Chief Complaint: Back Instructions: ED Stress React Prescriptions: Lorazepam [Ativan] 1 mg PO TID #10 tablet Referrals: Counseling,Center [GROUP OF PHYSICIANS] - 2 Days What to do if you have Problems For any increased pain, shortness of breath, bleeding, nausea or vomiting, chest pain, or any unexpected problems, contact your Primary Care Provider. Call [facility] ([phone]) or report to the closest Emergency Room. Call 911 if necessary. 11/21/181952 <Electronically signed by Sarah Browning MD> Date aSrah Browning MD Cosigner Signature (If Indicated): Date CC: Corinna Andino MD BASIC METABOLIC Collected: 11/21/2018 Status: F Source: [place] PROFILE (BMP) 5:16 PM [facility] REPOSITORY TYPE CODE TESTS RESULT OUT OF RANGE REFERENCE UNITS LAB L501.0100 74-106 mg/dL Normal GLU 95 Result Comment: Please note revised GLUCOSE reference range effective 2017. LAB L501.1000 7-18 mg/dL High BUN 20 LAB L501.1100 0.55-1.02 mg/dL Normal CREAT,SERUM 0.76 Result Comment: The validity of the calculated GFR AND GFRAA in patients over 70 years has not been determined. Clinical correlation is essential. LAB L501.1110 >60 mL/min Normal EST GFR 91 Result Comment: Non- GFR Calc LAB L501.1115 >60 mL/min Normal EST GFR - AA 110 Result Comment: GFR Calc LAB L501.1255 ml/min Normal Estimated CRCL 80.16 LAB L501.1300 10-20 RATIO High BUN/CRE 26.3 LAB L501.2200 8.5-10 mg/dL Normal .1 CA 8.9 LAB L501.5300 136-14 mmol/L Normal 5 NA 138 LAB L501.5600 3.5-5. mmol/L Normal 1 K 3.6 LAB L501.5900 98-107 mmol/L Normal CL 103 LAB L501.6100 21.0-3 mmol/L Normal 2.0 CO2 28.0 LAB L501.6200 5-15 Normal GAP 7 Performed By: #### L500.2500 #### [facility] [address], [address] EMERGENCY DEPARTMENT Observed: 11/19/2018 Status: F Source: [place] SUMMARY 3:58 PM [facility] REPOSITORY [facility] Medical Records Department [address] [place] [address] Emergency Department Summary 11/19/18 1530 MR#: [id number] Acct: [id number] Name: SOLA PETIT Rep #: [id number] : 1980 38 From: Nova Dorsey MD PCP: Corinna Andino MD Status: REG ER - ER Visit Summary Date of Service: 11/19/18 Chief Complaint: Anxiety History of Present Illness: The patient is a 38 F presenting with anxiety. She states this has been ongoing for the past 3 days. She states she has anxiety, bipolar disorder, depression, and PTSD. She states occasionally her anxiety gets out of control. She has had no recent changes to her medications. She goes to the counseling center but is looking for a new psychiatrist. She states she has not been eating or sleeping well. She denies suicidal thoughts or plan. Denies homicidal ideation. Denies other complaints. Physical Examination: Vitals are stable. Patient is afebrile. Alert no acute distress. HEENT exam is unremarkable. Neck is supple. Lungs are clear and equal bilaterally. Heart is regular rate and rhythm. Extremities are unremarkable. Skin is warm and dry. No focal neurologic deficit. Denies suicidal ideation. Anxious Remainder of exam is unremarkable. Emergency Department Course and Treatment: Patient was given Ativan p.o. with improvement. She was seen by social work and set up for appointment tomorrow. She was given a prescription for short course of Ativan and advised to follow up with the counseling center. She is advised to return to the ED for any worsening complaints. Disposition: Discharge home Impression: Anxiety This note was generated with Access Mobile dictation software. It may contain incorrect words, spelling, and punctuation that were not noted in review of the chart prior to signing ED Disposition - Plan for ED Patient: Chief Complaint: Anxiety Instructions: ED Panic Attack Prescriptions: Lorazepam [Ativan] 1 mg PO BID PRN PRN #6 tablet PRN Reason: Anxiety Referrals: Counseling,Center [GROUP OF PHYSICIANS] - Corinna Andino MD [Primary Care Provider] - What to do if you have Problems For any increased pain, shortness of breath, bleeding, nausea or vomiting, chest pain, or any unexpected problems, contact your Primary Care Provider. Call [facility] ([phone]) or report to the closest Emergency Room. Call 911 if necessary. 11/19/18 7127 <Electronically signed by Nova Dorsey MD> Date Nova Dorsey MD Cosigner Signature (If Indicated): Date CC: Corinna Andino MD DISCHARGE INSTRUCTION Observed: 11/19/2018 Status: F Source: [place] 3:28 PM [facility] REPOSITORY [facility] Medical Records Department [address] [place] [address] Discharge Instruction 11/19/18 1527 MR#: [id number] Acct: [id number] Name: SOLA PETIT Rep #: [id number] : 1980 38 From: Nova Dorsey MD PCP: Corinna Andino MD Status: PRE ER ED Disposition - Plan for ED Patient: Chief Complaint: Anxiety Instructions: ED Panic Attack Prescriptions: Lorazepam [Ativan] 1 mg PO BID PRN PRN #6 tablet PRN Reason: Anxiety Referrals: Corinna Andino MD [Primary Care Provider] - Counseling,Center [GROUP OF PHYSICIANS] - What to do if you have Problems For any increased pain, shortness of breath, bleeding, nausea or vomiting, chest pain, or any unexpected problems, contact your Primary Care Provider. Call [facility] ([phone]) or report to the closest Emergency Room. Call 911 if necessary. 11/19/18 1528 <Electronically signed by Nova Dorsey MD> Date Nova Dorsey MD Cosigner Signature (If Indicated): Date CC: Corinna Andino MD DISCHARGE INSTRUCTION Observed: 11/10/2018 Status: F Source: [place] 6:56 PM [facility] REPOSITORY [facility] Medical Records Department [address] [place] [address] Discharge Instruction 11/10/181853 MR#: [id number] Acct: [id number] Name: SOLA PETIT Rep #: [id number] : 1980 38 From: Mahamed Millan DO PCP: Corinna Andino MD Status: PRE ER ED Disposition - Plan for ED Patient: Chief Complaint: Dental Instructions: ED Tooth Pain Prescriptions: Hydrocodone Bitart/Apap 5-325 [Noel 5MG-325MG] 1 tab PO Q4H PRN PRN 2 Days #10 tab PRN Reason: Pain Amoxicillin 500 mg PO TID #30 tab Referrals: Corinna Andino MD [Primary Care Provider] - Additional Instructions: see a dentist What to do if you have Problems For any increased pain, shortness of breath, bleeding, nausea or vomiting, chest pain, or any unexpected problems, contact your Primary Care Provider. Call [facility] ([phone]) or report to the closest Emergency Room. Call 911 if necessary. 11/10/181855 <Electronically signed by Mahamed Millan DO> Date Mahamed Millan DO Cosigner Signature (If Indicated): Date CC: Corinna Andino MD EMERGENCY DEPARTMENT Observed: 11/10/2018 Status: F Source: [place] SUMMARY 6:[address] [facility] Medical Records Department [address] [place] [address] Emergency Department Summary 11/10/181851 MR#: [id number] Acct: [id number] Name: SOLA PETIT Rep #: [id number] : 1980 38 From: Mahamed Millan DO PCP: Corinna Andino MD Status: PRE ER - ER Visit Summary Date of Service: 11/10/18 Chief Complaint: [Dental pain] History of Present Illness: The patient is a 38 F [presents to the emergency department complaint of dental pain that started today. Patient states that she was eating when 1 of her lower teeth broke. Patient has an appointment with a dentist on the of the month. She denies any fever. Patient states that she has bad dentition and she is been having her teeth pulled. Patient denies any illicit drug use.] Physical Examination: [HEENT-PERRLA, EOMI. Cranial nerves II through XII grossly intact. TMs clear. Mucous membranes moist. No adenopathy. Dentition- patient has broken left lower premolar. Patient has multiple dental caries. No gingival erythema or abscess noted. Cardiovascular-regular rate and rhythm without murmur or ectopy Lungs-clear to auscultation, chest wall stable without crepitus or subcu emphysema Abdomen-normoactive bowel sounds, soft, nontender, no rebound or rigidity, no peritoneal signs. Extremities-intact 4, normal range of motion, normal pulses, atraumatic] Test Results: [None indicated] Emergency Department Course and Treatment: [Patient was given 1 dose of Noel in the emergency department.] Treatment Plan: [Patient will be given a prescription for Noel and amoxicillin.] Disposition: [Discharged home in stable condition.] Impression: [Dental pain Dental caries] This note was generated with Access Mobile dictation software. It may contain incorrect words, spelling, and punctuation that were not noted in review of the chart prior to signing ED Disposition - Plan for ED Patient: Chief Complaint: Dental Referrals: Corinna Andino MD [Primary Care Provider] - What to do if you have Problems For any increased pain, shortness of breath, bleeding, nausea or vomiting, chest pain, or any unexpected problems, contact your Primary Care Provider. Call [facility] ([phone]) or report to the closest Emergency Room. Call 911 if necessary. 11/10/18 4852 <Electronically signed by Mahamed Millan DO> Date Mahamed Millan DO Cosigner Signature (If Indicated): Date CC: Corinna Andino MD Observed: 10/10/2018 Status: F Source: [place] URINE CULTURE 4:00 PM [facility] REPOSITORY Sp. Request/Comment: - Specimen received in [...] <=0.5 F Performed By: #### URCUL #### [facility] [address] [place], [place] [address] PROGRESS Observed: 10/10/2018 Status: COMPLETED Source: [place] 3:51 PM [facility] REPOSITORY HNO ID: [id number] Author: Shira Miguel ([facility]) Robert Service: (none) Author Type: Nurse Practitioner Type: Progress Notes Filed: 10/10/2018 4:09 PM Note Text: This note was created using [employer]. Subjective Sola Petit is a 38 year [...] with PCP for anxiety questions Shira Cotter APRN.TERMINAL WORKER CNOV Observed: 10/10/2018 Status: COMPLETED Source: [place] 3:40 PM [facility] REPOSITORY [facility] ([id number]) 1980 F Date Time Provider Department 10/10/18 3:40 PM SHIRA COTTER ([facility]) GINA During your visit today, we recorded the following information about you: Pulse Respiration Blood pressure Weight 120/minute 16/minute 118/68 55.8 kg Shira Miguel JosuekaylaDARRYN duke 10/10/2018 4:09 PM Signed This note was created using [employer]. Subjective Sola Petit is a 38 year [...] with PCP for anxiety questions Shira Cotter APRN.TERMINAL WORKER Referring Provider: SELF [200] Allergies As of [...] Diagnosis:UTI symptoms [R39.9] Order(s):UA DIP, URINE (POC) [5309149] Order #: [id number]. #:[id number] [id number] CULTURE [SQURCUL] Order #: [id number] Prescriptions as of 10/10/2018 Sig: ALBUTEROL SULFATE HFA 90 MCG/* Inhale 2 Puffs as instructed * REMERON ORAL Take by mouth. NEBULIZER ACCESSORIES KIT Use albuterol 1 vial in nebul* QUETIAPINE 100 MG TABLET Take 100 mg by mouth once janee* VENLAFAXINE ER 37.5 MG CAPSUL* Take 1 capsule by mouth once * Medication notes this encounter ATIVAN ORAL >> Shira Cotter APRN.TERMINAL WORKER 10/10/2018 4:06 PM not listed in OARRS [...] EMERGENCY DEPARTMENT Observed: 09/28/2018 Status: F Source: [place] SUMMARY 5:45 PM [facility] REPOSITORY [facility] Medical Records Department [address] [place] [address] Emergency Department Summary 09/28/18 1459 MR#: [id number] Acct: [id number] Name: SOLA PETIT Rep #: [id number] : 1980 38 From: Hong Mendoza DO [...] hip contusion This note was generated with Access Mobile dictation software. It may contain incorrect words, [...] your Primary Care Provider. Call [facility] ([phone]) or report to the closest Emergency Room. Call 911 if necessary. 09/28/18 1745 <Electronically signed by Hong Mendoza DO> Date Hong Mendoza DO Cosigner Signature (If Indicated): Date CC: Corinna Andino MD HIP, UNI W/ PELVIS Observed: 09/28/2018 Status: F Source: [place] 2-3 VIEWS 2:46 PM [facility] REPOSITORY [facility] Imaging Services [address] [place] [address] HIP, UNI W/ Pelvis 2-3 Views MR#: [id number] Acct: [id number] Name: SOLA PETIT Rep #: [id number] : 1980 F 38 From: Lj Wolfe MD PCP: Corinna Andino MD Status: PRE ER Study: HIP, UNI W/ Pelvis 2-3 Views Date of Exam: 09/28/18 Exam# [id number] Ordering Dr: Hong Mendoza DO STUDY: X-RAY [...] Lj Wolfe MD at 15:11 EST Tel [phone], Service support , CC: Hong Mendoza DO; Corinna Andino MD Railroad Switchman: Signed PROGRESS Observed: 08/21/2018 Status: COMPLETED Source: [place] 5:[address] [facility] REPOSITORY O ID: [id number] Author: Perry Gongora Service: (none) Author Type: Physician Type: Progress Notes Filed: 08/21/2018 5:26 PM Note Text: PERTINENT CARDIAC HISTORY Tachycardia Chest pain ADHERENCE TO GUIDELINES LB-I or ARB for HF with prior LVEF<40 (NQF 0081) - N/A ASA or Plavix for ASHD (NQF 0067) - N/A Beta kae for ASHD with prior SC or prior LVEF<40 (NQF 0070) - N/A [...] MD EKG1 Observed: 08/21/2018 Status: F Source: [place] 3:[address] [facility] REPOSITORY NAME : SOLA PETIT PID : [id number] : 1980 Gender : Female Race : [...] ms QTC Calculation(Bezet) : 460 ms P [place] : 60 degrees R [place] : 87 degrees T [place] : 37 degrees Test Reason : Location : 136 : MARIANO Overread By : PERRY GONGORA MD Edited By : PERRY GONGORA MD Referred By : PERRY GONGORA Acquired by : YOLANDA ALVARADO Observed: 08/21/2018 Status: COMPLETED Source: [place] 3:15 PM [facility] REPOSITORY Office Visit ([facility]) SOLA PETIT ([id number]) 1980 F Date Time Provider Department 08/21/18 3:15 PM PERRY GONGORA E [facility] During your visit today, we recorded the following information about you: Pulse Blood pressure Weight 92/minute 136/88 53.3 kg Perry Gongora MD 08/21/2018 3:55 PM Signed LIFESTYLE CHANGE A healthy lifestyle is the most important component of your overall treatment plan. Please give serious thought to the following areas and commit to making alf changes. EAT A WHOLE FOOD, PLANT BASED [...] N/A Beta kae for ASHD with prior SC or prior LVEF<40 (NQF 0070) - N/A [...] Corinna Andino MD Referring Provider: PERRY GONGORA [[id number]] Allergies As of Date: 08/21/2018 Noted Allergy [...] rate Date Reviewed: 08/21/2018 Reviewed by: Megan Ayala - Fully Assessed Reason for Visit: Recheck [92] Primary Visit Diagnosis:Inappropriate sinus tachycardia [R00.0] Order(s):ECG COMPLETE W INTERPRETATION [ECG01] Order #: [id number] FUTURE Prescriptions as of 08/21/2018 Sig: CEPHALEXIN [...] the following areas and commit to making terminal worker changes. EAT A WHOLE FOOD, PLANT BASED [...] 08/21/18 CNNURSE Observed: 08/21/2018 Status: COMPLETED Source: [place] 2:15 PM [facility] REPOSITORY Nurse Visit ([facility]) SOLA PETIT ([id number]) 1980 F Date Time Provider Department 08/21/18 2:15 PM NURSE CARD ADMIN [facility] During your visit today, we recorded the following information about you: Referring Provider: PERRY GONGORA [74243] Allergies As of Date: 08/21/2018 Noted Allergy [...] rate Date Reviewed: 08/21/2018 Reviewed by: Megan (Yuko) Shala - Fully Assessed Reason for Visit: [...] [F41.9] INVALID FOR* Encounter Status:Closed by MEGAN AAYLA LPN on 08/22/18 PROGRESS Observed: 08/15/2018 Status: COMPLETED Source: [place] 8:[address] [facility] REPOSITORY HNO ID: [id number] Author: Aylin Peters Service: (none) Author Type: Nurse Practitioner Type: [...] 09/04/2010 laparotomy Salpingo-oophorectomy left tube, Dr. Kingston, [place] - related to complications to surgical procedure in summer, post operative hematoma, wound infection, drainage of intraabdominal abscess CT guided at [place] - SALPINGECTOMY 04/2010 Dr. Kingston - [place] - open tubal procedure, retturn to OR [...] Patient agreeable to treatment plan. Aylin Peters APRN.ORQUIDEA CNOV Observed: 08/15/2018 Status: COMPLETED Source: [place] 8:00 PM [facility] REPOSITORY Office Visit (WSTR) SOLA PETIT ([id number]) 1980 F Date Time Provider Department 08/15/18 8:00 PM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 [address] .NEUABS Collected: 01/09/2018 Status: F Source: [employer] 4:56 AM [facility] REPOSITORY TYPE CODE TESTS RESULT OUT OF REFERENCE UNITS RANGE LAB ANEU(LOINC) 2.85-6.16 10 3/mcL High Neutrophil, 6.70 Absolute Performed By: #### CBC, ADIFF, ANEU #### [address] [address] .GFR Collected: 01/09/2018 Status: F Source: [employer] 4:56 AM [facility] REPOSITORY TYPE CODE TESTS RESULT OUT OF REFERENCE UNITS RANGE LAB GFRAA(LOINC ml/min/1.73 ) sqm GFR 109 Estonian Result Comment: GFR Population mean for , [...] square meters Performed By: #### GFR, LIP, CMP #### [address] [address] LIP Collected: 01/09/2018 Status: F Source: [place] [employer] 4:56 AM [facility] REPOSITORY TYPE CODE TESTS RESULT OUT OF REFERENCE UNITS RANGE LAB LIP(LOINC) 8-78 IU/L Lipase Level 14 Performed By: #### GFR, LIP, CMP #### [address] [address] CMP Collected: 01/09/2018 Status: F Source: [place] [employer] 4:56 AM [facility] REPOSITORY TYPE CODE TESTS RESULT OUT OF [...] IU/L Low ALT/SGPT 6 Performed By: #### GFR, LIP, CMP #### [address] [place], [place] [address] UA Collected: 01/09/2018 Status: F Source: [facility] 4:56 AM [facility] REPOSITORY TYPE CODE TESTS RESULT OUT OF [...] UA Leuk Est NEGATIVE Performed By: #### UA, UAMICAO #### [address] [address] .URINALYSIS MICROSCOPIC Collected: 01/09/2018 Status: F Source: [place] (ABELINO) 4:56 AM [facility] REPOSITORY TYPE CODE TESTS RESULT OUT OF RANGE REFERENCE UNITS LAB WBCUA(LOIN None Seen /hpf C) UA WBC Abnormal 0-5 LAB RBCUA(LOIN None Seen /hpf C) UA RBC None Seen LAB EPIUA(LOIN None Seen /hpf C) UA Squam Abnormal Epithelial 0-5 LAB MUCUA(LOIN /hpf C) UA Mucous 4+ Performed By: #### UA, UAMICAO #### [address] [address] DISCHARGE INSTRUCTION Observed: 01/09/2018 Status: F Source: [place] 3:54 AM [facility] REPOSITORY [facility] Medical Records Department [address] [place] [address] Discharge Instruction 01/08/18 0731 MR#: [id number] Acct: [id number] Name: SOLA JARAMILLO Rep #: [id number] : 1980 37 From: Solomon Rashid MD [...] problems, contact your Primary Care Provider. Call [facility] ([phone]) or report to the closest Emergency Room. Call 911 if necessary. 01/09/18 0354 <Electronically signed by Solomon Rashid MD> Date Solomon Rashid MD Cosigner Signature (If Indicated): Date CC: Corinna Andino MD EMERGENCY DEPARTMENT Observed: 01/09/2018 Status: F Source: [place] SUMMARY 3:54 AM [facility] REPOSITORY [facility] Medical Records Department [address] [place] [address] Emergency Department Summary 01/08/18 0558 MR#: [id number] Acct: [id number] Name: SOLA JARAMILLO Rep #: [id number] : 1980 37 From: Solomon Rashid MD [...] uncertain etiology This note was generated with Access Mobile dictation software. It may contain incorrect words, [...] problems, contact your Primary Care Provider. Call [facility] ([phone]) or report to the closest Emergency Room. Call 911 if necessary. 01/09/18 0354 <Electronically signed by Solomon Rashid MD> Date Solomon Rashid MD Cosigner Signature (If Indicated): Date CC: Corinna Andino MD URINALYSIS, COMPLETE Collected: 01/08/2018 Status: F Source: [place] 7:00 AM [facility] REPOSITORY Order Comment: How was Urine Obtained? [...] URINE SEEN Performed By: #### L400.0001 #### [facility] [address] [place], [address] CBC W/DIFF, AUTOMATED Collected: 01/08/2018 Status: F Source: [place] 6:00 AM [facility] REPOSITORY TYPE CODE TESTS RESULT OUT [...] Lymph 2.40 Performed By: #### L100.0100 #### [facility] [address]. [place], [place], [address] BASIC METABOLIC Collected: 01/08/2018 Status: F Source: [place] PROFILE (BMP) 6:00 AM [facility] REPOSITORY TYPE CODE TESTS RESULT OUT [...] 8 GAP Performed By: #### L500.2500 #### [facility] [address] [facility] [place], [address] ABDOMEN/PELVIS WITHOUT Observed: 01/08/2018 Status: F Source: [place] CONT 5:58 AM [facility] REPOSITORY [facility] Imaging Services [address] [place] [address] Abdomen/Pelvis without Cont MR#: [id number] Acct: [id number] Name: SOLA JARAMILLO Rep #: [id number] : 1980 F 37 From: Marco Kimbrough PCP: Corinna Andino MD Status: REG ER Study: Abdomen/Pelvis without Cont Date of Exam: 01/08/18 Exam# [id number] Ordering Dr: Solomon Rashid MD STUDY: CT [...] CC: Solomon Rashid MD; Corinna Andino MD Railroad Switchman: Signed PROGRESS Observed: 01/06/2018 Status: COMPLETED Source: [place] 1:[address] [facility] REPOSITORY HNO ID: [id number] Author: Audrey Finch (Sw) Service: (none) Author Type: Commis Chef Type: Progress Notes Filed: 01/06/2018 1:15 PM Note Text: [place] spoke with patient about signing consent for release for [facility] to be able to coordinate patient care with [facility]. Patient reports that she thinks she has completed consent for release at [facility]. [place] stated that she could call [facility] and speak with her counselor then to help with continuity of care. Patient states that she has appt with [facility] today and will talk with them about release to send to . [place] provided patient with business card so that she could have [facility] send release to [facility]. PROGRESS Observed: 01/05/2018 Status: COMPLETED Source: [place] 1:[address] [facility] REPOSITORY HNO ID: [id number] Author: Omayra Garcia) Podlogar Service: (none) Author [...] Since this visit she was admitted to [facility] ( unknown date) for which she was treated for homicidal thoughts. She was discharged on Cymbalata ( unknown dose) Ativan 1mg which per [facility] was filled on 12/21/2017 which was to last her 60 days. She presented to [facility] on 12/31/2017 because she took her last ativan and per her counseling center told her to go to ER to potentially be prescribed more. [facility] prescribed her ativan 20 tablets 1 mg that she was to take 1-2 times a day as needed to last 10 days.Today she presents because she has run out of Ativan. Per patient she said [facility] told her she should see her primary care doctor because the amount they gave her would not be enough to last her. Per OARRS she filled this prescription from [facility] on 12/31/3017. Patient is accompanied by [...] ex- - continue Cymbalta as written by [facility] - LORAZEPAM 0.5 MG TABLET [...] plan. I did have Audrey BURR from social work come and talk to patient. Patient [...] medications. YOLANDA Observed: 01/05/2018 Status: COMPLETED Source: [place] 1:00 PM [facility] REPOSITORY Office Visit (FAMPWS) CLINTSOLA ([id number]) 1980 F Date Time Provider Department 01/05/18 1:00 PM O[facility]RIA [facility] your visit today, we recorded the [...] Since this visit she was admitted to [facility] ( unknown date) for which she was treated for homicidal thoughts. She was discharged on Cymbalata ( unknown dose) Ativan 1mg which per OAR[facility] was filled on 12/21/2017 which was to last her 60 days. She presented to [facility] on 12/31/2017 because she took her last ativan and per her counseling center told her to go to ER to potentially be prescribed more. [facility] prescribed her ativan 20 tablets 1 mg that she was to take 1-2 times a day as needed to last 10 days.Today she presents because she has run out of Ativan. Per patient she said [facility] told her she should see her primary care doctor because the amount they gave her would not be enough to last her. Per OAR[facility] she filled this prescription from [facility] on 12/31/3017. Patient is accompanied by [...] ex- - continue Cymbalta as written by [facility] fac[facility] - LORAZEPAM 0.5 MG TABLET OAS [...] plan. I did have Audrey BURR from social work come and talk to patient. Patient is leaving and going to counseling appointment at [facility] Echeverria CNP Prescription instructions reviewed with patient [...] other people? -> Somewhat difficult Letter Text [facility] [address] [place], [place] [address] Sola Jaramillo [address] [place], [place] [id number] Clinic #: [id number] 01/05/2018 I, Jane Jaramillo, will keep and administer Sola's ativan as prescribed. It will be ativan 0.5 mg twice daily. Sola will be given 5 days worth enough to get her until her next appointment with phychiatricLuis Jaramillo Encounter Status:Closed by OMAYRA ECHEVERRIA CNP on 01/06/18 CNSW Observed: 01/05/2018 Status: COMPLETED Source: [place] 12:00 AM [facility] etrigg ([facility]) SOLA JARAMILLO ([id number]) 1980 F Date Time Provider Department 01/05/18 AUDREY FINCH (ANGELES) FLAKITO During your visit today, we recorded the following information about you: Audrey Finch, COMPRESSED GAS TESTER 01/06/2018 1:15 PM Signed [place] spoke with patient about signing consent for release for [facility] to be able to coordinate patient care with [facility]. Patient reports that she thinks she has completed consent for release at [facility]. Sw stated that she could call [facility] and speak with her counselor then to help with continuity of care. Patient states that she has appt with [facility] today and will talk with them about release to send to . [place] provided patient with business card so that she could have [facility] to [facility]. Allergies As of Date: 01/05/2018 Noted Allergy [...] DISCHARGE INSTRUCTION Observed: 12/31/2017 Status: F Source: [place] 12:52 PM [facility] REPOSITORY [facility] Medical Records Department [address] [place] [address] Discharge Instruction 12/31/17 1250 MR#: [id number] Acct: [id number] Name: SOLA JARAMILLO Rep #: [id number] : 1980 37 From: Mahamed Millan DO [...] your Primary Care Provider. Call [facility] ([phone]) or report to the closest Emergency Room. Call 911 if necessary. 12/31/17 1252 <Electronically signed by Mahamed Millan DO> Date Mahamed Millan DO Cosigner Signature (If Indicated): Date CC: Corinna Andino MD EMERGENCY DEPARTMENT Observed: 12/31/2017 Status: F Source: [place] SUMMARY 12:49 PM [facility] REPOSITORY [facility] Medical Records Department [address] [place] [address] Emergency Department Summary 12/31/17 1245 MR#: [id number] Acct: [id number] Name: SOLA JARAMILLO Rep #: [id number] : 1980 37 From: Mahamed Millan DO [...] the month. Patient apparently was admitted to [facility] several weeks ago for homicidal thoughts in [...] follow-up with her psychiatrist sooner than the if at all possible.] Treatment Plan: [She will be given prescription for Ativan 20 tablets.] Disposition: [Discharged to home in stable condition] Impression: [Anxiety Medication refill for Ativan] This note was generated with Access Mobile dictation software. It may contain incorrect words, [...] your Primary Care Provider. Call [facility] ([phone]) or report to the closest Emergency Room. Call 911 if necessary. 12/31/17 1249 <Electronically signed by Mahamed Millan DO> Date Mahamed Millan DO Cosigner Signature (If Indicated): Date CC: Corinna Andino MD PROGRESS Observed: 12/29/2017 Status: COMPLETED Source: [place] 6:[address] [facility] REPOSITORY [facility] ID: [id number] Author: Zbigniew Paul Service: (none) Author Type: [...] MD CNOV Observed: 12/29/2017 Status: COMPLETED Source: [place] 6:30 PM [facility] REPOSITORY Office Visit (WSTR) SOLA JARAMILLO ([id number]) 1980 F Date Time Provider Department 12/29/17 6:30 PM ZBIGNIEW PAUL [facility] During your visit today, we [...] encounter PREDNISONE 20 MG TABLET >> Lisette Palma Ma 12/29/2017 6:42 PM >> LISETTE PALMA MA [facility] Dec 29, 2017 6:42 PM done VENLAFAXINE ER 37.5 MG CAPSULE,EXTENDED RELEASE 24 HR >> Lisette Palma Ma 12/29/2017 6:42 PM >> LISETTE PALMA MA [facility] Dec 29, 2017 6:42 PM done NICOTINE 21 MG/24 HR DAILY TRANSDERMAL PATCH >> Lisette Palma Ma 12/29/2017 6:42 PM >> LISETTE PALMA MA [facility] Dec 29, 2017 6:42 PM done NICOTINE 14 MG/24 HR DAILY TRANSDERMAL PATCH >> Lisette Palma Ma 12/29/2017 6:42 PM >> LISETTE PALMA MA [facility] Dec 29, 2017 6:42 PM done NICOTINE 7 MG/24 HR DAILY TRANSDERMAL PATCH >> Lisette Palma Hector 12/29/2017 6:42 PM >> LISETTE PALMA MA Dec 29, 2017 6:42 PM done CYCLOBENZAPRINE 10 MG TABLET >> Lisette Palma Hector 12/29/2017 6:42 PM >> LISETTE PALMA MA Dec 29, 2017 6:42 PM done Problem [...] twice daily for 5 days. Letter Text [facility] [address] [place], [place] [address] 12/29/2017 Sola Jaramillo F# [id number] [address] [place] [id number] TO WHOM IT MAY CONCERN: This is to confirm that Sola Jaramillo had an appointment and was seen at the [facility] in the Department of Urgent Care by Zbigniew Paul MD on 12/29/2017 with influenza symptoms. Sincerely , Zbigniew Paul MD Encounter Status:Closed by ZBIGNIEW PAUL MD on 12/29/17 PROGRESS Observed: 12/23/2017 Status: COMPLETED Source: [place] 7:[address] [facility] [place] REPOSITORY HNO ID: [id number] Author: Sahil (Pt) Gutierrez Service: (none) Author Type: Physical Therapist Type: Progress Notes Filed: 12/23/2017 7:34 AM Note Text: [facility] PHYSICAL THERAPY [...] LEAD ELECTROCARDIOGRAM Observed: 12/19/2017 Status: F Source: [place] 1:00 PM [facility] REPOSITORY [facility] Cardiovascular Services [address] [place] [address] 12 Lead EKG 12/15/17 2241 MR#: [id number] Acct: [id number] Name: SOLA JARAMILLO Rep #: [id number] : 1980 37 From: Rowdy Dennis MD Attending Dr: Status: DEP Ordering Dr: Allyn Squires Date: 12/15/17 Location: [...] normal ECG Confirmed by BECKY HAWKINS, ROWDY ([id number]), manager editorial AMIRA GARCIA ([id number]) on 12/19/2017 1:00:13 PM Referred By: VLADIMIR Confirmed By:ROWDY DENNIS MD 12/19/17 1300 Date Rowdy Dennis MD CC: Allyn Squires; Corinna Andino MD Signed URINALYSIS, ROUTINE Collected: 12/18/2017 Status: F Source: [facility] 12:30 PM [facility] REPOSITORY TYPE CODE TESTS RESULT OUT OF RANGE REFERENCE UNITS LAB COLOR Normal Color, Urine Straw LAB CHAUR Normal Character Hazy LAB SPGRUR 1.003-1.029 Normal Specific 1.006 [place],Urine LAB PHUR 4.5-8.0 Normal pH,Urine 5.0 LAB [...] Unless otherwise noted, all testing performed by [address] [address] [place], [place] [address] CLIA: [id number] Upward Bound Director: Cisco Link M.D. Observed: 12/18/2017 Status: F Source: [facility] CULTURE, URINE 12:30 PM [facility] REPOSITORY Test Name: Culture, Urine Culture Status: Final Culture Report: No Growth - Day 2 Micro Source: Urine Performed By: #### URCUL #### Unless otherwise noted, all testing performed by [address] [address] CLIA: [id number] Upward Bound Director: Cisco Link M.D. URINALYSIS, ROUTINE Collected: 12/16/2017 Status: F Source: [facility] 6:15 PM [facility] REPOSITORY TYPE CODE TESTS RESULT OUT OF RANGE REFERENCE UNITS LAB COLOR Normal Color, Urine Straw LAB CHAUR Normal Character Clear LAB SPGRUR 1.003-1.029 Normal Specific 1.005 [place],Urine LAB PHUR 4.5-8.0 Normal pH,Urine 7.0 LAB [...] Unless otherwise noted, all testing performed by [place] [address] CLIA: [id number] Upward Bound Director: Cisco Link M.D. CBC WITH DIFF Collected: 12/16/2017 Status: F Source: [facility] 5:16 PM [facility] REPOSITORY TYPE CODE TESTS RESULT OUT OF [...] Unless otherwise noted, all testing performed by [address] [address] CLIA: [id number] Upward Bound Director: Cisco Link M.D. COMPREHENSIVE METABOLIC Collected: 12/16/2017 Status: F Source: [facility] PANEL 5:16 PM [facility] REPOSITORY TYPE CODE TESTS RESULT OUT OF [...] used with caution. LAB eGFRB ml/min/1.73sq.m eGFR, -Estonian >=60 Result Comment: GFR Calc LAB CALCM [...] Unless otherwise noted, all testing performed by [facility] [address] [place], [place] [address] CLIA: [id number] Upward Bound Director: Cisco Link M.D. TSH Collected: 12/16/2017 Status: F Source: [facility] 5:16 PM [facility] REPOSITORY TYPE CODE TESTS RESULT OUT OF RANGE REFERENCE UNITS LAB TSH 0.320-5.000 uIU/mL Normal TSH 1.49 Result Comment: Samples from patients routinely receiving high dose biotin therapy (100-300 mg/day) may show falsely decreased results. Please correlate clinically. Performed By: #### CBCDIF, CMET, LIPID, TSH #### Unless otherwise noted, all testing performed by [place] [address] CLIA: [id number] Upward Bound Director: Cisco Link M.D. LIPID PANEL Collected: 12/16/2017 Status: F Source: [facility] 5:16 PM [facility] REPOSITORY TYPE CODE TESTS RESULT OUT OF [...] Unless otherwise noted, all testing performed by [place] [address] CLIA: [id number] Upward Bound Director: Cisco Link M.D. URINALYSIS, COMPLETE Collected: 12/16/2017 Status: F Source: [place] 4:17 AM [facility] REPOSITORY Order Comment: Order Date: 12/16/17 COLOR [...] URINE 1+ Performed By: #### L400.0001 #### [facility] [address] [facility] [place], [address] ABDOMEN/PELVIS WITHOUT Observed: 12/16/2017 Status: F Source: [place] CONT 4:14 AM [facility] REPOSITORY [facility] Imaging Services [address] [place] [address] Abdomen/Pelvis without Cont MR#: [id number] Acct: [id number] Name: SOLA JARAMILLO Rep #: [id number] : 1980 F 37 From: Tj Mendoza MD PCP: Thu HAWKINS,Corinna Status: REG ER Study: Abdomen/Pelvis without Cont Date of Exam: 12/16/17 Exam# [id number] Ordering Dr: Allyn Squires STUDY: CT ABDOMEN [...] , CC: Allyn Squires; Corinna Andino MD Railroad Switchman: Signed CBC W/DIFF, AUTOMATED Collected: 12/15/2017 Status: F Source: [place] 10:25 PM [facility] REPOSITORY TYPE CODE TESTS RESULT OUT [...] Lymph 2.90 Performed By: #### L100.0100 #### [facility] [address] [place], [place], [address] ALCOHOL, BLOOD Collected: 12/15/2017 Status: F Source: [place] (MEDICAL)-SERUM 10:25 PM [facility] REPOSITORY TYPE CODE TESTS RESULT OUT [...] fatal coma Performed By: #### L501.9100 #### [facility] [address] [place], [place], [address] BASIC METABOLIC Collected: 12/15/2017 Status: F Source: [place] PROFILE (BMP) 10:25 PM [facility] REPOSITORY TYPE CODE TESTS RESULT OUT [...] 10 Performed By: #### L500.2500, L501.9520 #### [facility] [address] [facility] [place], [address] THYROID STIM HORMONE Collected: 12/15/2017 Status: F Source: [place] (TSH) 10:25 PM [facility] REPOSITORY TYPE CODE TESTS RESULT OUT OF RANGE REFERENCE UNITS LAB L501.9520 0.358-3.74 uIU/mL Normal TSH 1.86 Performed By: #### L500.2500, L501.9520 #### [facility] [address], [address] ,SERUM,HCG QUALI. Collected: Status: F Source: DANAE 12/15/2017 10:25 PM [facility] REPOSITORY TYPE CODE TESTS RESULT OUT OF REFERENCE UNITS RANGE LAB L700.6700 =>Qualitative mIU/mL Normal HCG Qual < 1 triggr LAB L700.7000 0-9 Nonpreg Negative Normal HCGSQUAL NEGATIVE Performed By: #### L700.6800 #### [facility] [address] [place], [address] URINE DRUG SCREEN Collected: 12/15/2017 Status: F Source: DANAE (VISTA) 8:06 PM [facility] REPOSITORY Order Comment: Has pt arrived? Y [...] Normal NEGATIVE Performed By: #### L505.5000 #### [facility] [address] [place], [address] Observed: 12/15/2017 Status: F Source: HAYS CULTURE, URINE 8:06 PM [facility] REPOSITORY Urine Culture ORGANISM 1: Presumptive E. coli [place] Count >100,000 Presumptive E. coli: REACTION Amoxacillin/Clavulanic [...] <=20 S (NF) indicates non-formulary drug at [facility]. Approval by Infectious Disease Specialist required before non-formulary drugs may be ordered and/or dispensed. Performed By: #### M100.0650 #### [facility] [address] [place], [address] TSH Collected: 12/09/2017 Status: F Source: [place] 4:15 PM [facility] REPOSITORY TYPE CODE TESTS RESULT OUT OF RANGE REFERENCE UNITS LAB TSH 0.400-5.500 uU/mL TSH 1.560 Result Comment: If the patient is , TSH reference range varies by gestational period: First Trimester 0.100-2.500 uU/mL Second Trimester 0.200-3.000 uU/mL Third Trimester 0.300-3.000 uU/mL References: 1. Valdez L, Flores M, Goyo EK, et al. Management of Thyroid Dysfunction during and : An Endocrine Society Clinical Practice Guideline. J Clin Endocrinol Metab, 2012:97:3894-8699. 2. Natividad VALADEZ. Overview of thyroid disease in . UpToDate. 2016. Accessed on April 16, 2016. Performed By: #### TSH, FT4 #### [facility] [address] [address] FREE T4 Collected: 12/09/2017 Status: F Source: [place] 4:15 PM [facility] REPOSITORY TYPE CODE TESTS RESULT OUT OF RANGE REFERENCE UNITS LAB FT4 0.9-1.7 ng/dL Free T4 1.2 Performed By: #### TSH, FT4 #### [facility] [address] [id number] PROGRESS Observed: 12/09/2017 Status: COMPLETED Source: [place] 3:26 PM [facility] REPOSITORY HNO ID: [id number] Author: Omayra (Fire Protection Specialist) Podlogar Service: (none) Author Type: Nurse Practitioner [...] now. Has a counselor and sponsor at [facility] for support. Past history of depression and anxiety. Family mental health hx: yes mother depression Previous treatment modalities: group therapy, individual therapy with Psychiatrist, Psychologist and Counselor and medication. 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 - Counseling Center [facility] and after hours crisis line - Everywoman's house phone number or 3. Depression, unspecified depression [...] LUMBAR 3V Observed: 11/28/2017 Status: F Source: [place] AP/LAT/L5-S1 4:04 PM [facility] REPOSITORY [...] and hip joint spaces. IMPRESSION: UNREMARKABLE EXAM Railroad Switchman: PSCB Transcribe Date/Time: Nov 28 2017 4:05P Dictated by : MOLLY UK MD This examination was interpreted and the report reviewed and electronically signed by: MOLLY KU MD on Nov 28 2017 4:06PM EST [id number] PROGRESS Observed: 11/28/2017 Status: COMPLETED Source: [place] 3:[address] [facility] [place] REPOSITORY HNO ID: [id number] Author: Beatrice WahlRtMaribel Hyde Service: (none) Author Type: Food Service Manager Type: Progress Notes Filed: 11/28/2017 4:00 PM [...] PM PROGRESS Observed: 11/28/2017 Status: COMPLETED Source: [place] 3:[address] [facility] REPOSITORY HNO ID: [id number] Author: Cisco Felipe Service: (none) Author Type: [...] 09/04/2010 laparotomy Salpingo-oophorectomy left tube, Dr. Kingston [place] - related to complications to surgical procedure in summer, post operative hematoma, wound infection, drainage of intraabdominal abscess CT guided at [place] - SALPINGECTOMY 04/2010 Dr. Kingston - [place] - open tubal procedure, retturn to OR [...] Patient agreeable to treatment plan. ORQUIDEA Rosado Observed: 11/28/2017 Status: COMPLETED Source: [place] 3:00 PM [facility] REPOSITORY Office Visit (WSTR) SOLA JARAMILLO ([id number]) 1980 F Date Time Provider Department 11/28/17 3:00 PM CISCO FELIPE (ORQUIDEA) UC[facility]STR During your visit today, we recorded the following information about you: Temperature Pulse Respiration Blood pressure 98.9 degrees 82/minute 18/minute 110/72 Weight 46.7 kg Cisco Felipe CNP 11/28/2017 4:35 PM Signed HPI HPI Sola Jaramillo is a 37 [...] OF OVARY/TUBE(S) 09/04/2010 laparotomy Salpingo-oophorectomy left tube, [place] - related to complications to surgical procedure in summer, post operative hematoma, wound infection, drainage of intraabdominal abscess CT guided at [place] - SALPINGECTOMY 04/2010 Dr. Kingston - [place] [...] benadryl Date Reviewed: 11/28/2017 Reviewed by: Cisco Garcia) - Fully Assessed Reason for Visit: Back Pain [12] Cmt: recurring seen in [place] 8 day, knot in back, right middle of back with leg numbness Primary Visit Diagnosis:Chronic right-sided low back pain, with sciatica presence unspecified [M54.5, G89.29] Order(s):XR LUMBAR GENERAL 3V AP/LAT/L5-S1 [[id number]] Order #: [id number] FUTURE predniSONE (DELTASONE) 10 mg tabletTake 4 [...] Lisette Palma Ma 11/28/2017 3:00 PM >> LISETTE PALMA MA Nov 28, 2017 2:59 PM done Problem [...] as needed for Muscle Spasm. Letter Text [place] Department of Urgent [facility] Cisco Felipe CNP [address] [place], [place] [address] 11/28/2017 Sola Jaramillo [facility]# [id number] [address] [place] [address] TO WHOM IT MAY CONCERN: This is to confirm that Sola Jaramillo had an appointment and was seen at the [facility] in the Department of Urgent Care by Cisco Felipe CNP on 11/28/2017. Sincerely yours, Cisco Felipe CNP Encounter Status:Closed by CISCO FELIPE CNP on 11/28/17 ALLERGIES ALLERGIES DATE TYPE / NAME / CODE REACTION SEVERITY SOURCE CODE 11/19/2018 Drug NSAIDS Unknown Unknown [place] Allergy/41 (Non-Steroidal Community 4988890( Anti-Inflamma/F0010 [facility]) [address](RXNORM) Repository 11/19/2018 Drug codeine/[id number]( Other Unknown [place] Allergy/41 RXNORM) Community 7759909([facility]) Repository 11/19/2018 Drug aspirin/F162349598( Other Unknown [place] Allergy/41 RXNORM) Community 7616781([facility]) Repository 11/19/2018 Drug naproxen/[id number] Unknown Unknown [place] Allergy/41 (RXNORM) Community 6402252([facility]) Repository 11/19/2018 Drug adhesive/[id number] Itching Unknown [place] Allergy/41 (RXNORM) Community 9486657([facility]) Repository 11/19/2018 Drug vancomycin/V9190725 Itching Unknown [place] Allergy/41 66(RXNORM) Community 3253675([facility]) Repository 11/19/2018 Drug latex/[id number](RX Itching Unknown [place] Allergy/41 NORM) Community 5013277([facility]) Repository 01/20/2018 DRUG HYDROXYZINE HCL OTHER: SEE Uriel Endeavor INGREDI/41 Clinic Other 9819900([facility]) Repository 01/08/2018 Drug tramadol Other Unknown [place] Allergy/41 HCl/E657577506(RXNO Community 6370499([facility]) Repository 10/15/2014 DRUG/51986 PROMETHAZINE-DM OTHER: SEE Uriel Pereira 1003(OME [facility] Other D CT) [place] Repository 02/08/2014 DRUG/45642 TUBERCULIN PPD OTHER: SEE Uriel Pereira 1003([facility] Other D CT) [place] Repository 11/20/2012 DRUG AMITRIPTYLINE OTHER: SEE Uriel Pereira INGREDI/41 Clinic Other 7027724([facility] OMED CT) Repository 04/28/2012 Chemical/4 ADHESIVE TAPE OTHER: SEE Uriel Pereira [id number](S (ROSINS) Clinic Other NOMED CT) [place] Repository 04/28/2012 DRUG LORAZEPAM UNKNOWN [facility] INGREDI/41 Clinic Main 2972694([facility]) Repository 03/31/2011 DRUG ASPIRIN [facility] INGREDI/41 Clinic Other 2643412([facility]) Repository 03/31/2011 Drug NSAIDS Pereira Class/4195 (NON-STEROIDAL Clinic Other 93994(SNOM ANTI-INFLAMMATORY [place] ED CT) DRUG) Repository 03/02/2011 DRUG CODEINE OTHER: SEE C [facility]/41 Clinic Other 8029218( [place] OMED CT) Repository 02/02/2011 DRUG NAPROXEN INTOLERANCE [facility]/41 Clinic Other 4050580( [place] OMED CT) Repository 02/02/2011 DRUG TRAMADOL Vomiting [facility]/41 Clinic Main 4947150( [place] OMED CT) Repository 09/14/2010 DRUG LATEX ITCHING [facility]41 Clinic Other 1636297( [place] OMED CT) Repository 09/14/2010 DRUG VANCOMYCIN ITCHING [facility]41 Clinic Other 4073084( [place] OMED CT) Repository ENCOUNTERS ENCOUNTERS ADMIT/DISCHARGE ACCOUNT NUMBER ADMITTING ENCOUNTER LOCATION SOURCE CLASS 11/21/2018/11/21/19 [id number] Emergency [place] ding:ED Repository 11/19/2018/11/19/19 [id number] Emergency [place] ding:ED Repository 11/10/2018/11/10/19 [id number] Emergency [place] ding:ED Repository 11/06/2018/11/06/19 [id number] Emergency BBuilding:JOSHUA Trevizo [address] [place] [address] Repository 10/10/2018/10/11/20 [id number] Ambulatory [address] Main [place] Repository 09/28/2018/09/28/20 [id number] Emergency [place] ding:ED Repository 08/21/2018/08/22/20 [id number] Ambulatory [address] Main [place] Repository 08/15/2018/08/16/20 [id number] Ambulatory [address] Main [place] Repository 08/07/2018/08/08/20 [id number] Ambulatory [address] Main [place] Repository 05/26/2018/05/26/20 [id number] Ambulatory [address] Main [place] Repository 05/18/2018/05/18/20 [id number] Ambulatory [address] Main [place] Repository 05/18/2018/05/18/20 [id number] Ambulatory [address] Repository 04/07/2018/04/07/20 [id number] Ambulatory BMSBuilding: [place] 18 BMS.[facility] Repository 04/05/2018 [id number] Ambulatory [facility] Repository 03/23/2018/03/23/20 [id number] Ambulatory [place] ding:[facility] Repository 03/23/2018 [id number] Ambulatory BMSBuilding: [place] BMS.CF.[facility] Repository 03/22/2018/03/23/20 [id number] Ambulatory [address] Repository 03/21/2018/03/21/20 [id number] Emergency BBuilding:ER Phu [address] [place] [address] Repository 01/30/2018/02/04/[id number] Jean [place] [address] Mounika ALuis Encounter lding:[address] and Psych/AdultR Erika oom: [address] [address]Bed: Repository [facility] [id number] 01/30/2018/01/31/20 [id number] Emergency [address] ding:ED Repository 01/26/2018/01/27/20 [id number] Emergency BBuilding:ER Phu [address] [place] [address] Repository 01/20/2018/01/24/20 [id number] Ambulatory [address] Repository 01/12/2018 [id number] Ambulatory [facility] ding:LAB Repository 01/10/2018/01/11/20 [id number] Ambulatory BMSBuilding: [place] 18 BMS.[facility] Repository 01/09/2018/01/10/20 [id number] Emergency BBuilding:ER [address] Repository 01/08/2018/01/09/20 [id number] Emergency [address] ding:ED Repository 01/05/2018/01/10/20 [id number] Ambulatory [address] Repository 12/31/2017/01/01/20 [id number] Emergency [place] ding:ED Repository 12/29/2017/12/31/19 [id number] Ambulatory [address] Repository 12/16/2017/12/21/[id number] Jean Pierre Inpatient [place] [address] Mounika ALuis Encounter lding:B33B [place] and Psych/AdultR Erika oom: B33B [facility] 3313Bed: Repository B33B [id number] 12/15/2017/12/16/19 [id number] Emergency [place] 18 [facility] ding:ED Repository 12/09/2017 [id number] Ambulatory [facility] Repository 12/09/2017/12/09/19 [id number] Ambulatory [address] Repository 11/28/2017/11/28/19 [id number] Ambulatory [address] Repository 11/28/2017/11/28/19 [id number] Ambulatory [address] Repository PAYERS PAYERS ENCOUNTER GUARANTOR PAYER SUBSCRIBER SOURCE 11/21/2018 SOLA L Primary SOLA L [place] [id number] N Insurance:CARESOURCEP LYCANSDOB: Community [facility] Number: [id number] [id number] Repository [address]Pyk: ([phone]) Date:2018-11-21P O [phone] () [address]ATTN: [place] [address]VK: 11/21/2018 Secondary NOT GIVENUNK [place] Insurance:SELF PAY [facility] Number: Effective Repository Date:2018-11-21 11/19/2018 SOLA L Primary SOLA L [place] [id number] N Insurance:CARESOURCEP LYCANSDOB: [facility] Number: [id number] [id number] Repository [address]Esy: ([phone]) Date:2018-11-19P O [phone] () [address]ATTN: [place] [address]NF: 11/19/2018 Secondary NOT GIVENUNK [place] Insurance:SELF PAY [facility] Number: Effective Repository Date:2018-11-19 11/10/2018 SOLA L Primary SOLA L [place] [id number] N Insurance:CARESOURCEP LYCANSDOB: Community [address] Number: [id number] [id number] Repository [address]Bfq: ([phone]) Date:2018-11-10P O [phone] () [address]ATTN: [place] [address]IQ: 11/10/2018 Secondary NOT GIVENUNK [place] Insurance:SELF PAY [facility] Number: Effective Repository Date:2018-11-10 11/06/2018 SOLA L Primary SOLA L [facility] LYCANSDOB: Insurance:CARESOURCE LYCANSDOB: Foundation N MEDICAIDPolicy [id number] Number: N [address] [place] [address] [id number] [address] [place] [address] 609[address]Ctz: ([phone]) Date:2018-11-06 [phone]: () [phone] [phone] Name:[address] ()Tel: [phone]) [address], [place] [phone] () [address]JD: 09/28/2018 SOLA L Primary SOLA L [place] [id number] N Insurance:CARESOURCEP LYCANSDOB: [facility] [address] Number: [id number] [id number] Repository [address]Txo: ([phone]) Date:2018-09-28P O [phone] () [address]ATTN: [place] [address]QR: 09/28/2018 Secondary NOT GIVENUNK [place] Insurance:SELF PAY [facility] Number: Effective Repository Date:2018-09-28 04/07/2018 SOLA L Primary SOLA L [place] [id number] N Insurance:CARESOURCEP LYCANSDOB: [facility] [address] Number: [id number] [id number] Repository [address]Wmz: ([phone]) Date:2018-03-24 O [phone] () [address]ATTN: [place] [address]OQ: 04/07/2018 Secondary NOT GIVENUNK [place] Insurance:SELF PAY [facility] [place] [facility] Number: Effective Repository Date:2018-04-14 03/23/2018 SOLA L Primary SOLA L [place] [id number] N Insurance:CARESOURCEP RIDENBAUGHDOB: Community [address] Number: [id number] [id number] Repository [address]Lgh: ([phone]) Date:2018-01-10P O [phone] () [address]ATTN: [place] [address]PB: 03/23/2018 Secondary NOT GIVENUNK [place] Insurance:SELF PAY [facility] [place] [facility] Number: Effective Repository Date:2018-01-10 03/23/2018 SOLA L Primary SOLA L [place] [id number] N Insurance:CARESOURCEP RIDENBAUGHDOB: [facility] [address] Number: [id number] [id number] Repository [address]Ynt: ([phone]) Date:2018-01-10 O [phone] () [address]ATTN: [place] [address]KY: 03/23/2018 Secondary NOT GIVENUNK [place] Insurance:SELF PAY [facility] Number: Effective Repository Date:2018-03-23 03/21/2018 SOLA L Primary [facility]LA L [facility] Insurance:CARESOURCE RIDENBAUGHDOB: Foundation N MEDICAIDPolicy [id number] [address] Number: N [address] [place] [address] [id number] [address] [place] [address] [phone]: ([phone]) Date:2018-03-21Tel: () [phone] [phone] Name:[address] Box (HP)Tel: [phone], [place] [address] (WP) [address]AW: 01/30/2018 Primary SOLA L [facility] Insurance:CareSourceP RIDENBAUGHDOB: [facility] Number: [id number] [facility] [id number] [address] [place] [address] Repository Date:[place], [place] Name:HealthPO [address] [phone]: [phone], [place] [phone] (HP) [phone]: 01/30/2018 SOLA L Primary SOLA L [place] [id number] Insurance:CARESOURCEP RIDENBAUGHDOB: [facility] Number: [id number], [place] [id number] Repository [address]Oxl: ([phone]) Date:2018-01-30 [phone] () [address]ATTN: [place] [address]RM: 01/30/2018 Secondary NOT GIVENUNK [place] Insurance:SELF PAY [facility] Number: Effective Repository Date:2018-01-30 01/26/2018 SOLA L Primary SOLA L [facility] RIDENBAUGHDOB: Insurance:CARESOURCE RIDENBAUGHDOB: [facility] [place] [facility] [id number] Repository [place] Number: [place], [place] [id number] [place], [place] [address]Cvc: [phone]) Date:2018-01-26 [phone]: () [id number] [phone] Name:[address] ()Tel: [phone], [place] [address] (WP) [address]XB: 01/12/2018 SOLA L Primary SOLA L [place] [id number] Insurance:CARESOURCEP RIDENBAUGHDOB: Critical access hospital Number: [id number], [place] [id number] Repository [address]Pqx: ([phone]) Date:2018-01-12 O [phone] () [address]ATTN: [place] [address]RV: 01/12/2018 Secondary NOT GIVENUNK [place] Insurance:SELF PAY [facility] Number: Effective Repository Date:2018-01-12 01/10/2018 SOLA L Primary SOLA L [place] [id number] Insurance:CARESOURCEP RIDENBAUGHDOB: Critical access hospital Number: [id number], [place] [id number] Repository [address]Hpf: ([phone]) Date:2018-01-09 O [phone] () [address]ATTN: [place] [address]ZI: 01/10/2018 Secondary NOT GIVENUNK [place] Insurance:SELF PAY [facility] Number: Effective Repository Date:2018-01-09 01/09/2018 SOLA L Primary [facility]: Insurance:CARESOURCE RIDENBAUGHDOB: [facility] MEDICAIDPolicy [id number] Repository [place] Number: [place], [place] [id number] [place], [place] [address]Oct: (330) Date:2018-01-09 [phone]: () [phone] [phone] Name:[address] ()Tel: 000) [address], [place] [phone] () [phone]: 01/08/2018 Sola L Primary Sola L [place] [id number] Insurance:CARESOURCEP RidenbaughDOB: Critical access hospital Number: [id number], [place] [id number] Repository [address]Qgi: ([phone]) Date:2018-01-08P O [phone] (HP) [address]ATTN: [place] [address]YL: 01/08/2018 Secondary NOT GIVENUNK [place] Insurance:SELF PAY [facility] Number: Effective Repository Date:2018-01-08 12/31/2017 Sola L Primary Sola L [place] [id number] Insurance:CARESOURCEP RidenbaughDOB: Critical access hospital Number: [id number], [place] [id number] Repository [address]Wep: ([phone]) Date:2017-12-31P O [phone] () [address]ATTN: [place] [address]LV: 12/31/2017 Secondary NOT GIVENUNK [place] Insurance:SELF PAY [facility] Number: Effective Repository Date:2017-12-31 12/16/2017 Primary SOLA L [facility] Insurance:CareSourceP RIDENBAUGHDOB: [place] [facility] Number: [id number] [place] [address] [id number] [address] [place] [address] Repository Date:[place], [place] Name:[facility] [address] [phone]: [phone], [place] [phone] (HP) [phone]: 12/15/2017 Sola L Primary Sola L [place] [id number] Insurance:CARESOURCEP RidenbaughDOB: Critical access hospital Number: [id number], [place] [id number] Repository [address]Niw: ([phone]) Date:2017-12-15P O [phone] (HP) [address]ATTN: [place] [address]VK: 12/15/2017 Secondary NOT GIVENUNK [place] Insurance:SELF PAY [facility] Number: Effective Repository Date:2017-12-15
== END 2018-11-19 16:10 | disposition home or self-care (01) ==
PROVIDERS: Emergency Provider Emergency Medicine; Family Provider Family Medicine; PCP Family Medicine
DX: F41.9 Anxiety disorder, unspecified (principal); F31.9 Bipolar disorder, unspecified; Z72.0 Tobacco use
CPT/HCPCS: 99283

== ENCOUNTER 2018-11-21 16:33 | Emergency (ER) | payer MEDICAID, SELFPAY ==
[2018-11-21 16:37] VITALS: BP 151/99; PULSE 117; RESP 25; TEMP 36; O2SAT 98; BMI 22.7
[2018-11-21] MEDS: LORazepam 2 MG/ML Syringe 0.5 MG IV ×2 (17:07→18:25)
[2018-11-21] MEDS: 0.9% Normal Saline 1,000 ML 1000 ML IV (17:07)
[2018-11-21 17:44] LABS: Anion Gap 7 (5-15); BUN 20 mg/dL (7-18); BUN/Creat Ratio 26.3 RATIO (10-20); Calcium,Total 8.9 mg/dL (8.5-10.1); Chloride 103 mmol/L (98-107); Creatinine, Serum 0.76 mg/dL (0.55-1.02); EST Glomerular Filtration Rate 91 mL/min (>60); Est Glom Filt Rate - Afr Amer 110 mL/min (>60); Estimated Creatinine Clearance 80.16 ml/min; Glucose 95 mg/dL (74-106); Potassium 3.6 mmol/L (3.5-5.1); Sodium Level 138 mmol/L (136-145)
[2018-11-21] MEDS: Acetaminophen 500 MG Tablet 1000 MG PO (18:26)
[2018-11-21 18:45] VITALS: BP 93/62
--- NOTE | 2018-11-21 19:51 | ED.DCSUM_ITS ---
- ER Visit Summary Date of Service: 11/21/18 Chief Complaint: Anxiety History of Present Illness: The patient is a 38 F with increased anxiety recently. She is currently switching psychiatrist. Patient was seen in the ER 2 days ago for the same and was given 6 tabs of p.o. Ativan. She states this helped but she is currently out of the medication. She is now having muscle spasms that started in her legs and moving now up into her back. Past history significant for asthma, bipolar disorder, ovarian cyst. Allergy list is reviewed and does include NSAIDs. Physical Examination: Vital signs significant for blood pressure 151/99 with a heart rate of 117. Patient is lying in the bed. She is having intermittent muscle spasms. She does have a nonrebreather mask in place secondary to her hyperventilation. Head neck examination is grossly unremarkable. Heart is tachycardic and regular. Lungs sounds clear. Abdomen is soft nontender. Neuro exam reveals good range of motion of all extremities. She has strong distal pulses throughout. Patient is tearful and anxious. Test Results: Chemistry studies are unremarkable. Emergency Department Course and Treatment: Patient was given 2 doses of Ativan, 0.5 mg IV. She was given a dose of Tylenol for a headache. On final repeat examination vital signs are significant improved. Blood pressure is 127/62 with a heart rate of 90. She is given a single tab of oral Ativan here prior to discharge with a prescription for 10 tabs. I did give her information to the counseling center as she is to call tomorrow for an appointment. Treatment Plan: [] Disposition: Discharge Impression: Anxiety This note was generated with [employer] dictation software. It may contain incorrect words, spelling, and punctuation that were not noted in review of the chart prior to signing ED Disposition - Plan for ED Patient: Disposition: Home or Assisted Living Chief Complaint: Back Instructions: ED Stress React Prescriptions: Lorazepam [Ativan] 1 mg PO TID #10 tablet Referrals: [facility] [GROUP OF PHYSICIANS] - 2 Days
[2018-11-21 20:02] VITALS: BP 127/79; PULSE 100; RESP 18; O2SAT 95
[2018-11-21] MEDS: LORazepam 1 MG Tablet PO (20:03)
[2018-11-21 20:06] VITALS: BP 127/62; PULSE 90; RESP 18; O2SAT 100
--- NOTE | 2018-11-21 20:14 | ED.RN ---
pt AMBULATED TO RESTROOM WITH MINIMAL ASSISTANCE PRIOR TO DISCHARGE.
--- OUTSIDE RECORDS SUMMARY | 2019-01-23 23:11 | XMS RPT_ITS ---
:1980 Author Organization OHIP Support Name Relationship Address Phone DEL RIO YOLETTE Unavailable [address] + [address] [place] [address] UE Unavailable Unavailable Unavailable YOLETTE DEL RIO Unavailable [address] + [address] [place] [address] UE Unavailable Unavailable Unavailable YOLETTE DEL RIO Unavailable [address] + [address] [place] [address] UE Unavailable Unavailable Unavailable YOLETTE DEL RIO Unavailable Unavailable + YOLETTE DEL RIO Unavailable Unavailable + YOLETTE DEL RIO Unavailable [address] + [address] [place] [address] UE Unavailable Unavailable Unavailable YOLETTE DEL RIO Unavailable [address] + [address] [place] [address] UE Unavailable Unavailable Unavailable FER DEL RIOE Unavailable [address] + [address] [place] [address] UE Unavailable Unavailable Unavailable FER DEL RIOE Unavailable [address] + [address] [place] [address] UE Unavailable Unavailable Unavailable YOLETTE DEL RIO Unavailable Unavailable + YOLETTE DEL RIO Unavailable Unavailable + JANE JARAMILLO Unavailable Unavailable + JANE JARAMILLO Unavailable [address] + [place] [address] UE Unavailable Unavailable Unavailable YOLETTE DEL RIO Unavailable Unavailable + YOLETTE DEL RIO Unavailable Unavailable + CLINT JANE Unavailable [address] + [place] [address] UE Unavailable Unavailable Unavailable JANE JARAMILLO Unavailable [address] + [place] [address] UE Unavailable Unavailable Unavailable YOLETTE DEL RIO [...] BREANNE DE LA VEGA, EDELMIRA SANTOS Primary [facility] Unavailable NATACHA SALAZAR Attending Unavailable BREANNE DE LA VEGA, EDELMIRA GRAHAM Primary Care Unavailable Thu Mayer MD Attending Unavailable BREANNE DE LA VEGA, EDELMIRA GRAHAM Primary [facility] Unavailable CISCO FELIPE ([facility]) Referring Unavailable PODLOGAROMAYRA ([facility]) Attending Unavailable PODLOGAROMAYRA ([facility]) Referring Unavailable PODLOGAROMAYRA ([facility]) Attending Unavailable CORINNA ANDINO Attending Unavailable SURESH STORY ([facility]) Attending Unavailable FRANSISCA, PERRY E Attending Unavailable PORSHA, SURESH ([facility]) Referring Unavailable FRANSISCA, PERRY E Referring Unavailable FRANSISCA, PERRY E Referring Unavailable FRANSISCA, PERRY E Attending Unavailable FRANSISCA, PERRY E Referring Unavailable SHIRA COTTER ([facility]) Attending Unavailable PORSHA, SURESH ([facility]) Referring Unavailable Dr. Mounika Greenfield Admitting Unavailable Jean Pierre, Dr. Mounika Parker Attending Unavailable Dr. Mounika Greenfield Admitting Unavailable Jean Pierre, Dr. Mounika Parker Attending Unavailable Corinna Andino Primary Care Unavailable Mahamed Millan Attending Unavailable Elderbrock, Corinna Primary Care Unavailable Nova Dorsey Attending Unavailable Elderbrock, Corinna Primary Care Unavailable Solomon Rashid Attending Unavailable [place]brock, Corinna Primary Care Unavailable Sarah Browning Attending Unavailable Elderbrock, Corinna Primary Care Unavailable Ungur, Remus Attending Unavailable Marcanthony, Almaz Attending Unavailable Marcanthony, Almaz Referring Unavailable Elderbrock, Corinna Primary Care Unavailable Marcanthony, Almaz Consulting Unavailable Elderbrock, Corinna Primary Care Unavailable Hong Mendoza Attending Unavailable Marcanthony, Almaz Attending Unavailable Elderbrock, Corinna Referring Unavailable Elderbrock, Corinna Primary Care Unavailable Marcanthony, Lamaz Attending Unavailable Marcanthony, Almaz Referring Unavailable Elderbrock, Corinna Primary Care Unavailable Marcanthony, Almaz Attending Unavailable Marcanthony, Almaz Referring Unavailable Elderbrock, Corinna Primary Care Unavailable Marcanthony, Almaz Attending Unavailable Elderbrock, Corinna Referring Unavailable Elderbrock, Corinna Primary Care Unavailable Elderbrock, Corinna Primary Care Unavailable Ungur, Remus Attending Unavailable Vladimir, Allyn Attending Unavailable Elderbrock, Corinna Primary Care Unavailable PROBLEMS PROBLEMS DATE TYPE CONDITION / CODE ATTENDING STATUS SOURCE 11/10/2018 Unknown K08.89 - Other Ungur, Remus Active Levels specified disorders [facility] Repository structures / K08.89(ICD-10) 05/18/2018 Active Tachycardia, NA Active [place] unspecified / Clinic Main R00.0(ICD-10) [place] Repository 03/28/2018 Unknown G89.18 - Other acute Marcanthony, Active Levels postprocedural pain [facility] / G89.18(ICD-10) Hospital Repository 01/20/2018 Unknown F19.10 - Other Marcanthony, Active [place] psychoactive [facility] substance abuse, Hospital uncomplicated / Repository F19.10(ICD-10) 12/09/2017 Active Generalized anxiety NA Active [place] disorder / Clinic Main F41.1(ICD-10) [place] Repository 11/28/2017 Active Low back pain / NA Active [place] M54.5(ICD-10) Clinic Main [place] Repository 11/28/2017 Active Other chronic pain / NA Active [place] G89.29(ICD-10) Clinic Main [place] Repository PROCEDURES PROCEDURES No Procedure Records FoundRESULTS RESULTS EMERGENCY DEPARTMENT Observed: 11/22/2018 Status: F Source: [place] SUMMARY 2:44 PM [facility] REPOSITORY [facility] Medical Records Department [address] [place] [address] Emergency Department Summary 11/21/181950 MR#: [id number] Acct: [id number] Name: SOLA PETIT Rep #: [id number] : 1980 38 From: Sarah Browning MD [...] Impression: Anxiety This note was generated with [employer] dictation software. It may contain incorrect words, [...] your Primary Care Provider. Call [facility] ([phone]) or report to the closest Emergency Room. Call 911 if necessary. 11/22/18 1444 <Electronically signed by Sarah Browning MD> Date Sarah Browning MD Cosigner Signature (If Indicated): Date CC: Corinna Andino MD DISCHARGE INSTRUCTION Observed: 11/21/2018 Status: F Source: [place] 7:53 PM [facility] REPOSITORY [facility] Medical Records Department [address] [place] [address] Discharge Instruction 11/21/181951 MR#: [id number] Acct: [id number] Name: SOLA PETIT Rep #: [id number] : 1980 38 From: Sarah Browning MD [...] your Primary Care Provider. Call [facility] ([phone]) or report to the closest Emergency Room. Call 911 if necessary. 11/21/181952 <Electronically signed by Sarah Browning MD> Date Sarah Browning MD Cosigner Signature (If Indicated): Date CC: Corinna Andino MD BASIC METABOLIC Collected: 11/21/2018 Status: F Source: [place] PROFILE (BMP) 5:16 PM [facility] REPOSITORY TYPE CODE TESTS RESULT [...] GAP 7 Performed By: #### L500.2500 #### [facility] [address] [facility] [place], [address] EMERGENCY DEPARTMENT Observed: 11/19/2018 Status: F Source: [place] SUMMARY 3:58 PM [facility] REPOSITORY [facility] Medical Records Department [address] [place] [address] Emergency Department Summary 11/19/18 1530 MR#: [id number] Acct: [id number] Name: SOLA PETIT Rep #: [id number] : 1980 38 From: Nova Dorsey MD [...] Impression: Anxiety This note was generated with [employer] dictation software. It may contain incorrect words, [...] problems, contact your Primary Care Provider. Call [facility] ([phone]) or report to the closest Emergency Room. Call 911 if necessary. 11/19/18 4624 <Electronically signed by Nova Dorsey MD> Date Nova Dorsey MD Cosigner Signature (If Indicated): Date CC: Corinna Andino MD DISCHARGE INSTRUCTION Observed: 11/19/2018 Status: F Source: [place] 3:28 PM [facility] REPOSITORY [facility] Medical Records Department [address] [place] [address] Discharge Instruction 11/19/18 1527 MR#: [id number] Acct: [id number] Name: SOLA PETIT Rep #: [id number] : 1980 38 From: Nova Dorsey MD [...] your Primary Care Provider. Call [facility] ([phone]) or report to the closest Emergency Room. Call 911 if necessary. 11/19/18 1528 <Electronically signed by Nova Dorsey MD> Date Nova Dorsey MD Cosigner Signature (If Indicated): Date CC: Corinna Andino MD DISCHARGE INSTRUCTION Observed: 11/10/2018 Status: F Source: [place] 6:56 PM [facility] REPOSITORY [facility] Medical Records Department [address] [place] [address] Discharge Instruction 11/10/181853 MR#: [id number] Acct: [id number] Name: SOLA PETIT Rep #: [id number] : 1980 38 From: Mahamed Millan DO PCP: Corinna Andino MD Status: PRE ER ED Disposition - Plan for ED Patient: Chief Complaint: Dental Instructions: ED Tooth Pain Prescriptions: Hydrocodone Bitart/Apap 5-325 [[place] 5MG-325MG] 1 tab PO Q4H PRN PRN [...] your Primary Care Provider. Call [facility] ([phone]) or report to the closest Emergency Room. Call 911 if necessary. 11/10/181855 <Electronically signed by Mahamed Millan DO> Date Mahamed Millan DO Cosigner Signature (If Indicated): Date CC: Corinna Andino MD EMERGENCY DEPARTMENT Observed: 11/10/2018 Status: F Source: [place] SUMMARY 6:54 PM [facility] Medical Records Department [address] [place] [address] Emergency Department Summary 11/10/181851 MR#: [id number] Acct: [id number] Name: SOLA PETIT Rep #: [id number] : 1980 38 From: Mahamed Millan DO [...] Treatment: [Patient was given 1 dose of Glastonbury in the emergency department.] Treatment Plan: [Patient will be given a prescription for [place] and amoxicillin.] Disposition: [Discharged home in stable condition.] Impression: [Dental pain Dental caries] This note was generated with [employer] dictation software. It may contain incorrect words, [...] your Primary Care Provider. Call [facility] ([phone]) or report to the closest Emergency Room. Call 911 if necessary. 11/10/18 3883 <Electronically signed by Mahamed Millan DO> Date Mahamed Millan DO Cosigner Signature (If Indicated): Date CC: Corinna Andino MD Observed: 10/10/2018 Status: F Source: [place] URINE CULTURE 4:00 PM [facility] REPOSITORY Sp. Request/Comment: - Specimen received [...] <=0.5 F Performed By: #### URCUL #### [facility] [address] [place], [place] [address] PROGRESS Observed: 10/10/2018 Status: COMPLETED Source: [place] 3:51 PM [facility] REPOSITORY HNO ID: [id number] Author: Shira Miguel ([facility]) Robert Service: (none) Author Type: Nurse Practitioner Type: Progress Notes Filed: 10/10/2018 4:09 PM Note Text: This note was created using [employer]. Subjective Sola Petit is a 38 year [...] with PCP for anxiety questions Shira Cotter APRN.CHAIRLIFT OPERATOR CNOV Observed: 10/10/2018 Status: COMPLETED Source: [place] 3:40 PM [facility] REPOSITORY [facility] ([id number]) 1980 F Date Time Provider Department 10/10/18 3:40 PM SHIRA COTTER ([facility]) GINA During your visit today, we recorded the following information about you: Pulse Respiration Blood pressure Weight 120/minute 16/minute 118/68 55.8 kg Shira Miguel JosuekaylaDARRYN duke 10/10/2018 4:09 PM Signed This note was created using [employer]. Subjective Sola Petit is a 38 year [...] with PCP for anxiety questions Shira Cotter APRN.CHAIRLIFT OPERATOR Referring Provider: SELF [200] Allergies As of [...] Diagnosis:UTI symptoms [R39.9] Order(s):UA DIP, URINE (POC) [4840649] Order #: [id number]. #:[id number] URINE CULTURE [SQURCUL] Order #: [id number] Prescriptions as of 10/10/2018 Sig: ALBUTEROL SULFATE HFA 90 MCG/* Inhale 2 Puffs as instructed * REMERON ORAL Take by mouth. NEBULIZER ACCESSORIES KIT Use albuterol 1 vial in nebul* QUETIAPINE 100 MG TABLET Take 100 mg by mouth once janee* VENLAFAXINE ER 37.5 MG CAPSUL* Take 1 capsule by mouth once * Medication notes this encounter ATIVAN ORAL >> Shira Cotter APRN.CHAIRLIFT OPERATOR 10/10/2018 4:06 PM not listed in OARRS [...] EMERGENCY DEPARTMENT Observed: 09/28/2018 Status: F Source: [place] SUMMARY 5:45 PM [facility] REPOSITORY [facility] Medical Records Department [address] [place] [address] Emergency Department Summary 09/28/18 1459 MR#: [id number] Acct: [id number] Name: SOLA PETIT Rep #: [id number] : 1980 38 From: Hong Mendoza DO [...] hip contusion This note was generated with [employer] dictation software. It may contain incorrect words, [...] your Primary Care Provider. Call [facility] ([phone]) or report to the closest Emergency Room. Call 911 if necessary. 09/28/18 1745 <Electronically signed by Hong Mendoza DO> Date Hong Mendoza DO Cosigner Signature (If Indicated): Date CC: Corinna Andino MD HIP, UNI W/ PELVIS Observed: 09/28/2018 Status: F Source: [place] 2-3 VIEWS 2:46 PM [facility] REPOSITORY [facility] Imaging Services [address] [place] [address] HIP, UNI W/ Pelvis 2-3 Views MR#: [id number] Acct: [id number] Name: SOLA PETIT Rep #: [id number] : 1980 F 38 From: Lj Wolfe MD PCP: Corinna Andino MD Status: PRE ER Study: HIP, UNI W/ Pelvis 2-3 Views Date of Exam: 09/28/18 Exam# [id number] Ordering Dr: Hong Mendoza DO STUDY: X-RAY [...] Lj Wolfe MD at 15:11 EST Tel [phone], Service support , CC: Hong Mendoza DO; Corinna Andino MD Business System Consultant: Signed PROGRESS Observed: 08/21/2018 Status: COMPLETED Source: [place] 5:09 PM [facility] REPOSITORY O ID: [id number] Author: Perry Gongora Service: (none) Author Type: Physician Type: Progress Notes Filed: 08/21/2018 5:26 PM Note Text: PERTINENT CARDIAC HISTORY Tachycardia Chest pain ADHERENCE TO GUIDELINES LB-I or ARB for HF with prior LVEF<40 (NQF 0081) - N/A ASA or Plavix for ASHD (NQF 0067) - N/A Beta kae for ASHD with prior AL or prior LVEF<40 (NQF 0070) - N/A [...] MD EKG1 Observed: 08/21/2018 Status: F Source: [place] 3:27 PM [facility] REPOSITORY NAME : SOLA PETIT PID : [id number] : 1980 Gender : Female Race : [...] ms QTC Calculation(Bezet) : 460 ms P [employer] : 60 degrees R [employer] : 87 degrees T [employer] : 37 degrees Test Reason : Location : 136 : MARIANO Overread By : PERRY GONGORA MD Edited By : PERRY GONGORA MD Referred By : PERRY GONGORA Acquired by : YOLANDA ALVARADO Observed: 08/21/2018 Status: COMPLETED Source: [place] 3:15 PM [facility] REPOSITORY Office Visit ([facility]) SOLA PETIT ([id number]) 1980 F Date Time Provider Department 08/21/18 [...] N/A Beta kae for ASHD with prior AL or prior LVEF<40 (NQF 0070) - N/A [...] Corinna Andino MD Referring Provider: PERRY GONGORA [[id number]] Allergies As of Date: 08/21/2018 Noted Allergy [...] Order(s):ECG COMPLETE W INTERPRETATION [ECG01] Order #: [id number] FUTURE Prescriptions as of 08/21/2018 Sig: CEPHALEXIN [...] the following areas and commit to making rn long term care changes. EAT A WHOLE FOOD, PLANT BASED [...] 08/21/18 CNNURSE Observed: 08/21/2018 Status: COMPLETED Source: [place] 2:15 PM [facility] REPOSITORY Nurse Visit ([facility]) SOLA PETIT ([id number]) 1980 F Date Time Provider Department 08/21/18 2:15 PM [facility] During your visit today, we recorded the following information about you: Referring Provider: PERRY GONGORA [[id number]] Allergies As of Date: 08/21/2018 Noted Allergy [...] 08/22/18 PROGRESS Observed: 08/15/2018 Status: COMPLETED Source: [place] 8:23 PM [facility] REPOSITORY HNO ID: [id number] Author: Aylin Peters Service: (none) Author Type: [...] 09/04/2010 laparotomy Salpingo-oophorectomy left tube, Dr. Kingston, [place] - related to complications to surgical procedure in summer, post operative hematoma, wound infection, drainage of intraabdominal abscess CT [facility] at [facility] - SALPINGECTOMY 04/2010 Dr. Kingston - [place] - open tubal procedure, retturn to OR [...] APRN.ORQUIDEA CNOV Observed: 08/15/2018 Status: COMPLETED Source: [place] 8:00 PM [facility] REPOSITORY Office Visit ([facility]STR) SOLA PETIT ([id number]) 1980 F Date Time Provider Department 08/15/18 8:00 PM [facility] During your visit today, we recorded the following information about you: Temperature Pulse Respiration Blood pressure 97.7 degrees 80/minute 16/minute 116/68 Weight 52.2 kg Aylin Peters, USAMA.CHAIRLIFT OPERATOR 08/15/2018 8:26 PM Signed Subjective HPI Patient [...] drainage of intraabdominal abscess CT guided at [facility] - SALPINGECTOMY 04/2010 Dr. Kingston - [place] - open tubal procedure, retturn to OR [...] Patient agreeable to treatment plan. Aylin Peters APRN.CHAIRLIFT OPERATOR Referring Provider: SELF [200] Allergies As of [...] Date Reviewed: 08/15/2018 Reviewed by: Aylin Travis (Elementary Secretary) Fran - Fully Assessed Reason for Visit: [...] and Disposition History Recorded Encounter Status:Closed by YALIN PETERS on 08/15/18 PROGRESS Observed: 08/07/2018 Status: COMPLETED Source: [place] 4:05 PM [facility] REPOSITORY HNO ID: [id number] Author: Zbigniew Paul Service: (none) Author Type: [...] drainage of intraabdominal abscess CT guided at [facility] - SALPINGECTOMY 04/2010 Dr. Kingston - [place] [...] MD CNOV Observed: 08/07/2018 Status: COMPLETED Source: [place] 3:45 PM [facility] REPOSITORY Office Visit (WSTR) SOLA PETIT ([id number]) 1980 F Date Time Provider Department 08/07/18 3:45 PM ZBIGNIEW PAUL [facility] During your visit today, we recorded the [...] 09/04/2010 laparotomy Salpingo-oophorectomy left tube, Dr. Kingston [place] - related to complications to surgical procedure in summer, post operative hematoma, wound infection, drainage of intraabdominal abscess CT guided at [facility] - SALPINGECTOMY 04/2010 Dr. Kingston - [place] [...] for up to 3 days. Letter Text Levels Department of Urgent Care [address] [place], [place] [address] 08/07/2018 Sola Petit [facility]# [id number] [address] [facility] [address] TO WHOM IT MAY CONCERN: This is to confirm that Sola Petit had an appointment and was seen at the [facility] in the Department of Urgent Care by Zbigniew Paul MD on 08/07/2018 for illness. Sincerely , Zbigniew Paul MD Encounter Status:Closed by ZBIGNIEW PAUL MD on 08/07/18 CNPN Observed: 05/19/2018 Status: COMPLETED Source: [place] 12:00 AM [facility] REPOSITORY Telephone ([facility]) SOLA JARAMILLO ([id number]) 1980 F Date Time Provider Department 05/19/18 [...] Chandler Austin RN 06/05/2018 10:13 AM Signed [facility] called, pt is incarcerated asking if pt [...] Letter Text Sola Jaramillo May 29, [address] [address] 05/29/2018 [facility]# [id number] Sola Jaramillo [address] [facility] [address] Dear Ms. Jaramillo: We have been unsuccessful in reaching you by phone. Please call our office at for further instructions. Thank you. Sincerely, Dr. Gongora Encounter Status:Closed by CHANDLER AUSTIN RN on 05/29/18 PROGRESS Observed: 05/18/2018 Status: COMPLETED Source: [place] 5:07 PM [facility] REPOSITORY HNO ID: [id number] Author: Perry Gongora Service: (none) Author Type: Physician Type: Progress Notes Filed: 05/18/2018 5:16 PM Note Text: PERTINENT CARDIAC HISTORY Tachycardia Chest pain ADHERENCE TO GUIDELINES LB-I or ARB for HF with prior LVEF<40 (NQF 0081) - N/A ASA or Plavix for ASHD (NQF 0067) - N/A Beta kae for ASHD with prior AL or prior LVEF<40 (NQF 0070) - N/A [...] 09/04/2010 laparotomy Salpingo-oophorectomy left tube, Dr. Kingston [place] - related to complications to surgical procedure in summer, post operative hematoma, wound infection, drainage of intraabdominal abscess CT guided at [facility] - SALPINGECTOMY 04/2010 Dr. Kingston - [place] - open tubal procedure, retturn to OR [...] MD MAGNESIUM Collected: 05/18/2018 Status: F Source: [place] 4:06 PM [facility] REPOSITORY TYPE CODE TESTS RESULT OUT OF REFERENCE UNITS RANGE LAB MG 1.7-2.3 mg/dL High Magnesium 2.4 Performed By: #### MG1, TSH #### [facility] [address] [place], [place] [address] TSH Collected: 05/18/2018 Status: F Source: [place] 4:06 PM [facility] REPOSITORY TYPE CODE TESTS RESULT OUT [...] Clinical Practice Guideline. J Clin Endocrinol Metab, 2012:97:7492-6601. 2. Natividad VALADEZ. Overview of thyroid disease in . UpToDate. 2016. Accessed on April 16, 2016. Performed By: #### MG1, TSH #### [facility] [address] [place], [place] [address] CNOV Observed: 05/18/2018 Status: COMPLETED Source: [place] 3:15 PM [facility] REPOSITORY Office Visit ([facility]) SOLA JARAMILLO ([id number]) 1980 F Date Time Provider Department 05/18/18 [...] the following areas and commit to making rn long term care changes. EAT A WHOLE FOOD, PLANT BASED [...] N/A Beta kae for ASHD with prior AL or prior LVEF<40 (NQF 0070) - N/A [...] 09/04/2010 laparotomy Salpingo-oophorectomy left tube, Dr. Kingston [place] - related to complications to surgical procedure in summer, post operative hematoma, wound infection, drainage of intraabdominal abscess CT [facility] - SALPINGECTOMY 04/2010 Dr. Kingston - [place] - open tubal procedure, retturn to OR [...] Edelmira Stephenson MD Referring Provider: SURESH STORY ([facility]) [[id number]] Allergies As of Date: 05/18/2018 Noted Allergy [...] Diagnosis:Tachycardia [R00.0] Order(s):TSH BLD [SQTSH] Order #: [id number] FUTURE MAGNESIUM BLD [SQMG1] Order #: [id number] FUTURE ECHO [544656] Order #: [id number]: 1 FUTURE Prescriptions as of 05/18/2018 Sig: [...] HOLTER MONITOR Observed: 04/05/2018 Status: F Source: [place] 10:51 AM CLINIC OTHER CAMPUS REPOSITORY IMPRESSIONS [...] 142 BPM. Hookup Date: 20180405 Hookup Time: 422072 Recording Duration: 435966 S Minimum Heart Rate: 65 BPM Minimum Heart Rate Date/Time: 2018040612 Maximum Heart Rate: 173 BPM Maximum Heart Rate Date/Time: 20180406 255511 Average Heart Rate: 100 BPM Longest RR: 0.992 S Longest RR DATE/TIME: 20180407 095649 QRS complexes: 619752 Ventricular Ectopics: 11 Ventricular Isolated Beats: 11 Ventricular Bigeminal Cycles: 4 Ventricular Couplets: 0 Ventricular Runs: 0 Ventricular Beats in Runs: 0 Supraventricular Ectopics: 5 Supraventricular Isolated Beats: 5 Supraventricular Couplets: 0 Supraventricular Runs: 0 Supraventricular Beats in Runs: 0 Maximum S-T Levels Channel 1: -12.800 mm Maximum S-T Levels Channel 1 Date/Time: 20180405 311045 Minimum S-T Levels Channel 1: -12.800 mm Minimum S-T Levels Channel 1 Date/Time: 20180405 655467 Maximum S-T Levels Channel 2: -12.800 mm Minimum S-T Levels Channel 2: -12.800 mm Minimum S-T Levels Channel 2 Date/Time: 20180405 741926 Overreading Physician: Geraldine Pitts MD See Holter MUSE for ECG strips. OPERATIVE REPORT Observed: 03/28/2018 Status: F Source: [place] 5:09 AM [facility] REPOSITORY [facility] Medical Records Department [address] [place] [address] Operative Report 03/23/18 1301 MR#: [id number] Acct: [id number] Name: SOLA JARAMILLO Rep #: [id number] : 1980 37 From: Almaz Watkins MD PCP: Corinna Andino MD Status: [facility] [place] [facility] [place] List (1) Chronic female pelvic pain [...] adhesions and ovarian to side wall adhesions clock smith: Flora Burr Type of Anesthesia:: General Specimen's [...] DISCHARGE INSTRUCTION Observed: 03/23/2018 Status: F Source: [place] 1:08 PM [facility] REPOSITORY [facility] Medical Records Department [address] [place] [address] Instructions for Home/Discharge Instructions 03/23/18 1308 MR#: [id number] Acct: [id number] Name: SOLA JARAMILLO Rep #: [id number] : 1980 37 From: Almaz Watkins MD PCP: Corinna Andino MD Status: REG KSC Discharge Diet: No Restrictions - Increase fluid [...] Follow Up With: Almaz Watkins MD - [phone] When: 2-3 weeks 03/23/18 1308 <Electronically signed by Almaz Watkins MD> Date Almaz Watkins MD CC: Corinna Andino MD HISTORY AND PHYSICAL Observed: 03/23/2018 Status: F Source: HEXT EXAM 1:02 PM [facility] REPOSITORY [facility] Medical Records Department [address] [place] [address] History and Physical 03/23/18 0955 MR#: [id number] Acct: [id number] Name: SOLA JARAMILLO Rep #: [id number] : 1980 37 From: Almaz Watkins MD PCP: Thu HAWKINS,Corinna Status: REG SDC Y Location: [address] - Problem List (1) Chronic female [...] Visit Reasons: ER F/U CYST ON OVARY Agency Manager Required: No Accompanied by: Is patient in [...] (Verified 01/08/18 05:52) Unknown tramadol HCl [From [facility]] Adverse Reaction (Verified 01/08/18 05:52) [...] Nutritional Appearance: average body habitus Orientation: alert [facility] Head: normal to inspection, normocephalic Neck Neck: [...] 03/23/2018 Status: F Source: DANAE 12:00 AM [facility] REPOSITORY Patient: SOLA JARAMILLO : 1980 (37/F) Acct Num: [id number] Phys: Tony HAWKINS,Almaz Unit Num: [id number] [place] [facility] [place]: [id number] Received: 03/24/18 - 1318 Spec Type: OVARY [...] noted measuring 1 cm in greatest dimension. Cloth Finishing Range Operator Chief sections are submitted in three cassettes. / SJ:jorge 03/24/18 TC:4 CPT: 51179 HEADER OPERATION: Laparoscopic oophorectomy PRE-OP DIAGNOSIS: Chronic pelvic pain TISSUE SUBMITTED: Right ovary MICROSCOPIC DESCRIPTION Slides are reviewed. MICROSCOPIC DIAGNOSIS Right ovary, oophorectomy: Physiologic follicular and corpus luteum cysts.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 ROWDY ([id number]), editor book AMIRA GARCIA ([id number]) on 12/19/2017 1:00:13 PM Referred By: VLADIMIR Confirmed By:ROWDY DENNIS MD 12/19/17 1300 Date Rowdy Dennis MD CC: Allyn Squires; Corinna Andino MD Signed URINALYSIS, ROUTINE Collected: 12/18/2017 Status: F Source: [facility] 12:30 PM [facility] REPOSITORY TYPE CODE TESTS RESULT OUT OF RANGE REFERENCE UNITS LAB COLOR Normal Color, Urine Straw LAB CHAUR Normal Character Hazy LAB SPGRUR 1.003-1.029 Normal Specific 1.006 Smyer,Urine LAB PHUR 4.5-8.0 Normal pH,Urine 5.0 LAB [...] Unless otherwise noted, all testing performed by [place] [address] [address] [place], [place] [address] CLIA: [id number] Medical Assistant Ob Gyn: Cisco Link M.D. Observed: 12/18/2017 Status: F Source: [facility] CULTURE, URINE 12:30 PM [facility] REPOSITORY Test Name: Culture, Urine Culture Status: Final Culture Report: No Growth - Day 2 Micro Source: Urine Performed By: #### URCUL #### Unless otherwise noted, all testing performed by [address] [address] CLIA: [id number] Medical Assistant Ob Gyn: Cisco Link M.D. URINALYSIS, ROUTINE Collected: 12/16/2017 Status: F Source: [facility] 6:15 PM [facility] REPOSITORY TYPE CODE TESTS RESULT OUT OF RANGE REFERENCE UNITS LAB COLOR Normal Color, Urine Straw LAB CHAUR Normal Character Clear LAB SPGRUR 1.003-1.029 Normal Specific 1.005 Smyer,Urine LAB PHUR 4.5-8.0 Normal pH,Urine 7.0 LAB [...] Unless otherwise noted, all testing performed by [place] [address] CLIA: [id number] Medical Assistant Ob Gyn: Cisco Link M.D. CBC WITH DIFF Collected: 12/16/2017 Status: F Source: [facility] 5:16 PM [facility] REPOSITORY TYPE CODE TESTS RESULT OUT [...] Unless otherwise noted, all testing performed by [address] [address] CLIA: [id number] Medical Assistant Ob Gyn: Cisco Link M.D. COMPREHENSIVE METABOLIC Collected: 12/16/2017 Status: F Source: [facility] PANEL 5:16 PM [facility] REPOSITORY TYPE CODE TESTS RESULT OUT [...] used with caution. LAB eGFRB ml/min/1.73sq.m eGFR, -[place] Citizen >=60 Result Comment: GFR Calc LAB CALCM [...] Unless otherwise noted, all testing performed by [facility] [address] [place], [place] [address] CLIA: [id number] Medical Assistant Ob Gyn: Cisco Link M.D. TSH Collected: 12/16/2017 Status: F Source: [facility] 5:16 PM [facility] REPOSITORY TYPE CODE TESTS RESULT OUT OF RANGE REFERENCE UNITS LAB TSH 0.320-5.000 uIU/mL Normal TSH 1.49 Result Comment: Samples from patients routinely receiving high dose biotin therapy (100-300 mg/day) may show falsely decreased results. Please correlate clinically. Performed By: #### CBCDIF, CMET, LIPID, TSH #### Unless otherwise noted, all testing performed by [place] [address] CLIA: [id number] Medical Assistant Ob Gyn: Cisco Link M.D. LIPID PANEL Collected: 12/16/2017 Status: F Source: [facility] 5:16 PM [facility] REPOSITORY TYPE CODE TESTS RESULT OUT [...] Unless otherwise noted, all testing performed by [place] [address] CLIA: [id number] Medical Assistant Ob Gyn: Cisco Link M.D. URINALYSIS, COMPLETE Collected: 12/16/2017 Status: F Source: HEXT 4:17 AM [facility] REPOSITORY Order Comment: Order Date: 12/16/17 COLOR [...] URINE 1+ Performed By: #### L400.0001 #### [facility] [address] [facility], [address] ABDOMEN/PELVIS WITHOUT Observed: 12/16/2017 Status: F Source: HEXT CONT 4:14 AM [facility] REPOSITORY [facility] Imaging Services [address] [place] [address] Abdomen/Pelvis without Cont MR#: [id number] Acct: [id number] Name: SOLA JARAMILLO Rep #: [id number] : 1980 F 37 From: Tj Mendoza MD PCP: Thu HAWKINS,Corinna Status: REG ER Study: Abdomen/Pelvis without Cont Date of Exam: 12/16/17 Exam# [id number] Ordering Dr: Allyn Squires STUDY: CT ABDOMEN [...] , CC: Allyn Squires; Corinna Andino MD Business System Consultant: Signed CBC W/DIFF, AUTOMATED Collected: 12/15/2017 Status: F Source: HEXT 10:25 PM [facility] REPOSITORY TYPE CODE TESTS RESULT [...] Lymph 2.90 Performed By: #### L100.0100 #### [facility] [address] [place], [place], [address] ALCOHOL, BLOOD Collected: 12/15/2017 Status: F Source: DANAE (MEDICAL)-SERUM 10:25 PM [facility] REPOSITORY TYPE CODE TESTS RESULT [...] fatal coma Performed By: #### L501.9100 #### [facility] [address] [place], [place], [address] BASIC METABOLIC Collected: 12/15/2017 Status: F Source: DANAE PROFILE (BMP) 10:25 PM [facility] REPOSITORY TYPE CODE TESTS RESULT [...] 10 Performed By: #### L500.2500, L501.9520 #### [facility] [address] [facility], [address] THYROID STIM HORMONE Collected: 12/15/2017 Status: F Source: DANAE (TSH) 10:25 PM [facility] REPOSITORY TYPE CODE TESTS RESULT OUT OF RANGE REFERENCE UNITS LAB L501.9520 0.358-3.74 uIU/mL Normal TSH 1.86 Performed By: #### L500.2500, L501.9520 #### [facility] [address] [facility], [address] ,SERUM,HCG QUALI. Collected: Status: F Source: DANAE 12/15/2017 10:25 PM [facility] REPOSITORY TYPE CODE TESTS RESULT OUT OF REFERENCE UNITS RANGE LAB L700.6700 =>Qualitative mIU/mL Normal HCG Qual < 1 triggr LAB L700.7000 0-9 Nonpreg Negative Normal HCGSQUAL NEGATIVE Performed By: #### L700.6800 #### [facility] [address] [place], [address] URINE DRUG SCREEN Collected: 12/15/2017 Status: F Source: DANAE (VISTA) 8:06 PM [facility] REPOSITORY Order Comment: Has pt arrived? Y [...] Normal NEGATIVE Performed By: #### L505.5000 #### [facility] [address] [place], [address] Observed: 12/15/2017 Status: F Source: HEXT CULTURE, URINE 8:06 PM [facility] REPOSITORY Urine Culture ORGANISM 1: Presumptive E. coli Nemo Count >100,000 Presumptive E. coli: REACTION Amoxacillin/Clavulanic [...] <=20 S (NF) indicates non-formulary drug at [facility]. Approval by Infectious Disease Specialist required before non-formulary drugs may be ordered and/or dispensed. Performed By: #### M100.0650 #### [facility] [address] [place], [address] TSH Collected: 12/09/2017 Status: F Source: [place] 4:15 PM [facility] REPOSITORY TYPE CODE TESTS RESULT OUT [...] Clinical Practice Guideline. J Clin Endocrinol Metab, 2012:97:8368-4737. 2. Natividad VALADEZ. Overview of thyroid disease in . UpToDate. 2016. Accessed on April 16, 2016. Performed By: #### TSH, FT4 #### [facility] [address] [place] [address] FREE T4 Collected: 12/09/2017 Status: F Source: [place] 4:15 PM [facility] REPOSITORY TYPE CODE TESTS RESULT OUT OF RANGE REFERENCE UNITS LAB FT4 0.9-1.7 ng/dL Free T4 1.2 Performed By: #### TSH, FT4 #### [facility] [address] [place] [id number] PROGRESS Observed: 12/09/2017 Status: COMPLETED Source: [place] 3:26 PM [facility] REPOSITORY HNO ID: [id number] Author: Omayra (Technical Report Writer) Podlogar Service: (none) Author Type: Nurse Practitioner [...] now. Has a counselor and sponsor at [facility] for support. Past history of depression and anxiety. Family mental health hx: yes mother depression Previous treatment modalities: group therapy, individual therapy with Psychiatrist, Psychologist and Counselor and medication. 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 - Counseling Center [facility] and after hours crisis line - Everywoman's [...] LUMBAR 3V Observed: 11/28/2017 Status: F Source: [place] AP/LAT/L5-S1 4:04 PM [facility] REPOSITORY [...] and hip joint spaces. IMPRESSION: UNREMARKABLE EXAM Business System Consultant: PSCB Transcribe Date/Time: Nov 28 2017 4:05P Dictated by : MOLLY KU MD This examination was interpreted and the report reviewed and electronically signed by: MOLLY KU MD on Nov 28 2017 4:06PM EST [id number] PROGRESS Observed: 11/28/2017 Status: COMPLETED Source: [place] 3:54 PM [facility] [place] REPOSITORY [facility]NO ID: [id number] Author: Beatrice WahlRtMaribel Hyde Service: (none) Author Type: Estimator Type: Progress Notes Filed: 11/28/2017 4:00 PM [...] PM PROGRESS Observed: 11/28/2017 Status: COMPLETED Source: [place] 3:29 PM [facility] REPOSITORY [facility] ID: [id number] Author: Cisco Felipe Service: (none) Author Type: [...] 09/04/2010 laparotomy Salpingo-oophorectomy left tube, Dr. Kingston [place] - related to complications to surgical procedure in summer, post operative hematoma, wound infection, drainage of intraabdominal abscess CT guided at [facility] - SALPINGECTOMY 04/2010 Dr. Kingston - [place] - open tubal procedure, retturn to OR [...] ORQUIDEA Rosado Observed: 11/28/2017 Status: COMPLETED Source: [place] 3:00 PM [facility] REPOSITORY Office Visit (WSTR) SOLA JARAMILLO ([id number]) 1980 F Date Time Provider Department 11/28/17 [...] drainage of intraabdominal abscess CT guided at [facility] - SALPINGECTOMY 04/2010 Dr. Kingston - Anupama [...] Back Pain [12] Cmt: recurring seen in [place] [facility] 8 day, knot in back, right middle of back with leg numbness Primary Visit Diagnosis:Chronic right-sided low back pain, with sciatica presence unspecified [M54.5, G89.29] Order(s):XR LUMBAR GENERAL 3V AP/LAT/L5-S1 [[id number]] Order #: [id number] FUTURE predniSONE (DELTASONE) 10 mg tabletTake 4 [...] as needed for Muscle Spasm. Letter Text Levels Department of Urgent Care Cisco Felipe CNP [address], [place] [address] 11/28/2017 Sola Jaramillo [facility]# [id number] [address] [place] [address] TO WHOM IT MAY CONCERN: This is to confirm that Sola Jaramillo had an appointment and was seen at the [facility] in the Department of Urgent Care by Cisco Felipe CNP on 11/28/2017. Sincerely yours, Cisco Felipe CNP Encounter Status:Closed by CISCO FELIPE CNP on 11/28/17 ALLERGIES ALLERGIES DATE TYPE / NAME / CODE REACTION SEVERITY SOURCE CODE 11/19/2018 Drug NSAIDS Unknown Unknown Levels Allergy/41 (Non-Steroidal Community 3478660( Anti-Inflamma/F0010 [facility]) [address](RXNORM) Repository 11/19/2018 Drug codeine/[id number]( Other Unknown [place] Allergy/41 RXNORM) Community 5549251([facility]) Repository 11/19/2018 Drug aspirin/Z656778022( Other Unknown [place] Allergy/41 RXNORM) Community 4996183([facility]) Repository 11/19/2018 Drug naproxen/[id number] Unknown Unknown Levels Allergy/41 (RXNORM) Community 2030007([facility]) Repository 11/19/2018 Drug adhesive/[id number] Itching Unknown [place] Allergy/41 (RXNORM) Community 1588588([facility]) Repository 11/19/2018 Drug vancomycin/S8922302 Itching Unknown Levels Allergy/41 66(RXNORM) Community 9325834([facility]) Repository 11/19/2018 Drug latex/I947460190(RX Itching Unknown [place] Allergy/41 NORM) Community 2019789([facility]) Repository 01/20/2018 DRUG HYDROXYZINE HCL OTHER: SEE Uriel Pereira INGREDI/41 [facility] Main 4559615([facility]) Repository 01/08/2018 Drug tramadol Other Unknown [place] Allergy/41 HCl/Z197462180(RXNO Community 9720799([facility]) Repository 10/15/2014 DRUG/69080 PROMETHAZINE-DM OTHER: SEE Uriel Pereira 1003([facility] Main D CT) [place] Repository 02/08/2014 DRUG/22622 TUBERCULIN PPD OTHER: SEE Uriel Pereira 1003([facility] Main D CT) [place] Repository 11/20/2012 DRUG AMITRIPTYLINE OTHER: SEE Uriel Pereira INGREDI/41 [facility]608[facility] 04/28/2012 Chemical/4 ADHESIVE TAPE OTHER: SEE Uriel Pereira [id number]( (ROSINS) [facility] [place] Repository 04/28/2012 DRUG LORAZEPAM UNKNOWN Pereira INGREDI/41 [facility] 7845323[facility] 03/31/2011 DRUG ASPIRIN [place] INGREDI/41 Clinic Main 8752994([facility]) Repository 03/31/2011 Drug NSAIDS Pereira Class/4195 (NON-STEROIDAL Clinic Main 26012(SNOM ANTI-INFLAMMATORY [place] ED CT) DRUG) Repository 03/02/2011 DRUG CODEINE OTHER: SEE C [place] INGREDI/41 Clinic Main 4231454( [place] OMED CT) Repository 02/02/2011 DRUG NAPROXEN INTOLERANCE [facility]/41 Clinic Main 2856957( [place] OMED CT) Repository 02/02/2011 DRUG TRAMADOL [place] [facility]/41 Clinic Main 7513457( [place] OMED CT) Repository 09/14/2010 DRUG LATEX ITCHING [facility]/41 Clinic Main 0958685( [place] OMED CT) Repository 09/14/2010 DRUG VANCOMYCIN ITCHING [facility]/41 Clinic Main 5625534( [place] OMED CT) Repository ENCOUNTERS ENCOUNTERS ADMIT/DISCHARGE ACCOUNT NUMBER ADMITTING ENCOUNTER LOCATION SOURCE CLASS 11/21/2018/11/21/19 [id number] Emergency Levels [place] ding:ED Repository 11/19/2018/11/19/19 [id number] Emergency Levels[address] ding:ED Repository 11/10/2018/11/10/19 [id number] Emergency Levels[address] ding:ED Repository 11/06/2018/11/06/19 [id number] Emergency BBuilding:JOSHUA Trevizo [address] [place] [address] Repository 10/10/2018/10/11/20 [id number] Ambulatory [address] Main [place] Repository 09/28/2018/09/28/20 [id number] Emergency Levels[address] ding:ED Repository 08/21/2018/08/22/20 [id number] Ambulatory [place] [address] Clinic Main [place] Repository 08/15/2018/08/16/20 [id number] Ambulatory [place] [address] Clinic Main [place] Repository 08/07/2018/08/08/20 [id number] Ambulatory [place] [address] Clinic Main [place] Repository 05/26/2018/05/26/20 [id number] Ambulatory [place] [address] Clinic Main [place] Repository 05/18/2018/05/18/20 [id number] Ambulatory [place] [address] Clinic Main [place] Repository 05/18/2018/05/18/20 [id number] Ambulatory [address] Repository 04/07/2018/04/07/20 [id number] Ambulatory BMSBuilding: [place] 18 BMS.[facility] Repository 04/05/2018 [id number] Ambulatory [facility] Repository 03/23/2018/03/23/20 [id number] Ambulatory Levels[address] ding:[facility] [place]ository 03/23/2018 [id number] Ambulatory BMSBuilding: [place] BMS.CF.[facility] Repository 03/22/2018/03/23/20 [id number] Ambulatory [address] Repository 03/21/2018/03/21/20 [id number] Emergency BBuilding:ER Phu [address] [place] [address] Repository 01/30/2018/02/04/[id number] Jean Pierre [place] [address] Mounika ALuis Encounter lding:[address] and Psych/AdultR Erika oom: [address] [address]Bed: Repository [employer] [facility] [employer] [facility] [id number] 01/30/2018/01/31/20 [id number] Emergency [address] ding:ED Repository 01/26/2018/01/27/20 [id number] Emergency BBuilding:ER Phu [address] [place] [address] Repository 01/20/2018/01/24/20 [id number] Ambulatory [address] Repository 01/12/2018 [id number] Ambulatory [facility] ding:LAB Repository 01/10/2018/01/11/20 [id number] Ambulatory BMSBuilding: Levels 18 BMS.[facility] Repository 01/09/2018/01/10/20 [id number] Emergency BBuilding:ER [address] Repository 01/08/2018/01/09/20 [id number] Emergency [address] ding:ED Repository 01/05/2018/01/10/20 [id number] Ambulatory [address] Repository 12/31/2017/01/01/20 [id number] Emergency Levels[address] ding:ED Repository 12/29/2017/12/31/19 [id number] Ambulatory [address] Repository 12/16/2017/12/21/[id number] Jean Pierre Inpatient [place] [address] Mounika ALuis Encounter lding:B33B [place] and Psych/AdultR Erika oom: B33B [facility] 3313Bed: Repository B33B [id number] 12/15/2017/12/16/19 [id number] Emergency Danae Dana[place] [facility] ding:ED Repository 12/09/2017 [id number] Ambulatory [facility] Repository 12/09/2017/12/09/19 [id number] Ambulatory [address] Repository 11/28/2017/11/28/19 [id number] Ambulatory [address] Repository 11/28/2017/11/28/19 [id number] Ambulatory [address] Repository PAYERS PAYERS ENCOUNTER GUARANTOR PAYER SUBSCRIBER SOURCE 11/21/2018 SOLA L Primary SOLA L [place] [id number] N Insurance:CARESOURCEP LYCANSDOB: Community [facility] Number: [id number] [id number] Repository [address]Nge: ([phone]) Date:2018-11-21P O [phone] () [address]ATTN: [place] [address]DD: 11/21/2018 Secondary NOT GIVENUNK [place] Insurance:SELF PAY [facility] Number: Effective Repository Date:2018-11-21 11/19/2018 SOLA L Primary SOLA L [place] [id number] N Insurance:CARESOURCEP LYCANSDOB: [facility] Number: [id number] [id number] Repository [address]Epy: ([phone]) Date:2018-11-19P O [phone] () [address]ATTN: [place] [address]RT: 11/19/2018 Secondary NOT GIVENUNK Levels Insurance:SELF PAY [facility] Number: Effective Repository Date:2018-11-19 11/10/2018 SOLA L Primary SOLA L [place] [id number] N Insurance:CARESOURCEP LYCANSDOB: Community [address] Number: [id number] [id number] Repository [address]Yjk: ([phone]) Date:2018-11-10P O [phone] () [address]ATTN: [place] [address]BZ: 11/10/2018 Secondary NOT GIVENUNK [place] Insurance:SELF PAY [facility] Number: Effective Repository Date:2018-11-10 11/06/2018 SOLA L Primary SOLA L [facility] LYCANSDOB: Insurance:CARESOURCE LYCANSDOB: Foundation N MEDICAIDPolicy [id number] [address] Number: N [address] [place] [address] [id number] [place] [address]Gaw: ([phone]) Date:2018-11-06 46049Zpw: () [phone] Name:[address] ()Tel: 000) [address], [place] [address] () [address]VB: 09/28/2018 SOLA L Primary SOLA L [place] [id number] [address] Insurance:CARESOURCEP LYCANSDOB: [facility] [address] olicy Number: [id number] [id number] Repository [address]Gyn: ([phone]) Date:2018-09-28P O [phone] () [address]ATTN: [place] [address]XS: 09/28/2018 Secondary NOT GIVENUNK [place] Insurance:SELF PAY [facility] Number: Effective Repository Date:2018-09-28 04/07/2018 SOLA L Primary SOLA L Levels [id number] N Insurance:CARESOURCEP LYCANSDOB: [facility] [address] olicy Number: [id number] [id number] Repository [address]Yzf: ([phone]) Date:2018-03-24 O [phone] () [address]ATTN: [place] [address]IN: 04/07/2018 Secondary NOT GIVENUNK Levels Insurance:SELF PAY [facility] Number: Effective Repository Date:2018-04-14 03/23/2018 SOLA L Primary SOLA L Danae [id number] N Insurance:CARESOURCEP RIDENBAUGHDOB: Community [address] olicy Number: [id number] [id number] Repository [address]Atw: ([phone]) Date:2018-01-10P O [phone] () [address]ATTN: [place] [address]RA: 03/23/2018 Secondary NOT GIVENUNK Danae Insurance:SELF PAY [facility] Number: Effective Repository Date:2018-01-10 03/23/2018 SOLA L Primary SOLA L Danae [id number] N Insurance:CARESOURCEP RIDENBAUGHDOB: [facility] [address] olicy Number: [id number] [id number] Repository [address]Hep: ([phone]) Date:2018-01-10 O [phone] () [address]ATTN: [place] [address]AE: 03/23/2018 Secondary NOT GIVENUNK Levels Insurance:SELF PAY [facility] Number: Effective Repository Date:2018-03-23 03/21/2018 [facility] L [facility] RIDENBAUGHDOB: Foundation N MEDICAIDPolicy [id number] [address] Number: N [address] [place] [address] [id number] [place] [phone]: ([phone]) Date:2018-03-21Tel: () [phone] [phone] Name:X[address] Box (HP)Tel: [phone], [place] [phone] (WP) [address]TD: 01/30/2018 Primary SOLA L [facility] Insurance:CareSourceP RIDENBAUGHDOB: [facility] Number: [id number] [facility] [id number] [address] [place] [address] Repository Date:[place], [place] Name:Health[address] [address]Gim: [phone], [place] [phone] (HP) [phone]: 01/30/2018 SOLA L Primary SOLA L Danae [id number] Insurance:CARESOURCEP RIDENBAUGHDOB: [facility] Number: [id number], [place] [id number] Repository [address]Skj: ([phone]) Date:2018-01-30 [phone] () [address]ATTN: [place] [address]FK: 01/30/2018 Secondary NOT GIVENUNK Danae Insurance:SELF PAY [facility] Number: Effective Repository Date:2018-01-30 01/26/2018 SOLA L Primary SOLA L [facility] RIDENBAUGHDOB: Insurance:CARESOURCE RIDENBAUGHDOB: [facility] [id number] Repository [place] Number: [place], [place] [id number] [place], [place] [address]Wrn: [phone]) Date:2018-01-26 [phone]: () [id number] [phone] Name:[address] ()Tel: [phone], [place] [phone] (WP) [address]KS: 01/12/2018 SOLA L Primary SOLA L Danae [id number] Insurance:CARESOURCEP RIDENBAUGHDOB: [facility] Number: [id number], [place] [id number] Repository [address]Qlr: (234) Date:2018-01-12 O [phone] () [address]ATTN: [place] [address]NS: 01/12/2018 Secondary NOT GIVENUNK Levels Insurance:SELF PAY [facility] Number: Effective Repository Date:2018-01-12 01/10/2018 SOLA L Primary SOLA L Levels [id number] Insurance:CARESOURCEP RIDENBAUGHDOB: [facility] Number: [id number], [place] [id number] Repository [address]Ier: ([phone]) Date:2018-01-09 O [phone] () [address]ATTN: [place] [address]MM: 01/10/2018 Secondary NOT GIVENUNK Levels Insurance:SELF PAY [facility] Number: Effective Repository Date:2018-01-09 01/09/2018 SOLA L [facility] Insurance:CARESOURCE RIDENBAUGHDOB: [facility] MEDICAIDPolicy [id number] Repository [place] Number: [place], [place] [id number] [place]VE[place]OOST[place], [place] [address]Zkq: ([phone]) Date:2018-01-09 [phone]: () [phone] Name:[address] ()Tel: [phone], [place] [phone] () [address]PV: 01/08/2018 Sola L Primary Sola L Levels [id number] Insurance:CARESOURCEP RidenbaughDOB: [facility] Number: [id number], [place] [id number] Repository [address]Dje: (234) Date:2018-01-08P O [phone] (HP) [address]ATTN: [place] [address]JO: 01/08/2018 Secondary NOT GIVENUNK Danae Insurance:SELF PAY [facility] Number: Effective Repository Date:2018-01-08 12/31/2017 Sola L Primary Sola L Danae [id number] Insurance:CARESOURCEP RidenbaughDOB: [facility] Number: [id number], [place] [id number] Repository [address]Rxa: (234) Date:2017-12-31P O [phone] () [address]ATTN: [place] [address]QZ: 12/31/2017 Secondary NOT GIVENUNK Levels Insurance:SELF PAY [facility] Number: Effective Repository Date:2017-12-31 12/16/2017 Primary SOLA L [facility] Insurance:CareSourceP RIDENBAUGHDOB: [place] [facility] Number: [id number] [place] [address] [id number] [address] [place] [address] Repository Date:[place], [place] Name:[facility] [address] [address]Aph: [phone], [place] [phone] (HP) [phone]: 12/15/2017 Sola L Primary Sola L Danae [id number] Insurance:CARESOURCEP RidenbaughDOB: [facility] Number: [id number], [place] [id number] Repository [address]Cjn: (234) Date:2017-12-15P O [phone] (HP) [address]ATTN: [place] [address]HN: 12/15/2017 Secondary NOT GIVENUNK Levels Insurance:SELF PAY [facility] Number: Effective Repository Date:2017-12-15
== END 2018-11-21 20:15 | disposition home or self-care (01) ==
PROVIDERS: Emergency Provider Emergency Medicine; Family Provider Family Medicine; PCP Family Medicine
DX: F41.9 Anxiety disorder, unspecified (principal); F31.9 Bipolar disorder, unspecified; Z72.0 Tobacco use
CPT/HCPCS: 80048; 96361; 96374; 96376; 99285

== ENCOUNTER 2018-12-05 21:03 | Emergency (ER) | payer MEDICAID, SELFPAY ==
[2018-12-05 21:03] VITALS: PULSE 71; RESP 16; TEMP 36.7; O2SAT 96; BMI 18.4
[2018-12-05] MEDS: DiphenhydrAMINE 50 MG/ML Syringe IM (21:20)
--- NOTE | 2018-12-05 21:25 | NURSING ---
DR VICENTE CAME OUT TO TRIAGE TO EVALUATE THE PATIENT. VERBAL ORDER FOR 50 MG OF BENDADRYL OBTAIN. MEDICATION GIVEN IN TRIAGE. AT BEDSIDE. Elena PALMA, RN [phone]
--- NOTE | 2018-12-05 21:30 | ED.DCSUM_ITS ---
- ER Visit Summary Date of Service: 12/05/18 Chief Complaint: Back spasms History of Present Illness: The patient is a 38 F who presents for a few hours of back spasms. Patient states that this is happened once before and was successfully treated with Ativan. Patient states she was in bed when she began having the back spasms, causing full body contortion. Her was massaging her legs when it started. Patient denies any other complaints, including shortness of breath, chest pain, fever, abdominal pain, nausea or vomiting. She thinks that the spasming is either related to anxiety or her medications she takes. She is on medications for mood disorder. This includes Seroquel and Remeron. Patient denies . She is status post hysterectomy. Physical Examination: Patient is awake and alert, answering all questions appropriately, in a state of body extension with the head back and torso curved backwards, legs are actively moving with toes pointed, arms drawn in, patient in constant state of motion and muscle contraction. Passive extension of the legs and arms as possible. Lungs clear to auscultation bilaterally. Patient is sweaty. Heart regular rate and rhythm no murmur. Test Results: Abnormal Lab Results 12/05/18 12/05/18 21:47 21:47 Sodium 139 Potassium 4.1 Chloride 107 Carbon Dioxide 25.0 Anion Gap 7 BUN 16 Creatinine 0.92 Estim Creat Clear Calc 74.94 Est GFR (MDRD) Af Amer 89 Est GFR (MDRD) Non-Af 73 BUN/Creatinine Ratio 17.5 Glucose 82 Calcium 9.1 Magnesium 2.3 Total Creatine Kinase 149 TSH 13.90 H Free T4 0.66 L Medications Given Discontinued Medications Diazepam (Valium) 5 mg PO X1 ONE Stop: 12/05/18 23:36 Last Admin: 12/05/18 23:45 Dose: 5 mg Diphenhydramine HCl (Benadryl) 50 mg IM X1 ONE Stop: 12/05/18 21:19 Last Admin: 12/05/18 21:20 Dose: 50 mg Lorazepam (Ativan) 1 mg PO X1 ONE Stop: 12/05/18 22:35 Last Admin: 12/05/18 22:53 Dose: 1 mg Emergency Department Course and Treatment: Patient presents in an overall extensor posture, writhing around and complaining of severe muscle spasms originating from her back. Patient is on medications for mood disorder, making a dystonic reaction possible. She was given IM Benadryl without any improvement. Patient does state that she thinks this response with the severe muscle spasms may be psychiatric in nature. Patient continued to have the full body spasms and thus was given Ativan. On reevaluation she was more relaxed, having intermittent twitches and still complaining of mild spasming. Labs showed no electrolyte derangements. Her TSH was elevated at 13.9, and free T4 was low at 0.66. Discussed with patient that she may have hypothyroidism and s he needs to follow-up with her family doctor for further evaluation and possible treatment. Patient was given a final dose of Valium prior to discharge for residual muscle spasm. She asked for a prescription, and I informed her that she will need to get this from her family doctor or psychiatrist so that she has 1 provider managing this controlled substance if they deem it appropriate. Patient was discharged home in improved condition. Treatment Plan: [] Disposition: [] Impression: Muscle spasms, hypothyroidism This note was generated with SmartMove dictation software. It may contain incorrect words, spelling, and punctuation that were not noted in review of the chart prior to signing ED Disposition - Plan for ED Patient: Disposition: Home or Assisted Living Instructions: ED Spasm Back No Trauma, ED Hypothyroidism Referrals: Phillip Andino MD [Primary Care Provider] - As soon as possible Additional Instructions: Follow-up with Dr. Andino as soon as possible for another evaluation and to discuss your thyroid results. Your TSH was 13.9, and your free T4 was 0.66. This indicates a low functioning thyroid. Please also discussed the back spasms you are having and possible home treatments for it to keep you from having to come back to the emergency department. If you have any worsening of your condition or any new concerning symptoms, please return immediately to the emergency department for another evaluation.
[2018-12-05 22:25] LABS: Anion Gap 7 (5-15); BUN 16 mg/dL (7-18); BUN/Creat Ratio 17.5 RATIO (10-20); CPK Total, Creatine Kinase 149 U/L (26-192); Calcium,Total 9.1 mg/dL (8.5-10.1); Chloride 107 mmol/L (98-107); Creatinine, Serum 0.92 mg/dL (0.55-1.02); EST Glomerular Filtration Rate 73 mL/min (>60); Est Glom Filt Rate - Afr Amer 89 mL/min (>60); Estimated Creatinine Clearance 74.94 ml/min; Glucose 82 mg/dL (74-106); Magnesium 2.3 mg/dL (1.6-2.6); Potassium 4.1 mmol/L (3.5-5.1); Sodium Level 139 mmol/L (136-145)
[2018-12-05] MEDS: LORazepam 1 MG Tablet PO (22:53)
[2018-12-05 22:57] LABS: T4 Free Direct 0.66 ng/dL (0.76-1.46)
--- NOTE | 2018-12-05 23:36 | ED.DEP ---
ED Disposition - Plan for ED Patient: Disposition: Home or Assisted Living Instructions: ED Spasm Back No Trauma, ED Hypothyroidism Referrals: Phillip Andino MD [Primary Care Provider] - As soon as possible Additional Instructions: Follow-up with Dr. Andino as soon as possible for another evaluation and to discuss your thyroid results. Your TSH was 13.9, and your free T4 was 0.66. This indicates a low functioning thyroid. Please also discussed the back spasms you are having and possible home treatments for it to keep you from having to come back to the emergency department. If you have any worsening of your condition or any new concerning symptoms, please return immediately to the emergency department for another evaluation.
[2018-12-05] MEDS: diazePAM 5 MG Tablet PO (23:45)
[2018-12-05 23:50] VITALS: BP 117/82; PULSE 92; RESP 16
== END 2018-12-05 23:51 | disposition home or self-care (01) ==
PROVIDERS: Emergency Provider Emergency Medicine; Family Provider Family Medicine; PCP Family Medicine
DX: M62.830 Muscle spasm of back (principal); E03.9 Hypothyroidism, unspecified; F39 Unspecified mood [affective] disorder
CPT/HCPCS: 80048; 82550; 83735; 84439; 84443; 96372; 99284; A4216

== ENCOUNTER 2019-01-24 01:47 | Emergency (ER) | payer MEDICAID, SELFPAY ==
[2019-01-24 01:51] VITALS: TEMP 37.2; BMI 21.9
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
[2019-01-24] MEDS: LORazepam 1 MG Tablet PO (02:24)
[2019-01-24 02:42] LABS: Absolute Lymphocyte Count 1.84 X10^3/ul (0.83-4.51); Absolute Neutrophil Count 4.9 X10^3/uL (2.0-7.7); Basophil# 0.04 X10^3/uL; Basophil% 0.5 % (0-1); Eosinophil# 0.48 X10^3/uL; Eosinophils% 6.2 % (0-5); Hematocrit 34.8 % (37-47); Hemoglobin 11.2 g/dl (12.0-15.0); Lymphocyte # 1.84 X10^3/ul (4.0); Lymphocyte % 23.7 % (19-41); Mean Corp Hgb Conc 32.2 g/gl (32-36); Mean Corpuscular Hgb 29.2 pg (27.0-32.0); Mean Corpuscular Volume 90.6 fL (81-99); Mean Platelet Vol. 9.2 fl (6.2-12.0); Monocyte# 0.48 X10^3/uL; Monocyte% 6.2 % (0-10); POSITIVE COUNT NO; POSITIVE DIFFERENTIAL NO; POSITIVE MORPHOLOGY NO; Platelet Count 354 K/mm3 (150-450); RBC Distribution Width CV 14.1 % (11.6-14.6); RBC Distribution Width SD 46.1 fl (35.1-43.9); Red Blood Count 3.84 M/mm3 (4.2-5.4); White Blood Count 7.8 K/mm3 (4.4-11.0)
[2019-01-24 02:50] LABS: Amphetamine Urine VISTA POSITIVE (<1000 ng/mL); Barbiturate Urine VISTA NEGATIVE (< 200 ng/mL); Benzodiazepine Urine VISTA NEGATIVE (< 200 ng/mL); Cocaine Urine VISTA POSITIVE (< 300 ng/mL); Ecstacy Urine VISTA NEGATIVE (< 500 ng/mL); Methadone Urine VISTA NEGATIVE (< 300 ng/mL); PCP Urine VISTA NEGATIVE (< 25 ng/mL); THC Urine VISTA NEGATIVE (< 50 ng/mL); Vista UDS pH Range 5
[2019-01-24 02:52] LABS: Anion Gap 5 (5-15); BUN 13 mg/dL (7-18); BUN/Creat Ratio 19.9 RATIO (10-20); Calcium,Total 8.7 mg/dL (8.5-10.1); Chloride 102 mmol/L (98-107); Creatinine, Serum 0.65 mg/dL (0.55-1.02); EST Glomerular Filtration Rate 108 mL/min (>60); Est Glom Filt Rate - Afr Amer 130 mL/min (>60); Estimated Creatinine Clearance 93.72 ml/min; Glucose 88 mg/dL (74-106); Potassium 3.9 mmol/L (3.5-5.1); Sodium Level 137 mmol/L (136-145)
[2019-01-24 02:57] LABS: Pregnancy, Serum, hCG Quali. NEGATIVE Negative (0-9 Nonpreg)
--- NOTE | 2019-01-24 03:47 | ED.RN ---
CALLED CRISIS TO SEE THIS PT PER REQUEST, LYNSEY CALLED BACK
--- NOTE | 2019-01-24 04:57 | ED.RN ---
called crisis per rn request to cancel gale
[2019-01-24 05:19] VITALS: PULSE 121; RESP 16; O2SAT 99
== END 2019-01-24 05:20 | disposition home or self-care (01) ==
PROVIDERS: Emergency Provider Emergency Medicine; Family Provider Family Medicine; PCP Family Medicine
DX: F41.9 Anxiety disorder, unspecified (principal); S52.501A Unspecified fracture of the lower end of right radius, initial encounter for closed fracture; Y04.2XXA Assault by strike against or bumped into by another person, initial encounter; Y93.89 Activity, other specified; Y92.9 Unspecified place or not applicable; F14.10 Cocaine abuse, uncomplicated; F15.10 Other stimulant abuse, uncomplicated; Z72.0 Tobacco use
CPT/HCPCS: 29125; 36415; 73130; 80048; 80307; 80320; 84703; 85025; 99283; G0480

== ENCOUNTER 2019-02-03 04:24 | Emergency (ER) | payer MEDICAID, SELFPAY ==
[2019-02-03] VITALS (7 sets, daily range): BP systolic 109–155; BP diastolic 76–117; PULSE 68–89; RESP 16–18; TEMP 36.8; O2SAT 98–99; BMI 22.8
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
[2019-02-03] MEDS: QUEtiapine 100 MG Tablet 200 MG PO (04:52)
[2019-02-03] MEDS: Mirtazapine 15 MG Tablet 45 MG PO (04:52)
[2019-02-03 05:01] LABS: Absolute Lymphocyte Count 2.46 X10^3/ul (0.83-4.51); Absolute Neutrophil Count 7.9 X10^3/uL (2.0-7.7); Basophil# 0.06 X10^3/uL; Basophil% 0.5 % (0-1); Eosinophil# 0.43 X10^3/uL; Eosinophils% 3.7 % (0-5); Hematocrit 37.4 % (37-47); Hemoglobin 12.3 g/dl (12.0-15.0); Lymphocyte # 2.46 X10^3/ul (4.0); Mean Corp Hgb Conc 32.9 g/gl (32-36); Mean Corpuscular Hgb 28.9 pg (27.0-32.0); Mean Platelet Vol. 9.1 fl (6.2-12.0); Monocyte# 0.85 X10^3/uL; Monocyte% 7.3 % (0-10); Neutrophil # 7.86 X10^3/uL (2.7-7.7); Neutrophil % 67.2 % (47-70); Platelet Count 370 K/mm3 (150-450); RBC Distribution Width CV 14.3 % (11.6-14.6); Red Blood Count 4.25 M/mm3 (4.2-5.4); White Blood Count 11.7 K/mm3 (4.4-11.0)
[2019-02-03 05:05] LABS: POSITIVE COUNT NO; POSITIVE DIFFERENTIAL NO; POSITIVE MORPHOLOGY NO
[2019-02-03 05:11] LABS: Bacteria 0 SEEN /hpf (None Seen)
[2019-02-03 05:20] LABS: Color, Urine Yellow (Yellow); Glucose, Dipstick Normal (Normal); Ketone-Dipstick 5 mg/dl (Negative); Leukocyte Esterase-Dipstick 25 /ul (Negative); Nitrite-Dipstick Negative (Negative); Occult Blood-Urine 10 /ul (Negative); Protein-Dipstick 30 mg/dl (Negative); Urine Bilirubin Dipstick Negative (Negative); Urine Clarity Sl. Cloudy (Clear); Urine Urobilinogen 1 mg/dl (Normal)
[2019-02-03 05:20] LABS: Alcohol, Blood (Medical)-Serum < 3.0 mg/dL
[2019-02-03 05:22] LABS: Anion Gap 8 (5-15); BUN 15 mg/dL (7-18); BUN/Creat Ratio 16.7 RATIO (10-20); Calcium,Total 8.8 mg/dL (8.5-10.1); Chloride 101 mmol/L (98-107); EST Glomerular Filtration Rate 75 mL/min (>60); Est Glom Filt Rate - Afr Amer 90 mL/min (>60); Estimated Creatinine Clearance 67.69 ml/min; Glucose 127 mg/dL (74-106); Potassium 3.2 mmol/L (3.5-5.1); Sodium Level 137 mmol/L (136-145)
--- NOTE | 2019-02-03 05:25 | ED.RN ---
CALLED [facility] AND NOTIFIED THE SEASONAL RETAIL MERCHANDISER THIS PT IS READY TO BE EVALUATED. SEASONAL RETAIL MERCHANDISER STATED SHE IS GOING TO NOTIFY
[2019-02-03 05:26] LABS: Amphetamine Urine VISTA POSITIVE (<1000 ng/mL); Barbiturate Urine VISTA NEGATIVE (< 200 ng/mL); Benzodiazepine Urine VISTA NEGATIVE (< 200 ng/mL); Cocaine Urine VISTA POSITIVE (< 300 ng/mL); Ecstacy Urine VISTA NEGATIVE (< 500 ng/mL); Methadone Urine VISTA NEGATIVE (< 300 ng/mL); PCP Urine VISTA NEGATIVE (< 25 ng/mL); THC Urine VISTA NEGATIVE (< 50 ng/mL); Vista UDS pH Range 6
--- NOTE | 2019-02-03 05:30 | ED.RN ---
WILDER STATED SHE IS ON HER WAY TO SEE THIS PT.
[2019-02-03 05:32] LABS: Amorphous Sediment 1+; Mucous, Urine 1+ /hpf (<or=2+); Red Blood Cells-Urine 0-5 SEEN /hpf (0-5); Squamous Epithelial Cells - UA 10-25 SEEN /hpf (5-10); White Blood Cells 0-5 SEEN /hpf (0-5)
--- NOTE | 2019-02-03 06:17 | ED.RN ---
WILDER FROM CRISIS IS HERE TO SEE THIS PT.
[2019-02-03] MEDS: Levothyroxine 125 MCG Tablet PO (06:37)
[2019-02-03 06:59] LABS: Potassium 3.5 mmol/L (3.5-5.1)
--- NOTE | 2019-02-03 08:28 | ED.RN ---
PER WILDER WITH CRISIS; WORKING ON PLACEMENT WITH [facility]
== END 2019-02-03 11:20 ==
PROVIDERS: Emergency Medicine; Emergency Provider Emergency Medicine; Family Provider Family Medicine; PCP Family Medicine
DX: R45.851 Suicidal ideations (principal); F31.9 Bipolar disorder, unspecified; F41.9 Anxiety disorder, unspecified; F43.12 Post-traumatic stress disorder, chronic; F14.10 Cocaine abuse, uncomplicated; F11.10 Opioid abuse, uncomplicated; F15.10 Other stimulant abuse, uncomplicated; E03.9 Hypothyroidism, unspecified; F17.200 Nicotine dependence, unspecified, uncomplicated; Z79.899 Other long term (current) drug therapy
CPT/HCPCS: 36415; 80048; 80307; 80320; 81001; 84132; 84443; 85025; 99285; G0480

== ENCOUNTER 2019-05-15 17:39 | Emergency (ER) | payer MEDICAID, SELFPAY ==
[2019-02-03 04:24] VITALS: BMI 22.8
[2019-05-15 17:40] VITALS: BP 103/67; PULSE 125; RESP 16; TEMP 36.8; O2SAT 98; BMI 18.7
--- NOTE | 2019-05-15 19:08 | ED.VIS.GEN ---
History of Present Illness Chief Complaint: Abscess Detail of Chief Complaint: Right leg abscess Informant: Patient Onset: - - 4 days Context: Gradual Onset Current Severity: Moderate Maximum Severity: Moderate Narrative: Patient presents with small abscess and cellulitis to the right distal thigh. She states she first noted an ingrown hair 4 days ago. It is increased in size. She has been able to drain serosanguineous fluid as well as pus from the area. She denies fever or chills. - Past Medical History (1) Ovarian cyst Status: Acute Comment: right side- ER [facility] [place] 01/09/18 (2) Anxiety Status: Chronic (3) Bipolar 1 disorder Status: Chronic (4) PTSD (post-traumatic stress disorder) Status: Chronic Past Medical History - Allergies and Home Meds Allergies/Adverse Reactions: Allergies adhesive Allergy (Verified 05/15/19 17:44) Itching latex Allergy (Verified 05/15/19 17:44) Itching vancomycin Allergy (Verified 05/15/19 17:44) Itching aspirin Adverse Reaction (Verified 05/15/19 17:44) Other buspirone [From BuSpar] Adverse Reaction (Verified 05/15/19 17:44) Other SEDATION codeine Adverse Reaction (Verified 05/15/19 17:44) Other hydroxyzine [From Vistaril] Adverse Reaction (Verified 05/15/19 17:44) Other PALPITATIONS naproxen Adverse Reaction (Verified 05/15/19 17:44) Unknown NSAIDS (Non-Steroidal Anti-Inflamma Adverse Reaction (Verified 05/15/19 17:44) Unknown Primary Care Physician: Phillip Andino MD [Primary Care Provider] - 3-5 Days if not improving Prior records reviewed: Yes Past Medical History: - - Reviewed Surgical History: hysterectomy Lives: With Family Smoking Status: Current every day smoker Review of Systems General: Denies: Chills, Fever Cardiovascular: Denies: Chest pain Respiratory: Denies: Dyspnea, Cough Gastrointestinal: Denies: Abdominal pain, Nausea, Vomiting Skin: Reports: Abscess Physical Exam Vital Signs/Narrative: Vital Signs Temp Pulse Resp BP Pulse Ox 05/15/19 17:40 98.2 F 125 H 16 103/67 98 General: Well nourished, Well developed ENT: Moist mucous membranes Cardiovascular: Regular rate, Regular rhythm Respiratory: No distress, CTA bilaterally Abdomen: Soft, Nontender Extremities: - - There is a 3 cm area of induration noted to the distal anteromedial right thigh with 10 cm diameter surrounding cellulitis. There is no fluctuance at this time. Minimal spontaneous serosanguineous drainage. Diagnostic/Tx/Re-eval - Medical Decision Making Area of cellulitis is outlined with surgical marker. Patient will be treated with Bactrim and Keflex, first doses given here. She is to return for worsening symptoms, fever, spread of cellulitis. She was advised that the abscess may develop further and require I&D. She voices understanding and agreement with the plan. ED Disposition - Plan for ED Patient: Disposition: Home or Assisted Living Instructions: ABSCESS, Antiobiotic Treatment Only, Cellulitis Prescriptions: Smz/Tmp Ds [Bactrim Ds] 1 tab PO BID #20 tab Prescription Printed Cephalexin [Keflex] 500 mg PO Q6 #40 cap Prescription Printed Referrals: Phillip Andino MD [Primary Care Provider] - 3-5 Days if not improving
[2019-05-15] MEDS: Smz/Tmp Ds Tablet 1 TABLET PO (19:20)
[2019-05-15] MEDS: Cephalexin 250 MG Capsule 500 MG PO (19:20)
== END 2019-05-15 19:22 | disposition home or self-care (01) ==
PROVIDERS: Emergency Provider Emergency Medicine; Family Provider Family Medicine; PCP Family Medicine
DX: L02.415 Cutaneous abscess of right lower limb (principal); L03.115 Cellulitis of right lower limb; F31.9 Bipolar disorder, unspecified; F43.10 Post-traumatic stress disorder, unspecified; F17.200 Nicotine dependence, unspecified, uncomplicated; Z79.899 Other long term (current) drug therapy; Z91.040 Latex allergy status; Z88.6 Allergy status to analgesic agent; Z90.710 Acquired absence of both cervix and uterus
CPT/HCPCS: 99283

== ENCOUNTER → 2020-03-03 | Outpatient (CLI) | payer MEDICAID, SELFPAY ==
[2020-03-03 14:52] VITALS: BMI 18.7
[2020-03-03 19:40] LABS: Chlamydia Trachomatis by PCR Negative (Negative); Neisserai gonorrhoeae by PCR Negative (Negative); Probe Check PASS; Sample Adequacy Control PASS; Specimen Processing Control PASS
== END | disposition home or self-care (01) ==
PROVIDERS: PCP Family Medicine; Visit Provider Nurse Practitioner Women's Health
DX: N89.8 Other specified noninflammatory disorders of vagina (principal); Z11.3 Encounter for screening for infections with a predominantly sexual mode of transmission
CPT/HCPCS: 87070; 87205; 87491; 87591

== ENCOUNTER 2021-02-03 20:14 | Emergency (ER) | payer MEDICAID, SELFPAY ==
[2020-03-03 14:52] VITALS: BMI 18.7
[2021-02-03 20:14] VITALS: BP 106/55; PULSE 107; RESP 18; TEMP 36.3; O2SAT 95; BMI 21.9
[2021-02-03 20:28] VITALS: BP 114/99; PULSE 100; RESP 16; O2SAT 97
--- NOTE | 2021-02-03 20:48 | ED.DCSUM_ITS ---
History of Present Illness Chief Complaint: Dental Informant: Patient Narrative: Patient is a 40-year-old female who comes to the ED for left-sided jaw pain and swelling. The pain started 2 days ago. It has been progressively getting more swollen. She was seen by an urgent care and placed on Augmentin earlier today. She states she did take a few doses over the past 2 days that she had left over. Told to come to the emergency department the swelling were to worsen. She has been taking [id number] pain medications for this which has not been giving significant relief. She currently rates the pain as an 8 out of 10. She denies any painful swallowing. No sore throat. No change in voice. She denies any fevers or chills. No headache, neck stiffness. No chest pain or shortness of breath. She has had dental issues before in the past. She does have a dentist she is going to follow-up with. Past Medical History - Allergies and Home Meds Allergies/Adverse Reactions: Allergies adhesive Allergy (Verified 03/03/20 14:48) Itching latex Allergy (Verified 03/03/20 14:48) Itching vancomycin Allergy (Verified 03/03/20 14:48) Itching aspirin Adverse Reaction (Verified 03/03/20 14:48) Other buspirone [From BuSpar] Adverse Reaction (Verified 03/03/20 14:48) Other SEDATION codeine Adverse Reaction (Verified 03/03/20 14:48) Other hydroxyzine [From Vistaril] Adverse Reaction (Verified 03/03/20 14:48) Other PALPITATIONS naproxen Adverse Reaction (Verified 03/03/20 14:48) Unknown NSAIDS (Non-Steroidal Anti-Inflamma Adverse Reaction (Verified 03/03/20 14:48) Unknown Primary Care Physician: Phillip Andino MD [Primary Care Provider] - Prior records reviewed: Yes Surgical History: hysterectomy Smoking Status: Current every day smoker Review of Systems All systems negative except as indicated General: Denies: Chills, Fever, Sweats Eyes: Denies: Visual changes - bilaterally, Diplopia ENT: Reports: - - Dental pain. Denies: Rhinorrhea, Sore throat Cardiovascular: Denies: Chest pain, Palpitations Respiratory: Denies: Dyspnea, Cough, Dyspnea on exertion Gastrointestinal: Reports: Nausea. Denies: Abdominal pain, Vomiting, Diarrhea Musculoskeletal: Denies: Neck pain Skin: Denies: Rash, Wounds Neurological: Denies: Headache, Weakness, Numbness Physical Exam Vital Signs/Narrative: Vital Signs Temp Pulse Resp BP Pulse Ox 02/03/21 20:28 100 16 114/99 H 97 02/03/21 20:14 97.4 F L 107 H 18 106/55 L 95 Inital Vital Signs reviewed: Yes General: Well nourished, Well developed, No Acute Distress Head: Normocephalic, Atraumatic Eyes: Perrl, EOMI ENT: Moist mucous membranes, No rhinorrhea, - - Swelling to left mandible. No fluctuating mass. Poor dentition throughout all teeth with multiple dental caries. Uvula midline. Neck: Supple, Nontender Cardiovascular: Regular rate, Regular rhythm, No murmurs Respiratory: No distress, CTA bilaterally, Chest nontender Abdomen: Soft, Nontender, Nondistended Back: Nontender, Normal Inspection Extremities: Nontender, No edema Skin: Normal color, No rash Neurological: Alert, Oriented x3, Cranial nerves II-XII grossly intact, Normal Strength, Normal Sensation Psychological: Normal affect, Normal Mood Diagnostic/Tx/Re-eval - Medical Decision Making Patient presents to the [facility] for dental pain and jaw swelling. I do not feel she has had appropriate outpatient length of antibiotic taken time to have any benefit yet. I do recommend she continue the Augmentin. We will write a pain medication with [place] for symptomatic relief. She is to call her dentist in the morning for close follow-up. Return precautions are reviewed including worsening swelling, issues with airway, fever/chills. She understands and is agreeable this plan. Discharged home in stable condition. All questions answered. ED Disposition - Plan for ED Patient: Disposition: Home or Assisted Living Diagnosis: Dental abscess, Pain, dental Instructions: Dental Abscess Prescriptions: Hydrocodone Bitart/Apap 5-325 [[place] 5MG-325MG] 1 tablet PO Q6H PRN PRN 3 Days #10 tab PRN Reason: Pain Transmission Status: Received by [id number] Referrals: Phillip Andino MD [Primary Care Provider] - Additional Instructions: Please follow-up with your dentist as soon as possible.
[2021-02-03] MEDS: HYDROcodone Bitartrate/Apap 5/325 Tablet PO (20:51)
[2021-02-03 20:54] VITALS: BP 135/75; PULSE 91; RESP 16; O2SAT 98
== END 2021-02-03 20:57 | disposition home or self-care (01) ==
LOC: ED 20:53
PROVIDERS: Emergency Provider Emergency Medicine; PCP Family Medicine
DX: K04.7 Periapical abscess without sinus (principal); F17.200 Nicotine dependence, unspecified, uncomplicated
CPT/HCPCS: 99282

== ENCOUNTER 2021-02-05 19:19 | Emergency (ER) | payer MEDICAID, SELFPAY ==
[2021-02-05 19:20] VITALS: BP 146/92; PULSE 96; RESP 18; TEMP 36.6; O2SAT 99; BMI 21.9
--- NOTE | 2021-02-05 19:39 | CT_ITS ---
STUDY: CT SOFT TISSUE NECK WITH CONTRAST REASON FOR EXAM: 6, 40 years old. Dental abscess RADIATION DOSAGE (If Supplied By Facility): CTDIvol = ( 9.79 ) mGy, DLP = ( 232.34 ) mGycm TECHNIQUE: The patient was scanned in a multi-detector CT scanner. High resolution transaxial imaging was performed following intravenous administration of IV 100mL Isovue-300. Sagittal and coronal images were reconstructed. Individualized dose optimization techniques were used for this CT. COMPARISON: None. FINDINGS: There are periapical lucencies associated with the left mandibular first molar and a carious erosion of the crown. There is also a periapical lucency of the right lower second premolar with a carious erosion of its crown. There is adjacent soft tissue swelling without a well-defined focal fluid collection. There is widespread periodontal disease and other periapical lucencies of upper and lower teeth which are not related to soft tissue swelling. Normal bilateral parotid glands. Normal bilateral power and recovery superintendent spaces. Normal bilateral parapharyngeal spaces. Normal bilateral carotid spaces. Normal bilateral sublingual and submandibular glands and spaces. Normal visualized nasopharynx. Normal retropharyngeal space. Normal perivertebral space. Normal visualized bilateral faucial tonsils. The visualized tongue, tongue base and oropharynx are normal. Mildly enlarged left submandibular lymph nodes. There is no demonstrated solid or cystic mass lesion. There is no abnormal contrast enhancement. Normal epiglottis, bilateral vallecula and hypopharynx. The pre-epiglottic and paraglottic adipose spaces are normal. Normal visualized bilateral piriform sinuses, aryepiglottic folds, vocal cords, and arytenoid-cricoid articulations. Normal subglottic trachea. Normal bilateral lobes of the thyroid gland. Normal visualized pulmonary apices. Mucosal thickening in the inferior recess of the right frontal sinus. Mild mucosal thickening of the right sphenoid sinus. Normal visualized cervical spine. CT/Soft Tissue Neck WITH Contrast IMPRESSION: Generalized soft tissue swelling without a well-defined loculated enhancing fluid collection adjacent to periapical lucencies of the right lower second premolar and first molar with carious disease of the crowns. Generalized periodontal disease unrelated to other areas of soft tissue swelling. Mildly enlarged left submandibular lymph nodes. Mucosal thickening in the inferior recess of the right frontal sinus and in the right sphenoid sinus. Electronically Signed: Jayleen Mcginnis MD at 21:45 EDT , Service support ,
[2021-02-05 20:28] LABS: Absolute Lymphocyte Count 2.48 X10^3/uL (0.83-4.51); Absolute Neutrophil Count 4.4 X10^3/uL (2.0-7.7); Basophil# 0.03 X10^3/uL; Basophil% 0.4 % (0-1); Eosinophil# 0.21 X10^3/uL; Eosinophils% 2.8 % (0-5); Hematocrit 35.7 % (37-47); Hemoglobin 11.6 g/dL (12.0-15.0); Lymphocyte # 2.48 X10^3/ul (4.0); Lymphocyte % 32.7 % (19-41); Mean Corp Hgb Conc 32.5 g/dL (32-36); Mean Corpuscular Hgb 29.7 pg (27.0-32.0); Mean Corpuscular Volume 91.5 fL (81-99); Mean Platelet Vol. 9.7 fl (6.2-12.0); Monocyte% 5.3 % (0-10); NRBC Flagged by Analyzer 0 % (0-5); Neutrophil # 4.44 X10^3/uL (2.7-7.7); Neutrophil % 58.5 % (47-70); Platelet Count 281 K/mm3 (150-450); RBC Distribution Width CV 13.4 % (11.6-14.6); RBC Distribution Width SD 45.6 fl (35.1-43.9); White Blood Count 7.6 K/mm3 (4.4-11.0)
--- NOTE | 2021-02-05 20:52 | ED.VISSUMM ---
- ER Visit Summary Date of Service: 02/05/21 Chief Complaint: Dental pain and swelling History of Present Illness: The patient is a 40 F who presents with increasing pain and swelling to her left lower jaw today. Patient states that she noted some redness in her left lower jaw radiating to her neck. Patient was seen here 2 days ago after she was seen in urgent care. Patient was given prescription for Augmentin at that time. Patient states she has been taking this. Patient denies any fevers or chills. Patient denies any difficulty breathing or difficulty swallowing. Patient states the pain is throbbing. Patient states the pain is over the left lower molar area. Patient admits to hot and cold sensitivity. Physical Examination: Vital signs are stable. Patient is afebrile. Patient is in no acute distress. Oral mucosa is pink and moist. There are multiple dental caries. There is tenderness over the left lower first and second molars. There is some edema over this area. There is no fluctuance. There is some erythema over the left lower mandible. There is no sublingual edema. There is no induration. Neck is supple. Trachea is midline. There is no JVD noted. Heart was regular rate and rhythm. Lungs are clear and equal bilaterally. Cranial nerves II through XII are intact. There are no focal motor or sensory deficits. Test Results: CBC and comprehensive metabolic profile were obtained and were essentially within normal limits. CT scan of the soft tissue neck was obtained. There is mildly enlarged submandibular lymph nodes. There is some generalized soft tissue swelling of the left lower mandibular area. There is no evidence of any abscess. This was interpreted by the radiologist and reviewed by myself. Emergency Department Course and Treatment: Patient was given a dose of Unasyn here. Patient was instructed to continue her Augmentin as prescribed. Patient was instructed to follow-up with her dentist in 3 to 5 days. Patient understood and was agreeable with the plan. All questions were answered. Disposition: Discharge home Impression: 1. Infected dental caries This note was generated with [employer] dictation software. It may contain incorrect words, spelling, and punctuation that were not noted in review of the chart prior to signing ED Disposition - Plan for ED Patient: Disposition: Home or Assisted Living Diagnosis: Infected dental caries Instructions: ED Dental Cavity Referrals: Phillip Andino MD [Primary Care Provider] - 5-7 Days Dentist,Your [STAFF PHYSICIAN] - 3-5 Days
[2021-02-05 21:15] LABS: AST(SGOT) 21 U/L (15-37); Alanine Aminotransfer ALT/SGPT 16 U/L (13-56); Albumin, Serum 3.4 g/dL (3.2-5.0); Alkaline Phosphatase 93 U/L (45-117); Anion Gap 3 (5-15); BUN 19 mg/dL (7-18); BUN/Creat Ratio 28.1 RATIO (10-20); Calcium,Total 8.7 mg/dL (8.5-10.1); Chloride 108 mmol/L (98-107); Creatinine, Serum 0.68 mg/dL (0.55-1.02); EST Glomerular Filtration Rate 103 mL/min (>60); Est Glom Filt Rate - Afr Amer 124 mL/min (>60); Estimated Creatinine Clearance 87.85 ml/min; Globulin 3.5 g/dL (2.2-4.2); Glucose 91 mg/dL (74-106); Potassium 4.1 mmol/L (3.5-5.1); Protein, Total 6.9 g/dL (6.4-8.2); Sodium Level 138 mmol/L (136-145)
[2021-02-05 22:26] VITALS: BP 118/70; PULSE 80; RESP 12; O2SAT 98
== END 2021-02-05 22:27 | disposition home or self-care (01) ==
PROVIDERS: Emergency Provider Emergency Medicine; PCP Family Medicine
DX: K02.9 Dental caries, unspecified (principal); K04.7 Periapical abscess without sinus; M54.2 Cervicalgia; Z72.0 Tobacco use; Z79.899 Other long term (current) drug therapy
CPT/HCPCS: 70491; 80053; 85025; 96365; 99284; J7050; Q9967; A4216; J0295

== ENCOUNTER → 2021-07-09 | Outpatient (CLI) | payer MEDICAID, SELFPAY | END | disposition home or self-care (01) | LOC: LABSPEC 16:42 | PROVIDERS: PCP Family Medicine; Visit Provider Nurse Practitioner Women's Health | DX: N95.2 Postmenopausal atrophic vaginitis (principal) | CPT/HCPCS: 87070; 87205 ==

== ENCOUNTER → 2021-08-04 14:22 | Outpatient (CLI) | payer MEDICAID, SELFPAY ==
--- NOTE | 2021-08-04 14:30 | US_ITS ---
STUDY: ULTRASOUND BREAST - LEFT REASON FOR EXAM: Female, 41 years old. Palpable mass axillary tail left breast TECHNIQUE: Axial and longitudinal images of the LEFT breast were performed with a high resolution ultrasound transducer. # OF IMAGES: 14 COMPARISON: Diagnostic mammogram earlier today FINDINGS: LEFT Breast: Heterogeneous background echotexture. Multiple longitudinal and transverse ultrasound images of the axillary tail of the left breast and left axilla fails to demonstrate a discrete solid or cystic mass or lymphadenopathy.: US/Breast Limited Unilateral IMPRESSION: Normal left breast ultrasound. Biopsy of any palpable abnormality should be performed if clinically indicated. ASSESSMENT CATEGORY: BIRADS Category 1: Negative. A letter regarding these results will be sent to the patient by the facility within 30 days. Electronically Signed: Gene Bruno MD at 8:07 EDT Tel , Service support ,
--- NOTE | 2021-08-04 14:30 | BI_ITS ---
MAMMOGRAPHY - BILATERAL DIAGNOSTIC REASON FOR EXAM: Female, 41 years old. breast cancer screening PERTINENT HISTORY: Non-contributory. TECHNIQUE: Digital examination. Mediolateral oblique (MLO) and craniocaudad (CC) views of both breasts were obtained. CAD: CAD was performed on this study. COMPARISON: None. FINDINGS: Breast Composition: The breasts are extremely dense, which lowers the sensitivity of mammography. There are no dominant masses or suspicious calcifications. No other significant abnormalities are identified. BI/DIAG MAMM W/CAD, BILAT IMPRESSION: Stable bilateral diagnostic mammogram. Ultrasound of the palpable abnormality will be obtained. ASSESSMENT CATEGORY: BIRADS Category 0: Incomplete. Need additional imaging evaluation. A letter regarding these results will be sent to the patient by the facility within 30 days. FOLLOW UP RECOMMENDATION: Ultrasound Recommended. (I) Approximately 10% of breast cancers are not detected by mammography. A normal mammogram should not delay biopsy of a clinically suspicious abnormality. Electronically Signed: Gene Bruno MD at 8:05 EDT Tel , Service support ,
== END ==
PROVIDERS: PCP Family Medicine; Referring Provider Nurse Practitioner Women's Health; Visit Provider Nurse Practitioner Women's Health
DX: R22.30 Localized swelling, mass and lump, unspecified upper limb (principal)
CPT/HCPCS: 76642; 77062; 77066; G0279

== ENCOUNTER 2021-11-21 15:43 | Emergency (ER) | payer MEDICAID, SELFPAY ==
[2021-11-21 15:44] VITALS: BP 144/97; PULSE 102; RESP 16; TEMP 35.7; O2SAT 98; BMI 21.0
--- NOTE | 2021-11-21 16:00 | EKG12_ITS ---
Test Reason : NOSE BLEED Blood Pressure : / mmHG Vent. Rate : 090 BPM Atrial Rate : 090 BPM P-R Int : 148 ms QRS Dur : 086 ms QT Int : 368 ms P-R-T Axes : 098 096 131 degrees QTc Int : 450 ms Suspect arm lead reversal, interpretation assumes no reversal Normal sinus rhythm Lateral infarct , age undetermined Abnormal ECG Confirmed by VINNY HAWKINS, MIKE ([id number]), editor map KATI COOL ([id number]) on 11/23/2021 10:50:03 A M Referred By: MELQUIADES Confirmed By:JAYA CASILLAS MD
--- NOTE | 2021-11-21 16:01 | EDS_ITS ---
HPI History of Present Illness Chief Complaint: Nosebleed Detail of Chief Complaint: Nosebleeds, anxiety, headache, syncope Informant: patient Onset/Context/Timing Onset: Days Current Severity: Mild Maximum Severity: Mild Narrative Narrative: Patient presents with intermittent nosebleeds for the past 3 days. She had some mild congestion. She does report increased stress and anxiety recently. Yesterday she had significant headache with nausea and vomiting. Headache did improve with Tylenol and ibuprofen. She also notes that she had 2 syncopal episodes yesterday. She denies headache currently. [facility] Medical History Anxiety Asthma Bipolar 1 disorder Interstitial cystitis PTSD (post-traumatic stress disorder) Tubal Home Medications mirtazapine 22.5 mg PO QHS 01/30/18 [History Last Taken Unknown] quetiapine 200 mg PO QHS 03/22/18 [History Last Taken Unknown] estradiol See Rx Instructions VAGINAL .COMPLEX #42.5 g 07/09/21 [Rx Last Taken Unknown] estradiol 1 mg tablet 1 mg PO DAILY #90 tab 07/09/21 [Rx Last Taken Unknown] metronidazole 500 mg tablet 500 mg PO BID #14 tab 07/09/21 [Rx Last Taken Unknown] lorazepam [Ativan] 0.5 mg PO BID PRN #14 tab 11/21/21 [Rx Last Taken Unknown] Allergy/AdvReac Type Severity Reaction Status Date / Time adhesive Allergy Itching Verified 11/21/21 15:46 latex Allergy Itching Verified 11/21/21 15:46 vancomycin Allergy Itching Verified 11/21/21 15:46 aspirin AdvReac Other Verified 11/21/21 15:46 buspirone [From BuSpar] AdvReac Other Verified 11/21/21 15:46 codeine AdvReac Other Verified 11/21/21 15:46 hydroxyzine [From Vistaril] AdvReac Other Verified 11/21/21 15:46 naproxen AdvReac Unknown Verified 11/21/21 15:46 NSAIDS (Non-Steroidal AdvReac Unknown Verified 11/21/21 15:46 Anti-Inflamma Family History Mother Cancer Grandmother Cancer Surgical History H/O exploratory laparotomy H/O oophorectomy history of ankle surgery History of hysterectomy History of left oophorectomy lump removal right breast Social History Smoking Status: Current every day smoker tobacco type: cigarettes Tobacco: How many years used: 20 second hand exposure: Yes alcohol intake: never what type of physical activity do you participate in: none seatbelt use: always do you feel safe at home: Yes ROS ROS ED Constitutional Constitutional ED: Denies chills or fever(s) Eyes Eyes: Denies change in vision ENT ENT ED: Reports other Details: Epistaxis right nare ; Denies sore throat Cardiovascular Cardiovascular: Denies chest pain Respiratory/Chest Respiratory/Chest: Denies cough or dyspnea Gastrointestinal Gastrointestinal: Reports nausea and vomiting; Denies abdominal pain or diarrhea Genitourinary Genitourinary ED: Denies dysuria Musculoskeletal Musculoskeletal: Denies back pain Integumentary Denies rash Neurologic Neurologic: Reports headache(s); Denies weakness Psychiatric Psychiatric: Reports anxiety; Denies depression Allergic/Immunologic Allergic/Immunologic ED: Denies urticaria EXAM Physical Exam Const Vital Signs: 11/21/21 15:44 Temperature 96.2 F L Temperature Source Temporal Pulse Rate 102 H Respiratory Rate 16 Blood Pressure 144/97 H Blood Pressure Mean 112 Pulse Ox 98 Oxygen Delivery Method Room Air Positive well nourished and well developed General Appearance ED: well developed HEENT Reports moist mucous membranes HEENT Narrative: Small amount of dried blood in the right nare. No active blee ding. Eyes PERRL and EOMs intact bilaterally Neck no lymphadenopathy and supple Neck Narrative: No meningismus. Chest Wall inspection of chest normal and palpation of chest normal Resp normal respiratory effort and clear to auscultation bilaterally Cardio regular rate and regular rhythm GI non-tender Palpation: soft Extremity normal to inspection Neuro oriented x3 and no sensory deficits noted Sensorium / Orientation: alert Motor Exam: strength 5/5 throughout Psych mental status grossly normal Skin no rashes or lesions noted MDM MDM MDM Narrative Medical decision making narrative: CBC obtained. EKG ordered secondary to the syncopal episodes. Patient given Ativan to help with anxiety. Lab Data Attestation: I reviewed the patient's lab results. Labs: Laboratory Results - last 24 hr 11/21/21 16:30 WBC 5.2 RBC 4.32 Hgb 12.1 Hct 38.4 MCV 88.9 MCH 28.0 MCHC 31.5 L RDW Std Deviation 44.9 H RDW Coeff of Rufus 13.6 Plt Count 276 MPV 9.9 Immature Gran % (Auto) 0.200 Neut % (Auto) 57.5 Lymph % (Auto) 30.0 [place] % (Auto) 7.7 Eos % (Auto) 4.0 Baso % (Auto) 0.6 Absolute Neuts (auto) 3.0 Absolute Lymphs (auto) 1.56 Nucleated RBC % 0 EKG Initial EKG: Attestation: I personally reviewed and interpreted this EKG as follows: Interpretation: Sinus Rhythm (Sinus at 90 with no acute ischemia.) Treatment and Re-Evaluation Comments:: On repeat evaluation patient resting comfortably. She reports her anxiety is much improved. Lab work reveals normal hemoglobin and normal platelet count. Patient instructed to Her nose with Vaseline to help with nosebleeds. Also recommended using a humidifier. She will be given a short course of Ativan to help with anxiety we will follow-up with her primary care physician. Discharge Plan Triage Chief Complaint: Nosebleed ED Provider: Sarah Browning Dx/Rx/DC Orders Clinical Impression: Syncope, Epistaxis, Anxiety Instructions: ED Anxiety Reaction, ED Epistaxis (Adult), ED Fainting, Uncertain Cause Prescriptions: New lorazepam [Ativan] 0.5 mg tablet 0.5 mg PO BID PRN (Reason: anxiety) Qty: 14 RF: 0 No Action estradiol 1 mg tablet 1 mg PO DAILY Qty: 90 RF: 3 estradiol 0.01 % (0.1 mg/gram) cream See Rx Instructions vaginal .COMPLEX Qty: 42.5 RF: 2 metronidazole 500 mg tablet 500 mg PO BID Qty: 14 RF: 0 quetiapine 100 MG tablet 200 mg PO QHS RF: 0 mirtazapine 15 MG tablet 22.5 mg PO QHS RF: 0 Primary Care Provider: Phillip Andino Referrals: Phillip Andino MD [Primary Care Provider] - 1 Week Disposition Disposition: Home, Self Care
[2021-11-21] MEDS: LORazepam 2 MG/ML Syringe 0.5 MG IV (16:44)
[2021-11-21 16:48] LABS: Absolute Lymphocyte Count 1.56 X10^3/uL (0.83-4.51); Basophil# 0.03 X10^3/uL; Basophil% 0.6 % (0-1); Eosinophil# 0.21 X10^3/uL; Hematocrit 38.4 % (37-47); Hemoglobin 12.1 g/dL (12.0-15.0); Lymphocyte # 1.56 X10^3/ul (0.83-4.51); Mean Corp Hgb Conc 31.5 g/dL (32-36); Mean Corpuscular Volume 88.9 fL (81-99); Mean Platelet Vol. 9.9 fl (6.2-12.0); Monocyte% 7.7 % (0-10); NRBC Flagged by Analyzer 0 % (0-5); Neutrophil # 2.99 X10^3/uL (2.7-7.7); Neutrophil % 57.5 % (47-70); Platelet Count 276 K/mm3 (150-450); RBC Distribution Width CV 13.6 % (11.6-14.6); RBC Distribution Width SD 44.9 fl (35.1-43.9); Red Blood Count 4.32 M/mm3 (4.2-5.4); White Blood Count 5.2 K/mm3 (4.4-11.0)
[2021-11-21 17:13] VITALS: BP 111/79; PULSE 82; RESP 16; O2SAT 99
== END 2021-11-21 17:18 | disposition home or self-care (01) ==
PROVIDERS: Emergency Provider Emergency Medicine; PCP Family Medicine; Visit Provider Emergency Medicine
DX: R55 Syncope and collapse (principal); R04.0 Epistaxis; F41.9 Anxiety disorder, unspecified; F17.210 Nicotine dependence, cigarettes, uncomplicated; F43.10 Post-traumatic stress disorder, unspecified; Z79.899 Other long term (current) drug therapy
CPT/HCPCS: 85025; 93005; 96374; 99284; A4216

== ENCOUNTER 2021-12-04 20:34 | Emergency (ER) | payer MEDICAID, SELFPAY ==
[2021-12-04 20:35] VITALS: BP 142/94; PULSE 119; RESP 18; TEMP 36.1; O2SAT 99; BMI 21.0
[2021-12-04] MEDS: LORazepam 1 MG Tablet PO (20:54)
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
[2021-12-04 21:49] VITALS: BP 132/78; PULSE 77; RESP 16; TEMP 36.3; O2SAT 98
== END 2021-12-04 21:50 | disposition home or self-care (01) ==
PROVIDERS: Emergency Provider Emergency Medicine; PCP Family Medicine; Visit Provider Emergency Medicine
DX: F41.1 Generalized anxiety disorder (principal); F31.9 Bipolar disorder, unspecified; F17.210 Nicotine dependence, cigarettes, uncomplicated; Z65.3 Problems related to other legal circumstances; Z79.899 Other long term (current) drug therapy
CPT/HCPCS: 99283

== ENCOUNTER 2022-01-04 20:13 | Emergency (ER) | payer MEDICAID, SELFPAY ==
[2022-01-04 20:13] VITALS: BP 131/95; PULSE 137; RESP 17; TEMP 36.1; O2SAT 99; BMI 21.0
[2022-01-04 20:44] VITALS: O2SAT 99
[2022-01-04] MEDS: Acetaminophen 500 MG Tablet 1000 MG PO (20:54)
[2022-01-04] MEDS: predniSONE 20 MG Tablet 60 MG PO (20:54)
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
[2022-01-04 21:41] VITALS: PULSE 125; O2SAT 98
--- NOTE | 2022-01-05 13:20 | CASEMGMT ---
MAXINE ROY ED follow-up: Date of ER visit: 01/04/2022 Presenting ER complaint: asthma RN KIRILL placed call to patient's telephone number listed on demographics with no answer. Voicemail not set up, unable to leave message. MAXINE Angel CM
== END 2022-01-04 23:01 | disposition home or self-care (01) ==
PROVIDERS: Emergency Provider Emergency Medicine; PCP Family Medicine; Visit Provider Emergency Medicine
DX: J45.901 Unspecified asthma with (acute) exacerbation (principal); F31.9 Bipolar disorder, unspecified; S39.012A Strain of muscle, fascia and tendon of lower back, initial encounter; X58.XXXA Exposure to other specified factors, initial encounter; Y93.89 Activity, other specified; Y99.8 Other external cause status; F41.9 Anxiety disorder, unspecified; F17.210 Nicotine dependence, cigarettes, uncomplicated; Z79.899 Other long term (current) drug therapy
CPT/HCPCS: 99283

== ENCOUNTER 2022-08-08 08:25 | Emergency (ER) | payer MEDICAID, SELFPAY ==
[2022-08-08 08:26] VITALS: BP 132/95; PULSE 123; RESP 16; TEMP 36.1; O2SAT 100; BMI 21.9
--- NOTE | 2022-08-08 08:47 | EDS_ITS ---
HPI HPI - Psych History of Present Illness Chief Complaint: Anxiety Narrative Narrative: Patient with past medical history of bipolar disorder and anxiety presents with increased anxiety and palpitations that she has had for the last few days. She states that she is out of her nighttime medications of Remeron and Seroquel. She usually takes 200 mg of Seroquel every evening, along with 45 mg of Remeron. She took her last dose on , and when she called on Tuesday to her psychiatrist, they were unable to refill her prescriptions. She has been staving off coming to the emergency department for her anxiety, but is starting to feel jittery and has not slept over the last 2 days. She denies any suicidal ideation, no hallucinations, no other symptoms. She states she has to wait until tomorrow to have her prescriptions refilled. [facility] Medical History Anxiety Asthma Bipolar 1 disorder Interstitial cystitis PTSD (post-traumatic stress disorder) Tubal Home Medications mirtazapine 15 mg tablet 22.5 mg PO QHS 01/30/18 [History Last Taken Unknown] quetiapine 100 mg tablet 200 mg PO QHS 03/22/18 [History Last Taken Unknown] estradiol 0.01% (0.1 mg/gram) vaginal cream See Rx Instructions vaginal .COMPLEX #42.5 grams 07/09/21 [Rx Last Taken Unknown] metronidazole 500 mg tablet 500 mg PO BID #14 tabs 07/09/21 [Rx Last Taken Unknown] lorazepam 0.5 mg tablet (Ativan) 0.5 mg PO BID PRN anxiety #14 tabs 11/21/21 [Rx Last Taken Unknown] lorazepam 0.5 mg tablet (Ativan) 0.5 mg PO TID PRN anxiety 5 days #14 tabs 12/04/21 [Rx Last Taken Unknown] diazepam 5 mg tablet 5 mg PO Q8 PRN Muscle Spasm #10 tabs 01/04/22 [Rx Last Taken Unknown] prednisone 20 mg tablet 60 mg PO DAILY #12 tabs 01/04/22 [Rx Last Taken Unknown] estradiol 1 mg tablet 1 mg PO DAILY #90 tabs 06/20/22 [Rx Last Taken Unknown] lorazepam 0.5 mg tablet (Ativan) 0.5 mg PO DAILY PRN anxiety #3 tabs 08/08/22 [Rx Last Taken Unknown] Allergy/AdvReac Type Severity Reaction Status Date / Time adhesive Allergy Itching Verified 08/08/22 08:27 latex Allergy Itching Verified 08/08/22 08:27 vancomycin Allergy Itching Verified 08/08/22 08:27 aspirin AdvReac Other Verified 08/08/22 08:27 buspirone [From BuSpar] AdvReac Other Verified 08/08/22 08:27 codeine AdvReac Other Verified 08/08/22 08:27 hydroxyzine [From Vistaril] AdvReac Other Verified 08/08/22 08:27 naproxen AdvReac Unknown Verified 08/08/22 08:27 NSAIDS (Non-Steroidal AdvReac Unknown Verified 08/08/22 08:27 Anti-Inflamma Family History Mother Cancer Grandmother Cancer Surgical History H/O exploratory laparotomy H/O oophorectomy history of ankle surgery History of hysterectomy History of left oophorectomy lump removal right breast Social History household members: none housing: other Smoking Status: Current every day smoker tobacco type: cigarettes Tobacco: How many years used: 20 second hand exposure: Yes alcohol intake: never substance use type: does not use what type of physical activity do you participate in: none seatbelt use: always do you feel safe at home: Yes ROS ROS ED ROS Narrative Constitutional: No fever, no chills. HEENT: No sore throat. No neck pain. No loss of vision. No rhinorrhea. Cardiovascular: No chest pain. Positive palpitations. No pedal edema. Respiratory: No cough, no shortness of breath. Abdominal: No abdominal pain. No nausea. No vomiting. Genitourinary: No dysuria. No hematuria. Musculoskeletal: No myalgias. No arthralgias. Neurologic: No headaches. No dizziness. No lightheadedness. Skin: No rash. No change in color. Psychiatric: No depression. Positive anxiety. EXAM Physical Exam Narrative Exam Narrative: Afebrile. Vital signs noted. HEENT: Normocephalic. Atraumatic. PERRL, EOMI. Neck soft and supple. No point tenderness or step off. Cardiovascular: Regular tachycardia. No murmurs, rubs, or gallops appreciated. Respiratory: No tachypnea. Lungs clear to auscultation bilaterally. Gastrointestinal: Abdomen soft, nontender, with normoactive bowel sounds. No rebound or guarding. Neurological: Awake. Alert. Nonfocal, nonlateralizing. Skin: No rash. Normal color. No pallor. Musculoskeletal: No pedal edema. Full range of motion extremities. Psychiatric: No active hallucinations, no suicidal ideation, positive anxiety. Const Vital Signs: 08/08/22 08:26 Temperature 97.0 F L Temperature Source Temporal Pulse Rate 123 H Respiratory Rate 16 Blood Pressure 132/95 H Blood Pressure Mean 107 Pulse Ox 100 Oxygen Delivery Method Room Air MDM MDM MDM Narrative Medical decision making narrative: I reviewed the patient's prior records. She states that she takes Ativan as needed but only gets this on occasion when she runs out of her medication. This happened back in December. She was administered Ativan 0.5 mg orally. Upon repeat examination, she is improved and states that her ride is leaving and would like to be discharged. I wrote her prescription for 3 tablets of Ativan 0.5 mg to take over the next 1 to 3 days depending if she takes it as needed. She will follow-up with her psychiatrist tomorrow for refills of her Seroquel and Remeron. Disposition is discharged home in improved and stable condition. Discharge Plan Triage Chief Complaint: Anxiety ED Provider: Bryce Ngo Dx/Rx/DC Orders Clinical Impression: Anxiety, Palpitations Instructions: ED Anxiety Reaction, ED Palpitations Prescriptions: New lorazepam [Ativan] 0.5 mg tablet 0.5 mg PO DAILY PRN (Reason: anxiety) Qty: 3 0RF No Action estradiol 0.01 % (0.1 mg/gram) cream See Rx Instructions vaginal .COMPLEX Qty: 42.5 2RF Rx Instructions: small amount as directed vaginal every other day X 4 weeks then twice a week; metronidazole 500 mg tablet 500 mg PO BID Qty: 14 0RF quetiapine 100 MG tablet 200 mg PO QHS mirtazapine 15 MG tablet 22.5 mg PO QHS lorazepam [Ativan] 0.5 mg tablet 0.5 mg PO BID PRN (Reason: anxiety) Qty: 14 0RF lorazepam [Ativan] 0.5 mg tablet 0.5 mg PO TID PRN (Reason: anxiety) 5 Days Qty: 14 0RF prednisone 20 MG tablet 60 mg PO DAILY Qty: 12 0RF diazepam [diazepam] 5 MG tablet 5 mg PO Q8 PRN (Reason: Muscle Spasm) Qty: 10 0RF estradiol 1 mg tablet 1 mg PO DAILY Qty: 90 0RF Primary Care Provider: Phillip Andino Referrals: Phillip Andino MD [Primary Care Provider] - Activity Restrictions/Additional Instructions: Follow-up with your psychiatrist tomorrow, and obtain your refills. Disposition Disposition: Home, Self Care Discharge Date/Time: 08/08/22 09:39
[2022-08-08] MEDS: LORazepam 0.5 MG Tablet PO (09:00)
== END 2022-08-08 09:39 | disposition home or self-care (01) ==
PROVIDERS: Emergency Provider Emergency Medicine; PCP Family Medicine; Visit Provider Emergency Medicine
DX: F41.9 Anxiety disorder, unspecified (principal); F17.210 Nicotine dependence, cigarettes, uncomplicated
CPT/HCPCS: 99283

== ENCOUNTER 2023-08-10 09:45 | Inpatient (IN) | payer OTHER, MEDICAID, SELFPAY ==
[2023-08-10] VITALS (17 sets, daily range): BP systolic 72–136; BP diastolic 35–80; PULSE 83–124; RESP 14–35; TEMP 36.3–36.8; O2SAT 92–100; BMI 21.7; BMI 24.0
--- NOTE | 2023-08-10 10:29 | ED.VIS.FALL ---
HPI HPI - Fall History of Present Illness Chief Complaint: Fall Informant: patient and EMS Occured/Mechanism Occurred: Today Narrative: Patient fell out of bed Pain/Injury Location: Left elbow and left shoulder Pain Location: upper extremity Quality of Pain: Aching Worsened by: Movement Associated Symptoms Associated Symptoms: Positive for Weakness and Loss of consciousness (Unknown); Negative for Parasthesias Length of loss of consciousness: Unknown Narrative Narrative: Patient presents after a fall that occurred today. Patient fell out of bed. Patient does not remember any of the events around the fall. EMS reports that the father told him that he heard her fall and went to check on her. EMS noted there was drug paraphernalia next to her. Patient complains of pain in her left shoulder and left elbow. Patient denies any other injuries. Patient is unsure of her last tetanus. Patient also complains of a dry mouth. [facility] Medical History Anxiety Asthma Bipolar 1 disorder Interstitial cystitis PTSD (post-traumatic stress disorder) Tubal Home Medications mirtazapine 15 mg tablet 22.5 mg PO QHS 01/30/18 [History Last Taken Unknown] quetiapine 100 mg tablet 200 mg PO QHS 03/22/18 [History Last Taken Unknown] estradiol 0.01% (0.1 mg/gram) vaginal cream See Rx Instructions vaginal .COMPLEX #42.5 grams 07/09/21 [Rx Last Taken Unknown] metronidazole 500 mg tablet 500 mg PO BID #14 tabs 07/09/21 [Rx Last Taken Unknown] lorazepam 0.5 mg tablet (Ativan) 0.5 mg PO BID PRN anxiety #14 tabs 11/21/21 [Rx Last Taken Unknown] lorazepam 0.5 mg tablet (Ativan) 0.5 mg PO TID PRN anxiety 5 days #14 tabs 12/04/21 [Rx Last Taken Unknown] diazepam 5 mg tablet 5 mg PO Q8 PRN Muscle Spasm #10 tabs 01/04/22 [Rx Last Taken Unknown] prednisone 20 mg tablet 60 mg (3 x 20 mg) PO DAILY #12 tabs 01/04/22 [Rx Last Taken Unknown] lorazepam 0.5 mg tablet (Ativan) 0.5 mg PO DAILY PRN anxiety #3 tabs 08/08/22 [Rx Last Taken Unknown] estradiol 1 mg tablet 1 mg PO DAILY #30 tabs 03/24/23 [Rx Last Taken Unknown] Allergy/AdvReac Type Severity Reaction Status Date / Time adhesive Allergy Itching Verified 08/10/23 09:56 latex Allergy Itching Verified 08/10/23 09:56 vancomycin Allergy Itching Verified 08/10/23 09:56 aspirin AdvReac Other Verified 08/10/23 09:56 buspirone [From BuSpar] AdvReac Other Verified 08/10/23 09:56 codeine AdvReac Other Verified 08/10/23 09:56 hydroxyzine [From Vistaril] AdvReac Other Verified 08/10/23 09:56 naproxen AdvReac Unknown Verified 08/10/23 09:56 NSAIDS (Non-Steroidal AdvReac Unknown Verified 08/10/23 09:56 Anti-Inflamma Family History Mother Cancer Grandmother Cancer Surgical History H/O exploratory laparotomy H/O oophorectomy history of ankle surgery History of hysterectomy History of left oophorectomy lump removal right breast Social History household members: none housing: other Smoking Status: Current every day smoker tobacco type: cigarettes Tobacco: How many years used: 20 second hand exposure: Yes alcohol intake: never substance use type: does not use what type of physical activity do you participate in: none seatbelt use: always do you feel safe at home: Yes ROS ROS ED Constitutional Constitutional ED: Denies chills or fever(s) Eyes Eyes: Denies blurry vision or change in vision ENT ENT ED: Denies rhinorrhea or sore throat Cardiovascular Cardiovascular: Denies chest pain or palpitations Respiratory/Chest Respiratory/Chest: Denies cough or dyspnea Gastrointestinal Gastrointestinal: Reports nausea; Denies vomiting Genitourinary Genitourinary ED: Denies dysuria or hematuria Musculoskeletal Musculoskeletal: Denies back pain or neck pain Integumentary Denies abscess or rash Neurologic Neurologic: Reports weakness; Denies headache(s) Allergic/Immunologic Allergic/Immunologic ED: Denies mouth swelling or urticaria EXAM Physical Exam Const Vital Signs: 08/10/23 09:48 08/10/23 10:05 08/10/23 12:22 Temperature 98.3 F Temperature Source Temporal Pulse Rate 83 104 H Respiratory Rate 14 Respiratory Effort Normal Respiratory Depth Normal Respiratory Pattern Normal Blood Pressure 72/49 L 99/60 Blood Pressure Mean 56 73 Pulse Ox 97 Oxygen Delivery Method Room Air 08/10/23 14:00 08/10/23 15:23 08/10/23 15:36 Temperature 97.6 F L Temperature Source Temporal Pulse Rate 90 110 H 124 H Respiratory Rate 25 H 32 H 14 Respiratory Effort Respiratory Depth Respiratory Pattern Blood Pressure 99/35 L 83/69 L Blood Pressure Mean 56 73 Pulse Ox 93 95 100 Oxygen Delivery Method Room Air Room Air 08/10/23 16:19 Temperature Temperature Source Pulse Rate 123 H Respiratory Rate 16 Respiratory Effort Respiratory Depth Respiratory Pattern Blood Pressure 88/71 L Blood Pressure Mean 76 Pulse Ox 99 Oxygen Delivery Method Room Air Positive well nourished and well developed General Appearance ED: well developed and NAD HEENT Reports normocephalic atraumatic Neck full ROM and supple Resp normal respiratory effort and clear to auscultation bilaterally Cardio regular rate and regular rhythm GI non-tender and non-distended Palpation: soft Extremity Extremity Narrative: There is edema, erythema, and warmth of the left lower arm, elbow, and forearm. Range of motion was limited in all motions secondary to pain. Patient would not let me move her elbow. Patient kept her elbow in a flexed position and resisted extension. Patient also resisted pronation and supination. There are no apparent sensory deficits noted. Neuro oriented x3, CN's II-XII intact bilaterally and no sensory deficits noted Sensorium / Orientation: alert Psych mental status grossly normal Skin Skin Narrative: There is edema, erythema, and warmth over the left elbow and forearm area. Range of motion was limited in all motions of the left elbow secondary to pain. Radial pulses are equal bilaterally. There is no discharge or drainage noted. There is no induration. Sepsis Attestation Sepsis Alert: Yes Sepsis Attestation: Agree w/Sepsis Date exam was performed: 08/10/23 Time exam was performed: 10:30 Possible Source of Sepsis: Skin/soft tissue Sepsis Organ Dysfunction Criteria Present: SBP < 90 mmHg or MAP < 65 mmHg, Creatinine > 2.0 mg/dL, Lactic Acid > 2 mmol/L and Serum CO2 < 20 mmol/L (on BMP) Fluid Resuscitation Fluid resuscitation indicated?: Yes Fluid Resuscitation ordered: 30 ml/kg fluid bolus ordered MDM MDM MDM Narrative Medical decision making narrative: Differential diagnosis includes left upper extremity cellulitis, sepsis, substance abuse, intracranial bleeding, stroke, elbow fracture, dehydration, and electrolyte abnormality. CT scan of the brain will be obtained to assess for intracranial bleeding and stroke. CBC will be obtained to assess for leukocytosis and anemia. Basic metabolic profile will be obtained to assess for electrolyte abnormality and renal function. Blood cultures will be obtained to assess for sepsis. Lactate will be obtained to assess for sepsis. History & Record Review Discussion w/independent historian: Patient Lab Data Attestation: I reviewed the patient's lab results. Lab results narrative: CBC was reviewed. White blood cell count was 35.1. Hemoglobin was 16.8 and hematocrit was 54.5. Platelets were normal. Basic metabolic profile was reviewed. Sodium was 132 and potassium was greater than 10.0. CO2 was 14. BUN was 39 and creatinine was 3.45. These were increased from previous results. Serum lactate was reviewed and was elevated at 7.2. Labs: Laboratory Results - last 24 hr 08/10/23 08/10/23 08/10/23 11:30 12:40 15:03 WBC 35.1 H* RBC 6.21 H Hgb 16.8 H Hct 54.5 H MCV 87.8 MCH 27.1 MCHC 30.8 L RDW Std Deviation 48.0 H RDW Coeff of Rufus 15.1 H Plt Count 353 MPV 9.5 Immature Gran % (Auto) 2.000 H Neut % (Auto) 72.8 H Lymph % (Auto) 3.8 L [place] % (Auto) 3.4 Eos % (Auto) 17.9 H Baso % (Auto) 0.1 Absolute Neuts (auto) 25.5 H Absolute Lymphs (auto) 1.35 Nucleated RBC % 0 Differential Comment COMMENT Diff Path Review May foll Sodium 132 L Cancelled 126 L Potassium > 10.0 H* Cancelled 8.4 H* Chloride 103 Cancelled 94 L Carbon Dioxide 14.0 L Cancelled 9.0 L* Anion Gap 15 Cancelled 23 H BUN 39 H Cancelled 40 H Creatinine 3.45 H Cancelled 3.87 H Estim Creat Clear Calc 18.34 Cancelled 16.35 Est GFR (MDRD) Af Amer 19 L Cancelled 16 L Est GFR (MDRD) Non-Af 16 L Cancelled 14 L BUN/Creatinine Ratio 11.3 Cancelled 10.3 Glucose 117 H Cancelled 640 H* Lactic Acid 7.2 H* Calcium 6.8 L Cancelled 11.1 H Radiography Diagnostic Testing: Clinical Impression(s) from Imaging Studies Brain CT 08/10/23 10:37 IMPRESSION: No acute intracranial process. Electronically Signed: Ania Gupta MD at 12:14 EDT , Chest X-Ray 08/10/23 15:43 IMPRESSION: No acute cardiopulmonary abnormality. Satisfactory central line placement. Electronically Signed: Kevin Sanchez MD at 15:58 EDT , CT scan of the brain was obtained. There is no acute intracranial abnormality noted. This was interpreted by the radiologist and was also independently reviewed by myself. Portable chest x-ray was obtained. There is 1 view. On my independent interpretation, there is no acute infiltrate. There is a central line extending into the tip of the right atrium. There is no pneumothorax noted. There is no acute cardiopulmonary process noted. Bony thorax is normal. There is no cardiomegaly noted. Radiologist also interpreted the x-rays and agrees. EKG Initial EKG: Attestation: I personally reviewed and interpreted this EKG as follows: Interpretation: Sinus Rhythm (90) Comments: EKG was obtained. On my independent interpretation, it shows a sinus rhythm with a rate of 90. There is peaked T waves noted. There is no widening of the QRS. NC interval was normal. QRS interval was 106 ms. QTc interval was 450 ms. There is borderline right axis deviation at 108. The T wave changes are new compared to previous EKG dated 11/21/2021. Prior EKG tracings: available for review Prior: Changed (11/21/2021) Follow-up EKG: Attestation: I personally reviewed and interpreted this EKG as follows: Comments: EKG was obtained. On my independent interpretation it shows a normal sinus rhythm with a rate of 65. NC interval was normal. QRS interval was starting to prolonged at 134 ms. QTc interval was 372 ms. [place] was borderline right axis deviation at 117. The T waves were still hyperacute. Prior EKG tracings: available for review Prior: Changed (Compared to earlier EKG, the QRS interval was more prolonged.) Management Discussion w/another healthcare provider: Hospitalist Treatment and Re-Evaluation Narrative: Patient was given IV fluids. Patient's IV infiltrated. Further attempts at IV line placement were unsuccessful. Because of this, patient was advised of the need for central line placement. Patient is agreeable with this. The right internal jugular vein area was prepped and draped in sterile manner. Patient was placed in Trendelenburg position. The right internal jugular vein was cannulated using ultrasound guidance. There is good blood flow return. It is dark. It is not pulsatile. Guidewire was then inserted through the needle. The needle was removed. Dilator was then placed over the guidewire and inserted. The dilator was then removed over the guidewire. The triple-lumen catheter was then inserted over the guidewire and the guidewire was removed intact. The catheter was then sutured in place. All 3 ports were able to be aspirated and flushed without difficulty. Patient tolerated the procedure well. Dressing was applied over the line. Portable chest x-ray was obtained. On my independent interpretation, there is no pneumothorax. The line is in place. Radiologist also interpreted the x-ray results. Patient was given insulin, glucose, calcium, and sodium bicarbonate for her hyperkalemia. Patient was started on Ancef because I think the source of her infection is from the cellulitis in her left arm. Patient is allergic to vancomycin so this was not ordered. Given that the potassium was greater than 10 however, her QRS was not prolonged initially, I repeated the BMP. Repeat potassium was 8.4. Repeat glucose was 640 however, the labs were drawn just after the patient received the dextrose from the hyperkalemia treatment. Because of this, BGT was obtained and was 234. Repeat lactate was reviewed and was 7.9. Case was discussed with the hospitalist. He recommended obtaining MRSA PCR. He did not want to start pressors at this time. He recommended a third L of IV fluids. He will admit the patient to ICU. Patient understands and is agreeable with the plan. All questions were answered. Procedures Other Procedures Procedure(s): The right internal jugular vein area was prepped and draped in a sterile manner. 1% lidocaine was infiltrated locally. Using ultrasound guidance, the right internal jugular vein was cannulated. Guidewire was placed through the needle. The needle was removed. Dilator was inserted. Dilator was removed. The triple-lumen catheter was then inserted over the guidewire. The guidewire was removed intact. The central line was sutured in place. Dressing was applied. Patient tolerated the procedure well. All 3 ports were able to be aspirated and flushed without difficulty. Repeat chest x-ray was obtained. There is no evidence of pneumothorax. Line was in place. 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 Plant Manager, Discussing w/Consultants, Arranging Admission or Transfer and Performing Direct Patient Care at Bedside Discharge Plan Triage Chief Complaint: Fall ED Provider: Mik Kenny Dx/Rx/DC Orders Clinical Impression: Acute kidney injury, Cellulitis of left upper extremity, Septic shock, Leukocytosis, Acute hyperkalemia Prescriptions: No Action estradiol 0.01 % (0.1 mg/gram) cream See Rx Instructions vaginal .COMPLEX Qty: 42.5 2RF Rx Instructions: small amount as directed vaginal every other day X 4 weeks then twice a week; metronidazole 500 mg tablet 500 mg PO BID Qty: 14 0RF quetiapine 100 MG tablet 200 mg PO QHS mirtazapine 15 MG tablet 22.5 mg PO QHS lorazepam [Ativan] 0.5 mg tablet 0.5 mg PO BID PRN (Reason: anxiety) Qty: 14 0RF lorazepam [Ativan] 0.5 mg tablet 0.5 mg PO TID PRN (Reason: anxiety) 5 Days Qty: 14 0RF prednisone 20 MG tablet 60 mg PO DAILY Qty: 12 0RF diazepam [diazepam] 5 MG tablet 5 mg PO Q8 PRN (Reason: Muscle Spasm) Qty: 10 0RF lorazepam [Ativan] 0.5 mg tablet 0.5 mg PO DAILY PRN (Reason: anxiety) Qty: 3 0RF estradiol 1 mg tablet 1 mg PO DAILY Qty: 30 0RF Primary Care Provider: Phillip Andino Referrals: Phillip Andino MD [Primary Care Provider] - Disposition Disposition: Acute Care Hospital [facility]
--- NOTE | 2023-08-10 10:37 | CT_ITS ---
INDICATION: Head injury EXAMINATION: CT BRAIN - CT Head or Brain W/O Contrast Injection TECHNIQUE: Multiple axial images were obtained of the head without intravenous contrast. A radiation dose optimization technique was used for this scan. IV Contrast dosage and agent: None. RADIATION DOSAGE (If Supplied By Facility): CTDIvol = ( 47.06 ) mGy, DLP = ( 890.33 ) mGycm COMPARISON: No relevant prior comparison study available FINDINGS: BRAIN PARENCHYMA: No intra- or extra-axial hemorrhage. No evidence of acute infarct. No intracranial mass or mass effect. There is preservation of the walker/white matter interface. Posterior fossa structures are unremarkable. CSF SPACES: Appropriate for age. No hydrocephalus. Basal cisterns are patent. CALVARIUM, SKULL BASE, PARANASAL SINUSES AND MASTOID AIR CELLS: There is trace opacification of the visualized left maxillary sinus consistent with a history of sinusitis. No discrete lytic or blastic abnormalities. ORBITS: Both globes, extraocular muscles, optic nerves and retrobulbar fat appear unremarkable. ASPECTS Score for Acute Strokes: 10 CT/Brain/Head without Contrast IMPRESSION: No acute intracranial process. Electronically Signed: Ania Gupta MD at 12:14 EDT ,
[2023-08-10] MEDS: 0.9% Normal Saline (1000mL) 1,000 ML 1000 ML IV ×3 (11:00→18:07)
[2023-08-10] MEDS: Cefazolin 1 GM/50 ML BAG IV (11:24)
--- NOTE | 2023-08-10 11:24 | ED.RN ---
patient continues to yell out for nurse. pt requesting something to drink. pt informed by this rn the doctor has denied her request for a drink at this time.
[2023-08-10 11:43] LABS: Absolute Lymphocyte Count 1.35 X10^3/uL (0.83-4.51); Absolute Neutrophil Count 25.5 X10^3/uL (2.0-7.7); Basophil# 0.04 X10^3/uL; Basophil% 0.1 % (0-1); Eosinophils% 17.9 % (0-5); Hematocrit 54.5 % (37-47); Hemoglobin 16.8 g/dL (12.0-15.0); Lymphocyte # 1.35 X10^3/ul (0.83-4.51); Lymphocyte % 3.8 % (19-41); Mean Corp Hgb Conc 30.8 g/dL (32-36); Mean Corpuscular Hgb 27.1 pg (27.0-32.0); Mean Corpuscular Volume 87.8 fL (81-99); Mean Platelet Vol. 9.5 fl (6.2-12.0); Monocyte% 3.4 % (0-10); NRBC Flagged by Analyzer 0 % (0-5); Neutrophil # 25.54 X10^3/uL (2.7-7.7); Neutrophil % 72.8 % (47-70); POSITIVE COUNT YES; POSITIVE DIFFERENTIAL YES; POSITIVE MORPHOLOGY YES; Platelet Count 353 K/mm3 (150-450); RBC Distribution Width CV 15.1 % (11.6-14.6); Red Blood Count 6.21 M/mm3 (4.2-5.4)
[2023-08-10 12:14] LABS: Eosinophil# 6.28 X10^3/uL
[2023-08-10 12:16] LABS: Differential Indicated SCAN CRITERIA MET; White Blood Count 35.1 K/mm3 (4.4-11.0)
[2023-08-10 12:23] LABS: Anion Gap 15 (5-15); BUN 39 mg/dL (7-18); BUN/Creat Ratio 11.3 RATIO (10-20); Calcium,Total 6.8 mg/dL (8.5-10.1); Chloride 103 mmol/L (98-107); Creatinine, Serum 3.45 mg/dL (0.55-1.02); EST Glomerular Filtration Rate 16 mL/min (>60); Est Glom Filt Rate - Afr Amer 19 mL/min (>60); Estimated Creatinine Clearance 18.34 ml/min; Glucose 117 mg/dL (74-106); Potassium > 10.0 mmol/L (3.5-5.1); Sodium Level 132 mmol/L (136-145)
[2023-08-10 12:24] LABS: Lactic Acid 7.2 mmol/L (0.4-1.9)
--- NOTE | 2023-08-10 12:51 | EKG12_ITS ---
Test Reason : REPEAT Blood Pressure : / mmHG Vent. Rate : 131 BPM Atrial Rate : 131 BPM P-R Int : 000 ms QRS Dur : 134 ms QT Int : 252 ms P-R-T Axes : 000 117 -33 degrees QTc Int : 372 ms Sinus Rhythm with peaked T- waves Sinus waves Hypokalemic Right bundle branch block T wave abnormality, consider inferior ischemia Abnormal ECG Confirmed by ANNAMARIA HAWKINS, SAMM ([id number]), film editor VIN KIRKLAND ([id number]) on 08/15/2023 1:57:39 PM Referred By: Confirmed By:SAMM YIN MD
--- NOTE | 2023-08-10 12:54 | EKG12_ITS ---
Test Reason : ELEVATED POTASSIUM Blood Pressure : / mmHG Vent. Rate : 192 BPM Atrial Rate : 192 BPM P-R Int : 000 ms QRS Dur : 106 ms QT Int : 252 ms P-R-T Axes : 000 108 052 degrees QTc Int : 450 ms Critical Test Result: High HR , STEMI Sinus Rhythm with Peaked T- waves Hyperkalemic Incomplete right bundle branch block Reconfirmed by ANNAMARIA HAWKINS, SAMM ([id number]), deputy editor in chief TOMAS LAMAS ([id number]) on 08/25/2023 1:05:15 PM Referred By: JEFFREY Confirmed By:SAMM YIN MD
--- NOTE | 2023-08-10 13:21 | ED.RN ---
This rn and román bey at bedside attempting to obtain IV access. x1 attempt failed. pt refusing second attempt. pt states she cannot do this anymore. pt requesting to leave AMA. Charge nurse, Hortencia notified. RN requesting central line for IV access. Denied by Dr. Kenny [address] Kenny states he prefers to not have direct IV access for a drug user. Dr. Kenny states he will do one if necessary. also states patient is willing to stay and may have water. RN understands. Charge Nurse notified.
[2023-08-10] MEDS: Calcium Gluconate IV 3 GM in Syringe 1 EACH IV (14:53)
[2023-08-10] MEDS: Dextrose 50%-Water 25 GM/50 ML DISP.SYRIN IV ×2 (14:54→21:59)
[2023-08-10] MEDS: Insulin Lispro 10 UNIT in Syringe 0 ML 6 UNIT IV ×2 (14:56→21:55)
[2023-08-10] MEDS: Morphine 4 MG/ML Syringe IV (14:59)
[2023-08-10] MEDS: Sodium Bicarbonate 150 MEQ in Dextrose 5%-Water (1000mL Bag) 1,000 ML 250 MEQ IV (15:00)
[2023-08-10 15:38] LABS: Reflex Lactate? Y
--- NOTE | 2023-08-10 15:43 | RAD_ITS ---
EXAM: XR CHEST, 1 VIEW CLINICAL INDICATION: Line placement TECHNIQUE: Frontal view of the chest. COMPARISON: No relevant prior studies available. FINDINGS: LUNGS AND PLEURAL SPACES: No consolidation or edema. No pneumothorax. No effusion. HEART: Normal heart size. MEDIASTINUM: No mediastinal or hilar mass. BONES/JOINTS: No acute abnormality. TUBES, LINES AND DEVICES: Right internal jugular central venous catheter tip in the distal superior vena cava. RAD/CXR for Line Placement IMPRESSION: No acute cardiopulmonary abnormality. Satisfactory central line placement. Electronically Signed: Kevin Sanchez MD at 15:58 EDT ,
[2023-08-10 16:29] LABS: Anion Gap 23 (5-15); BUN 40 mg/dL (7-18); BUN/Creat Ratio 10.3 RATIO (10-20); Calcium,Total 11.1 mg/dL (8.5-10.1); Chloride 94 mmol/L (98-107); Creatinine, Serum 3.87 mg/dL (0.55-1.02); EST Glomerular Filtration Rate 14 mL/min (>60); Est Glom Filt Rate - Afr Amer 16 mL/min (>60); Estimated Creatinine Clearance 16.35 ml/min; Glucose 640 mg/dL (74-106); Potassium 8.4 mmol/L (3.5-5.1); Sodium Level 126 mmol/L (136-145)
[2023-08-10 16:52] LABS: Lactic Acid 7.9 mmol/L (0.4-1.9)
--- NOTE | 2023-08-10 16:57 | NURSING ---
ICU 1 BENNY WALTER, SEPSIS, HYPERKALEMIA, LACTIC ACIDOSIS
[2023-08-10 17:01] LABS: Bedside Glucose 234 mg/dL (74-106)
--- NOTE | 2023-08-10 17:07 | HP.PCM.HOS_ITS ---
HPI - General General Date of Admission: 08/10/23 HPI Narrative MIA VILLAFUERTE, is a 43 F who presents to the hospital after falling out of bed. She says that she felt very weak today and felt off yesterday. She has not been eating or drinking very well, and she states that the fall out of bed was because she felt a little bit disoriented. She does have a history of IV drug use and there was drug paraphernalia around her bed and a family member also stated that she has a significant IV drug use problem. She came into the ED with a white count of 35,000 and a systolic in the 70s and 80s. She is given significant IV fluid but was also found to be hyperkalemic so she was given tr eatment for that and she was found to have a lactic acidosis as well as acute renal failure. All this is consistent with severe sepsis/septic shock though she has not required pressors at this point. Source of infection appears to be around her left arm where she has some pain and stiffness, her left forearm is swollen. FOR[facility]LY [facility], LATER [facility] Medical History Anxiety Asthma Bipolar 1 disorder Interstitial cystitis PTSD (post-traumatic stress disorder) Tubal Home Medications mirtazapine 15 mg tablet 22.5 mg PO QHS 01/30/18 [History Last Taken Unknown] quetiapine 100 mg tablet 200 mg PO QHS 03/22/18 [History Last Taken Unknown] estradiol 0.01% (0.1 mg/gram) vaginal cream See Rx Instructions vaginal .COMPLEX #42.5 grams 07/09/21 [Rx Last Taken Unknown] metronidazole 500 mg tablet 500 mg PO BID #14 tabs 07/09/21 [Rx Last Taken Unknown] lorazepam 0.5 mg tablet (Ativan) 0.5 mg PO BID PRN anxiety #14 tabs 11/21/21 [Rx Last Taken Unknown] lorazepam 0.5 mg tablet (Ativan) 0.5 mg PO TID PRN anxiety 5 days #14 tabs 12/04/21 [Rx Last Taken Unknown] diazepam 5 mg tablet 5 mg PO Q8 PRN Muscle Spasm #10 tabs 01/04/22 [Rx Last Taken Unknown] prednisone 20 mg tablet 60 mg (3 x 20 mg) PO DAILY #12 tabs 01/04/22 [Rx Last Taken Unknown] lorazepam 0.5 mg tablet (Ativan) 0.5 mg PO DAILY PRN anxiety #3 tabs 08/08/22 [Rx Last Taken Unknown] estradiol 1 mg tablet 1 mg PO DAILY #30 tabs 03/24/23 [Rx Last Taken Unknown] Allergy/AdvReac Type Severity Reaction Status Date / Time adhesive Allergy Itching Verified 08/10/23 09:56 latex Allergy Itching Verified 08/10/23 09:56 vancomycin Allergy Itching Verified 08/10/23 09:56 aspirin AdvReac Other Verified 08/10/23 09:56 buspirone [From BuSpar] AdvReac Other Verified 08/10/23 09:56 codeine AdvReac Other Verified 08/10/23 09:56 hydroxyzine [From Vistaril] AdvReac Other Verified 08/10/23 09:56 naproxen AdvReac Unknown Verified 08/10/23 09:56 NSAIDS (Non-Steroidal AdvReac Unknown Verified 08/10/23 09:56 Anti-Inflamma Family History Mother Cancer Grandmother Cancer Surgical History H/O exploratory laparotomy H/O oophorectomy history of ankle surgery History of hysterectomy History of left oophorectomy lump removal right breast Social History household members: none housing: other Smoking Status: Current every day smoker tobacco type: cigarettes Tobacco: How many years used: 20 second hand exposure: Yes alcohol intake: never substance use type: does not use what type of physical activity do you participate in: none seatbelt use: always do you feel safe at home: Yes ROS Constitutional Constitutional: Reports chills, fatigue and fever(s); Denies malaise Eyes Eyes: Denies blurry vision ENT HEENT: Denies headache(s) or nasal discharge Cardiovascular Cardiovascular: Denies chest pain, dyspnea on exertion or syncope Respiratory/Chest Respiratory/Chest: Denies cough, shortness of breath at rest or shortness of breath with exertion Gastrointestinal Gastrointestinal: Reports nausea; Denies constipation, diarrhea or vomiting Genitourinary Genitourinary: Denies dysuria Neurologic Neurologic: Denies focal weakness, numbness or tremor(s) Psychiatric Psychiatric: Denies anxiety or depression Vital Signs Vital Signs Vital Signs: 08/10/23 09:48 08/10/23 10:05 08/10/23 12:22 Temperature 98.3 F Temperature Source Temporal Pulse Rate 83 104 H Respiratory Rate 14 Respiratory Effort Normal Respiratory Depth Normal Respiratory Pattern Normal Blood Pressure 72/49 L 99/60 Blood Pressure Mean 56 73 Pulse Ox 97 Oxygen Delivery Method Room Air 08/10/23 14:00 08/10/23 15:23 08/10/23 15:36 Temperature 97.6 F L Temperature Source Temporal Pulse Rate 90 110 H 124 H Respiratory Rate 25 H 32 H 14 Respiratory Effort Respiratory Depth Respiratory Pattern Blood Pressure 99/35 L 83/69 L Blood Pressure Mean 56 73 Pulse Ox 93 95 100 Oxygen Delivery Method Room Air Room Air 08/10/23 16:19 08/10/23 17:00 Temperature Temperature Source Pulse Rate 123 H 101 H Respiratory Rate 16 16 Respiratory Effort Respiratory Depth Respiratory Pattern Blood Pressure 88/71 L 91/69 Blood Pressure Mean 76 76 Pulse Ox 99 97 Oxygen Delivery Method Room Air Room Air Weight Weight: 126 lb 8.725 oz Body Mass Index (BMI) 21.7 Physical Exam Const alert, oriented x3 and no apparent distress General Appearance: cooperative HEENT normocephalic Mouth: dry mucous membranes Eyes PERRL, EOMs intact bilaterally and conjunctivae normal Neck supple and no JVD Resp normal respiratory effort, no retractions, no use of accessory muscles and clear to auscultation bilaterally Resp Narrative: Diminished Auscultation: Negative for crackles, rales, rhonchi or wheezes Cardio S1 normal heart sound, S2 normal heart sound and no murmurs Rate: tachycardic GI soft to palpation, non-tender and non-distended; Negative for hepatosplenomegaly Extremity no clubbing, cyanosis or edema Skin Skin Narrative: She has a rash on her left upper arm that appears punctate nonblanching, she has a bruise on her left forehead from her fall she has a what appears to be a contact rash on her left lateral thigh. Her left arm and forearm are tense no clear areas of abscess or any areas of obvious infected injection sites but her arm is red and tender Neuro no focal motor deficits and no sensory deficits noted Psych affect normal Appearance: appropriate Results Lab / Micro Data 08/10/23 11:30 08/10/23 15:03 Labs: Laboratory Results - last 24 hr 08/10/23 11:30: WBC 35.1 H*, RBC 6.21 H, Hgb 16.8 H, Hct 54.5 H, MCV 87.8, MCH 27.1, MCHC 30.8 L, RDW Std Deviation 48.0 H, RDW Coeff of Rufus 15.1 H, Plt Count 353, MPV 9.5, Immature Gran % (Auto) 2.000 H, Neut % (Auto) 72.8 H, Lymph % (Auto) 3.8 L, [place] % (Auto) 3.4, Eos % (Auto) 17.9 H, Baso % (Auto) 0.1, Absolute Neuts (auto) 25.5 H, Absolute Lymphs (auto) 1.35, Nucleated RBC % 0, Differential Comment COMMENT, Diff Path Review February, Sodium 132 L, Potassium > 10.0 H*, Chloride 103, Carbon Dioxide 14.0 L, Anion Gap 15, BUN 39 H, Creatinine 3.45 H, Estim Creat Clear Calc 18.34, Est GFR (MDRD) Af Amer 19 L, Est GFR (MDRD) Non-Af 16 L, BUN/Creatinine Ratio 11.3, Glucose 117 H, Lactic Acid 7.2 H*, Calcium 6.8 L 08/10/23 12:40: Sodium Cancelled, Potassium Cancelled, Chloride Cancelled, Carbon Dioxide Cancelled, Anion Gap Cancelled, BUN Cancelled, Creatinine Cancelled, Estim Creat Clear Calc Cancelled, Est GFR (MDRD) Af Amer Cancelled, Est GFR (MDRD) Non-Af Cancelled, BUN/Creatinine Ratio Cancelled, Glucose Cancelled, Calcium Cancelled 08/10/23 15:03: Sodium 126 L, Potassium 8.4 H*, Chloride 94 L, Carbon Dioxide 9.0 L*, Anion Gap 23 H, BUN 40 H, Creatinine 3.87 H, Estim Creat Clear Calc 16.35, Est GFR (MDRD) Af Amer 16 L, Est GFR (MDRD) Non-Af 14 L, BUN/Creatinine Ratio 10.3, Glucose 640 H*, Calcium 11.1 H 08/10/23 15:45: Lactic Acid 7.9 H* 08/10/23 16:40: POC Glucose 234 H Radiology Impression Brain CT 08/10/23 10:37 IMPRESSION: No acute intracranial process. Electronically Signed: Ania Gupta MD at 12:14 EDT , Chest X-Ray 08/10/23 15:43 IMPRESSION: No acute cardiopulmonary abnormality. Satisfactory central line placement. Electronically Signed: Kevin Sanchez MD at 15:58 EDT , Assessment & Plan Assessment/Plan (1) Septic shock: (2) Cellulitis of left upper extremity: PLAN: Plan 1. Septic shock from left upper extremity cellulitis with significant metabolic acidosis/acute renal failure with hyperkalemia ? Her blood pressure is consistently been below 100 and she has had several blood pressure readings below 90 systolic with maps in the 50s ? She has received 3 L of IV fluids with no significant response ? She does have a central line in place ? We will broaden from Ancef which she received in the ER to Zyvox and Zosyn since she is allergic to vancomycin ? Blood cultures are pending as is a MRSA PCR to help narrow antibiotic choices ? She has not had any urine output but will run urine drug screen and a UA when able ? We will admit to the ICU and if there is no improvement in her systolics will potentially do the start pressors ? We will continue with sodium bicarb drip and recheck her BMP in a few hours to adjust if necessary ? Blood sugar was also elevated however this was drawn immediately after the glucose and insulin for her hyperkalemia, peripheral recheck was in the 200s ? We will consult the material planner, and if her potassium does not improve and her renal function continues to get worse also consult nephrology for hopeful CRRT orders in the ICU 2. Anxiety/depression ? We will hold off her Seroquel as I do not want to depress her mentation while she is as sick as she is DVT: Heparin Sepsis Attestation Sepsis Attestation: Agree w/Sepsis Date exam was performed: 08/10/23 Time exam was performed: 14:30 Possible Source of Sepsis: Skin/soft tissue Sepsis Organ Dysfunction Criteria Present: SBP < 90 mmHg or MAP < 65 mmHg, Creatinine > 2.0 mg/dL, UOP < 0.5 mL/kg/hour for 2 consecutive hours, Lactic Acid > 2 mmol/L and Serum CO2 < 20 mmol/L (on BMP) Fluid Resuscitation Fluid Resuscitation ordered: 30 ml/kg fluid bolus ordered Sepsis Note Date exam was performed: 08/10/23 Time exam was performed: 17:18 Sepsis Attestation: Sepsis re-evaluation was performed Response to fluids: Non Fluid responsive hypotension Charges/Coding Visit Charges Inpatient E&M: 72418 Init Hosp L3
[2023-08-10 17:50] LABS: M R Staph aureus DNA By PCR Negative (Negative); Probe Check PASS; Specimen Processing Control PASS
[2023-08-10] MEDS: Morphine 2 MG/ML Syringe IV (18:05)
[2023-08-10 18:23] LABS: Mucous, Urine 0 SEEN /hpf (<or=2+)
[2023-08-10 18:26] LABS: Color, Urine Amber (Yellow); Glucose, Dipstick 100 mg/dl (Normal); Ketone-Dipstick 5 mg/dl (Negative); Leukocyte Esterase-Dipstick 100 /ul (Negative); Nitrite-Dipstick Positive (Negative); Occult Blood-Urine 250 /ul (Negative); Protein-Dipstick 500 mg/dl (Negative); Urine Bilirubin Dipstick Negative (Negative); Urine Clarity Turbid (Clear); Urine Urobilinogen Normal (Normal); Urine pH 6.5 (5.0 - 8.0)
[2023-08-10 18:39] LABS: Amorphous Sediment 3+; Bacteria 2+ /hpf (None Seen); Coarse Granular Cast 5-10 SEEN /lpf (0-5 /lpf); Red Blood Cells-Urine 5-10 SEEN /hpf (0-5); Renal Epithelial Cells 0-5 SEEN /hpf (0-5); Squamous Epithelial Cells - UA 0-5 SEEN /hpf (5-10); White Blood Cells 5-10 SEEN /hpf (0-5)
[2023-08-10 18:43] LABS: Amphetamine Urine VISTA NEGATIVE (<1000 ng/mL); Barbiturate Urine VISTA NEGATIVE (< 200 ng/mL); Benzodiazepine Urine VISTA NEGATIVE (< 200 ng/mL); Cocaine Urine VISTA NEGATIVE (< 300 ng/mL); Ecstacy Urine VISTA NEGATIVE (< 500 ng/mL); Methadone Urine VISTA NEGATIVE (< 300 ng/mL); PCP Urine VISTA NEGATIVE (< 25 ng/mL); THC Urine VISTA NEGATIVE (< 50 ng/mL); Vista UDS pH Range 5
[2023-08-10] MEDS: Sodium Bicarbonate 150 MEQ in Dextrose 5%-Water (1000mL Bag) 1,000 ML IV (19:43)
[2023-08-10] MEDS: Linezolid 600 MG 600 MG/300 ML BAG 200 MG IV (20:13)
[2023-08-10] MEDS: Acetaminophen 500 MG Tablet 1000 MG PO (20:13)
[2023-08-10] MEDS: Heparin Injection (Vial) 5,000 UNIT/ML VIAL 5000 UNIT SC (20:13)
[2023-08-10 20:38] LABS: Anion Gap 14 (5-15); BUN 44 mg/dL (7-18); BUN/Creat Ratio 12.6 RATIO (10-20); Calcium,Total 5.2 mg/dL (8.5-10.1); Chloride 107 mmol/L (98-107); Creatinine, Serum 3.49 mg/dL (0.55-1.02); EST Glomerular Filtration Rate 15 mL/min (>60); Est Glom Filt Rate - Afr Amer 19 mL/min (>60); Estimated Creatinine Clearance 16.61 ml/min; Glucose 206 mg/dL (74-106); Potassium 6.5 mmol/L (3.5-5.1); Sodium Level 136 mmol/L (136-145)
[2023-08-10] MEDS: traMADol 50 MG Tablet PO (21:52)
[2023-08-10] MEDS: Calcium Gluconate 1 GM/10 ML Vial IVP (21:53)
[2023-08-10] MEDS: Piperacil/Tazobactam 3.375 GM in 0.9% Normal Saline (50mL MB+) 50 ML IV (21:59)
[2023-08-10] MEDS: 0.9% Saline Lock 10 ML Syringe IV (22:02)
[2023-08-10 22:32] LABS: Bedside Glucose 206 mg/dL (74-106)
[2023-08-10] MEDS: Albuterol 2.5 MG/3 ML VIAL.NEB. 20 MG INHALATION (22:34)
--- NOTE | 2023-08-10 22:48 | CPS ---
pt paolo 10 mg albuterol -states done with aero tx-nurse aware
--- NOTE | 2023-08-10 23:30 | NURSING ---
pt repeatedly screaming from room that she wants to leave AMA as she feels her pain is not being managed. Attempted to continue to provide pt more comfort through repositioning and applying heat to painful areas. Pt previously given 1000mg of Acetaminophen @ 2000 and 50mg of Ultram @ 2200. Pt asking this RN to just give me something and to give me something for pain. Educated patient on medication dosages and frequency. Pt requesting at home medications such as seroquel, ativan and remeron be ordered or else she will leave the hospital. ICU charge nurse, Alpesh Haque, assisted w/ education for patient on her condition. Hospitalist, Dr. Osei, contacted and made aware of this situation.
--- NOTE | 2023-08-10 23:50 | PCM.PN.BLA ---
Progress Note Nurse report that patient is threatening to leave if she does not have any home medications reordered. Reviewed patient's home meds. Will give Seroquel that patient takes at home. Nurse to review patient's home meds with her so we can reorder any that may be due.
[2023-08-11] VITALS (7 sets, daily range): BP systolic 107–136; BP diastolic 66–91; PULSE 100–110; RESP 27–36; TEMP 36.4; O2SAT 95–100; BMI 27.6
--- NOTE | 2023-08-11 01:00 | NURSING ---
0100- Pulse check of L arm, radial. Pulse present, 1+
[2023-08-11] MEDS: Mirtazapine 15 MG Tablet 22.5 MG PO (01:06)
[2023-08-11] MEDS: QUEtiapine 100 MG Tablet 200 MG PO (01:07)
--- NOTE | 2023-08-11 02:00 | NURSING ---
0200- Pulse check of L arm, radial. Pulse present, 1+
--- NOTE | 2023-08-11 02:50 | CT_ITS ---
We are attempting to reach an attending provider to discuss findings. An addendum with communication details will be sent when the communication is complete. EXAM: CT Upper Extremity W/O Contrast Injection LEFT HISTORY: pain and edema iv drug user with entire left arm edema, redness, pain, concern for necrotizing faucitis TECHNIQUE: Axial images obtained from the shoulder through the hand without IV contrast. IV Contrast: None.. RADIATION DOSAGE (If Supplied By Facility): CTDIvol = ( 25.37 ) mGy, DLP = ( 1713.93 ) mGycm Individualized dose optimization techniques were used for this CT. COMPARISON: None. LIMITATIONS: None. FINDINGS: Extensive marked edema within the soft tissues deep muscle layers diffusely about the shoulder, extending to the anterior chest wall with fluid tracking along the deep fascial planes. Associated subcutaneous edema especially along the anterior chest wall and axilla. Joint effusion at the shoulder. More diffuse edema extending from the upper arm through the elbow with mild associated subcutaneous edema. Mild edema through the forearm. Lack of IV contrast limits evaluation for abscess. No air in soft tissues. Consolidation left lower lobe and small left pleural effusion. Fluid and stranding in the upper abdomen about the distal pancreas and left kidney, partially included. Soft tissues about the left hip in the gluteal region, and lateral and anterior to the hip with suggestion of mild diffuse edema involving the deep muscles and subcutaneous edema. Minimal joint effusion left hip. No lytic lesion or periosteal reaction identified. No fracture. CT/Extremity Upper without Contra IMPRESSION: Constellation of findings about the left shoulder with marked soft tissue edema involving the deep muscles may be consistent with deep cellulitis and/or necrotizing fasciitis and myositis. Joint effusion at the shoulder. Cannot exclude septic joint. Also suggestion of mild deep soft tissue edema about the left hip correlate for symptoms. Similar but much less pronounced compared to the shoulder. Minimal left hip joint effusion. MRI may be helpful. Associated findings left lower lobe consolidation, small left pleural effusion. Abdominal findings peripancreatic fluid and left perirenal fluid. Electronically Signed: Eve Rome MD at 4:13 EDT ,
--- NOTE | 2023-08-11 03:00 | NURSING ---
0300- Pulse check of L arm, radial. Pulse present, 1+
[2023-08-11] MEDS: 0.9% Saline Lock 10 ML Syringe IV (03:02)
[2023-08-11] MEDS: Sodium Bicarbonate 150 MEQ in Dextrose 5%-Water (1000mL Bag) 1,000 ML IV (03:02)
[2023-08-11] MEDS: Morphine 2 MG/ML Syringe IV ×2 (03:02→06:21)
[2023-08-11 03:06] LABS: Absolute Lymphocyte Count 1.35 X10^3/uL (0.83-4.51); Absolute Neutrophil Count 20.8 X10^3/uL (2.0-7.7); Basophil# 0.08 X10^3/uL; Basophil% 0.3 % (0-1); Hematocrit 39.1 % (37-47); Hemoglobin 12.7 g/dL (12.0-15.0); Lymphocyte # 1.35 X10^3/ul (0.83-4.51); Lymphocyte % 5.8 % (19-41); Mean Corp Hgb Conc 32.5 g/dL (32-36); Mean Corpuscular Hgb 27.1 pg (27.0-32.0); Mean Corpuscular Volume 83.5 fL (81-99); Mean Platelet Vol. 9.6 fl (6.2-12.0); Monocyte# 0.76 X10^3/uL; Monocyte% 3.3 % (0-10); NRBC Flagged by Analyzer 0 % (0-5); Neutrophil # 20.79 X10^3/uL (2.7-7.7); Neutrophil % 89.9 % (47-70); POSITIVE DIFFERENTIAL YES; Platelet Count 160 K/mm3 (150-450); RBC Distribution Width CV 14.9 % (11.6-14.6); Red Blood Count 4.68 M/mm3 (4.2-5.4); White Blood Count 23.2 K/mm3 (4.4-11.0)
--- NOTE | 2023-08-11 03:11 | PCM.PN.BLA ---
Progress Note Nurse reported patient's left arm is becoming dusky and pulses barely palpable. Patient was evaluated at the bedside. Patient was screaming and moaning. Patient with tachycardia, tachypnea. Left upper extremity is very tender. Impression with markers of SIRS of leukocytosis of more than 30,000; tachypnea; tachycardia and lactic acid of 7.9; and a tender and very indurated left upper extremity impression is necrotizing fasciitis. Reached out to Dr. Inocencio Soto, who does not do necrotizing fasciitis of the upper extremity and advised that patient's be transferred. Try to reach out to , unfortunately phone went to his voicemail which was full. Called [facility]. Asked to fax face sheet before there will be conference with surgeon for transfer.. Detailed to nurses to fax facesheet. Awaiting for surgeon conference at [facility] for transfer. CT of left upper extremity is ordered. Morning CMP to stat. Repeat lactic acid stat. Check CBC, stat. Morphine IV as needed ordered.
[2023-08-11 03:25] LABS: Differential Indicated SCAN CRITERIA MET
[2023-08-11 04:25] LABS: ALB/GLOB Ratio 0.8 RATIO (0.9-2.4); AST(SGOT) 3744 U/L (15-37); Alanine Aminotransfer ALT/SGPT 749 U/L (13-56); Albumin, Serum 2.2 g/dL (3.2-5.0); Alkaline Phosphatase 107 U/L (45-117); Anion Gap 16 (5-15); BUN 54 mg/dL (7-18); BUN/Creat Ratio 14.2 RATIO (10-20); Calcium,Total 5.4 mg/dL (8.5-10.1); Chloride 102 mmol/L (98-107); Creatinine, Serum 3.81 mg/dL (0.55-1.02); EST Glomerular Filtration Rate 14 mL/min (>60); Est Glom Filt Rate - Afr Amer 17 mL/min (>60); Estimated Creatinine Clearance 15.21 ml/min; Globulin 2.6 g/dL (2.2-4.2); Glucose 181 mg/dL (74-106); Potassium 4.6 mmol/L (3.5-5.1); Protein, Total 4.8 g/dL (6.4-8.2); Sodium Level 137 mmol/L (136-145)
[2023-08-11 04:32] LABS: Differential Comment SCANNED
--- NOTE | 2023-08-11 04:33 | PN_ITS ---
Progress Note Called [facility]. Transfer lineman service or work dispatcher stated that ICU patient's been boarded in the ED since there are no ICU beds. Attempted to reach [facility] for transfer. Placed on hold for at least 12 minutes.
--- NOTE | 2023-08-11 04:33 | PCM.PN.BLA ---
Progress Note Called [facility]. Transfer tele grout sewer line repairer stated that ICU patient's been boarded in the ED since there are no ICU beds. Attempted to reach [facility] for transfer. Placed on hold for at least 12 minutes.
[2023-08-11] MEDS: Acetaminophen 500 MG Tablet 1000 MG PO (04:38)
[2023-08-11] MEDS: traMADol 50 MG Tablet PO (04:38)
--- NOTE | 2023-08-11 04:50 | NURSING ---
Nursing nutritional yeast supervisor, Marge, called ICU to update this RN on status of patient's transfer. States that Dr. Osei has gotten acceptance from [facility] plastic surgery but is waiting on acceptance at from [facility]'s ICU/ training program manager and not planning on contacting other hospitals at this time. This RN informed that Dr. Osei has also reached out to [facility]. Charge nurse, Karsten, reached out to [facility] Transfer line and was informed that [facility] was only taking acute traumas and stemi's at this time. This RN asked Nursing Table Cut Off Saw Operator, Marge, if this RN and Alpesh Haque RN should attempt to reach out and [facility] for placement, Marge states that the transfer must be physician-physician.
--- NOTE | 2023-08-11 05:00 | NURSING ---
0500- Pulse check of L arm, radial. Pulse present, 1+
--- NOTE | 2023-08-11 05:20 | PN_ITS ---
Progress Note Called [facility] main. [facility] main requested face sheet. When the facesheet is received transfer center of [facility] will talk to [facility] Hospitalist. [facility] ICU nursing team notified.
--- NOTE | 2023-08-11 05:20 | PCM.PN.BLA ---
Progress Note Called [facility] main. [facility] main requested face sheet. When the facesheet is received transfer center of [facility] will talk to [facility] Hospitalist. [facility] ICU nursing team notified.
--- NOTE | 2023-08-11 05:47 | NURSING ---
0335- This RN called [facility] [place] transfer line and spoke with Gianna about transferring patient there. Gianna notified this RN that the plastic surgeon accepted but they were waiting for the ICU attending to confer and accept before continuing with transfer. She stated that they would call back once ICU attending made their decision. [id number]-This RN also called [facility] transfer line and was informed that they are not accepting any transfers due to capacity at this time. [id number]-This RN faxed patient's facesheet and called [facility] main transfer line. Waiting for call back with more information.
--- NOTE | 2023-08-11 06:11 | PCM.DC.SUM ---
Providers Date of Admission: 08/10/23 Date of Discharge: 08/11/23 Primary Care Physician: Dr. Phillip Andino MD Consultations 08/10/23 17:35 Consult: Cloth Measurer / Pulmonary Medicine Routine Consulting Provider: Pulmonary Medicine karina Westlake Reason for Consult: Severe sepsis EMERGENT Consult: No MD Notified: Yes Date Notified: 08/10/23 Time Notified: 17:05 Method of Notification: Text Reason For Visit: ACUTE KIDNEY INJURY, SEPSIS, HYPERKALEMIA, Diagnosis Discharge Diagnosis (1) Septic shock: Status: Acute Code(s): A41.9 - Sepsis, unspecified organism; R65.21 - Severe sepsis with septic shock (2) Cellulitis of left upper extremity: Status: Acute Code(s): L03.114 - Cellulitis of left upper limb (3) Necrotizing fasciitis: Status: Acute Code(s): M72.6 - Necrotizing fasciitis Medications at Discharge Home Medications mirtazapine 15 mg tablet 22.5 mg PO QHS sleep 01/30/18 quetiapine 100 mg tablet 200 mg PO QHS 03/22/18 estradiol 0.01% (0.1 mg/gram) vaginal cream See Rx Instructions vaginal .COMPLEX #42.5 grams 07/09/21 metronidazole 500 mg tablet 500 mg PO BID #14 tabs 07/09/21 lorazepam 0.5 mg tablet (Ativan) 0.5 mg PO BID PRN anxiety #14 tabs 11/21/21 lorazepam 0.5 mg tablet (Ativan) 0.5 mg PO TID PRN anxiety 5 days #14 tabs 12/04/21 diazepam 5 mg tablet 5 mg PO Q8 PRN Muscle Spasm #10 tabs 01/04/22 prednisone 20 mg tablet 60 mg (3 x 20 mg) PO DAILY #12 tabs 01/04/22 lorazepam 0.5 mg tablet (Ativan) 0.5 mg PO DAILY PRN anxiety #3 tabs 08/08/22 estradiol 1 mg tablet 1 mg PO DAILY #30 tabs 03/24/23 Hospital Course Summary of Care Provided Minutes Spent on Discharge: 60 Hospital Course: Patient was on IV drug use reportedly presented to the ED after falling out of bed and felt weak. She reports pain in her left upper extremity thereafter. Patient although is an IV drug user denies shooting drugs in the past 30 days. However reportedly drug paraphernalia was found around her bed. On presentation patient was found to have WALTER and septic shock with lactic acid of 7.2. White count was 35.1; and potassium was more than 10. Patient was in WALTER with bicarbonate of 14 that decreased to 9.0. Creatinine was 3.45. Patient was hypotensive. Patient had septic shock likely from infection of her left arm. She received IVF per septic shock protocol. Her lactic acid was trended. Blood Cx and urine cx were obtained. She had standard hyperkalemia treatment and she was placed on bicarb drip and shipped to the Unit. She received dextrose with insulin; calcium gluconate; albuterol inhalation; Kayexalate with MiraLAX. She was started on Zyvox and Zosyn. Follow the unit nurse reported patient's left upper extremity got dusky and her pulses in the left upper extremity became diminished. Patient was assessed at the bedside and noted to have excruciating pain and tenderness in the left arm. She was tachycardic. She was tachypneic. She was alert and oriented x4. Patient was the patient had progressed to have necrotizing fasciitis. Repeat labs were ordered. CT scan of the left upper extremity was ordered without contrast. CT scan of left upper extremity was concerning for deep tissue cellulitis; myositis or necrotizing fasciitis. Potassium trended down. Her bicarbonate improved. Since there was no surgeon on-call to do a fasciotomy or debridement as a hospital transfer was sought. Many hospitals were called. To have hospital accept the patient and patient will be transferred day. Case were discussed with a plastic surgeon at [facility], Dr. Moyer. Dr. Moyer was okay to follow if accepted by jewelry sales representative. Discussed with jewelry sales representative Dr. Reyna of the patient and made recommendations. Recommendations was to clindamycin to regimen and replace calcium. Weight / BMI Weight Weight: 59.7 kg Body Mass Index (BMI) 24.0 ABG / Lab / Microbiology Data 08/11/23 02:56 08/11/23 02:56 Laboratory: Laboratory Results - last 24 hr 08/10/23 11:30: WBC 35.1 H*, RBC 6.21 H, Hgb 16.8 H, Hct 54.5 H, MCV 87.8, MCH 27.1, MCHC 30.8 L, RDW Std Deviation 48.0 H, RDW Coeff of Rufus 15.1 H, Plt Count 353, MPV 9.5, Immature Gran % (Auto) 2.000 H, Neut % (Auto) 72.8 H, Lymph % (Auto) 3.8 L, [place] % (Auto) 3.4, Eos % (Auto) 17.9 H, Baso % (Auto) 0.1, Absolute Neuts (auto) 25.5 H, Absolute Lymphs (auto) 1.35, Nucleated RBC % 0, Differential Comment COMMENT, Diff Path Review February, Sodium 132 L, Potassium > 10.0 H*, Chloride 103, Carbon Dioxide 14.0 L, Anion Gap 15, BUN 39 H, Creatinine 3.45 H, Estim Creat Clear Calc 18.34, Est GFR (MDRD) Af Amer 19 L, Est GFR (MDRD) Non-Af 16 L, BUN/Creatinine Ratio 11.3, Glucose 117 H, Lactic Acid 7.2 H*, Calcium 6.8 L 08/10/23 12:40: Sodium Cancelled, Potassium Cancelled, Chloride Cancelled, Carbon Dioxide Cancelled, Anion Gap Cancelled, BUN Cancelled, Creatinine Cancelled, Estim Creat Clear Calc Cancelled, Est GFR (MDRD) Af Amer Cancelled, Est GFR (MDRD) Non-Af Cancelled, BUN/Creatinine Ratio Cancelled, Glucose Cancelled, Calcium Cancelled 08/10/23 15:03: Sodium 126 L, Potassium 8.4 H*, Chloride 94 L, Carbon Dioxide 9.0 L*, Anion Gap 23 H, BUN 40 H, Creatinine 3.87 H, Estim Creat Clear Calc 16.35, Est GFR (MDRD) Af Amer 16 L, Est GFR (MDRD) Non-Af 14 L, BUN/Creatinine Ratio 10.3, Glucose 640 H*, Calcium 11.1 H 08/10/23 15:45: Lactic Acid 7.9 H* 08/10/23 16:04: MRSA (PCR) Negative 08/10/23 16:40: POC Glucose 234 H 08/10/23 18:12: Urine Color Allyn, Urine Clarity Turbid, Urine pH 6.5, Ur Specific [place] 1.020, Urine Protein 500 H, Urine Glucose (UA) 100 H, Urine Ketones 5 H, Urine Occult Blood 250 H, Urine Nitrite Positive H, Urine Bilirubin Negative, Urine Urobilinogen Normal, Ur Leukocyte Esterase 100 H, Urine RBC 5-10 SEEN, Urine WBC 5-10 SEEN, Ur Squamous Epith Cells 0-5 SEEN, Ur Renal Epithelial Cell 0-5 SEEN, Amorphous Sediment 3+, Urine Bacteria 2+, Coarse Granular Casts 5-10 SEEN, Urine Mucus 0 SEEN, Urine Opiates Screen POSITIVE H, Urine Methadone Screen NEGATIVE, Ur Barbiturates Screen NEGATIVE, Ur Phencyclidine Scrn NEGATIVE, Ur Amphetamines Screen NEGATIVE, MDMA (Ecstasy) Screen NEGATIVE, U Benzodiazepines Scrn NEGATIVE, Urine Cocaine Screen NEGATIVE, U Cannabinoids Screen NEGATIVE, Ur Drug Screen Comment 08/10/23 19:58: Sodium 136, Potassium 6.5 H*, Chloride 107, Carbon Dioxide 15.0 L, Anion Gap 14, BUN 44 H, Creatinine 3.49 H, Estim Creat Clear Calc 16.61, Est GFR (MDRD) Af Amer 19 L, Est GFR (MDRD) Non-Af 15 L, BUN/Creatinine Ratio 12.6, Glucose 206 H, Calcium 5.2 L* 08/10/23 21:58: POC Glucose 206 H 08/11/23 02:56: WBC 23.2 H, RBC 4.68, Hgb 12.7, Hct 39.1, MCV 83.5, MCH 27.1, MCHC 32.5 D, RDW Std Deviation 45.0 H, RDW Coeff of Rufus 14.9 H, Plt Count 160, MPV 9.6, Immature Gran % (Auto) 0.700, Neut % (Auto) 89.9 H, Lymph % (Auto) 5.8 L, [place] % (Auto) 3.3, Eos % (Auto) 0.0, Baso % (Auto) 0.3, Absolute Neuts (auto) 20.8 H, Absolute Lymphs (auto) 1.35, Nucleated RBC % 0, Differential Comment SCANNED, Sodium 137, Potassium 4.6, Chloride 102, Carbon Dioxide 19.0 L, Anion Gap 16 H, BUN 54 H, Creatinine 3.81 H, Estim Creat Clear Calc 15.21, Est GFR (MDRD) Af Amer 17 L, Est GFR (MDRD) Non-Af 14 L, BUN/Creatinine Ratio 14.2, Glucose 181 H, Lactic Acid 4.0 H*, Calcium 5.4 L*, Total Bilirubin 0.20, AST 3744 H, ALT 749 H, Alkaline Phosphatase 107, Total Protein 4.8 L, Albumin 2.2 L, Globulin 2.6, Albumin/Globulin Ratio 0.8 L Radiography Diagnostic Testing: Radiology Impression Brain CT 08/10/23 10:37 IMPRESSION: No acute intracranial process. Electronically Signed: Ania Gupta MD at 12:14 EDT , Chest X-Ray 08/10/23 15:43 IMPRESSION: No acute cardiopulmonary abnormality. Satisfactory central line placement. Electronically Signed: Kevin Sanchez MD at 15:58 EDT , Upper Extremity CT 08/11/23 02:50 IMPRESSION: Constellation of findings about the left shoulder with marked soft tissue edema involving the deep muscles may be consistent with deep cellulitis and/or necrotizing fasciitis and myositis. Joint effusion at the shoulder. Cannot exclude septic joint. Also suggestion of mild deep soft tissue edema about the left hip correlate for symptoms. Similar but much less pronounced compared to the shoulder. Minimal left hip joint effusion. MRI may be helpful. Associated findings left lower lobe consolidation, small left pleural effusion. Abdominal findings peripancreatic fluid and left perirenal fluid. Electronically Signed: Eve Rome MD at 4:13 EDT , ADDENDUM: 08/11/23 [id number] IMPRESSION: Constellation of findings about the left shoulder with marked soft tissue edema involving the deep muscles may be consistent with deep cellulitis and/or necrotizing fasciitis and myositis. Joint effusion at the shoulder. Cannot exclude septic joint. Also suggestion of mild deep soft tissue edema about the left hip correlate for symptoms. Similar but much less pronounced compared to the shoulder. Minimal left hip joint effusion. MRI may be helpful. Associated findings left lower lobe consolidation, small left pleural effusion. Abdominal findings peripancreatic fluid and left perirenal fluid. N.B. : The above Results were Read Back by Eve Rome MD to DANK KLINE RN, and understanding confirmed on 08/11/2023 04:40:39 (ET). Electronically Signed: Eve Rome MD at 4:13 EDT , Meaningful Use Info Meaningful Use Diagnoses (Choose all that apply): None applicable Discharge Plan Admission Admit Date/Time: 08/10/23 17:02 Primary Reason for Your Visit: L arm cellulitis, sepsis, walter Attending Provider: Manuelito Tucker Primary Care Provider: Phillip Andino Consulting Providers: Pasquale Wolff; Tristian Lowry; Naren Flannery; John Augustine; Vasquez Phillips; Teodora Sullivan CHIEF EXECUTIVE OR MANAGING DIRECTOR Discharge Orders/Prescriptions Prescriptions: No Action estradiol 0.01 % (0.1 mg/gram) cream See Rx Instructions vaginal .COMPLEX Qty: 42.5 2RF Rx Instructions: small amount as directed vaginal every other day X 4 weeks then twice a week; metronidazole 500 mg tablet 500 mg PO BID Qty: 14 0RF quetiapine 100 MG tablet 200 mg PO QHS mirtazapine 15 MG tablet 22.5 mg PO QHS lorazepam [Ativan] 0.5 mg tablet 0.5 mg PO BID PRN (Reason: anxiety) Qty: 14 0RF lorazepam [Ativan] 0.5 mg tablet 0.5 mg PO TID PRN (Reason: anxiety) 5 Days Qty: 14 0RF prednisone 20 MG tablet 60 mg PO DAILY Qty: 12 0RF diazepam [diazepam] 5 MG tablet 5 mg PO Q8 PRN (Reason: Muscle Spasm) Qty: 10 0RF lorazepam [Ativan] 0.5 mg tablet 0.5 mg PO DAILY PRN (Reason: anxiety) Qty: 3 0RF estradiol 1 mg tablet 1 mg PO DAILY Qty: 30 0RF Referrals / Follow Up: Phillip Andino MD [Primary Care Provider] - Disposition Disposition (needs filled in before D/C Order can be placed): Acute Care Hospital Charges/Coding Visit Charges Inpatient E&M: 69409 SNF Disch >30 Min
[2023-08-11] MEDS: Calcium Gluconate IV 2 GM in 0.9% Normal Saline (100mL Bag) 100 ML IV (06:21)
[2023-08-11] MEDS: Clindamycin 600 MG/50 ML BAG 100 MG IV (06:21)
[2023-08-11 07:04] LABS: Reflex Lactate? Y
[2023-08-12 09:15] LABS: Pathologist Review Reviewed
== END 2023-08-11 06:55 | disposition short-term general hospital (02) | DRG 871 ==
LOC: ED 15:56 → ICU 17:08
PROVIDERS: Hospitalist; Admitting Provider Family Medicine; Emergency Provider Emergency Medicine; PCP Family Medicine; Visit Provider Family Medicine
DX: A41.9 Sepsis, unspecified organism (principal); R65.21 Severe sepsis with septic shock; M72.6 Necrotizing fasciitis; E87.20 Acidosis, unspecified; N17.9 Acute kidney failure, unspecified; L03.114 Cellulitis of left upper limb; J45.909 Unspecified asthma, uncomplicated; F32.A Depression, unspecified; E87.5 Hyperkalemia; F17.210 Nicotine dependence, cigarettes, uncomplicated; F41.9 Anxiety disorder, unspecified; R73.9 Hyperglycemia, unspecified; Z88.0 Allergy status to penicillin; Z79.899 Other long term (current) drug therapy
CPT/HCPCS: 70450; 71045; 73200; 80048; 80053; 80307; 81001; 82550; 82962; 83605; 85025; 87040; 87086; 87641; 93005; 94640; 94762; 99285; J2020; J7030; A4216; C1751; J0612